=== PATIENT | female | born 1950 | race Caucasian/White ===

== ENCOUNTER 2025-02-04 11:10 | Outpatient (CLI) | payer MEDICARE, SELFPAY ==
[2025-02-04 11:37] LABS: Basophils Percent Auto 0.6 % (0.2-1.2); Eosinophils Absolute Auto 0.2 K/mm3 (0-0.3); Hematocrit 40.6 % (37.0-47.0); Hemoglobin 12.3 g/dL (12.0-15.0); Immature Granulocyte Absolute 0.03 K/mm3 (0.00-0.031); Immature Granulocyte Percent A 0.6 % (0-0.5); Lymphocytes Absolute Auto 1.82 K/mm3 (0.9-3.2); Lymphocytes Percent Auto 38.6 % (18.3-44.2); Mean Corpuscular HGB Conc 30.3 g/dl (32-36); Mean Corpuscular Hemoglobin 29.4 pg (26-34); Mean Corpuscular Volume 97.1 fl (80-100); Mean Platelet Volume 9.5 fl (7.4-10.4); Monocytes Absolute Auto 0.5 K/mm3 (0.1-0.6); Neutrophils Absolute Auto 2.2 K/mm3 (1.3-6.7); Neutrophils Percent Auto 46.2 % (45.5-73.1); Platelet Count Result 231 k/mm3 (150-375); Red Blood Count 4.18 M/mm3 (4.2-5.4); Red Cell Distribution Width 13.3 % (11.5-14.5); White Blood Count 4.7 K/mm3 (4.5-10.0)
--- OUTSIDE RECORDS SUMMARY | 2025-02-04 11:42 | XMS_ITS | Clinical Summary ---
Author Organization [facility] Address [address] [place] [phone] Phone Care Team Providers Care Sweeper Operator Highways Name Role Phone Unavailable Primary Care Provider [...] Additional history exists INFLUENZA VACCINE (#1) 2024 2, 08/05/2021, 06/29/2020, Additional history exists RSV VACCINE (60+ or ) (1 - 1-dose 75+ series) 2026 OSTEOPOROSIS SCREENING 05/08/2027 05/08/2022, 2017 PNEUMOCOCCAL VACCINE 50+ YEARS Completed 0 02/11/2019, 06/15/2017, 10/25/2016, Additional history exists Insurance [address] [place] [id number] [facility] Myze [facility]
--- OUTSIDE RECORDS SUMMARY | 2025-02-04 11:42 | XMS_ITS | Clinical Summary ---
Author Organization [facility] at the [facility] Office Center Address [address] [place] [address] Care Team Providers Care Power Saw Operator Name Role Phone Ava Galvan MD Unavailable [phone] Nuha Marquez MD Unavailable [phone] Renu Mosqueda MD Unavailable [phone] Ava Galvan MD Primary Care Provider [phone] Dimitri Messer MD Unavailable [phone] Toney Vergara MD Unavailable [phone] Allergies No known active allergies Medications [...] 1 TABLET EVERY NIGHT 90 tablet 3 09/24/2 024 Active carvediloL (COREG) 12.5 mg tablet TAKE 1 TABLET TWICE DAILY WITH MEALS 180 tablet 3 024 Active fenofibrate nanocrystallized (TRICOR) 145 mg [...] EVERY DAY 90 tablet 1 025 Active lisinopriL (PRINIVIL,ZESTRIL) 5 mg tabletIndications:Prima ry hypertension TAKE 1 TABLET EVERY DAY 90 tablet 3 025 Active amLODIPine (NORVASC) 10 mg tablet TAKE 1 TABLET EVERY DAY 90 tablet 1 024 2024 Discontinued lisinopriL (PRINIVIL,ZESTRIL) 5 mg tabletIndications:Prima ry hypertension TAKE 1 TABLET EVERY DAY 90 tablet 1 024 2024 Discontinued Active Problems Problem Noted Date Diagnosed Date Invasive lobular carcinoma of breast in female 0 01/30/2025 History of breast cancer 01/30/2025 Nephrolithiasis 10/22/2024 Calculus of gallbladder with acute cholecystitis without obstruction 10/22/2024 Assessment & Plan (11/02/2024 6:48 PM CHILLER TECHNICIAN): New Refer to general surgery Abdominal pain 10/10/2024 Acute cholecystitis 10/10/2024 Obstruction of right uretero pelvic junction (UPJ) due to stone 10/10/2024 Hydronephrosis of right kidney 10/10/2024 Post-menopausal 07/30/2024 Mixed hyperlipidemia 07/30/2024 Assessment & Plan (11/02/2024 6:49 PM CHILLER TECHNICIAN): Chronic Stable Cont lipitor, zetia, tricor Goal: TC<200, LDL<100, TG<150 Assessment & Plan (08/10/2024 9:18 PM CHILLER TECHNICIAN): Chronic Stable Cont lipitor, zetia, tricor Goal: TC<200, LDL<100, TG<150 Non-seasonal allergic rhinitis 11/05/2023 Assessment & Plan (11/05/2023 3:29 PM CHILLER TECHNICIAN): I am recommending allergy testing because of [...] Plan (12/29/2022 11:36 AM CDT): New Order zpack, medrol Order CT sinuses Refer to ENT Uncontrolled hypertension 10/19/2022 Assessment & Plan (10/27/2022 3:04 AM CHILLER TECHNICIAN): Uncontrolled Add toprol Cont amlodipine Goal: SBP<140, DBP<90 Hypercalcemia 10/19/2022 Assessment & Plan (10/27/2022 2:59 AM CHILLER TECHNICIAN): recheck Epigastric abdominal pain 10/19/2022 Assessment & Plan (10/27/2022 2:56 AM CHILLER TECHNICIAN): New Order prilosec Order gallbladder ultrasound and HIDA scan Refer to GI LUQ abdominal pain 10/19/2022 Assessment & Plan (10/27/2022 2:56 AM CHILLER TECHNICIAN): New Order prilosec Order gallbladder ultrasound and HIDA scan Refer to GI Primary insomnia 10/19/2022 Assessment & Plan (10/27/2022 3:00 AM CHILLER TECHNICIAN): New Start ambien Pure hypercholesterolemia 10/17/2021 Assessment & Plan (08/05/2023 9:33 AM CHILLER TECHNICIAN): Chronic Stable Cont lipitor, zetia, tricor, vascepa Goal: TC<200, LDL<100, TG<150 Assessment & Plan (04/27/2023 3:31 AM CDT): Chronic Stable Cont lipitor, tricor, zetia Goal: TC<200, LDL<100, TG<150 Assessment & Plan (12/29/2022 11:35 AM CDT): Chronic stable Cont lipitor, fenofibrate, vascepa Order zetia Goal: TC<200, LDL<100, TG<150 Assessment & Plan (10/27/2022 2:54 AM CHILLER TECHNICIAN): improved Cont lipitor, fenofibrate, vascepa Order zetia Goal: TC<200, LDL<100, TG<150 Assessment & Plan (10/17/2021 5:14 PM CHILLER TECHNICIAN): Uncontrolled Cont lipitor, fenofibrate, vascepa Order zetia Goal: TC<200, LDL<100, TG<150 Encounter for Medicare annual wellness exam 02/15 Assessment & Plan (08/10/2024 9:17 PM CHILLER TECHNICIAN): Patient here for annual Medicare wellness visit [...] visit. Assessment & Plan (08/05/2023 9:30 AM CHILLER TECHNICIAN): Patient here for annual Medicare wellness visit [...] 08/25/2020 Assessment & Plan (09/16/2020 5:20 PM CHILLER TECHNICIAN): New Refer to GI Breast pain, right 07/31/2020 Assessment & Plan (08/01/2020 5:04 AM CHILLER TECHNICIAN): Likely infection Order cefdinir SOB (shortness of breath) 08/19/2019 Assessment & Plan (03/07/2021 7:08 PM CDT): Negative cardiac workup. Assessment & Plan (09/06/2020 5:59 PM CHILLER TECHNICIAN): Unremarkable cardiac workup. Assessment & Plan (03/09/2020 10:22 AM CDT): The CBC, T4 TSH electrolytes were okay. The CT angio of the lungs was negative for pulmonary embolism. Echo showed small pericardial effusion unchanged since 2017. BNP level was ordered but not drawn. Assessment & Plan (09/30/2019 9:30 AM CHILLER TECHNICIAN): Dyspnea for 2 months which has already improved. The recent CBC, T4 TSH, electrolytes, chemistries are okay. CT angio of the lungs is negative for pulmonary embolism. Small pericardial effusion which is unchanged since 2017. EKG today shows normal sinus rhythm, normal QRS morphology. Will get a BNP level today. Consider echo Doppler if necessary. Assessment & Plan (08/27/2019 4:27 PM CHILLER TECHNICIAN): Order CTA chest r/o PE vs infectious or inflammatory process Changes in skin texture 08/19/2019 Assessment & Plan (05/25/2023 5:49 AM CDT): New Refer to derm Assessment & Plan (08/27/2019 4:27 PM CHILLER TECHNICIAN): Refer to derm Acute non-recurrent maxillary sinusitis 08/19/20 19 Assessment & Plan (08/27/2019 4:27 PM CHILLER TECHNICIAN): Order esther zhang Precordial chest pain 03/03/2019 Assessment & Plan (03/07/2021 7:08 PM CDT): Negative stress echo 03/13/2017. Assessment & Plan (09/06/2020 5:59 PM CHILLER TECHNICIAN): Negative stress echo 03/13/2017. Assessment & Plan (03/05/2020 5:04 PM CDT): Negative stress echo 03/13/2017. Functional class 1. Assessment & Plan (09/29/2019 7:38 PM CHILLER TECHNICIAN): Negative stress echo 03/13/2017. Functional class 1. [...] pericarditis. A chronic finding without any significant oil changer the years. The PPD skin test done by the primary care physician was negative. There is history of BCG vaccination in the remote past. CTA of the chest 09/01/2019 showed no pulmonary embolism. A small pericardial effusion was unchanged from before. 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 This is a chronic finding without any significant oil changer the years. The PPD skin test done [...] is a chronic finding without any significant oil changer the years. The PPD skin test done at primary care physician was negative. There is history of receiving BCG vaccination in the remote past. CTA of the chest 09/01/2019 showed no pulmonary embolism. A small pericardial effusion is unchanged from before. Assessment & Plan (09/30/2019 9:29 AM CHILLER TECHNICIAN): Chronic loculated pericardial effusion with localized area of pericardial thickening. The picture is not consistent with constrictive pericarditis. This is a chronic finding without any significant oil changer the years. The PPD skin test done [...] is a chronic finding without any significant oil changer the years. The PPD skin test suggested [...] control. Assessment & Plan (09/06/2020 5:55 PM CHILLER TECHNICIAN): Related to hypertensive heart disease. Aggressive blood pressure control. Assessment & Plan (03/05/2020 5:01 PM CDT): Related to the hypertensive heart disease. Aggressive blood pressure control. Assessment & Plan (09/29/2019 7:39 PM CHILLER TECHNICIAN): Related to the hypertensive heart disease. Aggressive blood pressure control. Assessment & Plan (03/04/2019 9:24 AM CDT): Related to the hypertensive heart disease. EKG today shows a normal sinus rhythm, normal QRS morphology. No left ventricular hypertrophy appreciated on this EKG. Non-rheumatic tricuspid valve insufficiency 04/2017 Hypertension 01/30/2017 Assessment & Plan (11/02/2024 6:49 PM CHILLER TECHNICIAN): Chronic Stable Cont norvasc, coreg, lisinopril Goal: SBP<140, DBP<90 Assessment & Plan (08/10/2024 9:18 PM CHILLER TECHNICIAN): Chronic Stable Cont norvasc, coreg, lisinopril Goal: SBP<140, DBP<90 Assessment & Plan (08/05/2023 9:32 AM CHILLER TECHNICIAN): Chronic Stable Cont coreg, lisinopril Goal: SBP<140, DBP<90 Assessment & Plan (05/25/2023 5:49 AM CDT): Chronic Uncontrolled Add lisinopril Cont norvasc Goal: SBP<140, DBP<90 Assessment & Plan (04/27/2023 3:31 AM CDT): Chronic Stable Cont norvasc Goal: SBP<140, DBP<90 Assessment & Plan (12/29/2022 11:35 AM CDT): Chronic Stable Cont coreg Cont amlodipine Goal: SBP<140, DBP<90 Assessment & Plan (11/24/2022 5:17 AM CHILLER TECHNICIAN): Uncontrolled Change toprol to coreg Cont amlodipine Goal: SBP<140, DBP<90 Assessment & Plan (10/17/2021 5:13 PM CHILLER TECHNICIAN): Stable Cont amlodipine, atenolol, hctz, Goal: SBP<140, DBP<90 Assessment & Plan (03/08/2021 10:19 AM CDT): Salt restriction. Amlodipine. Atenolol. Hydrochlorothiazide. Potassium chloride. Blood pressure 138/78. Assessment & Plan (03/02/2021 4:56 AM CDT): Stable Cont atenolol, norvasc, hctz Assessment & Plan (09/16/2020 5:20 PM CHILLER TECHNICIAN): Stable Cont atenolol, norvasc, hctz Assessment & Plan (09/07/2020 10:31 AM CHILLER TECHNICIAN): Blood pressure 132/84. Salt restriction. Continue the current regimen. Assessment & Plan (08/01/2020 5:04 AM CHILLER TECHNICIAN): Stable Cont atenolol, norvasc Assessment & Plan (03/29/2020 11:04 AM CDT): Stable Cont atenolol, norvasc Assessment & Plan (03/09/2020 10:21 AM CDT): Blood pressure 110/70. Salt restriction. Continue the current regimen. Assessment & Plan (09/30/2019 9:28 AM CHILLER TECHNICIAN): Blood pressure 120/78. Salt restriction. Continue the current regimen. Assessment & Plan (08/27/2019 4:26 PM CHILLER TECHNICIAN): Stable Cont atenolol, norvasc Assessment & Plan [...] 01/28/2024 Assessment & Plan (11/05/2023 3:33 PM CHILLER TECHNICIAN): She has a good nasal airway. She [...] 01/28/2024 Assessment & Plan (10/17/2021 5:15 PM CHILLER TECHNICIAN): Stable Cont KCL Assessment & Plan (03/08/2021 10:20 AM CDT): Supplemental potassium. Potassium was 3.9 in January 2021. Assessment & Plan (03/02/2021 4:57 AM CDT): Stable Cont klorcon Assessment & Plan (08/01/2020 5:05 AM CHILLER TECHNICIAN): Stable Cont klorcon Encounter for screening mamm [...] <150 Assessment & Plan (09/16/2020 5:19 PM CHILLER TECHNICIAN): TG still elevated Increase vascepa to 2 caps BID Cont lipitor, tricor Assessment & Plan (09/07/2020 10:31 AM CHILLER TECHNICIAN): Low-fat low-cholesterol diet. Atorvastatin. Fenofibrate. Vascepa. On 08/04/2020 triglycerides 196, LDL 49, total cholesterol 121, HDL 45. Assessment & Plan (08/01/2020 5:05 AM CHILLER TECHNICIAN): Uncontrolled Cont lipitor, tricor Assessment & Plan (03/29/2020 11:04 AM CDT): Uncontrolled Add vascepa Cont lipitor, tricor Assessment & Plan (03/09/2020 10:20 AM CDT): Low-fat low-cholesterol diet. Atorvastatin 20 mg bedtime daily. On 01/09/2020 cholesterol 147, triglyceride 270, HDL 53, LDL 62. Vascepa. Assessment & Plan (09/29/2019 7:38 PM CHILLER TECHNICIAN): Low-fat low-cholesterol diet. Atorvastatin 20 mg bedtime daily. On 12/29/2018 the LDL was 46. Assessment & Plan (08/27/2019 4:26 PM CHILLER TECHNICIAN): Stable Cont lipitor, tricor Assessment & Plan [...] Encounters Date Type Department Care Team Description 01/30/2025 9:30 AM CDT Office Visit [facility] Surgery [facility] [place] [address] [place] [address] Jaz Ramos NP Invasive lobular carcinoma of breast in female (HCC) (Primary Dx); History of breast cancer; History of mastectomy, bilateral 01/30/2025 [facility] ED Outreach [facility] Care Organization [address] [place] [id number] Janel Luna MA 01/29/2025 12:35 AM CDT - 01/29/2025 2:48 AM CDT Emergency [address] [address] Brad Morgan, Abdominal pain (Primary Dx); Biliary colic Discharge Disposition: Discharge to home or self care 01/12/2025 Results Follow-Up [facility] Medicine [address] [place] [address] [address] [place] [address] Anastasia Silva Thyroid Function [place], Comprehensive metabolic panel, Lipid panel, CBC with auto differential 12/02/2024 Telephone [facility] Cardiology [address] [place] [address] [phone] Sultan Alysia Hanson MD 11/26/2024 Telephone [facility] Medicine [address] [place] [address] [place] [phone] Ava Galvan MD Medical Question/Miscellaneou s 11/12/[address] [place] [phone] Ava Galvan MD Medical Question/Miscellaneou s 11/11/2024 Telephone [facility] Medicine [address] [place] [address] [place] [phone] Ava Galvan MD Medical Question/Miscellaneou s from Last 3 Months Immunizations Immunization Administration [...] = 0.6 oz pur e alcohol) occas [facility] Utilities Answer Date Recorded In the past 12 months has th e electric, gas, oil, or water company [...] often do you attend chur ch or adventist services? More than 4 times per year 10/10/2024 Do you belong to any clubs o r organizations such as sabianist groups, unions, fraternal or athletic groups, or [...] medical appointments or from getting medications? No 01/2 12/2024 In the past 12 months, has l [...] any time in the past 12 m [facility], were you homeless or living in a halfway (including now)? No 10/10/2024 Personal Safety Answer Date Recorded Have you ever been in or are you currently in a harmful physical or emotional relationship or is someone making you feel afraid or unsafe? Denies 01/28/2025 Comments No Sex and Gender Information Value [...] Sign Reading Time Taken Comments Blood Pressure 135/63 01/29/2025 2:30 AM CDT Pulse 54 01/29/2025 2:45 AM CDT Temperature 36.8 C (98.3 F) 01/28/2025 2:39 PM CDT Respiratory Rate 16 01/29/2025 1:00 AM CDT Oxygen Saturation 96% 01/29/2025 2:45 AM CDT Inhaled Oxygen Concentration - - Weight 78.9 kg (174 lb) 01/30/2025 8:57 AM CDT Height 162 cm (5' 3.78 ) 01/30/2025 8:57 AM CDT Body Mass Index 30.07 01/30/2025 8:57 AM CDT Plan of Treatment Health Maintenance Due Date [...] Procedure Name Priority Date/Time Associated Diagnosis Comments US GALLBLADDER ED 01/28/2025 10:45 PM CDT TROPONIN T HIGH-SENSITIVITY 6-HOUR Timed 01/28/2025 9:[address] ABDOMEN PELVIS W CONTRAST ED 01/28/2025 8:47 PM CDT URINALYSIS, MICROSCOPIC ONLY STAT 01/28/2025 8:33 PM CDT URINALYSIS AND REFLEX TO MICROSCOPIC AND CULTURE STAT 01/28/2025 8:33 PM CDT TROPONIN T HIGH-SENSITIVITY 4-HR Timed 01/28/2025 7:21 PM CDT TROPONIN T HIGH-SENSITIVITY 2-HOUR Timed 01/28/2025 7:21 PM CDT EGFR STAT 01/28/2025 3:31 PM CDT DIFFERENTIAL AUTO STAT 01/28/2025 3:3 1 PM CDT TROPONIN T HIGH-SENSITIVITY SERIES (BASELINE, 2HR, 4HR, 6HR) STAT 01/28/2025 3:31 PM CDT LIPASE STAT 01/28/2025 3:31 PM CDT COMPREHENSIVE METABOLIC PANEL STAT 01/28/2025 3:31 PM CDT CBC WITH AUTO DIFFERENTIAL STAT 01/28/2025 3:31 PM CDT ECG 12-LEAD STAT 01/28/2025 3:21 PM CDT CBC WITH AUTO DIFFERENTIAL Routine 01/05/2025 6:10 [...] Read Routine (OP Routine) 08/21/2024 9:23 AM CHILLER TECHNICIAN Post-menopausal SCREENING MAMMOGRAM BILATERAL W TIM Schedule Routine, Read Routine (OP Routine) 12/30/2021 11:44 AM CDT Encounter for screening mammogram for malignant neoplasm of breast STOOL DNA COLOGUARD Routine 10/26/2021 10:20 AM CHILLER TECHNICIAN Screening for colon cancer COLONOSCOPY Routine 08/09/2016 from Last 3 Months or Most Recently Relevant to Health Maintenance Results * US Gallbladder (01/28/2025 10:45 PM CDT) Anatomical Region Laterality Modality Abdomen N/A Ultrasound 01/28/2025 11:3 3 PM CDT Narrative 01/28/2025 11:36 PM CDT EXAM DESCRIPTION: US GALLBLADDER REASON FOR STUDY: Abdomen pain and nausea for 8 hours today. Cholelithiasis. Diffuse thickening of the gallbladder wall on preceding CT scan 01/28/2025. Gallbladder ultrasound was recommended. TECHNIQUE: Ultrasound of the gallbladder was performed with grayscale imaging. COMPARISON: 01/28/2025 and 10/09/2024 FINDINGS: GALLBLADDER: The gallbladder contains multiple large shadowing gallstones. The gallbladder wall is top-normal in thickness measuring 3 mm. No evidence of pericholecystic fluid. BILIARY SYSTEM: There is no evidence of intrahepatic or extrahepatic biliary ductal dilatation. The common bile duct measures 6 mm in diameter. LIVER: The liver demonstrates an increase in echotexture with attenuation of the ultrasound beam characteristic of fatty infiltration. No cystic or solid mass lesions identified within the liver. OTHER: No other significant findings. IMPRESSION: Cholelithiasis. The gallbladder wall is top-normal in thickness measuring 3 mm. No evidence of pericholecystic fluid. Fatty infiltration of the liver. THIS IS AN ELECTRONICALLY VERIFIED FINAL REPORT 01/28/2025 11:36 PM - Electronically signed by Gallo Ziegler M.D. KT T: Report ID: [id number] Reading Location: [id number] Procedure Note Gallo Ziegler MD - 01/28/2025 EXAM DESCRIPTION: US GALLBLADDER REASON FOR STUDY: Abdomen pain and nausea for 8 hours today. Cholelithiasis. Diffuse thickening of the gallbladder wall on precedingCT scan 01/28/2025. Gallbladder ultrasound was recommended. TECHNIQUE: Ultrasound of the gallbladder was performed with grayscaleimaging. COMPARISON: 01/28/2025 and 10/09/2024 FINDINGS: GALLBLADDER: The gallbladder contains multiple large shadowing gallstones. The gallbladder wall is top-normal in thickness measuring 3mm. No evidence of pericholecystic fluid. BILIARY SYSTEM: There is no evidence of intrahepatic or extrahepaticbiliary ductal dilatation. The common bile duct measures 6 mm in diameter. LIVER: The liver demonstrates an increase in echotexture with attenuationof the ultrasound beam characteristic of fatty infiltration. No cystic orsolid mass lesions identified within the liver. OTHER: No other significant findings. IMPRESSION: Cholelithiasis. The gallbladder wall is top-normal in thickness measuring3 mm. No evidence of pericholecystic fluid. Fatty infiltration of the liver. THIS IS AN ELECTRONICALLY VERIFIED FINAL REPORT 01/28/2025 11:36 PM - Electronically signed by Gallo Ziegler M.D. KT T: Report ID: [id number] Reading Location: [place] [address] us Philippe QUACH IMG US PROCEDURES Final Resu lt * Troponin T high-sensitivity 6-hour (01/28/2025 9:25 PM CDT) Trop T hs 7 <=14 ng/L Comment: Interpretive Data For further hscTnT resources including the diagnostic algorithm and an aid in interpretation, copy and paste this link: https://nrl.testcatalog.org/show/hsTrop Current Interpretive Data last revised 2020. Trop T hs delta 0 ng/L [facility] Trop T hs interp Insignificant [facility] Blood 01/28/2025 9:25 PM CDT 01/28/2025 9:33 PM CDT us Domenic Gray MD LAB BLOOD ORDERABLES Final Result [facility] [address] [facility] Department [place] [address] * CT Abdomen Pelvis W Contrast (01/28/2025 8:47 PM CDT) Anatomical Region Laterality Modality Body N/A Computed Tomogra phy 01/28/2025 9:24 PM CDT Narrative 01/28/2025 9:35 PM CDT EXAM DESCRIPTION: CT ABDOMEN PELVIS W CONTRAST REASON FOR STUDY: RUQ pain, nausea Pt with hx cholecystitis had flareup of RUQ pain, nausea @ 1430 today,. Nausea. Denies vomiting. Scheduled for surgery 02/11. Had lithotripsy yesterday for R kidney stone. TECHNIQUE: CT scan of the abdomen and pelvis performed with intravenous and without oral contrast using helical scanning technique with dynamic intravenous contrast injection. Reconstructed coronal and sagittal MPR images reviewed. All images stored on PACS. Automated exposure control was used as a dose optimization technique for this examination. CONTRAST TYPE/DOSE: 100mL of IOVERSOL 350 MG IODINE/ML INTRAVENOUS SYRINGE injected via intravenous COMPARISON: 10/09/2024 FINDINGS: LOWER CHEST: Cardiomegaly with small pericardial effusion, unchanged. Coronary artery calcification. Small hiatal hernia. LIVER: Decreased attenuation as seen with fibrofatty changes. Stable 1 cm low-density lesion within the right hepatic lobe, likely representing a cyst or hemangioma. GALLBLADDER: The gallbladder contains multiple large partially calcified gallstones and there is diffuse thickening of the gallbladder wall which is unchanged compared with 10/09/2024. If there is clinical concern for cholecystitis, consider correlation with gallbladder ultrasound. BILE DUCTS: No intrahepatic or extrahepatic ductal dilatation. SPLEEN: Normal size. No focal lesions. PANCREAS: No identified cystic or solid masses. No significant calcifications. No adjacent inflammation or peripancreatic fluid collections. Pancreatic duct not dilated. ADRENALS: Normal. KIDNEYS/URINARY TRACT: Bilateral renal cysts. There is a 6 mm nonobstructing stone in the proximal right ureter. This is located just distal to the right ureteropelvic junction. There are nonobstructing stones in the lower pole of the right kidney. No hydronephrosis or hydroureter. Symmetric enhancement. Urinary bladder is unremarkable. GI: No dilated bowel loops. No obvious wall thickening. Normal appendix. Scattered diverticular disease without diverticulitis. PERITONEUM: No ascites or free air. RETROPERITONEUM: No mass or adenopathy. REPRODUCTIVE: No significant abnormality. VASCULATURE: Atherosclerotic disease in the aorta and iliacs MUSCULOSKELETAL: No significant abnormality. OTHER: No other abnormality. IMPRESSION: 6 mm nonobstructing stone in the proximal right ureter. This is located just distal to the right ureteropelvic junction. Nonobstructing stones lower pole right kidney. Bilateral renal cysts. Cholelithiasis with diffuse thickening of the gallbladder wall which is unchanged compared with 10/09/2024. If there is clinical concern for cholecystitis, consider correlation with gallbladder ultrasound. Fatty infiltration of the liver. Stable 1 cm low-density lesion right hepatic lobe, likely representing a cyst or hemangioma. Diverticulosis. No evidence of diverticulitis. Cardiomegaly with small pericardial effusion, unchanged. Coronary artery calcification. Small hiatal hernia. THIS IS AN ELECTRONICALLY VERIFIED FINAL REPORT 01/28/2025 9:35 PM - Electronically signed by Gallo Ziegler M.D. KT T: Report ID: [id number] Reading Location: [id number] Procedure Note Gallo Ziegler MD - 01/28/2025 EXAM DESCRIPTION: CT ABDOMEN PELVIS W CONTRAST REASON FOR STUDY: RUQ pain, nausea Pt with hx cholecystitis had flareup of RUQ pain, nausea @ 1430 today,. Nausea. Denies vomiting. Scheduled for surgery 02/11. Had lithotripsyyesterday for R kidney stone. TECHNIQUE: CT scan of the abdomen and pelvis performed with intravenousand without oral contrast using helical scanning technique with dynamic intravenous contrast injection. Reconstructed coronal and sagittal MPRimages reviewed. All images stored on PACS. Automated exposure control was usedas a dose optimization technique for this examination. CONTRAST TYPE/DOSE: 100mL of IOVERSOL 350 MG IODINE/ML INTRAVENOUSSYRINGE injected via intravenous COMPARISON: 10/09/2024 FINDINGS: LOWER CHEST: Cardiomegaly with small pericardial effusion, unchanged. Coronary artery calcification. Small hiatal hernia. LIVER: Decreased attenuation as seen with fibrofatty changes. Stable 1cm low-density lesion within the right hepatic lobe, likely representing acyst or hemangioma. GALLBLADDER: The gallbladder contains multiple large partially calcified gallstones and there is diffuse thickening of the gallbladder wall whichis unchanged compared with 10/09/2024. If there is clinical concern for cholecystitis, consider correlation with gallbladder ultrasound. BILE DUCTS: No intrahepatic or extrahepatic ductal dilatation. SPLEEN: Normal size. No focal lesions. PANCREAS: No identified cystic or solid masses. No significant calcifications. No adjacent inflammation or peripancreatic fluidcollections. Pancreatic duct not dilated. ADRENALS: Normal. KIDNEYS/URINARY TRACT: Bilateral renal cysts. There is a 6 mm nonobstructing stone in the proximal right ureter. This is located just distal to the right ureteropelvic junction. There are nonobstructingstones in the lower pole of the right kidney. No hydronephrosis or hydroureter. Symmetric enhancement. Urinary bladder is unremarkable. GI: No dilated bowel loops. No obvious wall thickening. Normal appendix. Scattered diverticular disease without diverticulitis. PERITONEUM: No ascites or free air. RETROPERITONEUM: No mass or adenopathy. REPRODUCTIVE: No significant abnormality. VASCULATURE: Atherosclerotic disease in the aorta and iliacs MUSCULOSKELETAL: No significant abnormality. OTHER: No other abnormality. IMPRESSION: 6 mm nonobstructing stone in the proximal right ureter. This is locatedjust distal to the right ureteropelvic junction. Nonobstructing stones lowerpole right kidney. Bilateral renal cysts. Cholelithiasis with diffuse thickening of the gallbladder wall which is unchanged compared with 10/09/2024. If there is clinical concern for cholecystitis, consider correlation with gallbladder ultrasound. Fatty infiltration of the liver. Stable 1 cm low-density lesion righthepatic lobe, likely representing a cyst or hemangioma. Diverticulosis. No evidence of diverticulitis. Cardiomegaly with small pericardial effusion, unchanged. Coronary artery calcification. Small hiatal hernia. THIS IS AN ELECTRONICALLY VERIFIED FINAL REPORT 01/28/2025 9:35 PM - Electronically signed by Gallo Ziegler M.D. KT T: Report ID: [id number] Reading Location: [place] [address] PROCEDURES Final Resu lt * (ABNORMAL) Urinalysis reflex to microscopic and culture Urine (01/28/2025 8:33 PM CDT) Color, ur Yellow Yellow Clarity, ur Clear Clear GUILLERMINA Specific gravity, ur 1.012 1.003 - 1.030 GUILLERMINA pH, urine 6.5 GUILLERMINA Comment: Interpretive Data U rine pH is affected by diet, medications, systemic acid-base disturbances, and renal tubular function. pH may affect urinary stone formation. For example, urine pH below 6.0 may help reduce the tendency for calcium phosphate stones and pH greater than 6.0 may reduce the tendency for uric acid stone formation. Source: [facility] Current Interpretive Data was last revised on 2017 Protein, ur ql Negative Negative [facility] Glucose, ur ql Negative Negative [facility] Ketones, ur Negative Negative [facility] Bilirubin, ur Negative Negative [facility] Blood, ur 2+(A) Negative [facility] Urobilinogen, ur <2.0 <2.0 mg/dL [facility] Nitrite, ur Negative Negative [facility] Leukocyte esterase, ur Negative Negative [facility] UA reflex comment Reflex to microscopic UA will be performed. [facility] Urine 01/28/2025 8:33 PM CDT 01/28/2025 8:36 PM CDT [facility] MICROBIOLOGY - GEN ERAL ORDERABLES Final Result Performing Organization Address [facility] Co de Phone Number [address] [place] [address] * (ABNORMAL) Urinalysis, microscopic only (01/28/2025 8:33 PM CDT) WBC, ur 0-5 0 - 5 /HPF RBC, ur >50(A) 0 - 2 /HPF [facility] Mucous, ur Present(A) [facility] Culture Reflex Comment Reflex conditions for urine culture (WBC >10) not met. [facility] Urine 01/28/2025 8:33 PM CDT 01/28/2025 8:36 PM CDT [employer] [facility] URINE ORDERABLES F inal Result Performing Organization Address City/[facility] Co de Phone Number [address] [place] [address] * Troponin T high-sensitivity 4-hour (01/28/2025 7:21 PM CDT) Trop T hs 8 <=14 ng/L Comment: Interpretive Data For further hscTnT resources including the diagnostic algorithm and an aid in interpretation, copy and paste this link: https://nrl.testcatalog.org/show/hsTrop Current Interpretive Data last revised 2020. Trop T hs delta 1 ng/L GUILLERMINA SIN Trop T hs interp Insignificant GUILLERMINA SIN Blood 01/28/2025 7:21 PM CDT 01/28/2025 7:42 PM CDT Domenic Gray MD LAB BLOOD ORDERABLES Final Result Performing Organization Address [facility] Co de Phone Number GUILLERMINA [address] [place] [address] * Troponin T high-sensitivity 2-hour (01/28/2025 7:21 PM CDT) Trop T hs See Comment <=14 Comment: Specimen canceled due to missed collection as per [id number] on 01/28/2025 19:38:45 CDT. Interpretive Data For further hscTnT resources including the diagnostic algorithm and an aid in interpretation, copy and paste this link: https://nrl.testcatalog.org/show/hsTrop Current Interpretive Data last revised 2020. Trop T hs delta See Comment ng/L GUILLERMINA SIN Comment:Inappropriate collec tion time to report a delta. Trop T hs pct delta See Comment % GUILLERMINA Comment:Inappropriate collec tion time to report a delta. Trop T hs interp See Comment GUILLERMINA Comment:Inappropriate collec tion time to report a delta. Blood 01/28/2025 7:21 PM CDT 01/28/2025 7:23 PM CDT Domenic Gray MD LAB BLOOD ORDERABLES Final Result Performing Organization Address City/[facility] Co de Phone Number GUILLERMINA [address] [place] [address] * Troponin T high-sensitivity series (baseline, 2hr, 4hr, 6hr) (01/28/2025 3:31 PM CDT) Trop T hs 7 <=14 ng/L Comment: Interpretive Data For further hscTnT resources including the diagnostic algorithm and an aid in interpretation, copy and paste this link: https://nrl.testcatalog.org/show/hsTrop Current Interpretive Data last revised 2020. Blood 01/28/2025 3:31 PM CDT 01/28/2025 3:31 PM CDT Brad Ernst Morgan LAB BLOOD ORDERABLES F inal Result Performing Organization Address [facility] Co de Phone Number GUILLERMINA [address] [place] [address] * eGFR (01/28/2025 3:31 PM CDT) eGFR 79 >=60 mL/min/1. 73 m2 Comment: Interpretive Data Reference Interval Normal >/= 90 mL/min/1.73m2 Mildly decreased* 60 - 89 mL/min/1.73m2 Mildly to moderately decreased 45 - 59 mL/min/1.73m2 Moderately to severely decreased 30 - 44 mL/min/1.73m2 Severely decreased 15 - 29 mL/min/1.73m2 Kidney Failure < 15 mL/min/1.73m2 *Relative to young adult level Estimated glomerular filtration rate is determined by the 2020 CKD-EPI equation recommended by the National Kidney Foundation (A Unifying Approach to GFR Estimation: Recommendations of the NKF-ASK Task Force on Reassessing the Inclusion of Race in Diagnosing Kidney Disease, JASN 2020). The CKD-EPI equation should not be used for patients with unstable renal function and has not been validated in children and those over 70. Current interpretive data was last reviewed 2021. Blood 01/28/2025 3:31 PM CDT 01/28/2025 3:31 PM CDT Brad Hinese LAB BLOOD ORDERABLES F inal Result Performing Organization Address City/[facility]/ZIP Co de Phone Number GUILLERMINA [facility] Department [place] [address] * (ABNORMAL) Differential, auto (01/28/2025 3:31 PM CDT) Neutrophil abs 7.00(H) 1.50 - 6.50 K/cumm Imm gran abs 0.05 0.00 - 0.10 K/cumm [facility] Lymphocyte abs 2.04 0.80 - 3.30 K/cumm [facility] Monocyte abs 0.36 0.20 - 0.80 K/cumm [facility] Eosinophil abs 0.02 0.00 - 0.50 K/cumm [facility] Basophil abs 0.03 0.00 - 0.10 K/cumm [facility] Neutrophil pct 73.7 % [facility] Comment: Interpretive Data Percent cell count reference ranges are not reported, since discordance with absolute values may lead to misinterpretation of CBC data. Current Interpretive Data was last revised on 2017. Imm gran pct 0.5 % [facility] Comment: Interpretive Data Percent cell count reference ranges are not reported, since discordance with absolute values may lead to misinterpretation of CBC data. Current Interpretive Data was last revised on 2017. Lymphocyte pct 21.5 % [facility] Comment: Interpretive Data Percent cell count reference ranges are not reported, since discordance with absolute values may lead to misinterpretation of CBC data. Current Interpretive Data was last revised on 2017. Monocyte pct 3.8 % [facility] Comment: Interpretive Data Percent cell count reference ranges are not reported, since discordance with absolute values may lead to misinterpretation of CBC data. Current Interpretive Data was last revised on 2017. Eosinophil pct 0.2 % [facility] Comment: Interpretive Data Percent cell count reference ranges are not reported, since discordance with absolute values may lead to misinterpretation of CBC data. Current Interpretive Data was last revised on 2017. Basophil pct 0.3 % [facility] Comment: Interpretive Data Percent cell count reference ranges are not reported, since discordance with absolute values may lead to misinterpretation of CBC data. Current Interpretive Data was last revised on 2017. Blood 01/28/2025 3:31 PM CDT 01/28/2025 3:31 PM CDT Brad Ernst [facility] BLOOD ORDERABLES F inal Result Performing Organization Address [facility] Co de Phone Number GUILLERMINA [address] [place] [address] * (ABNORMAL) CBC with auto differential (01/28/2025 3:31 PM CDT) [facility] WBC 9.50 3.80 - 9.90 K/cumm Hgb 11.9 11.9 - 15.5 g/dL [facility] Hct 37.9 35.6 - 45.5 % [facility] Plt 252 150 - 400 K/cumm [facility] MPV 9.4 9.1 - 12.3 fL [facility] RBC 4.03 3.90 - 5.20 M/cumm [facility] MCV 94.0 81.3 - 96.4 fL [facility] MCH 29.5 27.1 - 33.3 pg [facility] MCHC 31.4(L) 32.3 - 35.7 g/dL [facility] RDW CV 13.2 11.1 - 14.9 % [facility] RDW SD 45.1 35.7 - 48.1 fL [facility] NRBC abs 0.00 0.00 - 0.01 K/cumm [facility] Blood Venous blood specimen / Unknown 01/28/2025 3:31 PM CDT 01/28/2025 3:31 PM CDT Brad Ernst [facility] BLOOD ORDERABLES F inal Result Performing Organization Address City/[facility]/ZIP Co de Phone Number GUILLERMINA [address] [place] [address] * Lipase (01/28/2025 3:31 PM CDT) [facility] Lipase 41 10 - 99 Units/L Blood Venous blood specimen / Unknown 01/28/2025 3:31 PM CDT 01/28/2025 3:31 PM CDT Brad Wilcoxiel Morgan LAB BLOOD ORDERABLES F inal Result GUILLERMINA [address] [facility] Department [place] [address] * (ABNORMAL) Comprehensive metabolic panel (01/28/2025 3:31 PM CDT) Sodium 140 135 - 145 mmol/L Potassium, pl 4.5 3.3 - 4.9 mmol/L [facility] Chloride 104 97 - 110 mmol/L [facility] CO2 25 22 - 32 mmol/L [facility] Anion gap 11 2 - 15 mmol/L [facility] BUN 19 6 - 25 mg/dL [facility] Creatinine 0.79 0.60 - 1.10 mg/dL [facility] Glucose 209(H) 70 - 199 mg/dL [facility] Comment: Interpretive Data Fasting glucose >/= 126 mg/dl is diagnostic for diabetes. Fasting is defined as no caloric intake for at least 8 hours. Fasting glucose between 100 mg/dl to 125 mg/dl is diagnostic of prediabetes. In a patient with classic symptoms of hyperglycemia or hyperglycemic crisis, a random glucose >/= 200 mg/dl is diagnostic for diabetes. In the absence of unequivocal hyperglycemia, results should be confirmed by repeat testing. The classification and Diagnosis of Diabetes Diabetes Care 2021; 46: S19-S40. Current interpretive data was last revised 2022. Calcium 10.3 8.5 - 10.3 mg/dL [facility] Bilirubin, total 0.3 0.1 - 1.2 mg/dL [facility] Protein, pl 7.4 6.5 - 8.5 g/dL [facility] Albumin 4.4 3.5 - 5.0 g/dL [facility] Alk phos 59 40 - 130 Units/L [facility] ALT 24 7 - 45 Units/L [facility] AST 26 10 - 45 Units/L [facility] Blood 01/28/2025 3:31 PM CDT 01/28/2025 3:31 PM CDT Brad Ernst Morgan DO LAB BLOOD ORDERABLES F inal Result Performing Organization Address [facility]/ZIP Co de Phone Number GUILLERMINA [address] [facility] Department [place] [address] * ECG 12 lead (01/28/2025 3:21 PM CDT) Ventricular Rate EKG/Min 55 BPM [facility] Atrial Rate 55 BPM [facility] NV-Interval (MSEC) 144 ms [facility] QRS-Interval (MSEC) 90 ms [facility] QT-Interval (MSEC) 486 ms [facility] QTc 464 ms [facility] P [place] 62 degrees [facility] R [place] 12 degrees [facility] T [place] 28 degrees [facility] Diagnosis Sinus bradycardia Minimal voltage criteria for LVH, may be normal variant When compared with ECG of 09-OCT-2024 20:30, The rate is slower. Confirmed by SULTAN HANSON M.D. ([id number]) on 01/28/2025 10:30:25 PM [facility] 01/28/2025 3:21 PM CDT 01/28/2025 10:30 PM CDT us Brad Morgan DO ECG ORDERABLES Final Result Performing Organization Address [facility] de Phone Number [facility] * Thyroid Function Cutler (01/05/2025 6:10 AM CDT) Pathologist [facility] TSH 4.20 0.40 - 4.50 mIU/L [facility] Blood 01/05/2025 6:10 AM CDT 01/05/2025 6:11 AM CDT Narrative [facility] - 01/06/2025 2:22 AM CDT FASTING:YES FASTING: YES us Ava Galvan MD LAB BLOOD ORDERABLES Natasah l Result Performing Organization Address [facility] Co de Phone Number [facility] [address] [place] [address] * (ABNORMAL) CBC with auto differential (01/05/2025 6:10 AM CDT) [facility] WBC 5.4 3.8 - 10.8 Thousand/u L [...] ORDERABLES Natasha l Result Performing Organization Address [facility]/ZIP Co de Phone Number MIKE [facility] [address] [place] [address] * Lipid panel (01/05/2025 6:10 AM CDT) Cholesterol 117 <200 mg/dL [facility] [...] factors. LDL-C is now calculated using the Vick calculation, which is a validated novel method providing better accuracy than the Friedewald equation in the estimation of LDL-C. Jesse SS et al. HIEU. 2013;310(19): 6645-0831 (http://education.Meilimei/faq/TBG044) Chol/HDL ratio 2.2 <5.0 (calc) [facility] [...] Ava Galvan MD LAB BLOOD ORDERABLES Natasha crowley Result Performing Organization Address [facility] Co de Phone Number MIKE [employer] [address] [place] [address] * (ABNORMAL) Comprehensive metabolic panel (01/05/2025 6:10 [...] BLOOD ORDERABLES Natasha l Result [facility] [address] [place] [address] * Dexa Axial Skeleton Bone Density 1 or 2 Site (08/21/2024 9:23 AM CHILLER TECHNICIAN) Anatomical Region Laterality Modality Body N/A Mammography 08/21/2024 9:28 AM CHILLER TECHNICIAN Narrative 08/21/2024 9:30 AM CHILLER TECHNICIAN EXAM DESCRIPTION: DEXA AXIAL SKELETON BONE DENSITY 1 OR MORE SITES REASON FOR STUDY: 74 year old postmenopausal white female with given history of: osteoporosis screen Data Systems Analyst/Model: Degreed A (S/N [id number]) CLINICAL INFORMATION: Current height: 63.5 inches Maximum [...] Drew Jenkins M.D. RB: KRISSY Report ID: [id number] Reading Location: [place] [address] Procedure Note Drew Jenkins MD - 08/21/2024 EXAM DESCRIPTION: DEXA AXIAL SKELETON BONE DENSITY 1 OR MORE SITES REASON FOR STUDY: 74 year old postmenopausal white female with given history of: osteoporosis screen Data Systems Analyst/Model: Degreed A (S/N [id number]) CLINICAL INFORMATION: Current height: 63.5 inches Maximum [...] Drew Jenkins M.D. RB: KRISSY Report ID: [id number] Reading Location: [place] [address] Ava Galvan MD IM DXA PROCEDURES Final [...] W Tim 08/09/2016 Screening Mammogram Bilateral W Itm BREAST TISSUE: The breasts have scattered areas of fibroglandular density. FINDINGS: There is a focal asymmetry with possible architectural distortion in the lateral left breast, middle depth. No other suspicious findings/changes are seen within either breast. Ava Galvan MD IM MAMMO PROCEDURES Natasha l Result * Stool DNA - Cologuard (10/26/2021 10:20 AM CHILLER TECHNICIAN) Stool DNA - Cologuard Negative Negative [employer] (CLIA #:[id number]) Comment: NEGATIVE TEST RESULT. A negative Cologuard [...] (Thania Huitron al, N Engl J Med 2014;370(14):2781-0980) The normal value (reference range) for this assay is negative. COLOGUARD RE-SCREENING RECOMMENDATION: Periodic colorectal cancer screening is an important part of preventive healthcare for asymptomatic individuals at average risk for colorectal cancer. Following a negative Cologuard result, the [place] Cancer Society and U.S. Multi-Society Task Force screening guidelines recommend a Cologuard re-screening interval of 3 years. References: [place] [employer] Guideline for Colorectal Cancer Screening: https://www.cancer.org/cancer/ilnyi-wpxvot-wfvgsg/bwuqpxqdg-ybrpxvghk-wdqsued/ac s-rec ommendations.html.; Rashaad DK, Juanjo GARCIA, Shaye SantiagoK, Colorectal Cancer Screening: Recommendations for Physicians and Patients from the U.S. Multi-Society Task Force on Colorectal Cancer Screening , Am J Gastroenterology 2017; 112:8035-9160. TEST DESCRIPTION: Composite algorithmic analysis of stool [...] (Thania Huitron al, N Engl J Med 2014;370(14):3945-6183.) Cologuard may produce a false negative or false positive result (no colorectal cancer or precancerous polyp present at colonoscopy follow up). A negative Cologuard test result does not guarantee the absence of CRC or advanced adenoma (pre-cancer). The current Cologuard screening interval is every 3 years. ([place] Cancer Society and U.S. Multi-Society Task Force). Cologuard performance data in a 10,000 patient pivotal study using colonoscopy as the reference method can be accessed at the following location: www.[employer]/results. Additional description of the Cologuard test process, warnings and precautions can be found at www.[employer]. Stool 10/26/2021 10:2 0 AM CHILLER TECHNICIAN 10/27/2021 12:49 PM CHILLER TECHNICIAN Ava Galvan MD LAB BODY FLUIDS AND STOOL S ORDERABLES Final Result INDOM (CLIA #:[id number]) [place] [address] * COLONOSCOPY (08/09/2016) Colonoscopy Normal us Historical Provider HEALTH MAINTENANCE Final Result from Last 3 Months or Most Recently Relevant to Health Maintenance Insurance HU[employer]NA MEDICARE HMO HU[employer]NA MEDICARE HMO HU[employer]NA MEDICARE HMO Advance Directives For more information, please contact: [phone] Documents on File Type Date Recorded Patient Pharmaceutical Worker Expl anation Power of Painter Set 04/23/2023 8:42 AM ADVANCE DIRECTIVE 08/18/2019 * Full Code (Latest Code Status on File) Date Activated Date Inactivated Comments 10/10/2024 3:19 AM 10/10/2024 6:25 PM * Full Code Date Activated Date Inactivated Comments 04/23/2023 12:29 PM 04/23/2023 5:53 PM Care Teams Power Saw Operator Relationship Specialty Start Date End Date Ava Galvan MD PCP - Humana Attributed PCP 11/15/17 Ava Galvan MD PCP - General Family Medicine 10/03/21 Nuha Marquez MD Referring Physician Gastroenterology 02/11/19 Renu Mosqueda MD Referring Physician Endocrinology 02/11/19 Dimitri [place] [address] Consulting Physician Otolaryngology 04/23/23 Toney Vergara MD [address] [place] [address] Consulting Physician Surgery 10/10/24
--- OUTSIDE RECORDS SUMMARY | 2025-02-04 11:42 | XMS_ITS | Encounter Summary ---
Author Organization [facility] Care Team Providers Care Director Child Development Center Name Role Phone Ava Galvan MD Unavailable [phone] Ava Galvan MD Primary Care Provider [phone] Nuha Marquez MD Unavailable [phone] Renu Mosqueda MD Unavailable [phone] Ava Galvan MD Primary Care Provider [phone] Dimitri Messer MD Unavailable [phone] Toney Vergara MD Unavailable [phone] Vaishnavi Menon LPN Unavailable [phone] Janel Luna MA Unavailable [phone] Encounter Details Date Type Department Care Team (Latest Contact Info) Description 05/16/2017 Orders Only [facility] CLINCONV ProviderTaylor MD [address] [place] [place] [id number] Social History Tobacco Use Types Packs/Day [...] PROCEDURE - RESULT 10/09/2017 12 :00 AM SENIOR PRODUCT INTEGRITY ENGINEER documented in this encounter Results * PROCEDURE - RESULT (10/09/2017 12:00 AM SENIOR PRODUCT INTEGRITY ENGINEER) Narrative 10/09/2017 12:00 AM SENIOR PRODUCT INTEGRITY ENGINEER Ordered by an unspecified provider. us Historical Provider Final Res ult documented in this encounter Visit Diagnoses Not on filedocumented in this encounter Additional Health Concerns Infection Onset Date Last Indicated Resolved Time COVID: Suspected 10/10/2023 10/10/2023 10/10/2023 3:55 PM SENIOR PRODUCT INTEGRITY ENGINEER documented as of this encounter Care Teams Director Child Development Center Relationship Specialty Start Date End Date Ava Galvan MD PCP - Humana Attributed PCP 11/15/17 Ava Galvan MD PCP - General 12/17/18 10/02/21 Ava Galvan MD PCP - General Family Medicine 10/03/21 Nuha Marquez MD Referring Physician Gastroenterology 02/11/19 Renu Mosqueda MD Referring Physician Endocrinology 02/11/19 [address] [address] Consulting Physician Otolaryngology 04/23/23 Toney Vergara MD [address] [place] [address] Consulting Physician Surgery 10/10/24 Vaishnavi Menon LPN [address] [place] [address] Vegetable Handler 10/13/24 10/13/24 Janel Luna MA [address] [place] [address] ACO Care Non Profit Job Titles 01/30/25 01/30/25 documented as of this encounter
--- OUTSIDE RECORDS SUMMARY | 2025-02-04 11:42 | XMS_ITS | Encounter Summary ---
Author Organization [facility] Facility Care Team Providers Care Cabinet Finisher Name Role Phone Ava Galvan MD Unavailable [phone] Ava Galvan MD Primary Care Provider [phone] Nuha Marquez MD Unavailable [phone] Renu Mosqueda MD Unavailable [phone] Ava Galvan MD Primary Care Provider [phone] Dimitri Messer MD Unavailable [phone] Toney Vergara MD Unavailable [phone] Vaishnavi Menon LPN Unavailable [phone] Janel Luna MA Unavailable [phone] Encounter Details Date Type Department Care Team (Latest Contact Info) Description 03/13/2017 Orders Only [facility] CLINCONV ProviderTaylor MD [address] [place] [address] Social History Tobacco Use Types Packs/Day [...] COVID: Suspected 10/10/2023 10/10/2023 10/10/2023 3:55 PM STRINGS TEACHER documented as of this encounter Care Teams Cabinet Finisher Relationship Specialty Start Date End Date Ava Galvan MD PCP - [employer] Attributed PCP 11/15/17 Ava Galvan MD PCP - General 12/17/18 10/02/21 Ava Galvan MD PCP - General Family Medicine 10/03/21 Nuha Marquez MD Referring Physician Gastroenterology 02/11/19 Renu Mosqueda MD Referring Physician Endocrinology 02/11/19 Dimitri Messer [place] [place] [address] Consulting Physician Otolaryngology 04/23/23 Toney Vergara MD [address] [place] [address] Consulting Physician Surgery 10/10/24 Vaishnavi Menon LPN [address] [facility] [address] [place] [address] Sludge Mill Operator 10/13/24 10/13/24 Janel Luna MA [address] [facility] [address] [place] [address] ACO Care Meat Curer 01/30/25 01/30/25 documented as of this encounter
--- OUTSIDE RECORDS SUMMARY | 2025-02-04 11:42 | XMS_ITS | Encounter Summary ---
Author Organization [facility] Facility Care Team Providers Care Emissions Testing Technician Name Role Phone Ava Galvan MD Unavailable [phone] Ava Galvan MD Primary Care Provider [phone] Nuha Marquez MD Unavailable [phone] Renu Mosqueda MD Unavailable [phone] Ava Galvan MD Primary Care Provider [phone] Dimitri Messer MD Unavailable [phone] Toney Vergara MD Unavailable [phone] Vaishnavi Menon LPN Unavailable [phone] Janel Luna MA Unavailable [phone] Encounter Details Date Type Department Care Team (Latest Contact Info) Description 02/08/2017 Orders Only [facility] CLINCONV ProviderTaylor MD [address] [place] [address] Social History Tobacco Use Types Packs/Day [...] COVID: Suspected 10/10/2023 10/10/2023 10/10/2023 3:55 PM COMPLIANCE MGR documented as of this encounter Care Teams Emissions Testing Technician Relationship Specialty Start Date End Date Ava Galvan MD PCP - [employer] Attributed PCP 11/15/17 Ava Galvan MD PCP - General 12/17/18 10/02/21 Ava Galvan MD PCP - General Family Medicine 10/03/21 Nuha Marquez MD Referring Physician Gastroenterology 02/11/19 Renu Mosqueda MD Referring Physician Endocrinology 02/11/19 Dimitri Messer [place] [address] Consulting Physician Otolaryngology 04/23/23 Toney Vergara MD [address] [place] [address] Consulting Physician Surgery 10/10/24 Vaishnavi Menon LPN [address] [facility] [address] [place] [address] Farmworker 10/13/24 10/13/24 Janel Luna MA [address] [address] [place] [address] ACO Care Lumber Material Handler 01/30/25 01/30/25 documented as of this encounter
--- OUTSIDE RECORDS SUMMARY | 2025-02-04 11:42 | XMS_ITS ---
Author Organization [facility] Address [facility] [place] [place] [address] Care Team Providers Care Tack Coverer Name Role Phone Ava Galvan MD Primary Care Provider [phone] Active Problems Problem Noted Date Diagnosed Date Malignant neoplasm of overla pping sites of left breast in female, estrogen receptor positive 02/23/2022 Cancer Staging:Clinical stage from 02/16/2022:Stage IA(cT1c, cN0, cM0, G2, ER+, PA+, HER2-) - Signed by Karissa Rodriguez MD on 02/23/2022 Pathologic stage from 03/24/2022:Stage IA(pT1c(m), pN0(sn), cM0, G2, ER+, PA+, HER2-) - Signed by Karissa Rodriguez MD on 04/03/2022 Post-operative pain Current Treatment and Therapy Plans No current plan information found. Past Treatment and Therapy Plans No past plan information found. 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, estrogen receptor positive (HCC)* [address] [address] Oncology Treatment Summary Breast Treatment Summary for Mima Carr 1950 provided on date 09/25/22 Prepared by: Digna Benedict RN on date: 09/22/22 Primary Care Provider: Ava Galvan MD Diagnosis: Malignant neoplasm of overlapping sites of left breast in female, estrogen receptor positive ([facility]/HCC) Date of diagnosis: 02/16/22 Age of diagnosis: 71 Tumor Information Cancer Staging Malignant neoplasm of overlapping sites of left breast in female, estrogen receptor positive (CMS/HCC) Staging form: Breast, AJCC 8th Edition - Clinical stage from 02/16/2022: Stage IA (cT1c, cN0, cM0, G2, ER+, PA+, HER2-) - Signed by Karissa Rodriguez MD on 02/23/2022 - Pathologic stage from 03/24/2022: Stage IA (pT1c(m), pN0(sn), cM0, G2, ER+, PA+, HER2-) - Signed byKarissa Rodriguez MD on 04/03/2022 Surgery Information Description: Bilateral mastectomies, no reconstruction Date: 03/24/22 Surgeon/Facility Name: Dr. Karissa Rodriguez, [facility] Adjuvant Treatment Recommendations: medical oncology Initial Imaging Mammogram: Bilateral screening mammogram ([facility]) 12/30/2021 -- indeterminate left breast focal asymmetry with possible architectural distortion (BIRADS-0) Left diagnostic mammogram 01/27/2022 ([facility]) -- irregular mass with spiculated margins in the left breast with architectural distortion (BIRADS-5) Left breast ultrasound 01/27/2022 ([facility]) -- 2.2cm hypoechoic mass at the 2:30 position with two othersmaller masses in close proximity (BIRADS-5) Left breast ultrasound 02/16/2022 ([facility]) -- 1.5cm hypoechoic mass at the 2:30 [...] up with Location How often Radiation Oncology [facility] Clinical visit every 4-6 months for 5 yrs, then every 12 months Medical Oncology [facility] Surgery [facility] Mammography [facility] Bilateral Diagnostic Mammogram every 12 months Reasons to call: New lesions or mass Chest pain New feelings of sadness or being overwhelmed Unintended weight loss Cough that does not go away Any side effects or questions of care Your follow up schedule is listed below Future Appointments Date Time Provider Department Center 09/25/2022 11:30 AM [facility]issa Rodriguez [facility] 01/25/2023 12:40 PM Latoya eMdina MD [address] Contact Information Radiation Oncologist Dr. Osmar Santillan Medical Oncologist Dr. Medina [phone] Karissa Rodriguez Social Work Treasury Management Sales Consultant Dr. Parisa Moser [phone] Breast Nurse Navigator Digna Benedict RN [phone] [facility] Care [facility] Hospital Scheduling Primary Care Provider Ava Galvan MD [phone] Recommended cancer screenings Colonoscopy: every 10 years [...] walk a few extra steps. Important Resources [facility] [employer] cancer.org Association of Cancer Online Resources acor.org Caring Bridge caringbridge.org CancerCare cancercare.org LiveStrong Foundation livestrong.org National Cancer Berkey cancer.gov Cancer Survivors Network csn.cancer.org National Coalition for Cancer Survivorship canceradvocacy.org [place] Society of Clinical Oncologists cancer.net Cancer Support Community of [facility] www.[email or web address] Radiation Therapy Questions/Answers www.rtanswers.org
--- OUTSIDE RECORDS SUMMARY | 2025-02-04 11:42 | XMS_ITS | Encounter Summary ---
Author Organization [facility] Address [address] [place] [address] Phone Care Team Providers Care Health Inspector Name Role Phone Provider, Unknown Primary Care Provider Unavaila ble Lul Haddad MD Unavailable [phone] Encounter Details Date Type Department Care Team (Late st Contact Info) Description 04/07/2022 Telephone [facility] [address] [place] [address] Lul Haddad MD [address] [place] [address] [place] [address] Social History Tobacco Use Types [...] Priti Dean - 04/07/2022 9:10 AM CDT OPERATIONAL ASSISTANT CANCEL APPT HAS DECIDED TO GO [facility]. documented in this encounter Plan of Treatment Not on file documented as of this encounter Visit Diagnoses Not on filedocumented in this encounter Care Teams Health Inspector Relationship Specialty Start Date End Date Provider, Unknown UNKNOWN PCP - General 04/04/22 Lul Haddad MD [address] [place] [address] Consulting Physician Oncology 04/04/22 documented as of this encounter
--- OUTSIDE RECORDS SUMMARY | 2025-02-04 11:42 | XMS_ITS | Referral Summary ---
Author Organization [facility] Address [address] [place] [address] Care Team Providers Care Die Maker Apprentice Name Role Phone Ava Galvan MD Unavailable [phone] Nuha Marquez MD Unavailable [phone] Renu Mosqueda MD Unavailable [phone] Ava Galvan MD Primary Care Provider [phone] Dimitri Messer MD Unavailable [phone] Toney Vergara MD Unavailable [phone] Encounters Date Type Department Care Team Description 01/30/2025 RASHID ED Outreach [facility] Accountable Care Organization [address] [place] [id number] Janel Luna MA 01/30/2025 9:30 AM CDT Office Visit [facility] [place] [address] [place] [address] Jaz Ramos NP Invasive lobular carcinoma of breast in female (HCC) (Primary Dx); History of breast cancer; History of mastectomy, bilateral 01/29/2025 12:35 AM CDT - 01/29/2025 2:48 AM CDT Emergency [facility] [address] [place] [id number] Brad Morgan DO Abdominal pain (Primary Dx); Biliary colic Discharge Disposition: Discharge to home or self care 01/12/2025 Results Follow-Up [facility] Medicine [address] [place] [address] [address] [place] [address] Anastasia Silva Thyroid Function [place], Comprehensive metabolic panel, Lipid panel, CBC with auto differential 12/02/2024 Telephone [facility] Cardiology [address] [place] [address] [address] [place] [address] Sultan Alysia Hanson MD 11/26/2024 Telephone [facility] Medicine [address] [place] [address] [place] [phone] Ava Galvan MD Medical Question/Miscellaneou s 11/12/[address] [place] [address] Ava Galvan MD Medical Question/Miscellaneou s 11/11/[address] [place] [address] Ava Galvan MD Medical Question/Miscellaneou s from Last 3 Months Allergies No known [...] 10/22/2024 Assessment & Plan (11/02/2024 6:48 PM PLATE SENSITIZER): New Refer to general surgery Abdominal pain 10/10/2024 Acute cholecystitis 10/10/2024 Obstruction of right uretero pelvic junction (UPJ) due to stone 10/10/2024 Hydronephrosis of right kidney 10/10/2024 Post-menopausal 07/30/2024 Mixed hyperlipidemia 07/30/2024 Assessment & Plan (11/02/2024 6:49 PM PLATE SENSITIZER): Chronic Stable Cont lipitor, zetia, tricor Goal: TC<200, LDL<100, TG<150 Assessment & Plan (08/10/2024 9:18 PM PLATE SENSITIZER): Chronic Stable Cont lipitor, zetia, tricor Goal: TC<200, LDL<100, TG<150 Non-seasonal allergic rhinitis 11/05/2023 Assessment & Plan (11/05/2023 3:29 PM PLATE SENSITIZER): I am recommending allergy testing because of [...] 10/19/2022 Assessment & Plan (10/27/2022 3:04 AM PLATE SENSITIZER): Uncontrolled Add toprol Cont amlodipine Goal: SBP<140, DBP<90 Hypercalcemia 10/19/2022 Assessment & Plan (10/27/2022 2:59 AM PLATE SENSITIZER): recheck Epigastric abdominal pain 10/19/2022 Assessment & Plan (10/27/2022 2:56 AM PLATE SENSITIZER): New Order prilosec Order gallbladder ultrasound and HIDA scan Refer to GI LUQ abdominal pain 10/19/2022 Assessment & Plan (10/27/2022 2:56 AM PLATE SENSITIZER): New Order prilosec Order gallbladder ultrasound and HIDA scan Refer to GI Primary insomnia 10/19/2022 Assessment & Plan (10/27/2022 3:00 AM PLATE SENSITIZER): New Start ambien Pure hypercholesterolemia 10/17/2021 Assessment & Plan (08/05/2023 9:33 AM PLATE SENSITIZER): Chronic Stable Cont lipitor, zetia, tricor, vascepa Goal: TC<200, LDL<100, TG<150 Assessment & Plan (04/27/2023 3:31 AM CDT): Chronic Stable Cont lipitor, tricor, zetia Goal: TC<200, LDL<100, TG<150 Assessment & Plan (12/29/2022 11:35 AM CDT): Chronic stable Cont lipitor, fenofibrate, vascepa Order zetia Goal: TC<200, LDL<100, TG<150 Assessment & Plan (10/27/2022 2:54 AM PLATE SENSITIZER): improved Cont lipitor, fenofibrate, vascepa Order zetia Goal: TC<200, LDL<100, TG<150 Assessment & Plan (10/17/2021 5:14 PM PLATE SENSITIZER): Uncontrolled Cont lipitor, fenofibrate, vascepa Order zetia Goal: TC<200, LDL<100, TG<150 Encounter for Medicare annual wellness exam 02/15 Assessment & Plan (08/10/2024 9:17 PM PLATE SENSITIZER): Patient here for annual Medicare wellness visit [...] visit. Assessment & Plan (08/05/2023 9:30 AM PLATE SENSITIZER): Patient here for annual Medicare wellness visit [...] 08/25/2020 Assessment & Plan (09/16/2020 5:20 PM PLATE SENSITIZER): New Refer to GI Breast pain, right 07/31/2020 Assessment & Plan (08/01/2020 5:04 AM PLATE SENSITIZER): Likely infection Order cefdinir SOB (shortness of breath) 08/19/2019 Assessment & Plan (03/07/2021 7:08 PM CDT): Negative cardiac workup. Assessment & Plan (09/06/2020 5:59 PM PLATE SENSITIZER): Unremarkable cardiac workup. Assessment & Plan (03/09/2020 10:22 AM CDT): The CBC, T4 TSH electrolytes were okay. The CT angio of the lungs was negative for pulmonary embolism. Echo showed small pericardial effusion unchanged since 2017. BNP level was ordered but not drawn. Assessment & Plan (09/30/2019 9:30 AM PLATE SENSITIZER): Dyspnea for 2 months which has already improved. The recent CBC, T4 TSH, electrolytes, chemistries are okay. CT angio of the lungs is negative for pulmonary embolism. Small pericardial effusion which is unchanged since 2017. EKG today shows normal sinus rhythm, normal QRS morphology. Will get a BNP level today. Consider echo Doppler if necessary. Assessment & Plan (08/27/2019 4:27 PM PLATE SENSITIZER): Order CTA chest r/o PE vs infectious or inflammatory process Changes in skin texture 08/19/2019 Assessment & Plan (05/25/2023 5:49 AM CDT): New Refer to derm Assessment & Plan (08/27/2019 4:27 PM PLATE SENSITIZER): Refer to derm Acute non-recurrent maxillary sinusitis 08/19/20 19 Assessment & Plan (08/27/2019 4:27 PM PLATE SENSITIZER): Order esther zhang Precordial chest pain 03/03/2019 Assessment & Plan (03/07/2021 7:08 PM CDT): Negative stress echo 03/13/2017. Assessment & Plan (09/06/2020 5:59 PM PLATE SENSITIZER): Negative stress echo 03/13/2017. Assessment & Plan (03/05/2020 5:04 PM CDT): Negative stress echo 03/13/2017. Functional class 1. Assessment & Plan (09/29/2019 7:38 PM PLATE SENSITIZER): Negative stress echo 03/13/2017. Functional class 1. [...] pericarditis. A chronic finding without any significant plant changer the years. The PPD skin test done by the primary care physician was negative. There is history of BCG vaccination in the remote past. CTA of the chest 09/01/2019 showed no pulmonary embolism. A small pericardial effusion was unchanged from before. 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 This is a chronic finding without any significant plant changer the years. The PPD skin test [...] is a chronic finding without any significant plant changer the years. The PPD skin test done at primary care physician was negative. There is history of receiving BCG vaccination in the remote past. CTA of the chest 09/01/2019 showed no pulmonary embolism. A small pericardial effusion is unchanged from before. Assessment & Plan (09/30/2019 9:29 AM PLATE SENSITIZER): Chronic loculated pericardial effusion with localized area of pericardial thickening. The picture is not consistent with constrictive pericarditis. This is a chronic finding without any significant plant changer the years. The PPD skin test [...] is a chronic finding without any significant plant changer the years. The PPD skin test [...] control. Assessment & Plan (09/06/2020 5:55 PM PLATE SENSITIZER): Related to hypertensive heart disease. Aggressive blood pressure control. Assessment & Plan (03/05/2020 5:01 PM CDT): Related to the hypertensive heart disease. Aggressive blood pressure control. Assessment & Plan (09/29/2019 7:39 PM PLATE SENSITIZER): Related to the hypertensive heart disease. Aggressive blood pressure control. Assessment & Plan (03/04/2019 9:24 AM CDT): Related to the hypertensive heart disease. EKG today shows a normal sinus rhythm, normal QRS morphology. No left ventricular hypertrophy appreciated on this EKG. Non-rheumatic tricuspid valve insufficiency 04/2017 Hypertension 01/30/2017 Assessment & Plan (11/02/2024 6:49 PM PLATE SENSITIZER): Chronic Stable Cont norvasc, coreg, lisinopril Goal: SBP<140, DBP<90 Assessment & Plan (08/10/2024 9:18 PM PLATE SENSITIZER): Chronic Stable Cont norvasc, coreg, lisinopril Goal: SBP<140, DBP<90 Assessment & Plan (08/05/2023 9:32 AM PLATE SENSITIZER): Chronic Stable Cont coreg, lisinopril Goal: SBP<140, DBP<90 Assessment & Plan (05/25/2023 5:49 AM CDT): Chronic Uncontrolled Add lisinopril Cont norvasc Goal: SBP<140, DBP<90 Assessment & Plan (04/27/2023 3:31 AM CDT): Chronic Stable Cont norvasc Goal: SBP<140, DBP<90 Assessment & Plan (12/29/2022 11:35 AM CDT): Chronic Stable Cont coreg Cont amlodipine Goal: SBP<140, DBP<90 Assessment & Plan (11/24/2022 5:17 AM PLATE SENSITIZER): Uncontrolled Change toprol to coreg Cont amlodipine Goal: SBP<140, DBP<90 Assessment & Plan (10/17/2021 5:13 PM PLATE SENSITIZER): Stable Cont amlodipine, atenolol, hctz, Goal: SBP<140, DBP<90 Assessment & Plan (03/08/2021 10:19 AM CDT): Salt restriction. Amlodipine. Atenolol. Hydrochlorothiazide. Potassium chloride. Blood pressure 138/78. Assessment & Plan (03/02/2021 4:56 AM CDT): Stable Cont atenolol, norvasc, hctz Assessment & Plan (09/16/2020 5:20 PM PLATE SENSITIZER): Stable Cont atenolol, norvasc, hctz Assessment & Plan (09/07/2020 10:31 AM PLATE SENSITIZER): Blood pressure 132/84. Salt restriction. Continue the current regimen. Assessment & Plan (08/01/2020 5:04 AM PLATE SENSITIZER): Stable Cont atenolol, norvasc Assessment & Plan (03/29/2020 11:04 AM CDT): Stable Cont atenolol, norvasc Assessment & Plan (03/09/2020 10:21 AM CDT): Blood pressure 110/70. Salt restriction. Continue the current regimen. Assessment & Plan (09/30/2019 9:28 AM PLATE SENSITIZER): Blood pressure 120/78. Salt restriction. Continue the current regimen. Assessment & Plan (08/27/2019 4:26 PM PLATE SENSITIZER): Stable Cont atenolol, norvasc Assessment & Plan [...] 01/28/2024 Assessment & Plan (11/05/2023 3:33 PM PLATE SENSITIZER): She has a good nasal airway. She [...] 01/28/2024 Assessment & Plan (10/17/2021 5:15 PM PLATE SENSITIZER): Stable Cont KCL Assessment & Plan (03/08/2021 10:20 AM CDT): Supplemental potassium. Potassium was 3.9 in January 2021. Assessment & Plan (03/02/2021 4:57 AM CDT): Stable Cont klorcon Assessment & Plan (08/01/2020 5:05 AM PLATE SENSITIZER): Stable Cont klorcon Encounter for screening mamm [...] <150 Assessment & Plan (09/16/2020 5:19 PM PLATE SENSITIZER): TG still elevated Increase vascepa to 2 caps BID Cont lipitor, tricor Assessment & Plan (09/07/2020 10:31 AM PLATE SENSITIZER): Low-fat low-cholesterol diet. Atorvastatin. Fenofibrate. Vascepa. On 08/04/2020 triglycerides 196, LDL 49, total cholesterol 121, HDL 45. Assessment & Plan (08/01/2020 5:05 AM PLATE SENSITIZER): Uncontrolled Cont lipitor, tricor Assessment & Plan (03/29/2020 11:04 AM CDT): Uncontrolled Add vascepa Cont lipitor, tricor Assessment & Plan (03/09/2020 10:20 AM CDT): Low-fat low-cholesterol diet. Atorvastatin 20 mg bedtime daily. On 01/09/2020 cholesterol 147, triglyceride 270, HDL 53, LDL 62. Vascepa. Assessment & Plan (09/29/2019 7:38 PM PLATE SENSITIZER): Low-fat low-cholesterol diet. Atorvastatin 20 mg bedtime daily. On 12/29/2018 the LDL was 46. Assessment & Plan (08/27/2019 4:26 PM PLATE SENSITIZER): Stable Cont lipitor, tricor Assessment & Plan [...] = 0.6 oz pur e alcohol) occas [facility] Utilities Answer Date Recorded In the past 12 months has [employer], gas, oil, or water [employer] threatened to shut off services in your [...] 10/10/2024 How often do you attend chur or amish services? More than 4 times per year 10/10/2024 Do you belong to any clubs o r organizations such as cheondoism groups, unions, fraternal or athletic groups, or [...] any time in the past 12 [facility], were you homeless or living in a fdc (including now)? No 10/10/2024 Personal Safety Answer [...] 01/30/2025 8:57 AM CDT Plan of Treatment Not on file Procedures [...] Read Routine (OP Routine) 08/21/2024 9:23 AM PLATE SENSITIZER Post-menopausal SCREENING MAMMOGRAM BILATERAL W TIM Schedule Routine, Read Routine (OP Routine) 12/30/2021 11:44 AM CDT Encounter for screening mammogram for malignant neoplasm of breast STOOL DNA COLOGUARD Routine 10/26/2021 10:20 AM PLATE SENSITIZER Screening for colon cancer COLONOSCOPY Routine 08/09/2016 [...] Gallo Ziegler M.D. KT T: Report ID: [id number] Reading Location: [id number] Procedure Note Gallo Ziegler MD - 01/28/2025 [...] Gallo Ziegler M.D. KT T: Report ID: [id number] Reading Location: [id number] us Philippe QUACH IMG US PROCEDURES Final Resu lt * Troponin T high-sensitivity 6-hour (01/28/2025 9:25 PM CDT) Trop T hs 7 <=14 ng/L Comment: Interpretive Data For further hscTnT resources including the diagnostic algorithm and an aid in interpretation, copy and paste this link: https://nrl.testcatalog.org/show/hsTrop Current Interpretive Data last revised 2020. Trop T hs delta 0 ng/L GUILLERMINA Trop T hs interp Insignificant GUILLERMINA Blood 01/28/2025 9:25 PM CDT 01/28/2025 9:33 PM CDT Domenic Gray MD LAB BLOOD ORDERABLES Final Result [facility]ERMINA [address] [facility] Department [place] [address] * CT Abdomen Pelvis W Contrast (01/28/2025 [...] Gallo Ziegler M.D. KT T: Report ID: [id number] Reading Location: [id number] Procedure Note Gallo Ziegler MD - 01/28/2025 [...] Gallo Ziegler M.D. KT T: Report ID: [id number] Reading Location: [place] [address] PROCEDURES Final Resu lt * (ABNORMAL) Urinalysis reflex to microscopic and culture Urine (01/28/2025 8:33 PM CDT) Color, ur Yellow Yellow Clarity, ur Clear Clear [facility] Specific gravity, ur 1.012 1.003 - 1.030 GUILLERMINA pH, urine 6.5 [facility] Comment: Interpretive Data U rine pH is affected by diet, medications, systemic acid-base disturbances, and renal tubular function. pH may affect urinary stone formation. For example, urine pH below 6.0 may help reduce the tendency for calcium phosphate stones and pH greater than 6.0 may reduce the tendency for uric acid stone formation. Source: [place] QoL Meds Current Interpretive Data was last revised on 2017 Protein, ur ql Negative Negative [facility] Glucose, ur ql Negative Negative [facility] Ketones, ur Negative Negative [facility] Bilirubin, ur Negative Negative [facility] Blood, ur 2+(A) Negative [facility] Urobilinogen, ur <2.0 <2.0 mg/dL [facility] Nitrite, ur Negative Negative [facility] Leukocyte esterase, ur Negative Negative [facility] UA reflex comment Reflex to microscopic UA will be performed. [facility] Urine 01/28/2025 8:33 PM CDT 01/28/2025 8:36 PM CDT [facility] MICROBIOLOGY - GEN ERAL ORDERABLES Final Result Performing Organization Address [facility] de Phone Number [address] [address] * (ABNORMAL) Urinalysis, microscopic only (01/28/2025 8:33 PM CDT) WBC, ur 0-5 0 - 5 /HPF RBC, ur >50(A) 0 - 2 /HPF [facility] Mucous, ur Present(A) [facility] Culture Reflex Comment Reflex conditions for urine culture (WBC >10) not met. [facility] Urine 01/28/2025 8:33 PM CDT 01/28/2025 8:36 PM CDT [facility] URINE ORDERABLES F inal Result Performing Organization Address [facility] de Phone Number [address] [address] * Troponin T high-sensitivity 4-hour (01/28/2025 7:21 PM CDT) Trop T hs 8 <=14 ng/L Comment: Interpretive Data For further hscTnT resources including the diagnostic algorithm and an aid in interpretation, copy and paste this link: https://nrl.testcatalog.org/show/hsTrop Current Interpretive Data last revised 2020. Trop T hs delta 1 ng/L [facility] Trop T hs interp Insignificant [facility] Blood 01/28/2025 7:21 PM CDT 01/28/2025 7:42 PM CDT Domneic Gray MD LAB BLOOD ORDERABLES Final Result Performing Organization Address [facility] Co de Phone Number GUILLERMINA [address] [address] * Troponin T high-sensitivity 2-hour (01/28/2025 7:21 PM CDT) Trop T hs See Comment <=14 Comment: Specimen canceled due to missed collection as per [id number] on 01/28/2025 19:38:45 CDT. Interpretive Data For further hscTnT resources including the diagnostic algorithm and an aid in interpretation, copy and paste this link: https://nrl.Myandb.org/show/hsTrop Current Interpretive Data last revised 2020. Trop T hs delta See Comment ng/L GUILLERMINA Comment:Inappropriate collec tion time to report a delta. Trop T hs pct delta See Comment % GUILLERMINA Comment:Inappropriate collec tion time to report a delta. Trop T hs interp See Comment GUILLERMIAN Comment:Inappropriate collec tion time to report a delta. Blood 01/28/2025 7:21 PM CDT 01/28/2025 7:23 PM CDT Domenic Gray MD LAB BLOOD ORDERABLES Final Result Performing Organization Address [facility] de Phone Number GUILLERMINA [address] [address] * Troponin T high-sensitivity series (baseline, 2hr, 4hr, 6hr) (01/28/2025 3:31 PM CDT) Trop T hs 7 <=14 ng/L Comment: Interpretive Data For further hscTnT resources including the diagnostic algorithm and an aid in interpretation, copy and paste this link: https://nrl.Myandb.org/show/hsTrop Current Interpretive Data last revised 2020. Blood 01/28/2025 3:31 PM CDT 01/28/2025 3:31 PM CDT Brad Morgan LAB BLOOD ORDERABLES F inal Result Performing Organization Address [facility] de Phone Number GUILLERMINA [address] [place] [address] * eGFR (01/28/2025 3:31 PM CDT) Pathologist [facility] eGFR 79 >=60 mL/min/1. 73 m2 Comment: [...] PM CDT 01/28/2025 3:31 PM CDT Brad Morgan LAB BLOOD ORDERABLES F inal Result Performing Organization Address [facility] Co de Phone Number GUILLERMINA [address] [place] [address] * (ABNORMAL) Differential, auto (01/28/2025 3:31 PM CDT) Pathologist [facility] Neutrophil abs 7.00(H) 1.50 - 6.50 K/cumm Imm gran abs 0.05 0.00 - 0.10 K/cumm [facility] Lymphocyte abs 2.04 0.80 - 3.30 K/cumm [facility] Monocyte abs 0.36 0.20 - 0.80 K/cumm [facility] Eosinophil abs 0.02 0.00 - 0.50 K/cumm [facility] Basophil abs 0.03 0.00 - 0.10 K/cumm [facility] Neutrophil pct 73.7 % [facility] Comment: Interpretive Data Percent cell count reference ranges are not reported, since discordance with absolute values may lead to misinterpretation of CBC data. Current Interpretive Data was last revised on 2017. Imm gran pct 0.5 % [facility] Comment: Interpretive Data Percent cell count reference ranges are not reported, since discordance with absolute values may lead to misinterpretation of CBC data. Current Interpretive Data was last revised on 2017. Lymphocyte pct 21.5 % [facility] Comment: Interpretive Data Percent cell count reference ranges are not reported, since discordance with absolute values may lead to misinterpretation of CBC data. Current Interpretive Data was last revised on 2017. Monocyte pct 3.8 % [facility] Comment: Interpretive Data Percent cell count reference ranges are not reported, since discordance with absolute values may lead to misinterpretation of CBC data. Current Interpretive Data was last revised on 2017. Eosinophil pct 0.2 % [facility] Comment: Interpretive Data Percent cell count reference ranges are not reported, since discordance with absolute values may lead to misinterpretation of CBC data. Current Interpretive Data was last revised on 2017. Basophil pct 0.3 % [facility] Comment: Interpretive Data Percent cell count reference ranges are not reported, since discordance with absolute values may lead to misinterpretation of CBC data. Current Interpretive Data was last revised on 2017. Blood 01/28/2025 3:31 PM CDT 01/28/2025 3:31 PM CDT us Brad Morgan DO LAB BLOOD ORDERABLES F inal Result [facility]A [facility] [address] [facility] Department [place] [address] * (ABNORMAL) CBC with auto differential (01/28/2025 3:31 PM CDT) WBC 9.50 3.80 - 9.90 K/cumm Hgb 11.9 11.9 - 15.5 g/dL [facility] Hct 37.9 35.6 - 45.5 % [facility] Plt 252 150 - 400 K/cumm [facility] MPV 9.4 9.1 - 12.3 fL [facility] RBC 4.03 3.90 - 5.20 M/cumm [facility] MCV 94.0 81.3 - 96.4 fL [facility] MCH 29.5 27.1 - 33.3 pg [facility] MCHC 31.4(L) 32.3 - 35.7 g/dL [facility] RDW CV 13.2 11.1 - 14.9 % [facility] RDW SD 45.1 35.7 - 48.1 fL [facility] NRBC abs 0.00 0.00 - 0.01 K/cumm [facility] Blood Venous blood specimen / Unknown 01/28/2025 3:31 PM CDT 01/28/2025 3:31 PM CDT [employer] LAB BLOOD ORDERABLES F inal Result Performing Organization Address [facility] Co de Phone Number [address] [place] [address] * Lipase (01/28/2025 3:31 PM CDT) [facility] Lipase 41 10 - 99 Units/L Blood Venous blood specimen / Unknown 01/28/2025 3:31 PM CDT 01/28/2025 3:31 PM CDT [employer] [facility] BLOOD ORDERABLES F inal Result Performing Organization Address [facility] Co de Phone Number [address] [address] * (ABNORMAL) Comprehensive metabolic panel (01/28/2025 3:31 PM CDT) [facility] Sodium 140 135 - 145 mmol/L Potassium, pl 4.5 3.3 - 4.9 mmol/L [facility] Chloride 104 97 - 110 mmol/L [facility] CO2 25 22 - 32 mmol/L [facility] Anion gap 11 2 - 15 mmol/L [facility] BUN 19 6 - 25 mg/dL [facility] Creatinine 0.79 0.60 - 1.10 mg/dL [facility] Glucose 209(H) 70 - 199 mg/dL [facility] Comment: Interpretive Data Fasting glucose >/= 126 [...] 2022. Calcium 10.3 8.5 - 10.3 mg/dL [facility] Bilirubin, total 0.3 0.1 - 1.2 mg/dL [facility] Protein, pl 7.4 6.5 - 8.5 g/dL [facility] Albumin 4.4 3.5 - 5.0 g/dL [facility] Alk phos 59 40 - 130 Units/L [facility] ALT 24 7 - 45 Units/L [facility] AST 26 10 - 45 Units/L [facility] Blood 01/28/2025 3:31 PM CDT 01/28/2025 3:31 PM CDT us Brad Morgan DO LAB BLOOD ORDERABLES F inal Result [facility]ERMINA [address] [facility] Department of Laboratories [place] [place] [address] * ECG 12 lead (01/28/2025 3:21 PM CDT) Pathologist [facility] Ventricular Rate EKG/Min 55 BPM [facility] Atrial Rate 55 BPM [facility] MO-Interval (MSEC) 144 ms [facility] QRS-Interval (MSEC) 90 ms [facility] QT-Interval (MSEC) 486 ms [facility] QTc 464 ms [facility] P [place] 62 degrees [facility] R [place] 12 degrees [facility] T [place] 28 degrees [facility] Diagnosis Sinus bradycardia Minimal voltage criteria for LVH, may be normal variant When compared with ECG of 09-OCT-2024 20:30, The rate is slower. Confirmed by SULTAN HANSON M.D. ([id number]) on 01/28/2025 10:30:25 PM [facility] 01/28/2025 3:21 PM CDT 01/28/2025 10:30 PM CDT us Brad Morgan DO ECG ORDERABLES Final Result [facility] * Thyroid Function [place] (01/05/2025 6:10 AM CDT) TSH 4.20 0.40 - 4.50 mIU/L [facility] Blood 01/05/2025 6:10 AM CDT 01/05/2025 6:11 AM CDT Narrative [facility] - 01/06/2025 2:22 AM CDT FASTING:YES FASTING: YES us Ava Galvan MD LAB BLOOD ORDERABLES Natasha l Result [facility] [address] [place] [address] * (ABNORMAL) CBC with auto differential (01/05/2025 [...] BLOOD ORDERABLES Natasha l Result [facility] [address] [place] [address] * Lipid panel (01/05/2025 6:10 AM CDT) Pathologist [facility] Cholesterol 117 <200 mg/dL [facility] [...] of LDL-C. Jesse SS et al. HIEU. 2013;310(55): 9726-3226 (http://education.SouthWing/faq/FMQ969) Chol/HDL ratio 2.2 <5.0 (calc) [facility] [...] LAB BLOOD ORDERABLES Natasha l Result [facility] [address] [place] [address] * (ABNORMAL) Comprehensive metabolic panel (01/05/2025 6:10 AM CDT) [facility] Glucose 113(H) 65 - 99 mg/dL [facility] [...] [facility] BUN/creat ratio SEE NOTE: 6 - 22 (calc) [facility] Comment: Not Reported: [...] BLOOD ORDERABLES Natasha l Result [facility] [address] [facility] [place] [address] * Dexa Axial Skeleton Bone Density 1 or 2 Site (08/21/2024 9:23 AM PLATE SENSITIZER) Anatomical Region Laterality Modality Body N/A Mammography 08/21/2024 9:28 AM PLATE SENSITIZER Narrative 08/21/2024 9:30 AM PLATE SENSITIZER EXAM DESCRIPTION: DEXA AXIAL SKELETON BONE DENSITY 1 OR MORE SITES REASON FOR STUDY: 74 year old postmenopausal white female with given history of: osteoporosis screen Health Care Legal Assistant/Model: [employer] A (S/N [id number]) CLINICAL INFORMATION: Current height: 63.5 inches Maximum [...] Drew Jenkins M.D. RB: KRISSY Report ID: [id number] Reading Location: [place] [address] Procedure Note Drew Jenkins MD - 08/21/2024 EXAM DESCRIPTION: DEXA AXIAL SKELETON BONE DENSITY 1 OR MORE SITES REASON FOR STUDY: 74 year old postmenopausal white female with given history of: osteoporosis screen Health Care Legal Assistant/Model: [employer] A (S/N [id number]) CLINICAL INFORMATION: Current height: 63.5 inches Maximum [...] see below follow up recommendations. [facility] of low bone mineral density may [...] Drew Jenkins M.D. RB: KRISSY Report ID: [id number] Reading Location: [place] [address] Ava Galvan MD IMG DXA PROCEDURES Final Result * (ABNORMAL) SCREENING [...] Stool DNA - Cologuard (10/26/2021 10:20 AM PLATE SENSITIZER) Stool DNA - Cologuard Negative Negative [employer] (CLIA #:[id number]) Comment: NEGATIVE TEST RESULT. A negative Cologuard [...] (Thania Huitron al, N Engl J Med 2014;370(14):6710-6902) The normal value (reference range) for this assay is negative. COLOGUARD RE-SCREENING RECOMMENDATION: Periodic colorectal cancer screening is an important part of preventive healthcare for asymptomatic individuals at average risk for colorectal cancer. Following a negative Cologuard result, the Chinese Cancer Society and U.S. Multi-Society Task Force screening guidelines recommend a Cologuard re-screening interval of 3 years. References: Chinese Cancer Society Guideline for Colorectal Cancer Screening: https://www.cancer.org/cancer/hezkp-aquxli-hqrjqe/kpuocaggn-euuauqfrr-ijxeuwj/ac s-rec ommendations.html.; Rashaad YOO, Juanjo CR, Shaye LOREDO, Colorectal Cancer Screening: Recommendations for Physicians and Patients from the U.S. Multi-Society Task Force on Colorectal Cancer Screening , Am J Gastroenterology 2017; 112:5745-7460. TEST DESCRIPTION: Composite algorithmic analysis of stool [...] screened with both Cologuard and colonoscopy. (Thania Lew. et al, N Engl J Med 2014;370(14):8542-4573.) Cologuard may produce a false negative or false positive result (no colorectal cancer or precancerous polyp present at colonoscopy follow up). A negative Cologuard test result does not guarantee the absence of CRC or advanced adenoma (pre-cancer). The current Cologuard screening interval is every 3 years. (Chinese Cancer Society and U.S. Multi-Society Task Force). Cologuard performance data in a 10,000 patient pivotal study using colonoscopy as the reference method can be accessed at the following location: www.[employer].com/results. Additional description of the Cologuard test process, warnings and precautions can be found at www.[employer].com. Stool 10/26/2021 10:2 0 AM PLATE SENSITIZER 10/27/2021 12:49 PM PLATE SENSITIZER Ava Galvan MD LAB BODY FLUIDS AND STOOL S ORDERABLES Final Result [facility] (CLIA #:[id number]) [place] [address] * COLONOSCOPY (08/09/2016) Colonoscopy Normal us Historical Provider MD HEALTH MAINTENANCE Final Result from Last 3 Months or Most Recently Relevant to Health Maintenance Insurance HU[employer]NA MEDICARE HMO HUMANA MEDICARE HMO HUMANA MEDICARE HMO Advance Directives For more information, please contact: [phone] Documents on File Type Date Recorded Patient Plater Helper Expl anation Power of Junior Network Administrator 04/23/2023 8:42 AM ADVANCE DIRECTIVE 08/18/2019 * Full Code (Latest Code Status on File) Date Activated Date Inactivated Comments 10/10/2024 3:19 AM 10/10/2024 6:25 PM * Full Code Date Activated Date Inactivated Comments 04/23/2023 12:29 PM 04/23/2023 5:53 PM Care Teams Die Maker Apprentice Relationship Specialty Start Date End Date Ava Galvan MD PCP - Humana Attributed PCP 11/15/17 Ava Galvan MD PCP - General Family Medicine 10/03/21 Nuha Marquez MD Referring Physician Gastroenterology 02/11/19 Renu Mosqueda MD Referring Physician Endocrinology 02/11/19 Dimitri Messer MD [address] [address] Consulting Physician Otolaryngology 04/23/23 Toney Vergara MD [address] [place] [address] Consulting Physician Surgery 10/10/24
--- OUTSIDE RECORDS SUMMARY | 2025-02-04 11:42 | XMS_ITS | Encounter Summary ---
Author Organization [facility] Facility Care Team Providers Care Marketing Traffic Manager Name Role Phone Ava Galvan MD Unavailable [phone] Ava Galvan MD Primary Care Provider [phone] Nuha Marquez MD Unavailable [phone] Renu Mosqueda MD Unavailable [phone] Ava Galvan MD Primary Care Provider [phone] Dimitri Messer MD Unavailable [phone] Toney Vergara MD Unavailable [phone] Vaishnavi Menon LPN Unavailable [phone] Janel Luna MA Unavailable [phone] Encounter Details Date Type Department Care Team (Latest Contact Info) Description 03/22/2017 Orders Only [facility] CLINCONV ProviderTaylor MD [address] [place] [address] Social History Tobacco Use Types Packs/Day [...] COVID: Suspected 10/10/2023 10/10/2023 10/10/2023 3:55 PM RN NAVIGATOR documented as of this encounter Care Teams Marketing Traffic Manager Relationship Specialty Start Date End Date Ava Galvan MD PCP - Humana Attributed PCP 11/15/17 Ava Galvan MD PCP - General 12/17/18 10/02/21 Ava Galvan MD PCP - General Family Medicine 10/03/21 Nuha Marquez MD Referring Physician Gastroenterology 02/11/19 Renu Mosqueda MD Referring Physician Endocrinology 02/11/19 [address]imitri Messer [place] [address] Consulting Physician Otolaryngology 04/23/23 Toney Vergara MD [address] [place] [address] Consulting Physician Surgery 10/10/24 Vaishnavi Menon LPN [address] [place] [address] Distribution Systems Superintendent 10/13/24 10/13/24 Janel Luna MA [address] [place] [address] ACO Care Numerical Control Programmer 01/30/25 01/30/25 documented as of this encounter
--- OUTSIDE RECORDS SUMMARY | 2025-02-04 11:42 | XMS_ITS | Clinical Summary ---
Author Organization [facility] Address [address] [place] [address] Care Team Providers Care Sap Basis Name Role Phone Ava Galvan MD Primary Care Provider [phone] Source Comments [facility],non-owned Affiliates and Associated Physician Practices is amultiple site organization consisting of ambulatory clinics and hospital sitesin [place], [place], [place] and [place]. This disclosure is being madepursuant to the Care Everywhere program and may not contain all information available regarding this patient. Last updated 18.[facility] Allergies No known active allergies Medications * [...] on file Legal Sex Female 6:00 PM AUTOMOBILE TECHNICIAN Gender Identity Not on file Sexual Orientation [...] A M CDT Height 160 cm (5' 3 ) 06/16/2024 9:57 AM CDT Body Mass Index 32.66 06/16/2024 9:57 AM CDT Plan of Treatment Upcoming Encounters Date Type Department Care Team (Late st Contact Info) Description 05/14/2025 10:30 AM CDT Office Visit [facility] - General Surgery [address] [place] [phone] Karissa Rodriguez MD [address] [facility] [place] [phone] Health Maintenance Due Date Last Done Comments [...] COMPREHENSIVE METABOLIC PANEL STAT 07/25/2023 10:37 AM AUTOMOBILE TECHNICIAN Aromatase inhibitor use Malignant neoplasm of overlapping sites of left breast in female, estrogen receptor positive DEXA BONE DENSITY AXIAL SKELETON Routine 05/08/2022 1:13 PM CDT Malignant neoplasm of overlapping sites of left breast in female, estrogen receptor positive from Last 3 Months or Most Recently Relevant to Health Maintenance Results * (ABNORMAL) COMPREHENSIVE METABOLIC PANEL (07/25/2023 10:37 AM [facility]) BUN 16 7 - 26 mg/dL 07/25/2023 11:24 AM [facility] Creatinine 0.80 0.56 - 0.96 mg/dL 07/25/2023 11:24 AM [facility] Sodium 143 136 - 145 mmol/L 07/25/2023 11:24 AM [facility] Potassium 4.1 3.5 - 4.5 mmol/L 07/25/2023 11:24 AM [facility] Chloride 106 98 - 107 mmol/L 07/25/2023 11:24 AM [facility] CO2 26 22 - 29 mmol/L 07/25/2023 11:24 AM [facility] Glucose 112 70 - 115 mg/dL 07/25/2023 11:24 AM [facility] Calcium 10.4(H) 8.4 - 10.2 mg/dL 07/25/2023 11:24 AM [facility] Protein Total 7.8 6.0 - 8.3 g/dL 07/25/2023 11:24 AM [facility] Albumin 4.2 3.4 - 5.0 g/dL 07/25/2023 11:24 AM [facility] Bilirubin Total 0.6 0.2 - 1.2 mg/dL 07/25/2023 11:24 AM [facility] Alkaline Phosphatase 81 40 - 150 U/L 07/25/2023 11:24 AM [facility] ALT 24 5 - 55 U/L 07/25/2023 11:24 AM [facility] AST 23 5 - 34 U/L 07/25/2023 11:24 AM [facility] Anion Gap 11 6 - 16 07/25/2023 11:24 AM [facility] BUN/Creatinine Ratio 20 7 - 23 07/25/2023 11:24 AM [facility] Osmolality Calculated 298(H) 275 - 295 mOsm/kg 07/25/2023 11:24 AM [facility] Albumin/Globulin Ratio 1.2 1.1 - 2.3 07/25/2023 11:24 AM [facility] eGFR by CKD-EPI 78(L) >=90 mL/min/1.7 3 m2 07/25/2023 11:24 AM [facility] Blood BLOOD SPECIMEN / Unknown Lab Venipuncture / Unknown 07/25/2023 10:37 AM AUTOMOBILE TECHNICIAN 07/25/2023 10:45 AM [facility] us Latoya Medina MD LAB - CHEMISTRY ORDERABLES Final Result [facility] [address] [place] [address], [facility] [phone] * DEXA BONE DENSITY AXIAL SKELETON (05/08/2022 1:13 PM CDT) Anatomical Region Laterality Modality Other 05/08/2022 2:44 PM CDT Narrative 05/08/2022 6:16 PM CDT PROCEDURE: DEXA BONE DENSITY AXIAL SKELETON, DATE/TIME OF EXAM: 05/08/2022 1:13 PM, LOCATION [facility] INDICATION: C50.812: Malignant neoplasm of overlapping sites [...] below > Dictated by Charanjit Hi MD (Occupational Therapy Co Director) 05/08/2022 2:45 PM Joel Albert DO have personally reviewed and interpreted this examination/study. > Interpreting Provider: Joel Sweeney DO on 05/08/2022 6:16 PM Procedure Note Joel Sweeney DO - 05/08/2022 PROCEDURE: DEXA BONE DENSITY AXIAL SKELETON, DATE/TIME OF EXAM:05/08/2022 1:13 PM, LOCATION [facility] INDICATION: C50.812: Malignant neoplasm of overlapping sites [...] below > Dictated by Charanjit Hi MD (Occupational Therapy Co Director) 05/08/2022 2:45PM Joel Albert DO have personally [...] 4:48 PM 03/25/2022 12:07 PM Care Teams Sap Basis Relationship Specialty Start Date End Date Ava Galvan MD [address] [place] [address] PCP - General 10/03/17
--- OUTSIDE RECORDS SUMMARY | 2025-02-04 11:42 | XMS_ITS | Encounter Summary ---
Author Organization [facility] Facility Care Team Providers Care Ostomy Rn Name Role Phone Ava Galvan MD Unavailable [phone] Ava Galvan MD Primary Care Provider [phone] Nuha Marquez MD Unavailable [phone] Renu Mosqueda MD Unavailable [phone] Ava Galvan MD Primary Care Provider [phone] Dimitri Messer MD Unavailable [phone] Toney Vergara MD Unavailable [phone] Vaishnavi Menon LPN Unavailable [phone] Janel Luna MA Unavailable [phone] Encounter Details Date Type Department Care Team (Latest Contact Info) Description 02/22/2017 Orders Only [facility] CLINCONV ProviderTaylor MD [address] [place] [address] Social History Tobacco Use Types Packs/Day [...] AM CDT Ordered by an unspecified provider. Historical Provider [facility] CARDI[facility] SERVICES PROCE DURES Final Result documented in this encounter Visit Diagnoses Not on filedocumented in this encounter Additional Health Concerns Infection Onset Date Last Indicated Resolved Time COVID: Suspected 10/10/2023 10/10/2023 10/10/2023 3:55 PM METAL CNC OPERATOR documented as of this encounter Care Teams Ostomy Rn Relationship Specialty Start Date End Date Ava Galvan MD PCP - Humana Attributed PCP 11/15/17 Ava Galvan MD PCP - General 12/17/18 10/02/21 Ava Galvan MD PCP - General Family Medicine 10/03/21 Nuha Marquez MD Referring Physician Gastroenterology 02/11/19 Renu Mosqueda MD Referring Physician Endocrinology 02/11/19 Dimit[place] [address] Consulting Physician Otolaryngology 04/23/23 Toney Vergara MD [address] [address] Consulting Physician Surgery 10/10/24 Vaishnavi Menon LPN [address] [place] [address] [address] Student Dean 10/13/24 10/13/24 Janel Luna MA [address] [place] [address] [address] ACO Care Barrel Bridge Assembler 01/30/25 01/30/25 documented as of this encounter
--- OUTSIDE RECORDS SUMMARY | 2025-02-04 11:42 | XMS_ITS | Clinical Summary ---
Author Organization [facility] Address [address], [facility] [address] [place] [address] Phone Care Team Providers Care Visual Journalist Name Role Phone Provider, Unknown Primary Care [...] file Insurance MEDICARE C HUMANA Care Teams Visual Journalist Relationship Specialty Start Date End Date Provider, Unknown UNKNOWN PCP - General 04/04/22 Lul Haddad MD [address] [place] [phone] Consulting Physician Oncology 04/04/22
--- OUTSIDE RECORDS SUMMARY | 2025-02-04 11:43 | XMS_ITS | Encounter Summary ---
Author Organization [facility] Address [address] [place] [address] Care Team Providers Care Cut In Station Operator Name Role Phone Ava Galvan MD Unavailable [phone] Nuha Marquez MD Unavailable [phone] Renu Mosqueda MD Unavailable [phone] Ava Galvan MD Primary Care Provider [phone] Dimitri Messer MD Unavailable [phone] Toney Vergara MD Unavailable [phone] Janel Luna MA Unavailable [phone] Encounter Details Date Type Department Care Team (Late st Contact Info) Description 01/12/2025 Results Follow-Up [facility] Family Medicine [address] [place] [address] Anastasia Silva Thyroid Function [place], Comprehensive metabolic panel, Lipid panel, CBC with auto differential Social History Tobacco Use Types Packs/Day Years Used Date Smoking Tobacco: Never Smokeless Tobacco: Never Alcohol Use Standard Drinks/Week Comments Yes 0 (1 standard drink = 0.6 oz pur e alcohol) occas [facility] Utilities Answer Date Recorded In the past 12 months has [email or web address] electric, gas, oil, or water company threatened [...] often do you attend chur ch or latter day services? More than 4 times per year 10/10/2024 Do you belong to any clubs o r organizations such as zoroastrianism groups, unions, fraternal or athletic groups, or [...] any time in the past 12 m onths, were you homeless or living in a [...] encounter Miscellaneous Notes * Telephone Encounter - Cynthia Noble - 02/03/2025 10:18 AM CDT Appt scheduled documented in this encounter Plan of Treatment Not on file documented as of this encounter Visit Diagnoses Not on filedocumented in this encounter Care Teams Cut In Station Operator Relationship Specialty Start Date End Date Ava Galvan MD PCP - Humana Attributed PCP 11/15/17 Ava Galvan MD PCP - General Family Medicine 10/03/21 Nuha Marquez MD Referring Physician Gastroenterology 02/11/19 Renu Mosqueda MD Referring Physician Endocrinology 02/11/19 Dimitri [place] [address] Consulting Physician Otolaryngology 04/23/23 Toney Vergara MD [address] [address] Consulting Physician Surgery 10/10/24 Janel Luna MA [address] [place] [address] [address] [place] [address] ACO Care Continuous Miner Operator 01/30/25 01/30/25 documented as of this encounter
--- OUTSIDE RECORDS SUMMARY | 2025-02-04 11:43 | XMS_ITS | Encounter Summary ---
Author Organization [facility] Address [address] [place] [address] Phone Care Team Providers Care Orthopedic Shoe Maker Name Role Phone Ava Galvan MD Unavailable [phone] Nuha Marquez MD Unavailable [phone] Renu Mosqueda MD Unavailable [phone] Ava Galvan MD Primary Care Provider [phone] Dimitri Messer MD Unavailable [phone] Toney Vergara MD Unavailable [phone] Vaishnavi Menon LPN Unavailable [phone] Janel Luna MA Unavailable [phone] Encounter Details Date Type Department Care Team (Late st Contact Info) Description 03/06/2023 Imaging Exam [facility] Otolaryngology [address] [place] [address] [address]imit[address]er [place] [address] [address] Nasal congestion (Primary Dx) Social History [...] COVID: Suspected 10/10/2023 10/10/2023 10/10/2023 3:55 PM FIELD CROP I FARMWORKER documented as of this encounter Care Teams Orthopedic Shoe Maker Relationship Specialty Start Date End Date Ava Galvan MD PCP - Humana Attributed PCP 11/15/17 Ava Galvan MD PCP - General Family Medicine 10/03/21 Nuha Marquez MD Referring Physician Gastroenterology 02/11/19 Renu Mosqueda MD Referring Physician Endocrinology 02/11/19 Dimit[place] [address] Consulting Physician Otolaryngology 04/23/23 Toney Vergara MD [address] [address] Consulting Physician Surgery 10/10/24 Vaishnavi Menon LPN [address] [place] [address] Patternator 10/13/24 10/13/24 Janel Luna, [place] [address] [place] [address] ACO Care Journeyman Mechanic 01/30/25 01/30/25 documented as of this encounter
[2025-02-04 11:52] LABS: Alanine Aminotransferase 29 U/L (6-35); Albumin Level 4.4 g/dL (3.5-5.1); Alkaline Phosphatase 70 U/L (38-126); Amylase 102 U/L (30-110); Anion Gap 7 mmol/L (4-12); Aspartate Amino Transferase 33 U/L (14-36); Bilirubin,Total 0.4 mg/dL (0.2-1.3); Blood Urea Nitrogen 15 mg/dL (7-17); Calcium 10.2 mg/dL (8.4-10.2); Carbon Dioxide 28 mmol/L (22-30); Chloride 107 mmol/L (98-107); Estimated Glomerular Filt Rate 59; Glucose 104 mg/dL (65-110); Lipase 218 U/L (23-300); Potassium 4.5 mmol/L (3.4-5.0); Sodium 142 mmol/L (137-145)
== END 2025-02-04 11:11 | disposition home or self-care (01) ==
LOC: ANHSURGERY 11:14
PROVIDERS: PCP Family Medicine; Visit Provider Surgery
DX: K80.10 Calculus of gallbladder with chronic cholecystitis without obstruction (principal)
CPT/HCPCS: 36415; 80053; 82150; 82248; 83690; 85025

== ENCOUNTER 2025-02-12 15:26 | Observation (INO) | payer MEDICARE, SELFPAY ==
[2025-01-01 14:00] VITALS: BMI 30.5
--- NOTE | 2025-01-01 14:16 | PC.NURSE ---
Addendum entered by Silvana Barrow RN 01/29/25 11:04: Called pt, she was rescheduled due to abcessed tooth that was since extracted and pt had ESWL done on 01/27/25 without complications. She was at [facility] yesterday again with Gall bladder attack and EKG was done so we will retrieve that. All new date and time of New Resched Surgery explained to pt as below, voiced understanding, Testing to be done here next week. Report to the Outpatient Waiting Room, entrance under the green pavilion located off [address], at time ____0630am___ on date ___02/11/25____. Planned Procedure Time: 0830am Take only the following medications with a SIP of water on the morning of surgery: __Coreg, Amlodipine and Montelukast DO NOT STOP ANY OF YOUR OTHER PRESCRIPTION MEDICATIONS PRIOR TO SURGERY EXCEPT THE FOLLOWING Hold all vitamins and supplements for 3 days per anesthesiologist. Date to take last dose 01/27/25 Medications to discontinue per physician None Date to take last dose None Addendum entered by Silvana Barrow RN 01/01/25 14:26: Pt is working with dentist on a abcessed tooth that they are wanting to extract and pt is awaiting to hear from their office and is to call Dr Higgins office so they are aware of this too as it might delay this surgery if indicated. Original Note: Report to the Outpatient Waiting Room, entrance under the green pavilion located off [address], at time ____1000am___ on date ___01/14/25____. Planned Procedure Time: 1200pm .? Time changes happen often and if your time is changed the preop area will call you the afternoon before. - You and your visitor will be asked to self-screen and do not enter if you have any COVID symptoms. Please call surgeon if you need to reschedule. - A mask is optional within the hospital at this time. Patients may have clear liquids (water, carbonated beverages, clear teas, apple juice) until 3 hours prior to surgery with a maximum of 20 ounces. - No food from midnight until time of surgery and no smoking, or chewing tobacco (or any form of nicotine). No chewing gum, candy or mints. (0900am) Take only the following medications with a SIP of water on the morning of surgery: __Coreg, Amlodipine and Montelukast DO NOT STOP ANY OF YOUR OTHER PRESCRIPTION MEDICATIONS PRIOR TO SURGERY EXCEPT THE FOLLOWING Hold all vitamins and supplements for 3 days per anesthesiologist. Date to take last dose 01/10/25 Medications to discontinue per physician None Date to take last dose None Please no make-up, nail setswana, hairspray, perfume, deodorant, or body powder the day of surgery.? No jewelry (including any body piercings) or valuables the day of surgery, leave them at home.? Please take a shower or bath the night before, or the morning of, surgery with an antibacterial soap.? Wear comfortable, loose fitting clothing. - Jewelry must be removed prior to entering the operating room.? Rings and piercings that are not removed may be cut off. - The hospital will not accept responsibility for valuables.? - Please leave all valuables, including medications, at home the day of surgery. If you are going home after surgery, a licensed refrigerated national truck driver must drive you home.? - NO public transportation without another adult if you receive anesthesia. - We recommend that an adult stay with you for 24 hours following discharge. - We also recommend that you do not drive, make important decision, drink alcoholic beverages, or take any drugs that were not prescribed by your health care provider for at least 24 hours after your discharge time. Follow any additional instructions given to you from your surgeon. Telephone instructions given to ___Patient and asked if any additional questions and then verbalized understanding. Patient advised to call surgeon office or pre surgery nurse liaison [phone] if any additional questions.
--- NOTE | 2025-01-12 15:02 | PM.SD2 ---
Same Day Admit/Disch: HPI History of Present Illness Chief complaint: Chr Cholecystitis with Stones Narrative: Mima Carr is a 74 year old female who experienced severe right upper quadrant abdominal pain in September. She went to the emergency room at [facility]. Imaging there are included both a CT scanned and an ultrasound of the right upper quadrant. Both studies showed gallstones and evidence of gallbladder wall thickening and chronic cholecystitis. She also had evidence of ureteral stones. She has since undergone lithotripsy. She was seen in the office and is taken to surgery now for laparoscopic cholecystectomy. She has a medical history of essential hypertension and breast cancer status post bilateral mastectomy. She takes anastrozole 1 mg daily. Patient was to have surgery 01/14/25. She has developed a tooth abscess and the surgery has had to be postponed for now. REPLACED BY [facility] Past Medical History Medical History Hypertension Cancer Surgical History Surgical History H/O nasal septoplasty 2021 H/O bilateral mastectomy 1998 History of endometrial ablation Family History Family History Father Malignant neoplasm of prostate Sibling Malignant neoplasm of prostate Social History Social History Smoking status: Never smoker Alcohol intake: never Substance use: never Current Housing: Decline to Answer Concerned About Future Housing: Decline to Answer Difficulty Paying Gas/Electric Bills: Decline to Answer Difficulty Paying for Meds: Decline to Answer Currently Unemployed: Decline to Answer Education: Decline to Answer Difficulty w/ Childcare or Family Care: Decline to Answer Living arrangements: alone Spiritual care concerns: No Same Day Admit/Disch: Med Pre-admit Medications Home Medications ?Medication ?Instructions ?Recorded ?Confirmed ?Type amlodipine 10 mg tablet 10 mg PO DAILY 11/27/24 01/01/25 History anastrozole 1 mg tablet 1 mg PO DAILY 11/27/24 01/01/25 History ascorbic acid (vitamin C) 1,000 mg 1 g PO DAILY 11/27/24 01/01/25 History capsule ascorbic acid 100 mg-elderberry 100 tablet PO DAILY 11/27/24 01/01/25 History fruit 50 mg chewable tablet atorvastatin 20 mg tablet (Lipitor) 20 mg PO DAILY 11/27/24 01/01/25 History carvedilol 12.5 mg tablet 12.5 mg PO Q12H 11/27/24 01/01/25 History coenzyme Q10 200 mg capsule 200 mg PO DAILY 11/27/24 01/01/25 History ezetimibe 10 mg tablet 10 mg PO DAILY 11/27/24 01/01/25 History fenofibrate nanocrystallized 145 145 mg PO DAILY 11/27/24 01/01/25 History mg tablet garlic 1,000 mg capsule 1,000 mg PO DAILY 11/27/24 01/01/25 History glucosamine 750 rc-jxyrysknwp-fqr 1 tablet PO BID 11/27/24 01/01/25 History no.1 625 mg-C 30 qi-oqje-pejw tablet lisinopril 5 mg tablet 5 mg PO DAILY 11/27/24 01/01/25 History montelukast 10 mg tablet 10 mg PO DAILY 11/27/24 01/01/25 History tamsulosin 0.4 mg capsule 0.4 mg PO DAILY 11/27/24 01/01/25 History turmeric root extract 500 mg 500 mg PO DAILY 11/27/24 01/01/25 History capsule vitamin E 400 unit/15 mL oral 400 unit PO DAILY 11/27/24 01/01/25 History liquid Review of Systems Review of Systems All systems reviewed & are unremarkable except as noted in HPI and below (HPI) Exam Const: General: comfortable, no acute distress, alert and awake HENMT: Head: normocephalic and atraumatic Mouth: Yes Normal oral and palatal mucosa present Eyes: Conjunctivae: conjunctivae normal Pupils: Equal, round and reactive pupils present EOM: EOMs intact bilaterally Neck: Neck: normal visual inspection, no lymphadenopathy and nontender Resp: Effort & Inspection: normal respiratory effort Auscultation: clear to auscultation bilaterally Cardio: Rate: regular rate Rhythm: regular rhythm Heart sounds: no gallops, no murmurs and no rubs GI: Inspection: non-distended GI Palp: Yes Soft to palpation, No Tenderness to palpation present (GI), No Hepatomegaly present and No Splenomegaly present Skin: Lesions: no lesions Rashes: no rashes Neuro: General: no focal motor deficits and CN's II-XI intact bilaterally Cranial nerves: Yes Equal, round and reactive pupils present, Yes Bilaterally intact EOM present, Yes facial symmetry and Yes Midline tongue present Speech: normal speech Motor exam (neuro): 5/5 motor strength present throughout and Motor abnormalities not present Extrem: General: no clubbing, cyanosis or edema and edema Psych: Affect: normal affect Thought process: Normal thought process present Insight: Good insight present (Psych) DS: Summary Time Spent with Patient Time attestation: Total time spent providing and/or coordinating discharge services: DS: Admitting Diagnosis Discharge Date 01/14/2025 Admitting Diagnosis Chronic cholecystitis, cholelithiasis History ureteral lithiasis status post lithotripsy Essential hypertension History breast cancer DS: Discharge Diagnosis Discharge Diagnosis (1) Tooth abscess: Code(s): K04.7 - Periapical abscess without sinus Status: Acute Assessment and Plan: Patient requires treatment for tooth abscess she has recently developed. Gallbladder surgery has been postponed. (2) Chronic cholecystitis with calculus: Code(s): K80.10 - Calculus of gallbladder with chronic cholecystitis without obstruction Status: Chronic Assessment and Plan: Postponed. Discharge Plan Discharge Patient Disposition: Home Patient Language: Hong Konger Stand Alone Forms: General Discharge Instructions Discharge Medications: No Action amlodipine 10 mg tablet 10 mg PO DAILY anastrozole 1 mg tablet 1 mg PO DAILY ascorbic acid (vitamin C) 1,000 mg capsule 1 g PO DAILY ascorbic acid-elderberry fruit 100-50 mg tablet,chewable 100 tablet PO DAILY atorvastatin [Lipitor] 20 mg tablet 20 mg PO DAILY Patient Comments: HS carvedilol 12.5 mg tablet 12.5 mg PO Q12H Rx Instructions: must administer with a meal/food coenzyme Q10 200 mg capsule 200 mg PO DAILY ezetimibe 10 mg tablet 10 mg PO DAILY Patient Comments: HS fenofibrate nanocrystallized 145 mg tablet 145 mg PO DAILY Patient Comments: HS garlic 1,000 mg capsule 1,000 mg PO DAILY totiotbi-qwri-oih3-C-leobardo-bosw 750-625-30 mg tablet 1 tablet PO BID Rx Instructions: give after food/meal lisinopril 5 mg tablet 5 mg PO DAILY montelukast 10 mg tablet 10 mg PO DAILY tamsulosin 0.4 mg capsule 0.4 mg PO DAILY Patient Comments: HS turmeric root extract 500 mg capsule 500 mg PO DAILY vitamin E 400 unit/15 mL liquid 400 unit PO DAILY Other Ambulatory Orders: Amylase (Routine) Timeframe: 20250101 Location: Determined by Patient Ordered By: Renan Higgins Comprehensive Metabolic Panel (Routine) Timeframe: 20250101 Location: Determined by Patient Ordered By: Renan Higgins CA 12 lead EKG (Routine) Timeframe: 20250101 Location: Determined by Patient Ordered By: Juan Monae Hepatic Panel (Routine) Timeframe: 20250101 Location: Determined by Patient Ordered By: Renan Higgins Lipase (Routine) Timeframe: 20250101 Location: Determined by Patient Ordered By: Renan Higgins
--- OUTSIDE RECORDS SUMMARY | 2025-01-14 00:03 | XMS_ITS | Encounter Summary ---
Author Organization [facility] Facility Care Team Providers Care Clinical Trial Associate Name Role Phone Ava Galvan MD Unavailable [phone] Ava Galvan MD Primary Care Provider [phone] Nuha Marquez MD Unavailable [phone] Renu Mosqueda MD Unavailable [phone] Ava Galvan MD Primary Care Provider [phone] Dimitri Messer MD Unavailable [phone] Toney Vergara MD Unavailable [phone] Vaishnavi Menon LPN Unavailable [phone] Encounter Details Date Type Department Care Team (Latest Contact Info) Description 02/22/2017 Orders Only [facility] CLINCON[facility] ProviderTaylor MD [address] [place] [id number] Social History Tobacco Use Types Packs/Day Years Used Date Smoking Tobacco: Never Assessed Comments Unknown Sex and Gender Information Value Date Recorded Sex Assigned at Not on file Legal Sex Female 2:58 PM CDT Gender Identity Not on file Sexual Orientation Not on file documented as of this encounter Plan of Treatment Not on file documented as of this encounter Procedures Procedure Name Priority Date/Time Associated Diagnosis Comments CARDIOLOGY REPORT 02/22/2017 12: 00 AM CDT CARDIOLOGY REPORT 02/22/2017 12: 00 AM CDT documented in this encounter Results * CARDIOLOGY REPORT (02/22/2017 12:00 AM CDT) Anatomical Region Laterality Modality Other Narrative 02/22/2017 12:00 AM CDT Ordered by an unspecified provider. us Historical Provider [facility] CARDIAC SERVICES PROCE DURES Final Result * CARDIOLOGY REPORT (02/22/2017 12:00 AM CDT) Anatomical Region Laterality Modality Other Narrative 02/22/2017 12:00 AM CDT Ordered by an unspecified provider. us Historical Provider [facility] CARDIAC SERVICES PROCE DURES Final Result documented in this encounter Visit Diagnoses Not on filedocumented in this encounter Additional Health Concerns Infection Onset Date Last Indicated Resolved Time COVID: Suspected 10/10/2023 10/10/2023 10/10/2023 3:55 PM [employer] documented as of this encounter Care Teams Clinical Trial Associate Relationship Specialty Start Date End Date Ava Galvan MD PCP - [employer] Attributed PCP 11/15/17 Ava Galvan MD PCP - General 12/17/18 10/02/21 Ava Galvan MD PCP - General Family Medicine 10/03/21 Nuha Marquez MD Referring Physician Gastroenterology 02/11/19 Renu Mosqueda MD Referring Physician Endocrinology 02/11/19 Dimit[place] [address] Consulting Physician Otolaryngology 04/23/23 Toney Vergara MD [address] [place] [id number] Consulting Physician Surgery 10/10/24 Vaishnavi Menon, MICKEY [address] [place] [address] [address] [place] [address] Senior Process Analyst 10/13/24 10/13/24 documented as of this encounter
--- OUTSIDE RECORDS SUMMARY | 2025-01-14 00:03 | XMS_ITS | Referral Summary ---
Author Organization [facility] Address [address] [place] [address] Care Team Providers Care Meat Trimmer Name Role Phone Ava Galvan MD Unavailable [phone] Nuha Marquez MD Unavailable [phone] Renu Mosqueda MD Unavailable [phone] Ava Galvan MD Primary Care Provider [phone] Dimitri Messer MD Unavailable [phone] Toney Vergara MD Unavailable [phone] Encounters Date Type Department Care Team Description 01/12/2025 Results Follow-Up [facility] Family Medicine [address] [place] [address] Anastasia Silva 12/02/2024 Telephone [facility] Cardiology [address] [place] [address] Sultan Alysia Doss MD 11/26/2024 Telephone [facility] Family Medicine [address] [place] [address] Ava Galvan MD Medical Question/Miscellaneous 11/12/2024 Telephone [facility] Family Medicine [address] [place] [address] Ava Galvan MD Medical Question/Miscellaneous 11/11/[address] [place] [address] Ava Galvan MD Medical Question/Miscellaneous 10/22/2024 1:00 PM PARKING [employer]ATION ENFORCEMENT OFFICER Office Visit [address] [place] [address] Ava Galvan MD Calculus of gallbladder with acute cholecystitis without obstruction (Primary Dx); Nephrolithiasis; Primary hypertension; Mixed hyperlipidemia from Last 3 Months Allergies No known active allergies Medications garlic 1,000 mg capsule Take 1,000 mg by mouth daily Active ascorbic acid (VITAMIN C) 1,000 mg tablet Take 1 tablet (1,000 mg total) by mouth daily Active vitamin E acetate (VITAMIN E ORAL) Take 450 Units by mouth daily Active coenzyme Q10 200 mg capsule Take 1 capsule (200 mg total) by mouth daily Active ASCORBIC ACID-ELDERBERRY FRUIT ORAL Take 1 capsule by mouth daily Active turmeric root extract 500 mg capsule Take 500 mg by mouth daily Active glucosamine HCl/chondroitin franklin (GLUCOSAMINE-CHONDROITI N ORAL) Take 1 tablet by mouth 2 (two) times a day Active anastrozole (ARIMIDEX) 1 mg tablet Take 1 tablet (1 mg total) by mouth daily 022 Active atorvastatin (LIPITOR) 20 mg tabletIndications:Famil ial hypercholesterolemia TAKE 1 TABLET EVERY NIGHT 90 tablet 3 024 Active carvediloL (COREG) 12.5 mg tablet TAKE 1 TABLET TWICE DAILY WITH MEALS 180 tablet 3 024 Active lisinopriL (PRINIVIL,ZESTRIL) 5 mg tabletIndications:Prima ry hypertension TAKE 1 TABLET EVERY DAY 90 tablet 1 024 Active fenofibrate nanocrystallized (TRICOR) 145 mg tabletIndications:Famil ial hypercholesterolemia TAKE 1 TABLET EVERY DAY 90 tablet 1 025 Active tamsulosin (FLOMAX) 0.4 mg extended release capsule Take 1 capsule (0.4 mg total) by mouth daily with dinner 30 capsule 1 025 Active montelukast (SINGULAIR) 10 mg tabletIndications:Chron ic rhinitis,Vertigo TAKE 1 TABLET EVERY NIGHT 90 tablet 3 025 Active ezetimibe (ZETIA) 10 mg tabletIndications:Pure hypercholesterolemia TAKE 1 TABLET EVERY DAY 90 tablet 1 025 Active amLODIPine (NORVASC) 10 mg tablet TAKE 1 TABLET EVERY DAY 90 tablet 1 025 Active montelukast (SINGULAIR) 10 mg tabletIndications:Chron ic rhinitis,Vertigo TAKE 1 TABLET EVERY NIGHT 90 tablet 1 024 2024 Discontinued ezetimibe (ZETIA) 10 mg tabletIndications:Pure hypercholesterolemia TAKE 1 TABLET EVERY DAY 90 tablet 1 024 2024 Discontinued amLODIPine (NORVASC) 10 mg tablet TAKE 1 TABLET EVERY DAY 90 tablet 1 024 2024 Discontinued Active Problems Problem Noted Date Diagnosed Date Nephrolithiasis 10/22/2024 Calculus of gallbladder with acute cholecystitis without obstruction 10/22/2024 Assessment & Plan (11/02/2024 6:48 PM PARKING REGULATION ENFORCEMENT OFFICER): New Refer to general surgery Abdominal pain 10/10/2024 Acute cholecystitis 10/10/2024 Obstruction of right uretero pelvic junction (UPJ) due to stone 10/10/2024 Hydronephrosis of right kidney 10/10/2024 Post-menopausal 07/30/2024 Mixed hyperlipidemia 07/30/2024 Assessment & Plan (11/02/2024 6:49 PM PARKING REGULATION ENFORCEMENT OFFICER): Chronic Stable Cont lipitor, zetia, tricor Goal: TC<200, LDL<100, TG<150 Assessment & Plan (08/10/2024 9:18 PM PARKING REGULATION ENFORCEMENT OFFICER): Chronic Stable Cont lipitor, zetia, tricor Goal: TC<200, LDL<100, TG<150 Non-seasonal allergic rhinitis 11/05/2023 Assessment & Plan (11/05/2023 3:29 PM PARKING REGULATION ENFORCEMENT OFFICER): I am recommending allergy testing because of the prolonged congestion. I also am going to change her allergy medication. I recommended Codie and we are going to switch her to Nasacort. We will discuss the allergy testing after it is completed. Sensation of fullness in left ear 05/08/2023 Assessment & Plan (05/12/2023 11:57 AM CDT): I recommended getting a hearing test and she would like to do that also. We will schedule her for that and I will call her with results. Her ears look normal otherwise. TMJ (temporomandibular joint syndrome) Assessment & Plan (05/12/2023 11:58 AM CDT): I think her sensation of fullness is probably due to TMJ disorder. She does have significant crepitus on the left side. I did talk with her about this. We will check a hearing test and see what that shows. Nasal obstruction 05/08/2023 Assessment & Plan (05/12/2023 11:57 AM CDT): Her nasal airway looks great. She is very happy with how things are going. She can get back to normal activity and in fact already is. There is no need for further intervention with this. She will follow up with me as needed. Deviated nasal septum 03/13/2023 Assessment & Plan (04/24/2023 6:52 PM CDT): Her nasal septum looks good. Her nasal airway looks good. I told her that she should gradually increase her activities. Wait a couple of days more before she blows her nose. I do not really want her doing anything strenuous for about 10 days. She understands. She can use saline to help clear secretions if needed. I would like to see her again in about 2 weeks. She has no questions. Hypertrophy of nasal turbinates 03/13/2023 Chronic pansinusitis 02/28/2023 Assessment & Plan (02/28/2023 5:37 PM CDT): I am recommending a CT scan for further evaluation. She wants to go ahead and pursue that also. Recurrent sinusitis 12/18/2022 Assessment & Plan (01/31/2023 8:36 PM CDT): This has been a problem for many years. I talked with her about further investigation. Will see how she is doing when I see her next time. She does have a deviated septum which is probably contributing to a lot of her symptoms. She may have some underlying sinusitis also. Consider imaging. Assessment & Plan (12/29/2022 11:36 AM CDT): New Order carin zhang Order CT sinuses Refer to ENT Uncontrolled hypertension 10/19/2022 Assessment & Plan (10/27/2022 3:04 AM PARKING REGULATION ENFORCEMENT OFFICER): Uncontrolled Add toprol Cont amlodipine Goal: SBP<140, DBP<90 Hypercalcemia 10/19/2022 Assessment & Plan (10/27/2022 2:59 AM PARKING REGULATION ENFORCEMENT OFFICER): recheck Epigastric abdominal pain 10/19/2022 Assessment & Plan (10/27/2022 2:56 AM PARKING REGULATION ENFORCEMENT OFFICER): New Order prilosec Order gallbladder ultrasound and HIDA scan Refer to GI LUQ abdominal pain 10/19/2022 Assessment & Plan (10/27/2022 2:56 AM PARKING REGULATION ENFORCEMENT OFFICER): New Order prilosec Order gallbladder ultrasound and HIDA scan Refer to GI Primary insomnia 10/19/2022 Assessment & Plan (10/27/2022 3:00 AM PARKING REGULATION ENFORCEMENT OFFICER): New Start ambien Pure hypercholesterolemia 10/17/2021 Assessment & Plan (08/05/2023 9:33 AM PARKING REGULATION ENFORCEMENT OFFICER): Chronic Stable Cont lipitor, zetia, tricor, vascepa Goal: TC<200, LDL<100, TG<150 Assessment & Plan (04/27/2023 3:31 AM CDT): Chronic Stable Cont lipitor, tricor, zetia Goal: TC<200, LDL<100, TG<150 Assessment & Plan (12/29/2022 11:35 AM CDT): Chronic stable Cont lipitor, fenofibrate, vascepa Order zetia Goal: TC<200, LDL<100, TG<150 Assessment & Plan (10/27/2022 2:54 AM PARKING REGULATION ENFORCEMENT OFFICER): improved Cont lipitor, fenofibrate, vascepa Order zetia Goal: TC<200, LDL<100, TG<150 Assessment & Plan (10/17/2021 5:14 PM PARKING REGULATION ENFORCEMENT OFFICER): Uncontrolled Cont lipitor, fenofibrate, vascepa Order zetia Goal: TC<200, LDL<100, TG<150 Encounter for Medicare annual wellness exam 02/15 Assessment & Plan (08/10/2024 9:17 PM PARKING REGULATION ENFORCEMENT OFFICER): Patient here for annual Medicare wellness visit and for review of complete medical problem list. All the elements of the plan were completed as outlined by CMS. A copy of the prevention plan was given to the patient. I reviewed Medicare Wellness Questionnaire (other physicians involved in care, depression screen, advanced directives), cognitive/memory, and functional assessment. I reviewed and updated the complete problem list, medication list, family history, and immunization records with the patient. I provided preventive counseling and early detection interventions to the patient through health maintenance update and summary of today's office visit. Assessment & Plan (08/05/2023 9:30 AM PARKING REGULATION ENFORCEMENT OFFICER): Patient here for annual Medicare wellness visit and for review of complete medical problem list. All the elements of the plan were completed as outlined by CMS. A copy of the prevention plan was given to the patient. I reviewed Medicare Wellness Questionnaire (other physicians involved in care, depression screen, advanced directives), cognitive/memory, and functional assessment. I reviewed and updated the complete problem list, medication list, family history, and immunization records with the patient. I provided preventive counseling and early detection interventions to the patient through health maintenance update and summary of today's office visit. Assessment & Plan (04/20/2022 6:17 AM CDT): Patient here for annual Medicare wellness visit and for review of complete medical problem list. All the elements of the plan were completed as outlined by CMS. A copy of the prevention plan was given to the patient. I reviewed Medicare Wellness Questionnaire (other physicians involved in care, depression screen, advanced directives), cognitive/memory, and functional assessment. I reviewed and updated the complete problem list, medication list, family history, and immunization records with the patient. I provided preventive counseling and early detection interventions to the patient through health maintenance update and summary of today's office visit. Assessment & Plan (03/02/2021 4:57 AM CDT): Patient here for annual Medicare wellness visit and for review of complete medical problem list. All the elements of the plan were completed as outlined by CMS. A copy of the prevention plan was given to the patient. I reviewed Medicare Wellness Questionnaire (other physicians involved in care, depression screen, advanced directives), cognitive/memory, and functional assessment. I reviewed and updated the complete problem list, medication list, family history, and immunization records with the patient. I provided preventive counseling and early detection interventions to the patient through health maintenance update and summary of today's office visit. Incontinence of feces 08/25/2020 Assessment & Plan (09/16/2020 5:20 PM PARKING REGULATION ENFORCEMENT OFFICER): New Refer to GI Breast pain, right 07/31/2020 Assessment & Plan (08/01/2020 5:04 AM PARKING REGULATION ENFORCEMENT OFFICER): Likely infection Order cefdinir SOB (shortness of breath) 08/19/2019 Assessment & Plan (03/07/2021 7:08 PM CDT): Negative cardiac workup. Assessment & Plan (09/06/2020 5:59 PM PARKING REGULATION ENFORCEMENT OFFICER): Unremarkable cardiac workup. Assessment & Plan (03/09/2020 10:22 AM CDT): The CBC, T4 TSH electrolytes were okay. The CT angio of the lungs was negative for pulmonary embolism. Echo showed small pericardial effusion unchanged since 2017. BNP level was ordered but not drawn. Assessment & Plan (09/30/2019 9:30 AM PARKING REGULATION ENFORCEMENT OFFICER): Dyspnea for 2 months which has already improved. The recent CBC, T4 TSH, electrolytes, chemistries are okay. CT angio of the lungs is negative for pulmonary embolism. Small pericardial effusion which is unchanged since 2017. EKG today shows normal sinus rhythm, normal QRS morphology. Will get a BNP level today. Consider echo Doppler if necessary. Assessment & Plan (08/27/2019 4:27 PM PARKING REGULATION ENFORCEMENT OFFICER): Order CTA chest r/o PE vs infectious or inflammatory process Changes in skin texture 08/19/2019 Assessment & Plan (05/25/2023 5:49 AM CDT): New Refer to derm Assessment & Plan (08/27/2019 4:27 PM PARKING REGULATION ENFORCEMENT OFFICER): Refer to derm Acute non-recurrent maxillary sinusitis 08/19/20 Assessment & Plan (08/27/2019 4:27 PM PARKING REGULATION ENFORCEMENT OFFICER): Order esther zhang Precordial chest pain 03/03/2019 Assessment & Plan (03/07/2021 7:08 PM CDT): Negative stress echo 03/13/2017. Assessment & Plan (09/06/2020 5:59 PM PARKING REGULATION ENFORCEMENT OFFICER): Negative stress echo 03/13/2017. Assessment & Plan (03/05/2020 5:04 PM CDT): Negative stress echo 03/13/2017. Functional class 1. Assessment & Plan (09/29/2019 7:38 PM PARKING REGULATION ENFORCEMENT OFFICER): Negative stress echo 03/13/2017. Functional class 1. Highest heart rate 136. Assessment & Plan (03/04/2019 9:22 AM CDT): Negative stress echo 03/13/2017. The peak heart rate was 136. Average exercise capacity functional class 1, met level 9. No chest pain reported on this visit. 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 A chronic finding without any significant currency exchange specialist the years. The PPD skin test done by the primary care physician was negative. There is history of BCG vaccination in the remote past. CTA of the chest 09/01/2019 showed no pulmonary embolism. A small pericardial effusion was unchanged from before. 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 This is a chronic finding without any significant currency exchange specialist the years. The PPD skin test done at primary care physician was negative. There is history of receiving BCG vaccination in the remote past. CTA of the chest, 09/01/2019 showed no pulmonary embolism. A small pericardial effusion was unchanged from before. Assessment & Plan (03/05/2020 5:08 PM CDT): Chronic loculated pericardial effusion with localized area pericardial thickening, suggesting constrictive pericarditis. This is a chronic finding without any significant currency exchange specialist the years. The PPD skin test done at primary care physician was negative. There is history of receiving BCG vaccination in the remote past. CTA of the chest 09/01/2019 showed no pulmonary embolism. A small pericardial effusion is unchanged from before. Assessment & Plan (09/30/2019 9:29 AM PARKING REGULATION ENFORCEMENT OFFICER): Chronic loculated pericardial effusion with localized area of pericardial thickening. The picture is not consistent with constrictive pericarditis. This is a chronic finding without any significant currency exchange specialist the years. The PPD skin test done at a primary physician's office was negative. History of receiving BCG vaccination in the remote past. CTA of the chest 09/01/2019 showed no pulmonary embolism. There is a small pericardial effusion which is unchanged since 2017. Assessment & Plan (03/03/2019 5:27 PM CDT): She has a chronic loculated pericardial effusion with localized area of pericardial thickening. The picture is not consistent with constrictive pericarditis. This is a chronic finding without any significant currency exchange specialist the years. The PPD skin test suggested by me was done at her primary MD office and was negative. History of receiving BCG vaccination in the remote past. Osteopenia of necks of both femurs 02/11/2019 Assessment & Plan (02/17/2019 8:53 AM CDT): Cont calcium Oral thrush 02/11/2019 Assessment & Plan (02/17/2019 8:54 AM CDT): Start nystatin Chronic rhinitis 05/01/2017 Assessment & Plan (03/29/2020 11:04 AM CDT): Stable Cont zyrtec Thyroid nodule 03/27/2017 Acquired left ventricular hypertrophy 02/22/2017 Assessment & Plan (03/07/2021 7:06 PM CDT): Related to hypertensive heart disease. Aggressive blood pressure control. Assessment & Plan (09/06/2020 5:55 PM PARKING REGULATION ENFORCEMENT OFFICER): Related to hypertensive heart disease. Aggressive blood pressure control. Assessment & Plan (03/05/2020 5:01 PM CDT): Related to the hypertensive heart disease. Aggressive blood pressure control. Assessment & Plan (09/29/2019 7:39 PM PARKING REGULATION ENFORCEMENT OFFICER): Related to the hypertensive heart disease. Aggressive blood pressure control. Assessment & Plan (03/04/2019 9:24 AM CDT): Related to the hypertensive heart disease. EKG today shows a normal sinus rhythm, normal QRS morphology. No left ventricular hypertrophy appreciated on this EKG. Non-rheumatic tricuspid valve insufficiency 04/2017 Hypertension 01/30/2017 Assessment & Plan (11/02/2024 6:49 PM PARKING REGULATION ENFORCEMENT OFFICER): Chronic Stable Cont norvasc, coreg, lisinopril Goal: SBP<140, DBP<90 Assessment & Plan (08/10/2024 9:18 PM PARKING REGULATION ENFORCEMENT OFFICER): Chronic Stable Cont norvasc, coreg, lisinopril Goal: SBP<140, DBP<90 Assessment & Plan (08/05/2023 9:32 AM PARKING REGULATION ENFORCEMENT OFFICER): Chronic Stable Cont coreg, lisinopril Goal: SBP<140, DBP<90 Assessment & Plan (05/25/2023 5:49 AM CDT): Chronic Uncontrolled Add lisinopril Cont norvasc Goal: SBP<140, DBP<90 Assessment & Plan (04/27/2023 3:31 AM CDT): Chronic Stable Cont norvasc Goal: SBP<140, DBP<90 Assessment & Plan (12/29/2022 11:35 AM CDT): Chronic Stable Cont coreg Cont amlodipine Goal: SBP<140, DBP<90 Assessment & Plan (11/24/2022 5:17 AM PARKING REGULATION ENFORCEMENT OFFICER): Uncontrolled Change toprol to coreg Cont amlodipine Goal: SBP<140, DBP<90 Assessment & Plan (10/17/2021 5:13 PM PARKING REGULATION ENFORCEMENT OFFICER): Stable Cont amlodipine, atenolol, hctz, Goal: SBP<140, DBP<90 Assessment & Plan (03/08/2021 10:19 AM CDT): Salt restriction. Amlodipine. Atenolol. Hydrochlorothiazide. Potassium chloride. Blood pressure 138/78. Assessment & Plan (03/02/2021 4:56 AM CDT): Stable Cont atenolol, norvasc, hctz Assessment & Plan (09/16/2020 5:20 PM PARKING REGULATION ENFORCEMENT OFFICER): Stable Cont atenolol, norvasc, hctz Assessment & Plan (09/07/2020 10:31 AM PARKING REGULATION ENFORCEMENT OFFICER): Blood pressure 132/84. Salt restriction. Continue the current regimen. Assessment & Plan (08/01/2020 5:04 AM PARKING REGULATION ENFORCEMENT OFFICER): Stable Cont atenolol, norvasc Assessment & Plan (03/29/2020 11:04 AM CDT): Stable Cont atenolol, norvasc Assessment & Plan (03/09/2020 10:21 AM CDT): Blood pressure 110/70. Salt restriction. Continue the current regimen. Assessment & Plan (09/30/2019 9:28 AM PARKING REGULATION ENFORCEMENT OFFICER): Blood pressure 120/78. Salt restriction. Continue the current regimen. Assessment & Plan (08/27/2019 4:26 PM PARKING REGULATION ENFORCEMENT OFFICER): Stable Cont atenolol, norvasc Assessment & Plan (03/04/2019 9:23 AM CDT): Blood pressure 120/70. Continue the current regimen. Continue the salt restriction. Assessment & Plan (02/17/2019 8:53 AM CDT): Hypertension is stable. Continue current medications. Blood pressure will be reassessed at the next regular appointment Cont amlodipine, atenolol, hctz. Resolved Problems Problem Noted Date Diagnosed Date Resolved Date Nasal congestion 01/31/2023 01/28/2024 Assessment & Plan (11/05/2023 3:33 PM PARKING REGULATION ENFORCEMENT OFFICER): She has a good nasal airway. She still is congested despite this. Surgery did not really seem to help a whole lot. We talked about allergies. She takes cetirizine and Flonase. She does not really use the Flonase because it flores and she does not tolerated well. I am recommending allergy testing. She states that in the past she did test positive for dust mites and possibly some other things. I may have further recommendations after this. Assessment & Plan (02/28/2023 5:38 PM CDT): She no longer using nasal decongestant sprays which is good. She has improved but still has some congestion. I am recommending that she try using Flonase and we will give her a prescription for that. I am also going to schedule her for a sinus CT scan for further evaluation. She would like to pursue that also. Further recommendations afterwards. Need to consider the deviation of her nasal septum and enlarged inferior turbinates also. Assessment & Plan (01/31/2023 8:37 PM CDT): She has chronic nasal congestion due to her deviated nasal septum and enlarged inferior turbinates. She also has become addicted to decongestant nasal sprays. I recommended that she stop her Vicks inhaler. I recommended a steroid shot as well as a steroid pack which will help facilitate this. I discussed the risks of steroids including the risk of immune suppression, exacerbation of cataracts, potential blood clots and DVTs, hip necrosis and osteoporosis. She receive a Kenalog shot and a steroid pack today. The plan is for a follow-up in about 4 weeks for re-evaluation. She understands that she needs to stop the Vicks inhaler right away. Screening for colon cancer 10/17/2021 0 01/28/2024 Hypokalemia 07/31/2020 01/28/2024 Assessment & Plan (10/17/2021 5:15 PM PARKING REGULATION ENFORCEMENT OFFICER): Stable Cont KCL Assessment & Plan (03/08/2021 10:20 AM CDT): Supplemental potassium. Potassium was 3.9 in January 2021. Assessment & Plan (03/02/2021 4:57 AM CDT): Stable Cont klorcon Assessment & Plan (08/01/2020 5:05 AM PARKING REGULATION ENFORCEMENT OFFICER): Stable Cont klorcon Encounter for screening mamm ogram for malignant neoplasm of breast 02/17/2019 01/28/2024 Assessment & Plan (03/29/2020 11:05 AM CDT): Patient here for annual Medicare wellness visit and for review of complete medical problem list. All the elements of the plan were completed as outlined by CMS. A copy of the prevention plan was given to the patient. I reviewed Medicare Wellness Questionnaire (other physicians involved in care, depression screen, advanced directives), cognitive/memory, and functional assessment. I reviewed and updated the complete problem list, medication list, family history, and immunization records with the patient. I provided preventive counseling and early detection interventions to the patient through health maintenance update and summary of today's office visit. Assessment & Plan (02/17/2019 8:55 AM CDT): Patient here for annual Medicare wellness visit and for review of complete medical problem list. All the elements of the plan were completed as outlined by CMS. A copy of the prevention plan was given to the patient. I reviewed Medicare Wellness Questionnaire (other physicians involved in care, depression screen, advanced directives), cognitive/memory, and functional assessment. I reviewed and updated the complete problem list, medication list, family history, and immunization records with the patient. I provided preventive counseling and early detection interventions to the patient through health maintenance update and summary of today's office visit. Screening for breast cancer 02/11/2019 01/28/2024 Hyperlipidemia 08/07/2017 10/17/2021 Assessment & Plan (03/07/2021 7:07 PM CDT): Low-fat low-cholesterol diet. Atorvastatin. Fenofibrate. Vascepa. 08/04/2020 triglycerides 196, LDL 49. Assessment & Plan (03/02/2021 4:56 AM CDT): TG still elevated Cont lipitor, vascepa Goal TG <150 Assessment & Plan (09/16/2020 5:19 PM PARKING REGULATION ENFORCEMENT OFFICER): TG still elevated Increase vascepa to 2 caps BID Cont lipitor, tricor Assessment & Plan (09/07/2020 10:31 AM PARKING REGULATION ENFORCEMENT OFFICER): Low-fat low-cholesterol diet. Atorvastatin. Fenofibrate. Vascepa. On 08/04/2020 triglycerides 196, LDL 49, total cholesterol 121, HDL 45. Assessment & Plan (08/01/2020 5:05 AM PARKING REGULATION ENFORCEMENT OFFICER): Uncontrolled Cont lipitor, tricor Assessment & Plan (03/29/2020 11:04 AM CDT): Uncontrolled Add vascepa Cont lipitor, tricor Assessment & Plan (03/09/2020 10:20 AM CDT): Low-fat low-cholesterol diet. Atorvastatin 20 mg bedtime daily. On 01/09/2020 cholesterol 147, triglyceride 270, HDL 53, LDL 62. Vascepa. Assessment & Plan (09/29/2019 7:38 PM PARKING REGULATION ENFORCEMENT OFFICER): Low-fat low-cholesterol diet. Atorvastatin 20 mg bedtime daily. On 12/29/2018 the LDL was 46. Assessment & Plan (08/27/2019 4:26 PM PARKING REGULATION ENFORCEMENT OFFICER): Stable Cont lipitor, tricor Assessment & Plan (03/04/2019 9:24 AM CDT): Atorvastatin 40 mg bedtime daily. Low-fat low-cholesterol diet. On 07/24/2018 the triglycerides were 229, total cholesterol 122, HDL 47, LDL 46. On 12/29/2018 the total cholesterol was 122, HDL 47, LDL 46, triglyceride 229. Watch the sugar intake. Exercise regularly. Lose weight. Continue the fish oil 1000 mg p.o. B.i.d.. Assessment & Plan (02/17/2019 8:50 AM CDT): Lipid abnormalities are stable. cont atorvastatin Lipids will be reassessed in 6 months. Immunizations Immunization Administration Dates Next Due Flucelvax Influenza Quad 06/24/2019 Influenza, Quad, Adjuvantate d, Intramuscular 08/05/2021,06/29/2020 Influenza, Quadrivalent, Hig h Dose, Preservative Free, Intrr 06/29/2022 Influenza, Quadrivalent, Spl it, Intramuscular 07/04/2016,06/14/2015 Influenza, Trivalent, Cell Culture-based MDCK, Preservative Free, Antibiotic Free, Intramuscular 06/24/2019 Influenza, Trivalent, High D ose, Split, Preservative Free, Intramuscular 06/17/2018,06/17/2018,06/15/2017 Influenza, Trivalent, IM (MDV) 08/28/2016,2014 Influenza, Unspecified 07/04/2024,2022,06/29/2022,06/29,06/17/2018,06/15/2017,08/28/2016 ,07/04/2016,08/04/2015,06/14/2015 PPD TEST 05/22/2017 Pneumococcal Conjugate PCV 13 06/15/2017, 017 Pneumococcal Polysaccharide PPV23 02/11/2019,10/2016 Sars-CoV-2, Unspecified 02/23/2021 [facility] 09/17/2014 Social History Tobacco Use Types Packs/Day Years Used Date Smoking Tobacco: Never Smokeless Tobacco: Never Alcohol Use Standard Drinks/Week Comments Yes 0 (1 standard drink = 0.6 oz pur e alcohol) occas [facility] Utilities Answer Date Recorded In the past 12 months has e electric, gas, oil, or water company threatened to shut off services in your home? No 10/10/2024 Social Connection and Isolat ion Panel [NHANES] Answer Date Recorded In a typical week, how many times do you talk on the phone with family, friends, or neighbors? More than three times a week 10/10/2024 How often do you get togethe r with friends or relatives? More than three times a week 10/10/2024 How often do you attend chur ch or anabaptist services? More than 4 times per year 10/10/2024 Do you belong to any clubs o r organizations such as buddhist groups, unions, fraternal or athletic groups, or school groups? No 10/10/2024 How often do you attend meet ings of the clubs or organizations you belong to? 1 to 4 times per year 10/10/2024 Are you , , di vorced, , never , or living with a partner? 10/10/2024 AUDIT-C Answer Date Recorded Q1: How often do you have a drink containing alcohol? Never 01/30/2024 Q2: How many drinks containi ng alcohol do you have on a typical day when you are drinking? Patient does not drink Q3: How often do you have si x or more drinks on one occasion? Never 01/30/2024 Overall Financial Resource Strain (CARDIA) Answe r Date Recorded How hard is it for you to pa y for the very basics like food, housing, medical care, and heating? Not hard at all 10/10/2024 PHQ-2 Answer Date Recorded PHQ-2 Total Score (If total score is 3 or more points, staff should administer the PHQ-9) 0 07/30/2024 Hunger Vital Sign Answer Date Recorded Within the past 12 months, y ou worried that your food would run out before you got the money to buy more. Never true 10/10/19 25 Within the past 12 months, t he food you bought just didn't last and you didn't have money to get more. Never true 10/10/2024 PRAPARE - Transportation Answer Date Re corded In the past 12 months, has l ack of transportation kept you from medical appointments or from getting medications? No 09/18 In the past 12 months, has l ack of transportation kept you from meetings, work, or from getting things needed for daily living? No 10/10/2024 Housing Stability Vital Sign Answer Naga e Recorded In the last 12 months, was t here a time when you were not able to pay the mortgage or rent on time? No 10/10/2024 In the past 12 months, how m any times have you moved where you were living? 0 10/10/2024 At any time in the past 12 m [facility], were you homeless or living in a snf (including now)? No 10/10/2024 Personal Safety Answer Date Recorded Have you ever been in or are you currently in a harmful physical or emotional relationship or is someone making you feel afraid or unsafe? Denies 10/09/2024 Comments No Sex and Gender Information Value Date Recorded Sex Assigned at Not on file Legal Sex Female 2:58 PM CDT Gender Identity Not on file Sexual Orientation Not on file Last Filed Vital Signs Vital Sign Reading Time Taken Comments Blood Pressure 130/62 10/22/2024 1:24 PM PARKING REGULATION ENFORCEMENT OFFICER Pulse 70 10/22/2024 1:24 PM PARKING REGULATION ENFORCEMENT OFFICER Temperature 36.2 C (97.1 F) 10/22/2024 1:24 PM PARKING REGULATION ENFORCEMENT OFFICER Respiratory Rate 18 10/10/2024 7:28 AM PARKING REGULATION ENFORCEMENT OFFICER Oxygen Saturation 98% 10/22/2024 1:24 PM PARKING REGULATION ENFORCEMENT OFFICER Inhaled Oxygen Concentration - - Weight 81.3 kg (179 lb 3.2 oz) 10/22/2024 1:24 P M PARKING REGULATION ENFORCEMENT OFFICER Height 160 cm (5' 3) 10/22/2024 1:24 PM PARKING REGULATION ENFORCEMENT OFFICER Body Mass Index 31.74 10/22/2024 1:24 PM PARKING REGULATION ENFORCEMENT OFFICER Plan of Treatment Not on file Procedures Procedure Name Priority Date/Time Associated Diagnosis Comments CBC WITH AUTO DIFFERENTIAL Routine 01/05/2025 6:10 AM CDT Encounter for Medicare annual wellness exam Post-menopausal Primary hypertension Mixed hyperlipidemia LIPID PANEL Routine 01/05/2025 6:10 AM CDT Encounter for Medicare annual wellness exam Post-menopausal Primary hypertension Mixed hyperlipidemia COMPREHENSIVE METABOLIC PANEL Routine 01/05/2025 6:10 AM CDT Encounter for Medicare annual wellness exam Post-menopausal Primary hypertension Mixed hyperlipidemia THYROID FUNCTION CASCADE Routine 01/05/2025 6:10 AM CDT Encounter for Medicare annual wellness exam Post-menopausal Primary hypertension Mixed hyperlipidemia DEXA AXIAL SKELETON BONE DENSITY 1 OR MORE SITES Schedule Routine, Read Routine (OP Routine) 08/21/2024 9:23 AM PARKING REGULATION ENFORCEMENT OFFICER Post-menopausal SCREENING MAMMOGRAM BILATERAL W TIM Schedule Routine, Read Routine (OP Routine) 12/30/2021 11:44 AM CDT Encounter for screening mammogram for malignant neoplasm of breast STOOL DNA COLOGUARD Routine 10/26/2021 10:20 AM PARKING REGULATION ENFORCEMENT OFFICER Screening for colon cancer COLONOSCOPY Routine 08/09/2016 from Last 3 Months or Most Recently Relevant to Health Maintenance Results * Thyroid Function [place] (01/05/2025 6:10 AM CDT) TSH 4.20 0.40 - 4.50 mIU/L [facility] Blood 01/05/2025 6:10 AM CDT 01/05/2025 6:11 AM CDT Narrative [facility] - 01/06/2025 2:22 AM CDT FASTING:YES FASTING: YES Ava Galvan MD LAB BLOOD ORDERABLES Natasha l Result [facility] [id number] [phone] * (ABNORMAL) CBC with auto differential (01/05/2025 6:10 AM CDT) WBC 5.4 3.8 - 10.8 Thousand/u L [facility] RBC, POC 4.14 3.80 - 5.10 Million/uL [facility] Hgb 12.6 11.7 - 15.5 g/dL [facility] Hct 39.6 35.0 - 45.0 % [facility] MCV 95.7 80.0 - 100.0 fL [facility] MCH 30.4 27.0 - 33.0 pg [facility] MCHC 31.8(L) 32.0 - 36.0 g/dL [facility] Comment: For adults, a slight decrease in the calculated MCHC value (in the range of 30 to 32 g/dL) is most likely not clinically significant; however, it should be interpreted with caution in correlation with other red cell parameters and the patient's clinical condition. Rdw 12.9 11.0 - 15.0 % [facility] Platelets 279 140 - 400 Thousand/u L [facility] MPV 10.1 7.5 - 12.5 fL [facility] Neutrophils, abs 2,543 1,500 - 7,800 cells/uL [facility] Lymphocytes, abs 2,111 850 - 3,900 cells/uL [facility] Monocyte abs 486 200 - 950 cells/uL [facility] Eosinophils, abs 211 15 - 500 cells/uL [facility] Basophils, abs 49 0 - 200 cells/uL [facility] Neutrophils 47.1 % [facility] Lymphocyte pct 39.1 % [facility] Monocytes 9.0 % [facility] Eosinophils 3.9 % [facility] Basophils 0.9 % [facility] Blood 01/05/2025 6:10 AM CDT 01/05/2025 6:11 AM CDT Narrative [facility] - 01/06/2025 2:22 AM CDT FASTING:YES FASTING: YES Ava Galvan MD LAB BLOOD ORDERABLES Natasha l Result Performing Organization Address City/[facility]/ZIP Co de Phone Number [email or web address] [address] [phone] * Lipid panel (01/05/2025 6:10 AM CDT) [facility] Cholesterol 117 <200 mg/dL [facility] HDL 54 > OR = 50 mg/dL [facility] Triglycerides 148 <150 mg/dL [facility] LDL 40 mg/dL (calc) [facility] Comment: Reference range: <100 Desirable range <100 mg/dL for primary prevention; <70 mg/dL for patients with CHD or diabetic patients with > or = 2 CHD risk factors. LDL-C is now calculated using the Jesse-Ritchie calculation, which is a validated novel method providing better accuracy than the Friedewald equation in the estimation of LDL-C. Jesse SS et al. HIEU. 2013;310(19): 8528-8763 (http://education.[employer].ProFounder/faq/FMM630) Chol/HDL ratio 2.2 <5.0 (calc) [facility] Non-HDL, (LDL+VLDL) 63 <130 mg/dL (calc) [facility] Comment: For patients with diabetes plus 1 major ASCVD risk factor, treating to a non-HDL-C goal of <100 mg/dL (LDL-C of <70 mg/dL) is considered a therapeutic option. Blood 01/05/2025 6:10 AM CDT 01/05/2025 6:11 AM CDT Narrative [facility] - 01/06/2025 2:22 AM CDT FASTING:YES FASTING: YES Ava Galvan MD LAB BLOOD ORDERABLES Natasha l Result Performing Organization Address City/[facility]/ZIP Co de Phone Number [facility] [address] [phone] * (ABNORMAL) Comprehensive metabolic panel (01/05/2025 6:10 AM CDT) Glucose 113(H) 65 - 99 mg/dL [facility] Comment: Fasting reference interval For someone without known diabetes, a glucose value between 100 and 125 mg/dL is consistent with prediabetes and should be confirmed with a follow-up test. BUN 16 7 - 25 mg/dL [facility] Creatinine 0.83 0.60 - 1.00 mg/dL [facility] eGFR 74 > OR = 60 mL/min/1.7 3m2 [facility] BUN/creat ratio SEE NOTE: (calc) [facility] Comment: Not Reported: BUN and Creatinine are within reference range. Sodium 143 135 - 146 mmol/L [facility] Potassium, pl 4.4 3.5 - 5.3 mmol/L [facility] Chloride 107 98 - 110 mmol/L [facility] CO2 28 20 - 32 mmol/L [facility] Calcium 9.9 8.6 - 10.4 mg/dL [facility] Protein, sr 6.9 6.1 - 8.1 g/dL [facility] Albumin 4.5 3.6 - 5.1 g/dL [facility] GLOBULIN 2.4 1.9 - 3.7 g/dL (calc) [facility] Alb/glob ratio 1.9 1.0 - 2.5 (calc) [facility] Bilirubin, total 0.4 0.2 - 1.2 mg/dL [facility] Alk phos 61 37 - 153 U/L [facility] AST 20 10 - 35 U/L [facility] ALT (SGPT) 19 6 - 29 U/L [facility] Blood 01/05/2025 6:10 AM CDT 01/05/2025 6:11 AM CDT Narrative [facility] - 01/06/2025 2:22 AM CDT FASTING:YES FASTING: YES us Ava Galvan MD LAB BLOOD ORDERABLES Natasha carline Result [facility] [address] [phone] * Dexa Axial Skeleton Bone Density 1 or 2 Site (08/21/2024 9:23 AM PARKING REGULATION ENFORCEMENT OFFICER) Anatomical Region Laterality Modality Body N/A Mammography 08/21/2024 9:28 AM PARKING REGULATION ENFORCEMENT OFFICER Narrative 08/21/2024 9:30 AM PARKING REGULATION ENFORCEMENT OFFICER EXAM DESCRIPTION: DEXA AXIAL SKELETON BONE DENSITY 1 OR MORE SITES REASON FOR STUDY: 74 year old postmenopausal white female with given history of: osteoporosis screen Doping Supervisor/Model: [employer] A (S/N [id number]) CLINICAL INFORMATION: Current height: 63.5 inches Maximum height: 63.5 inches Weight: 182.6 pounds Risk factors: None. Has taken vitamin-D and calcium. Does not perform regular weight-bearing exercise. Regularly consumes dairy products. Drinks caffeinated beverages. COMPARISON: February 19, 2018 FINDINGS: AP LUMBAR SPINE L1-L4: Total BMD is 0.844 g/cm2 T-score is -1.8 This is 11.9% decrease in comparison to prior exam which is statistically significant. LEFT HIP: Total BMD is 0.769 g/cm2 T-score is -1.4 This is 12.4% decrease in comparison to prior exam which is statistically significant. Femoral neck BMD is 0.650 g/cm2 T-score is -1.8 FRAX: 10 year risk for a major osteoporotic fracture is 11 %, 10 year risk for a hip fracture is 2.1 % IMPRESSION: Low bone mass. REFERENCE: Bone mineral density: T-Score: Normal (T-score above or = -1.0) Low bone mass (T-score between -1.0 and -2.5) replaces the previously used term osteopenia Osteoporosis (T-score = or below -2.5) Z-Score: Within the expected range for age (Z-score above -2.0) Below the expected range for age (Z-score is -2.0 or below) Please see below follow up recommendations. Medical evaluation for secondary causes of low bone mineral density may be appropriate. FRAX is a World Health Organization validated fracture risk assessment tool that calculates a person's 10 year probability of a major osteoporosis related fracture and hip fracture. According to the National Osteoporosis Foundation guidelines, postmenopausal women and men age 50 or older with low bone mass and a 10 year probability of a major osteoporosis related fracture = or greater than 20% or a 10 year probability of a hip fracture = or greater than 3% should be considered for pharmacological treatment for the prevention of osteoporosis. For further information, including treatment recommendations, please refer to the 2019 ISCD Official Positions (http://www.iscd.org) and the NOF's Clinician's Guide to Prevention and Treatment of Osteoporosis (http://www.nof.org/professionals/clinical-guidelines) THIS IS AN ELECTRONICALLY VERIFIED FINAL REPORT 08/21/2024 9:30 AM - Electronically signed by Drew Jenkins M.D. RB: KRISSY Report ID: [id number] Reading Location: [place] [address] Procedure Note Drew Jenkins MD - 08/21/2024 EXAM DESCRIPTION: DEXA AXIAL SKELETON BONE DENSITY 1 OR MORE SITES REASON FOR STUDY: 74 year old postmenopausal white female with given history of: osteoporosis screen Doping Supervisor/Model: [employer] A (S/N [id number]) CLINICAL INFORMATION: Current height: 63.5 inches Maximum height: 63.5 inches Weight: 182.6 pounds Risk factors: None. Has taken vitamin-D and calcium. Does not perform regular weight-bearing exercise. Regularly consumes dairy products.Drinks caffeinated beverages. COMPARISON: February 19, 2018 FINDINGS: AP LUMBAR SPINE L1-L4: Total BMD is 0.844 g/cm2 T-score is -1.8 This is 11.9% decrease in comparison to prior exam which is statistically significant. LEFT HIP: Total BMD is 0.769 g/cm2 T-score is -1.4 This is 12.4% decrease in comparison to prior exam which is statistically significant. Femoral neck BMD is 0.650 g/cm2 T-score is -1.8 FRAX: 10 year risk for a major osteoporotic fracture is 11 %, 10 year risk for ahip fracture is 2.1 % IMPRESSION: Low bone mass. REFERENCE: Bone mineral density: T-Score: Normal (T-score above or = -1.0) Low bone mass (T-score between -1.0 and -2.5) replaces thepreviously used term osteopenia Osteoporosis (T-score = or below -2.5) Z-Score: Within the expected range for age (Z-score above -2.0) Below the expected range for age (Z-score is -2.0 or below) Please see below follow up recommendations. Medical evaluation forsecondary causes of low bone mineral density may be appropriate. FRAX is a World Health Organization validated fracture risk assessmenttool that calculates a person's 10 year probability of a major osteoporosisrelated fracture and hip fracture. According to the National OsteoporosisFoundation guidelines, postmenopausal women and men age 50 or older with low bonemass and a 10 year probability of a major osteoporosis related fracture = or greater than 20% or a 10 year probability of a hip fracture = or greaterthan 3% should be considered for pharmacological treatment for the preventionof osteoporosis. For further information, including treatment recommendations, please referto the 2019 ISCD Official Positions (http://www.iscd.org) and the NOF's Clinician's Guide to Prevention and Treatment of Osteoporosis (http://www.nof.org/professionals/clinical-guidelines) THIS IS AN ELECTRONICALLY VERIFIED FINAL REPORT 08/21/2024 9:30 AM - Electronically signed by Drew Jenkins M.D. RB: KRISSY Report ID: [id number] Reading Location: [id number] Ava Galvan MD IM DXA PROCEDURES Final Result * (ABNORMAL) SCREENING MAMMOGRAM BILATERAL W TIM (12/30/2021 11:44 AM CDT) Anatomical Region Laterality Modality Breast Bilateral Mammography Impressions 12/30/2021 11:56 AM CDT BI-RADS ATLAS category (overall): 0 - Incomplete: Needs Additional Imaging Evaluation 1. Indeterminate left breast focal asymmetry with possible architectural distortion. Further evaluation with diagnostic left mammography and possible diagnostic left breast ultrasound is recommended. 2. No mammographic evidence of malignancy in the right breast. Routine screening mammography of the right breast is recommended in 1 year. The patient has been or will be contacted. Narrative 12/30/2021 11:56 AM CDT SCREENING MAMMOGRAM BILATERAL W TIM: 12/30/21 The study was acquired using full field digital technology and interpreted from soft copy. 2D digital mammographic views, as well as 3D digital tomosynthesis were performed in the CC and MLO projections. CLINICAL: Encounter for screening mammogram for malignant neoplasm of breast. Medical history includes hypertension. No known family history of breast cancer. COMPARISONS: 08/31/2020 Screening Mammogram Bilateral W Tim 02/25/2019 Screening Mammogram Bilateral W Tim 08/23/2017 Screening Mammogram Bilateral W Tim 08/09/2016 Screening Mammogram Bilateral W Tim BREAST TISSUE: The breasts have scattered areas of fibroglandular density. FINDINGS: There is a focal asymmetry with possible architectural distortion in the lateral left breast, middle depth. No other suspicious findings/changes are seen within either breast. Ava Galvan MD IMG MAMMO PROCEDURES Natasha l Result * Stool DNA - Cologuard (10/26/2021 10:20 AM PARKING REGULATION ENFORCEMENT OFFICER) Stool DNA - Cologuard Negative Negative [employer] (CLIA #:[id number]) Comment: NEGATIVE TEST RESULT. A negative Cologuard result indicates a low likelihood that a colorectal cancer (CRC) or advanced adenoma (adenomatous polyps with more advanced pre-malignant features) is present. The chance that a person with a negative Cologuard test has a colorectal cancer is less than 1 in 1500 (negative predictive value >99.9%) or has an advanced adenoma is less than 5.3% (negative predictive value 94.7%). These data are based on a prospective cross-sectional study of 10,000 individuals at average risk for colorectal cancer who were screened with both Cologuard and colonoscopy. (Thania Huitron al, N Engl J Med 2014;370(14):2811-7346) The normal value (reference range) for this assay is negative. COLOGUARD RE-SCREENING RECOMMENDATION: Periodic colorectal cancer screening is an important part of preventive healthcare for asymptomatic individuals at average risk for colorectal cancer. Following a negative Cologuard result, the [place] [employer] and U.S. Multi-Society Task Force screening guidelines recommend a Cologuard re-screening interval of 3 years. References: [place] [employer] Guideline for Colorectal Cancer Screening: https://www.cancer.org/cancer/awutl-dpgsma-pelsnx/kbaitvvlp-fbwyjchij-frflxvq/ac s-rec ommendations.html.; Rashaad DK, Jaunjo GARCIA, Shaye SantiagoK, Colorectal Cancer Screening: Recommendations for Physicians and Patients from the U.S. Multi-Society Task Force on Colorectal Cancer Screening , Am J Gastroenterology 2017; 112:4296-4537. TEST DESCRIPTION: Composite algorithmic analysis of stool DNA-biomarkers with hemoglobin immunoassay. Quantitative values of individual biomarkers are not reportable and are not associated with individual biomarker result reference ranges. Cologuard is intended for colorectal cancer screening of adults of either sex, 45 years or older, who are at average-risk for colorectal cancer (CRC). Cologuard has been approved for use by the U.S. FDA. The performance of Cologuard was established in a cross sectional study of average-risk adults aged 50-84. Cologuard performance in patients ages 45 to 49 years was estimated by sub-group analysis of near-age groups. Colonoscopies performed for a positive result may find as the most clinically significant lesion: colorectal cancer [4.0%], advanced adenoma (including sessile serrated polyps greater than or equal to 1cm diameter) [20%] or non- advanced adenoma [31%]; or no colorectal neoplasia [45%]. These estimates are derived from a prospective cross-sectional screening study of 10,000 individuals at average risk for colorectal cancer who were screened with both Cologuard and colonoscopy. (Thania Hopper, N Engl J Med 2014;370(14):0927-5466.) Cologuard may produce a false negative or false positive result (no colorectal cancer or precancerous polyp present at colonoscopy follow up). A negative Cologuard test result does not guarantee the absence of CRC or advanced adenoma (pre-cancer). The current Cologuard screening interval is every 3 years. ([place] [employer] and U.S. Multi-Society Task Force). Cologuard performance data in a 10,000 patient pivotal study using colonoscopy as the reference method can be accessed at the following location: [email or web address]/results. Additional description of the Cologuard test process, warnings and precautions can be found at www.[email or web address].com. Stool 10/26/2021 10:2 0 AM PARKING REGULATION ENFORCEMENT OFFICER 10/27/2021 12:49 PM PARKING REGULATION ENFORCEMENT OFFICER Ava Galvan MD LAB BODY FLUIDS AND STOOL S ORDERABLES Final Result [employer] (CLIA #:[id number]) [place] [address] * COLONOSCOPY (08/09/2016) Colonoscopy Normal Historical Provider HEALTH MAINTENANCE Final Result from Last 3 Months or Most Recently Relevant to Health Maintenance Insurance [employer] MEDICARE HMO HU[employer]NA MEDICARE HMO HU[employer] MEDICARE HMO Advance Directives For more information, please contact: [phone] Documents on File Type Date Recorded Patient Senior Technical Business Analyst Expl anation Power of [employer] 04/23/2023 8:42 AM ADVANCE DIRECTIVE 08/18/2019 * Full Code (Latest Code Status on File) Date Activated Date Inactivated Comments 10/10/2024 3:19 AM 10/10/2024 6:25 PM * Full Code Date Activated Date Inactivated Comments 04/23/2023 12:29 PM 04/23/2023 5:53 PM Care Teams Meat Trimmer Relationship Specialty Start Date End Date Ava Galvan MD PCP - [employer] Attributed PCP 11/15/17 Ava Galvan MD PCP - General Family Medicine 10/03/21 Nuha Marquez MD Referring Physician Gastroenterology 02/11/19 Renu Mosqueda MD Referring Physician Endocrinology 02/11/19 [place] [address] Consulting Physician Otolaryngology 04/23/23 Toney Vergara MD [address] [place] [address] Consulting Physician Surgery 10/10/24
--- OUTSIDE RECORDS SUMMARY | 2025-01-14 00:03 | XMS_ITS | Encounter Summary ---
Author Organization [facility] Facility Care Team Providers Care Homemaker Companion Name Role Phone Ava Galvan MD Unavailable [phone] Ava Galvan MD Primary Care Provider [phone] Nuha Marquez MD Unavailable [phone] Renu Mosqueda MD Unavailable [phone] Ava Galvan MD Primary Care Provider [phone] Dimitri Messer MD Unavailable [phone] Toney Vergara MD Unavailable [phone] Vaishnavi Menon LPN Unavailable [phone] Encounter Details Date Type Department Care Team (Latest Contact Info) Description 05/16/2017 Orders Only [facility] CLINCON[facility] ProviderTaylor MD [address] [place] [id number] Social History Tobacco Use Types Packs/Day [...] Procedure Name Priority Date/Time Associated Diagnosis Comments PROCEDURE - RESULT 10/09/2017 12 :00 AM GROUTER HELPER documented in this encounter Results * PROCEDURE - RESULT (10/09/2017 12:00 AM GROUTER HELPER) Narrative 10/09/2017 12:00 AM GROUTER HELPER Ordered by an unspecified provider. us Historical Provider Final Res ult documented in this encounter Visit Diagnoses Not on filedocumented in this encounter Additional Health Concerns Infection Onset Date Last Indicated Resolved Time COVID: Suspected 10/10/2023 10/10/2023 10/10/2023 3:55 PM GROUTER HELPER documented as of this encounter Care Teams Homemaker Companion Relationship Specialty Start Date End Date Ava Galvan MD PCP - Humana Attributed PCP 11/15/17 Ava Galvan MD PCP - General 12/17/18 10/02/21 Ava Galvan MD PCP - General Family Medicine 10/03/21 Nuha Marquez MD Referring Physician Gastroenterology 02/11/19 Renu Mosqueda MD Referring Physician Endocrinology 02/11/[address] [place] [address] Consulting Physician Otolaryngology 04/23/23 Toney Vergara MD [address] [place] [address] Consulting Physician Surgery 10/10/24 Vaishnavi Menon, ZIPPER SLIDE ATTACHER [address] [place] [address] [address] [place] [address] Chain Tender 10/13/24 10/13/24 documented as of this encounter
--- OUTSIDE RECORDS SUMMARY | 2025-01-14 00:03 | XMS_ITS | Encounter Summary ---
Author Organization [facility] Facility Care Team Providers Care R&D Lab Technician Name Role Phone Ava Galvan MD Unavailable [phone] Ava Galvan MD Primary Care Provider [phone] Nuha Marquez MD Unavailable [phone] Renu Mosqueda MD Unavailable [phone] Ava Galvan MD Primary Care Provider [phone] Dimitri Messer MD Unavailable [phone] Toney Vergara MD Unavailable [phone] Vaishnavi Menon LPN Unavailable [phone] Encounter Details Date Type Department Care Team (Latest Contact Info) Description 03/22/2017 Orders Only [facility] CLINCON[facility] ProviderTaylor MD [address] [place] [address] Social History Tobacco Use Types Packs/Day [...] Priority Date/Time Associated Diagnosis Comments CARDIOLOGY REPORT 03/22/2017 12: 00 AM CDT documented in this encounter Results * CARDIOLOGY REPORT (03/22/2017 12:00 AM CDT) Anatomical Region Laterality Modality Other Narrative 03/22/2017 12:00 AM CDT Ordered by an unspecified provider. 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 documented as of this encounter Care Teams R&D Lab Technician Relationship Specialty Start Date End Date Ava Galvan MD PCP - Humana Attributed PCP 11/15/17 Ava Galvan MD PCP - General 12/17/18 10/02/21 Ava Galvan MD PCP - General Family Medicine 10/03/21 Nuha Marquez MD Referring Physician Gastroenterology 02/11/19 Renu Mosqueda MD Referring Physician Endocrinology 02/11/19 Dimitri Messer MD [address] [address] Consulting Physician Otolaryngology 04/23/23 Toney Vergara MD [address] [place] [address] Consulting Physician Surgery 10/10/24 Vaishnavi Menon LPN [address] [facility] [address] [place] [address] Comber Fixer 10/13/24 10/13/24 documented as of this encounter
--- OUTSIDE RECORDS SUMMARY | 2025-01-14 00:03 | XMS_ITS | Encounter Summary ---
Author Organization [facility] Facility Care Team Providers Care Contract Design Agent Name Role Phone Ava Galvan MD Unavailable [phone] Ava Galvan MD Primary Care Provider [phone] Nuha Marquez MD Unavailable [phone] Renu Mosqueda MD Unavailable [phone] Ava Galvan MD Primary Care Provider [phone] Dimitri Messer MD Unavailable [phone] Toney Vergara MD Unavailable [phone] Vaishnavi Menon LPN Unavailable [phone] Encounter Details Date Type Department Care Team (Latest Contact Info) Description 03/13/2017 Orders Only [facility] CLINCON[facility] ProviderTaylor MD [address] [place] [address] Social History Tobacco Use Types Packs/Day [...] Priority Date/Time Associated Diagnosis Comments CARDIOLOGY REPORT 03/13/2017 12: 00 AM CDT documented in this encounter Results * CARDIOLOGY REPORT (03/13/2017 12:00 AM CDT) Anatomical Region Laterality Modality Other Narrative 03/13/2017 12:00 AM CDT Ordered by an unspecified provider. us Historical Provider [facility] NILESH WATERMAN Final Result documented in this encounter Visit Diagnoses Not on filedocumented in this encounter Additional Health Concerns Infection Onset Date Last Indicated Resolved Time COVID: Suspected 10/10/2023 10/10/2023 10/10/2023 3:55 PM PIPE SUPERVISOR documented as of this encounter Care Teams Contract Design Agent Relationship Specialty Start Date End Date Ava Galvan MD PCP - Humana Attributed PCP 11/15/17 Ava Galvan MD PCP - General 12/17/18 10/02/21 Ava Galvan MD PCP - General Family Medicine 10/03/21 Nuha Marquez MD Referring Physician Gastroenterology 02/11/19 Renu Mosqueda MD Referring Physician Endocrinology 02/11/19 Dimitri Messer [place] [address] Consulting Physician Otolaryngology 04/23/23 Toney Vergara MD [address] [place] [address] Consulting Physician Surgery 10/10/24 Vaishnavi Menon LPN [address] [facility] [address] [place] [address] Spent Grain Dryer 10/13/24 10/13/24 documented as of this encounter
--- OUTSIDE RECORDS SUMMARY | 2025-01-14 00:03 | XMS_ITS | Encounter Summary ---
Author Organization [facility] Facility Care Team Providers Care Salvage Repairer Name Role Phone Ava Galvan MD Unavailable [phone] Ava Galvan MD Primary Care Provider [phone] Nuha Marquez MD Unavailable [phone] Renu Mosqueda MD Unavailable [phone] Ava Galvan MD Primary Care Provider [phone] Dimitri Messer MD Unavailable [phone] Toney Vergara MD Unavailable [phone] Vaishnavi Menon LPN Unavailable [phone] Encounter Details Date Type Department Care Team (Latest Contact Info) Description 02/08/2017 Orders Only [facility] CLINCONV ProviderTaylor MD [address] [place] [address] Social History Tobacco Use Types Packs/Day [...] COVID: Suspected 10/10/2023 10/10/2023 10/10/2023 3:55 PM PRODUCTION UTILITY WORKER documented as of this encounter Care Teams Salvage Repairer Relationship Specialty Start Date End Date Ava Galvan MD PCP - Humana Attributed PCP 11/15/17 Ava Galvan MD PCP - General 12/17/18 10/02/21 Ava Galvan MD PCP - General Family Medicine 10/03/21 Nuha Marquez MD Referring Physician Gastroenterology 02/11/19 Renu Mosqueda MD Referring Physician Endocrinology 02/11/19 Dimitri Mess[place] [address] Consulting Physician Otolaryngology 04/23/23 Toney Vergara MD [address] [place] [address] Consulting Physician Surgery 10/10/24 Vaishnavi Menon LPN [address] [facility] [address] [place] [address] Warehouse Helper 10/13/24 10/13/24 documented as of this encounter
--- OUTSIDE RECORDS SUMMARY | 2025-01-14 00:03 | XMS_ITS | Clinical Summary ---
Author Organization [facility] at [facility] Address [address] [place] [address] Care Team Providers Care Grounds Maintenance Manager Name Role Phone Ava Galvan MD Unavailable [phone] Nuha Marquez MD Unavailable [phone] Renu Mosqueda MD Unavailable [phone] Ava Galvan MD Primary Care Provider [phone] Dimitri Messer MD Unavailable [phone] Toney Vergara MD Unavailable [phone] Allergies No known active allergies Medications garlic [...] 10/22/2024 Assessment & Plan (11/02/2024 6:48 PM DIE DRAWING CHECKER): New Refer to general surgery Abdominal pain 10/10/2024 Acute cholecystitis 10/10/2024 Obstruction of right uretero pelvic junction (UPJ) due to stone 10/10/2024 Hydronephrosis of right kidney 10/10/2024 Post-menopausal 07/30/2024 Mixed hyperlipidemia 07/30/2024 Assessment & Plan (11/02/2024 6:49 PM DIE DRAWING CHECKER): Chronic Stable Cont lipitor, zetia, tricor Goal: TC<200, LDL<100, TG<150 Assessment & Plan (08/10/2024 9:18 PM DIE DRAWING CHECKER): Chronic Stable Cont lipitor, zetia, tricor Goal: TC<200, LDL<100, TG<150 Non-seasonal allergic rhinitis 11/05/2023 Assessment & Plan (11/05/2023 3:29 PM DIE DRAWING CHECKER): I am recommending allergy testing because of [...] 10/19/2022 Assessment & Plan (10/27/2022 3:04 AM DIE DRAWING CHECKER): Uncontrolled Add toprol Cont amlodipine Goal: SBP<140, DBP<90 Hypercalcemia 10/19/2022 Assessment & Plan (10/27/2022 2:59 AM DIE DRAWING CHECKER): recheck Epigastric abdominal pain 10/19/2022 Assessment & Plan (10/27/2022 2:56 AM DIE DRAWING CHECKER): New Order prilosec Order gallbladder ultrasound and HIDA scan Refer to GI LUQ abdominal pain 10/19/2022 Assessment & Plan (10/27/2022 2:56 AM DIE DRAWING CHECKER): New Order prilosec Order gallbladder ultrasound and HIDA scan Refer to GI Primary insomnia 10/19/2022 Assessment & Plan (10/27/2022 3:00 AM DIE DRAWING CHECKER): New Start ambien Pure hypercholesterolemia 10/17/2021 Assessment & Plan (08/05/2023 9:33 AM DIE DRAWING CHECKER): Chronic Stable Cont lipitor, zetia, tricor, vascepa Goal: TC<200, LDL<100, TG<150 Assessment & Plan (04/27/2023 3:31 AM CDT): Chronic Stable Cont lipitor, tricor, zetia Goal: TC<200, LDL<100, TG<150 Assessment & Plan (12/29/2022 11:35 AM CDT): Chronic stable Cont lipitor, fenofibrate, vascepa Order zetia Goal: TC<200, LDL<100, TG<150 Assessment & Plan (10/27/2022 2:54 AM DIE DRAWING CHECKER): improved Cont lipitor, fenofibrate, vascepa Order zetia Goal: TC<200, LDL<100, TG<150 Assessment & Plan (10/17/2021 5:14 PM DIE DRAWING CHECKER): Uncontrolled Cont lipitor, fenofibrate, vascepa Order zetia Goal: TC<200, LDL<100, TG<150 Encounter for Medicare annual wellness exam 02/15 Assessment & Plan (08/10/2024 9:17 PM DIE DRAWING CHECKER): Patient here for annual Medicare wellness visit [...] visit. Assessment & Plan (08/05/2023 9:30 AM DIE DRAWING CHECKER): Patient here for annual Medicare wellness visit [...] 08/25/2020 Assessment & Plan (09/16/2020 5:20 PM DIE DRAWING CHECKER): New Refer to GI Breast pain, right 07/31/2020 Assessment & Plan (08/01/2020 5:04 AM DIE DRAWING CHECKER): Likely infection Order cefdinir SOB (shortness of breath) 08/19/2019 Assessment & Plan (03/07/2021 7:08 PM CDT): Negative cardiac workup. Assessment & Plan (09/06/2020 5:59 PM DIE DRAWING CHECKER): Unremarkable cardiac workup. Assessment & Plan (03/09/2020 10:22 AM CDT): The CBC, T4 TSH electrolytes were okay. The CT angio of the lungs was negative for pulmonary embolism. Echo showed small pericardial effusion unchanged since 2017. BNP level was ordered but not drawn. Assessment & Plan (09/30/2019 9:30 AM DIE DRAWING CHECKER): Dyspnea for 2 months which has already improved. The recent CBC, T4 TSH, electrolytes, chemistries are okay. CT angio of the lungs is negative for pulmonary embolism. Small pericardial effusion which is unchanged since 2017. EKG today shows normal sinus rhythm, normal QRS morphology. Will get a BNP level today. Consider echo Doppler if necessary. Assessment & Plan (08/27/2019 4:27 PM DIE DRAWING CHECKER): Order CTA chest r/o PE vs infectious or inflammatory process Changes in skin texture 08/19/2019 Assessment & Plan (05/25/2023 5:49 AM CDT): New Refer to derm Assessment & Plan (08/27/2019 4:27 PM DIE DRAWING CHECKER): Refer to derm Acute non-recurrent maxillary sinusitis 08/19/20 19 Assessment & Plan (08/27/2019 4:27 PM DIE DRAWING CHECKER): Order esther zhang Precordial chest pain 03/03/2019 Assessment & Plan (03/07/2021 7:08 PM CDT): Negative stress echo 03/13/2017. Assessment & Plan (09/06/2020 5:59 PM DIE DRAWING CHECKER): Negative stress echo 03/13/2017. Assessment & Plan (03/05/2020 5:04 PM CDT): Negative stress echo 03/13/2017. Functional class 1. Assessment & Plan (09/29/2019 7:38 PM DIE DRAWING CHECKER): Negative stress echo 03/13/2017. Functional class 1. [...] pericarditis. A chronic finding without any significant place change roof bolter the years. The PPD skin test done by the primary care physician was negative. There is history of BCG vaccination in the remote past. CTA of the chest 09/01/2019 showed no pulmonary embolism. A small pericardial effusion was unchanged from before. 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 This is a chronic finding without any significant place change roof bolter the years. The PPD skin test done [...] is a chronic finding without any significant place change roof bolter the years. The PPD skin test done at primary care physician was negative. There is history of receiving BCG vaccination in the remote past. CTA of the chest 09/01/2019 showed no pulmonary embolism. A small pericardial effusion is unchanged from before. Assessment & Plan (09/30/2019 9:29 AM DIE DRAWING CHECKER): Chronic loculated pericardial effusion with localized area of pericardial thickening. The picture is not consistent with constrictive pericarditis. This is a chronic finding without any significant place change roof bolter the years. The PPD skin test done [...] is a chronic finding without any significant place change roof bolter the years. The PPD skin test suggested [...] control. Assessment & Plan (09/06/2020 5:55 PM DIE DRAWING CHECKER): Related to hypertensive heart disease. Aggressive blood pressure control. Assessment & Plan (03/05/2020 5:01 PM CDT): Related to the hypertensive heart disease. Aggressive blood pressure control. Assessment & Plan (09/29/2019 7:39 PM DIE DRAWING CHECKER): Related to the hypertensive heart disease. Aggressive blood pressure control. Assessment & Plan (03/04/2019 9:24 AM CDT): Related to the hypertensive heart disease. EKG today shows a normal sinus rhythm, normal QRS morphology. No left ventricular hypertrophy appreciated on this EKG. Non-rheumatic tricuspid valve insufficiency 04/2017 Hypertension 01/30/2017 Assessment & Plan (11/02/2024 6:49 PM DIE DRAWING CHECKER): Chronic Stable Cont norvasc, coreg, lisinopril Goal: SBP<140, DBP<90 Assessment & Plan (08/10/2024 9:18 PM DIE DRAWING CHECKER): Chronic Stable Cont norvasc, coreg, lisinopril Goal: SBP<140, DBP<90 Assessment & Plan (08/05/2023 9:32 AM DIE DRAWING CHECKER): Chronic Stable Cont coreg, lisinopril Goal: SBP<140, DBP<90 Assessment & Plan (05/25/2023 5:49 AM CDT): Chronic Uncontrolled Add lisinopril Cont norvasc Goal: SBP<140, DBP<90 Assessment & Plan (04/27/2023 3:31 AM CDT): Chronic Stable Cont norvasc Goal: SBP<140, DBP<90 Assessment & Plan (12/29/2022 11:35 AM CDT): Chronic Stable Cont coreg Cont amlodipine Goal: SBP<140, DBP<90 Assessment & Plan (11/24/2022 5:17 AM DIE DRAWING CHECKER): Uncontrolled Change toprol to coreg Cont amlodipine Goal: SBP<140, DBP<90 Assessment & Plan (10/17/2021 5:13 PM DIE DRAWING CHECKER): Stable Cont amlodipine, atenolol, hctz, Goal: SBP<140, DBP<90 Assessment & Plan (03/08/2021 10:19 AM CDT): Salt restriction. Amlodipine. Atenolol. Hydrochlorothiazide. Potassium chloride. Blood pressure 138/78. Assessment & Plan (03/02/2021 4:56 AM CDT): Stable Cont atenolol, norvasc, hctz Assessment & Plan (09/16/2020 5:20 PM DIE DRAWING CHECKER): Stable Cont atenolol, norvasc, hctz Assessment & Plan (09/07/2020 10:31 AM DIE DRAWING CHECKER): Blood pressure 132/84. Salt restriction. Continue the current regimen. Assessment & Plan (08/01/2020 5:04 AM DIE DRAWING CHECKER): Stable Cont atenolol, norvasc Assessment & Plan (03/29/2020 11:04 AM CDT): Stable Cont atenolol, norvasc Assessment & Plan (03/09/2020 10:21 AM CDT): Blood pressure 110/70. Salt restriction. Continue the current regimen. Assessment & Plan (09/30/2019 9:28 AM DIE DRAWING CHECKER): Blood pressure 120/78. Salt restriction. Continue the current regimen. Assessment & Plan (08/27/2019 4:26 PM DIE DRAWING CHECKER): Stable Cont atenolol, norvasc Assessment & Plan [...] 01/28/2024 Assessment & Plan (11/05/2023 3:33 PM DIE DRAWING CHECKER): She has a good nasal airway. She [...] 01/28/2024 Assessment & Plan (10/17/2021 5:15 PM DIE DRAWING CHECKER): Stable Cont KCL Assessment & Plan (03/08/2021 10:20 AM CDT): Supplemental potassium. Potassium was 3.9 in January 2021. Assessment & Plan (03/02/2021 4:57 AM CDT): Stable Cont klorcon Assessment & Plan (08/01/2020 5:05 AM DIE DRAWING CHECKER): Stable Cont opalorcon Encounter for screening mamm ogram for malignant [...] <150 Assessment & Plan (09/16/2020 5:19 PM DIE DRAWING CHECKER): TG still elevated Increase vascepa to 2 caps BID Cont lipitor, tricor Assessment & Plan (09/07/2020 10:31 AM DIE DRAWING CHECKER): Low-fat low-cholesterol diet. Atorvastatin. Fenofibrate. Vascepa. On 08/04/2020 triglycerides 196, LDL 49, total cholesterol 121, HDL 45. Assessment & Plan (08/01/2020 5:05 AM DIE DRAWING CHECKER): Uncontrolled Cont lipitor, tricor Assessment & Plan (03/29/2020 11:04 AM CDT): Uncontrolled Add vascepa Cont lipitor, tricor Assessment & Plan (03/09/2020 10:20 AM CDT): Low-fat low-cholesterol diet. Atorvastatin 20 mg bedtime daily. On 01/09/2020 cholesterol 147, triglyceride 270, HDL 53, LDL 62. Vascepa. Assessment & Plan (09/29/2019 7:38 PM DIE DRAWING CHECKER): Low-fat low-cholesterol diet. Atorvastatin 20 mg bedtime daily. On 12/29/2018 the LDL was 46. Assessment & Plan (08/27/2019 4:26 PM DIE DRAWING CHECKER): Stable Cont lipitor, tricor Assessment & Plan [...] Lipids will be reassessed in 6 months. Encounters Date Type Department Care Team Description 01/12/2025 Results Follow-Up [facility] Family Medicine [address] [place] [address] [address] [place] [phone] Ricardo, Anastasia 12/02/2024 Telephone [facility] Cardiology [address] [place] [address] [phone] Sultan Alysia Doss MD 11/26/[address] [place] [phone] Ava Galvan MD Medical Question/Miscellaneous 11/12/[address] [place] [phone] Ava Galvan MD Medical Question/Miscellaneous 11/11/[address] [place] [phone] Ava Galvan MD Medical Question/Miscellaneous 10/22/2024 1:00 PM DIE DRAWING CHECKER Office Visit [address] [place] [phone] Ava Galvan MD Calculus of gallbladder with acute cholecystitis without obstruction (Primary Dx); Nephrolithiasis; Primary hypertension; Mixed hyperlipidemia from Last 3 Months Immunizations Immunization Administration Dates Next Due Flucelvax [...] 02/11/2019,10/2016 Sars-CoV-2, Unspecified 02/23/2021 ZOSTER LIVE 09/17/2014 Surgical History Surgery Date Site/Laterality Comments TONSILLECTOMY 09/17/1953 - 09/16/1954 ENDOMETRIAL ABLATION 09/17/1998 - 09/16/1999 BIOPSY 05/16/2017 thyroid x2 MASTECTOMY 03/17/2022 - 04/16/2022 Bilateral NASAL SEPTOPLASTY W/ TURBINOPLASTY 04/23/2023 NASAL SEPTUM SURGERY 09/17/2022 - 09/16/2023 Medical History Medical History Date Comments Hypertension Allergic rhinitis Cancer (HCC) GERD (gastroesophageal reflux disease) Sleep difficulties Sinusitis PONV (postoperative nausea and vomiting) after ablation but not after masectomy Motion sickness Obesity Thyroid nodule no longer lookin g at has not changed Family History * Patient is adopted Medical History Relation Name Comments No Known Problems Brother 1 No Known Problems Brother 2 Endometriosis Daughter 1 No Known Problems Daughter 2 No Known Problems Daughter 3 Prostate cancer Father Polio Mother Relation Name Status Comments Brother 1 Alive Brother 2 Alive Daughter 1 Alive Daughter 2 Alive Daughter 3 Alive Father Mother Social History Tobacco Use Types Packs/Day Years Used Date Smoking Tobacco: Never Smokeless Tobacco: Never Alcohol Use Standard Drinks/Week Comments Yes 0 (1 standard drink = 0.6 oz pur e alcohol) [facility] Utilities Answer Date Recorded In the past 12 months has [employer], gas, oil, or water [employer] threatened to shut off services in your [...] week 10/10/2024 How often do you attend [facility] or protestant services? More than 4 times per year 10/10/2024 Do you belong to any clubs o r organizations such as mormon groups, unions, fraternal or athletic groups, or [...] any time in the past 12 m [facility], were you homeless or living in a usp (including now)? No 10/10/2024 Personal Safety Answer [...] on file Sexual Orientation Not on file Obstetrics History Para Term AB IAB SAB Ectopic Multiple Livin g Live Births 3 3 3 Date Outcome GA Total Labor Labor/2nd/3rd Weight Sex Type Anes PTL Sharon A1 A5 Name Clin Term Term Term Last Filed Vital Signs Vital Sign Reading Time Taken Comments Blood Pressure 130/62 10/22/2024 1:24 PM DIE DRAWING CHECKER Pulse 70 10/22/2024 1:24 PM DIE DRAWING CHECKER Temperature 36.2 C (97.1 F) 10/22/2024 1:24 PM DIE DRAWING CHECKER Respiratory Rate 18 10/10/2024 7:28 AM DIE DRAWING CHECKER Oxygen Saturation 98% 10/22/2024 1:24 PM DIE DRAWING CHECKER Inhaled Oxygen Concentration - - Weight 81.3 kg (179 lb 3.2 oz) 10/22/2024 1:24 P M DIE DRAWING CHECKER Height 160 cm (5' 3) 10/22/2024 1:24 PM DIE DRAWING CHECKER Body Mass Index 31.74 10/22/2024 1:24 PM DIE DRAWING CHECKER Plan of Treatment Health Maintenance Due Date Last Done Comments Hepatitis C Screening 1950 DTaP/Tdap/Td Vaccine (1 - Tdap) 1962 Hepatitis B Screening 1969 Zoster Vaccine (1 of 2) 11/12/2014 09/17/2014 Depression Screening 07/30/2025 07/30/2024, 07/16/2023, 07/16/2023, Additional history exists Well Visit 65+ 07/30/2025 07/30/2024, 06/19, 04/17/2022, Additional history exists Fall Risk Assessment 10/10/2025 10/10/2024, 07/30/2024, 07/16/2023, Additional history exists Colon Cancer Screening-Colonoscopy 08/09/2026 08/09/2016 Osteoporosis Screening-Bone Density Scan 08/21/2026 08/21/2024, 05/08/2022, 05/08/2022, Additional history exists Colon Cancer Screening-CT Colonography Discontinued 08/09/2016 Colon Cancer Screening-Sigmoidoscopy Discontinued 08/09/2016 Pneumococcal vaccine 65+ Completed 019, 06/15/2017, 10/25/2016, Additional history exists Colon Cancer Screening-DNA Stool Discontinued 10/26/19 22, 08/09/2016 Colon Cancer Screening-FIT Discontinued 10/26/2021, Breast Cancer Screening-Mammogram Discontinued 12/30/2021, 08/31/2020, 02/25/2019, Additional history exists Influenza Vaccine Completed 07/04/2024, , 06/29/2022, Additional history exists Procedures Procedure Name Priority Date/Time Associated Diagnosis [...] Read Routine (OP Routine) 08/21/2024 9:23 AM DIE DRAWING CHECKER Post-menopausal SCREENING MAMMOGRAM BILATERAL W TIM Schedule Routine, Read Routine (OP Routine) 12/30/2021 11:44 AM CDT Encounter for screening mammogram for malignant neoplasm of breast STOOL DNA COLOGUARD Routine 10/26/2021 10:20 AM DIE DRAWING CHECKER Screening for colon cancer HM COLONOSCOPY Routine 08/09/2016 from Last 3 Months or Most Recently Relevant to Health Maintenance Results * Thyroid Function [place] (01/05/2025 6:10 AM CDT) Pathologist [facility] TSH 4.20 0.40 - 4.50 mIU/L [facility] Blood 01/05/2025 6:10 AM CDT 01/05/2025 6:11 AM CDT Narrative [facility] - 01/06/2025 2:22 AM CDT FASTING:YES FASTING: YES Ava Galvan MD LAB BLOOD ORDERABLES Natasha l Result [facility] [address], [place] [address] * (ABNORMAL) CBC with auto differential (01/05/2025 6:10 AM CDT) Pathologist [facility] WBC 5.4 3.8 - 10.8 Thousand/u L [...] BLOOD ORDERABLES Natasha l Result [facility] [address] [place] [address] * Lipid panel (01/05/2025 6:10 AM CDT) Pathologist [facility] Cholesterol 117 <200 mg/dL [facility] [...] factors. LDL-C is now calculated using the Jesse-Erma calculation, which is a validated novel method providing better accuracy than the Friedewald equation in the estimation of LDL-C. Jesse JOYCE et al. HIEU. 2013;310(19): 8223-6471 (http://education.real trends.Adeze/faq/TTV025) Chol/HDL ratio 2.2 <5.0 (calc) [facility] [...] BLOOD ORDERABLES Natasha l Result [facility] [address] [place] [address] * (ABNORMAL) Comprehensive metabolic panel (01/05/2025 6:10 [...] BLOOD ORDERABLES Natasha l Result [facility] [address] [facility] [place] [address] * Dexa Axial Skeleton Bone Density 1 or 2 Site (08/21/2024 9:23 AM DIE DRAWING CHECKER) Anatomical Region Laterality Modality Body N/A Mammography 08/21/2024 9:28 AM DIE DRAWING CHECKER Narrative 08/21/2024 9:30 AM DIE DRAWING CHECKER EXAM DESCRIPTION: DEXA AXIAL SKELETON BONE DENSITY 1 OR MORE SITES REASON FOR STUDY: 74 year old postmenopausal white female with given history of: osteoporosis screen Clinical Assessment Manager/Model: Meraki A (S/N [id number]) CLINICAL INFORMATION: Current height: 63.5 inches Maximum [...] Drew Jenkins M.D. RB: KRISSY Report ID: [id number] Reading Location: [id number] Procedure Note Drew Jenkins MD - 08/21/2024 EXAM DESCRIPTION: DEXA AXIAL SKELETON BONE DENSITY 1 OR MORE SITES REASON FOR STUDY: 74 year old postmenopausal white female with given history of: osteoporosis screen Clinical Assessment Manager/Model: HoloQ Chip Horizon A (S/N [id number]) CLINICAL INFORMATION: Current height: 63.5 inches Maximum [...] Drew Jenkins M.D. RB: KRISSY Report ID: [id number] Reading Location: [id number] Ava Galvan MD IM DXA PROCEDURES Final [...] seen within either breast. Ava Galvan MD IM MAMMO PROCEDURES Natasha l Result * Stool DNA - Cologuard (10/26/2021 10:20 AM DIE DRAWING CHECKER) Stool DNA - Cologuard Negative Negative [facility] (CLIA #:[id number]) Comment: NEGATIVE TEST RESULT. A negative Cologuard [...] (Thania Huitron al, N Engl J Med 2014;370(14):9128-4504) The normal value (reference range) for this assay is negative. COLOGUARD RE-SCREENING RECOMMENDATION: Periodic colorectal cancer screening is an important part of preventive healthcare for asymptomatic individuals at average risk for colorectal cancer. Following a negative Cologuard result, the [place] Cancer Society and U.S. Multi-Society Task Force screening guidelines recommend a Cologuard re-screening interval of 3 years. References: [place] Cancer Society Guideline for Colorectal Cancer Screening: https://www.cancer.org/cancer/pdaax-tnwbil-ulnuba/znxpdmner-nyokkyjbf-mkaybbq/ac s-rec ommendations.html.; Rashaad DK, Juanjo CR, Shaye SantiagoK, Colorectal Cancer Screening: Recommendations for Physicians and Patients from the U.S. Multi-Society Task Force on Colorectal Cancer Screening , Am J Gastroenterology 2017; 112:5575-9764. TEST DESCRIPTION: Composite algorithmic analysis of stool [...] (Thania Huitron al, N Engl J Med 2014;370(14):7290-5177.) Cologuard may produce a false negative or false positive result (no colorectal cancer or precancerous polyp present at colonoscopy follow up). A negative Cologuard test result does not guarantee the absence of CRC or advanced adenoma (pre-cancer). The current Cologuard screening interval is every 3 years. ([place] Cancer Society and U.S. Multi-Society Task Force). Cologuard performance data in a 10,000 patient pivotal study using colonoscopy as the reference method can be accessed at the following location: www.[employer]results. Additional description of the Cologuard test process, warnings and precautions can be found at www.cologuard.com. Stool 10/26/2021 10:2 0 AM DIE DRAWING CHECKER 10/27/2021 12:49 PM DIE DRAWING CHECKER Ava Galvan MD LAB BODY FLUIDS AND STOOL S ORDERABLES Final Result [employer] (CLIA #:[id number]) [address] [place] [address] * COLONOSCOPY (08/09/2016) Colonoscopy Normal Historical Provider HEALTH MAINTENANCE Final Result from Last 3 Months or Most Recently Relevant to Health Maintenance Insurance [employer] MEDICARE HMO [employer] MED[employer]ARE HMO Advance Directives For more information, please contact: [phone] Documents on File Type Date Recorded Patient Dredge Pumper Expl anation Power of Skin Carver 04/23/2023 8:42 AM ADVANCE DIRECTIVE 08/18/2019 * Full Code (Latest Code Status on File) Date Activated Date Inactivated Comments 10/10/2024 3:19 AM 10/10/2024 6:25 PM * Full Code Date Activated Date Inactivated Comments 04/23/2023 12:29 PM 04/23/2023 5:53 PM Care Teams Grounds Maintenance Manager Relationship Specialty Start Date End Date Ava Galvan MD PCP - [employer] Attributed PCP 11/15/17 Ava Galvan MD PCP - General Family Medicine 10/03/21 Nuha Marquez MD Referring Physician Gastroenterology 02/11/19 Renu Mosqueda MD Referring Physician Endocrinology 02/11/19 Dimitri Messer [place] [address] [address] Consulting Physician Otolaryngology 04/23/23 Toney Vergara MD [address] [place] [id number] Consulting Physician Surgery 10/10/24
--- OUTSIDE RECORDS SUMMARY | 2025-01-14 00:04 | XMS_ITS | Encounter Summary ---
Author Organization [facility] Address [address] [place] [address] Care Team Providers Care Cop Examiner Name Role Phone Ava Ball MD Primary Care Provider [phone] Sultan Berto Doss MD Unavailable [phone] Encounter Details Date Type Department Care Team (Late st Contact Info) Description 12/09/2024 Prep for Procedure [facility] [place], [place] [id number] Davian Perez MD [address] [facility] [address] [place], [place] [id number] Social History Tobacco Use Types Packs/Day Years Used Date Smoking Tobacco: Never Smokeless Tobacco: Never Alcohol Use Standard Drinks/Week Comments Yes 0 (1 standard drink = 0.6 oz pur e alcohol) occasionally PHQ-2 Answer Date Recorded PHQ-2 Score - If the patient scores above 3, please move on to questions 3-9 0 04/26/2021 Comments No Sex and Gender Information Value Date Recorded Sex Assigned at Female 12/03/2024 8:32 AM CDT Legal Sex Female 4:05 PM CDT Gender Identity Not on file Sexual Orientation Not on file documented as of this encounter Functional Status * Calculated C-SSRS Risk Score (Lifetime/Recent) Answer Date of Assessment Author Status No Risk Indicated 12/09/2024 9:58 AM CDT Conner Tyson RN Active * [place] Suicide Severity Rating Scale (Screener/Recent Self-Report) Question Answer Date of Assessment Author Status 1. Wish to be (Past 1 Month) No 12/09/2024 9:58 AM CDT Ros Tyson RN Active 2. Non-Specific Active Suicidal Thoughts (Past 1 Month) No 12/09/2024 9:58 AM CDT Ros Tyson RN Active 6. Suicidal Behavior (Lifetime) No 12/09/2024 9:58 AM CDT Ros Tyson RN Active documented as of this encounter Plan of Treatment Upcoming Encounters Date Type Department Care Team (Latest Contact Info) Description 01/27/2025 9:50 AM CDT Hospital Encounter [facility] [place] [address] Davian Perez MD [address] [facility] [address] [place] [address] 01/27/2025 9:50 AM CDT - 01/27/2025 11:27 AM CDT Surgery [facility] [place] [address] Davian Perez MD [address] [facility] [address] [place] [address] RIGHT EXTRACOROPOREAL SHOCK WAVE LITHOTRIPSY Scheduled Procedures Name Priority Associated Diagnoses Date/Ti de EXTRACOROPOREAL SHOCK WAVE LITHOTRIPSY UNILATERAL N20.1, N20.0- RIGHT URETERAL STONE, CALCIUM KIDNEY STONE 01/27/2025 9:50 AM CDT CYSTOSCOPY WITH RETROGRADES N20.1, N20.0- RIGHT URETERAL STONE, CALCIUM KIDNEY STONE 01/27/2025 9:50 AM CDT documented as of this encounter Results * PTT, PARTIAL THROMBOPLASTIN TIME (12/09/2024 9:13 AM CDT) PTT 34.0 25.1 - 36.5 SEC 12/09/2024 9:54 AM CDT [facility] 12/09/2024 9:13 AM CDT Davian Perez MD LABORATORY Final Res ult Performing Organization Address [facility] Co de Phone Number [facility] [address] [place] [address], * PROTIME/INR, VENOUS (12/03/2024 8:59 AM CDT) PROTIME 11.5 10.2 - 12.9 SEC 12/03/2024 9:[address] [facility] INR 1.0 12/03/2024 9:[address] [facility] Comment: Recommended INR Therapeutic Goals: 2.0-3.0 Routine Therapy 2.5-3.5 Mechanical Prosthetic Valves (High Risk) 12/03/2024 8:59 AM CDT Davian Perez MD LABORATORY Final Res ult Performing Organization Address [facility] Co de Phone Number [facility] [address] [place] [address], * (ABNORMAL) BASIC METABOLIC PANEL (12/03/2024 8:59 AM CDT) GLUCOSE 118(H) 70 - 99 MG/DL 12/03/2024 9:[address] [facility] BUN 18 7 - 18 MG/DL 12/03/2024 9:[address] [facility] CREATININE S/P/B 0.83 0.55 - 1.02 MG/DL 12/03/2024 9:[address] [facility] SODIUM S/P/B 142 136 - 145 MMOL/L 12/03/2024 9:[address] [facility] POTASSIUM S/P/B 4.3 3.5 - 5.1 MMOL/L 12/03/2024 9:[address] [facility] CHLORIDE S/P/B 110 97 - 115 MMOL/L 12/03/2024 9:[address] [facility] CO2 26.7 21 - 32 MMOL/L 12/03/2024 9:[address] [facility] CALCIUM S/P/B 9.9 8.5 - 10.1 MG/DL 12/03/2024 9:[address] [facility] ANION GAP 5.3 2 - 10 MMOL/L 12/03/2024 9:[address] [facility] BUN CREATININE RATIO 21.8 6 - 26 12/03/2024 9:[address] [facility] GFR ESTIMATE 74(L) >90 ML/MIN/1.7 3 M2 12/03/2024 9:[address] [facility] Comment: NOTE: eGFR is not calculated for patients <18 years of age or gender unknown. This is an estimated GFR calculation using the new CKD EPI creatinine equation without race and so does not require a correction factor for race. This estimated GFR should not be used for calculating drug doses. 12/03/2024 8:59 AM CDT us Davian Perez MD LABORATORY Final Res ult [facility] [address] [place] [address], [place] [phone] * (ABNORMAL) CBC W/DIFF AUTOMATED (12/03/2024 8:59 AM CDT) WBC 4.95 4.5 - 11.0 x10'3/uL 12/03/2024 9:[address] [facility] RBC 4.34 4.20 - 5.40 x10'6/uL 12/03/2024 9:[address] [facility] HGB 12.8 12.0 - 16.0 G/DL 12/03/2024 9:[address] [facility] HCT 40.6 38.0 - 48.0 % 12/03/2024 9:[address] [facility] MCV 93.5 81.0 - 99.0 FL 12/03/2024 9:[address] [facility] MCH 29.5 27.0 - 31.0 PG 12/03/2024 9:[address] [facility] MCHC 31.5(L) 32.0 - 36.0 G/DL 12/03/2024 9:[address] [facility] RDW 13.4 11.5 - 14.5 % 12/03/2024 9:[address] [facility] PLT 254 130 - 400 x10'3/uL 12/03/2024 9:[address] [facility] MPV 9.2(L) 9.3 - 12.2 FL 12/03/2024 9:[address] [facility] DIFFERENTIAL TYPE AUTOMATED DIFFERENTIAL 12/03/2024 9:[address] [facility] NEUTROPHILS % 49.9 % 12/03/2024 9:[address] [facility] LYMPHOCYTES % 37.4 % 12/03/2024 9:[address] [facility] MONOCYTES % 7.9 % 12/03/2024 9:[address] [facility] EOSINOPHILS 3.8 % 12/03/2024 9:[address] [facility] BASOPHILS 0.6 % 12/03/2024 9:[address] [facility] IMMATURE GRANS % 0.4 % 12/04/19 9:[address] [facility] ABS. NEUTROPHILS 2.47 1.80 - 7.70 x10'3/uL 12/03/2024 9:[address] [facility] ABS. LYMPHOCYTES 1.85 1.00 - 4.80 x10'3/uL 12/03/2024 9:[address] [facility] ABS. MONOCYTES 0.39 0.24 - 0.86 x10'3/uL 12/03/2024 9:[address] [facility] ABS. EOSINOPHILS 0.19 0.04 - 0.36 x10'3/uL 12/03/2024 9:[address] [facility] ABS. BASOPHILS 0.03 0.01 - 0.08 x10'3/uL 12/03/2024 9:[address] [facility] ABS. IMMATURE GRANULOCYTES 0.02 0.00 - 0.49 x10'3/uL 12/03/2024 9:[address] [facility] 12/03/2024 8:59 AM CDT us Davian Perez MD LABORATORY Final Res ult [facility] [address] [place] [address], * URINE BACTERIA CULTURE (12/03/2024 8:52 AM CDT) SPEC DESCRIPTION URINE CLEAN CATCH 12/03/2024 8:[address] [facility] SPECIAL REQUESTS NO SPECIAL REQUEST 12/03/2024 8:[address] [facility] CULTURE RESULT NO GROWTH 2 DAYS 12/05/2024 8:[address] [facility] URINE SPECIMEN OBTAINED BY CLEAN CATCH PROCEDURE / Unknown 12/03/2024 8:52 AM CDT 12/03/2024 9:04 AM CDT us Davian Perez MD MICROBIOLOGY - GENERAL OR DERABLES Final Result [facility] [address] [place] [address], * URINALYSIS (12/03/2024 8:52 AM CDT) SPECIMEN TYPE URINE CLEAN CATCH 12/03/2024 8:[address] [facility] COLOR (U) LIGHT YELLOW 12/03/2024 9:[address] [facility] TRANSPARENCY CLEAR 12/03/2024 9:[address] [facility] SPECIFIC GRAVITY (U) 1.015 1.001 - 1.030 12/03/2024 9:[address] [facility] U PH 6.0 5.0 - 9.0 12/03/2024 9:[address] [facility] LEUKOCYTES (U) NEGATIVE NEGATIVE 12/03/2024 9:[address] [facility] NITRITES NEGATIVE NEGATIVE 12/03/2024 9:[address] [facility] PROTEIN RANDOM (U) NEGATIVE <30 MG/DL 12/03/2024 9:[address] [facility] GLUCOSE (U) NORMAL NORMAL MG/DL 12/03/2024 9:[address] [facility] KETONES MG/DL (U) NEGATIVE NEGATIVE MG/DL 12/03/2024 9:[address] [facility] UROBILINOGEN NORMAL NORMAL MG/DL 12/03/2024 9:[address] [facility] BILIRUBIN (U) NEGATIVE NEGATIVE MG/DL 12/03/2024 9:[address] [facility] BLOOD (U) NEGATIVE NEGATIVE 12/03/2024 9:[address] [facility] URINE SPECIMEN OBTAINED BY CLEAN CATCH PROCEDURE / Unknown 12/03/2024 8:52 AM CDT us Davian Perez MD URINE ORDERABLES Final Re sult [facility] [address] [place] [address], documented in this encounter Visit Diagnoses Diagnosis Right ureteral stone- Primary Calculus of ureter Calcium kidney stone Calculus of kidney Microscopic hematuria documented in this encounter Additional Health Concerns Assessment Noted Time PHQ-9 Depression Total Score: 0 04/26/20 21 1:11 PM CDT documented as of this encounter Care Teams Cop Examiner Relationship Specialty Start Date End Date Ava Ball MD PCP - General FAMILY PRACTICE 02/18/20 Sultan Berto Doss MD [address] [facility] [place] [address] CARDIOVASCULAR DISEASE 12/02/24 documented as of this encounter
--- OUTSIDE RECORDS SUMMARY | 2025-01-14 00:04 | XMS_ITS ---
Author Organization [facility] Address [facility] [place] [address] Care Team Providers Care Digital Account Coordinator Name Role Phone Ava Galvan MD Primary Care Provider [phone] Active Problems Problem Noted Date Diagnosed Date Malignant neoplasm of overla pping sites of left breast in female, estrogen receptor positive 02/23/2022 Cancer Staging:Clinical stage from 02/16/2022:Stage IA(cT1c, cN0, cM0, G2, ER+, NH+, HER2-) - Signed by Karissa Rodriguez MD on 02/23/2022 Pathologic stage from 03/24/2022:Stage IA(pT1c(m), pN0(sn), cM0, G2, ER+, NH+, HER2-) - Signed by Karissa Rodriguez MD on 04/03/2022 Post-operative pain Current Treatment and Therapy Plans No current plan information found. Past Treatment and Therapy Plans No past plan information found. 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, estrogen receptor positive ([facility]/HCC) Date of diagnosis: 02/16/22 Age of diagnosis: 71 Tumor Information Cancer Staging Malignant neoplasm of overlapping sites of left breast in female, estrogen receptor positive (CMS/HCC) Staging form: Breast, AJCC 8th Edition - Clinical stage from 02/16/2022: Stage IA (cT1c, cN0, cM0, G2, ER+, NH+, HER2-) - Signed by Karissa Rodriguez MD on 02/23/2022 - Pathologic stage from 03/24/2022: Stage IA (pT1c(m), pN0(sn), cM0, G2, ER+, NH+, HER2-) - Signed byKarissa Rodriguez MD on 04/03/2022 Surgery Information Description: Bilateral mastectomies, no reconstruction Date: 03/24/22 Surgeon/Facility Name: Dr. Karissa Rodriguez, [facility] Adjuvant Treatment Recommendations: medical oncology Initial Imaging Mammogram: Bilateral screening mammogram ([facility]) 12/30/2021 -- indeterminate left breast focal asymmetry with possible architectural distortion (BIRADS-0) Left diagnostic mammogram 01/27/2022 ([facility]) -- irregular mass with spiculated margins in the left breast with architectural distortion (BIRADS-5) Left breast ultrasound 01/27/2022 ([facility]) -- 2.2cm hypoechoic mass at the 2:30 position with two othersmaller masses in close proximity (BIRADS-5) Left breast ultrasound 02/16/2022 ([facility]) -- 1.5cm hypoechoic mass at the 2:30 position (corresponds with mammographic mass); 0.5cm hypoechoic mass at 2:00; 0.5cm hypoechoic mass at the 3:00 position; and 0.4cm at the 2:00 position; no enlarged left axillary lymph nodes BIRADS-4c Radiation Information Radiation Oncologist: Not recommended. Chemotherapy Information Medical Oncologist: Dr. Medina Oncotype 19--no chemotherapy recommended. Started on Anastrozole in April 2022. Genetic Testing Genetic Testing: No. Pt stated she will consider it. Other Information Clinical Trials: None Pre-treatment Weight: 175 lbs. Post-Treatment Weight: 173 lbs. Psychosocial needs: None Fertility: Menarche at age 13 years Menopause at age 49 years with first delivery at age 22 years History of ? -- yes, all 3 History of OCP use? -- yes, 3 years History of HRT use? -- no Possible Late Effects of Your Cancer Treatment Swelling arm Alopecia/Hairloss Nail discoloration Peripheral neuropathy Secondary leukemia or malignancy is possible Depression or anxiety Abnormal vaginal bleeding Bony or joint pains Possible cognitive changes Sexual/hormonal changes Alteration in blood counts Changes to kidney function Fibrosis and scarring of breast at treatment site Darkening and drying of skin Cancer Surveillance Schedule You will be seen more frequently the earlier you are in your surveillance plan. Every patient will have an individualized follow up schedule based on recommendations from national cancer organizations and your specific post- treatment course. Follow up with Location How often Radiation Oncology [facility] Clinical visit every 4-6 months for 5 yrs, then every 12 months Medical Oncology [facility] Surgery [facility] Mammography [facility] Bilateral Diagnostic Mammogram every 12 months Reasons to call: New lesions or mass Chest pain New feelings of sadness or being overwhelmed Unintended weight loss Cough that does not go away Any side effects or questions of care Your follow up schedule is listed below Future Appointments Date Time Provider Department Center 09/25/2022 11:30 AM [facility] 01/25/2023 12:40 PM Latoya Medina MD [address] Contact Information Radiation Oncologist Dr. Osmar Santillan Medical Oncologist Dr. Medina [phone] Karissa Rodriguez Social Work Wet Primer Powder Blender Dr. Parisa Moser [phone] Breast Nurse Navigator Digna Benedict RN [phone] [facility] Care [facility] Hospital Scheduling Primary Care Provider Ava Galvan MD [phone] Recommended cancer screenings Colonoscopy: every 10 years beginning at age 50 unless directed otherwise. Last colonoscopy: Unknown Mammogram: Annually beginning at age 40 unless directed otherwise. Last mammogram: 12/30/21. No further mammograms indicated due to bilateral mastectomies. Cervical Cancer Screening: Ages 21-24 No Screening Indicated Ages 25-29 HPV test every 5 yrs (Preferred) HPV/Pap co test every 5 yrs (Acceptable) Pap test every 3 yrs (Acceptable) Ages 30-65 HPV test every 5 yrs (Preferred) HPV/Pap co test every 5 yrs (Acceptable) Pap test every 3 yrs (Acceptable) Age 65 and older No screening if a series of prior tests were normal General Wellness Screening Blood Pressure: annually Weight: annually Lipids: Women age >= 45 should be screened for lipid(cholesterol) disorder Diabetes: Discuss with your primary care provider especially if you are overweight or have high blood pressure Bone Density: Women age >= 65 should be screened for osteoporosis Vision: No routine screening recommended. If you think your vision has changed, get a vision examination. Hearing: No routine screening recommended. If you think your hearing has changed, get a hearing examination. Dental: Dental examinations every 6 months are recommended. If you have had radiation, you should discuss fluoride treatments with your dentist. Staying Healthy Immunizations: Annual flu shot Tetanus booster every 10 years Diptheria booster if you haven???t had one Shingles vaccine at age 60 if you have had chicken pox Pneumonia vaccine at ages between 19-64 if chronically ill; at age 65 for all people Sun Exposure: Wear sunscreen daily. Apply liberally when outside and wear protective clothing. Nutrition: A healthy weight and a balanced diet will Tobacco: Avoid all tobacco and vapor products. If you have not been able to quit, ask for help. Alcohol: Moderate alcohol intake is acceptable. If you think you drink too much, we can help you find resources to help you quit. Drugs: Illegal drugs should be avoided. If you use any of these substances, ask for help with stopping. Activity: Staying active helps your heart, your lungs, and your immune system. Take every opportunity to walk a few extra steps. Important Resources [facility] [place] Cancer Society cancer.org Association of Cancer Online Resources acor.org Caring Bridge caringbridge.org CancerCare cancercare.org LiveStrong Foundation livestrong.org National Cancer [place] cancer.gov Cancer Survivors Network csn.cancer.org National Coalition for Cancer Survivorship canceradvocacy.org [place] Society of Clinical Oncologists cancer.net Cancer Support Community of [facility] www.cancersupportstl.org Radiation Therapy Questions/Answers www.rtanswers.org
--- OUTSIDE RECORDS SUMMARY | 2025-01-14 00:04 | XMS_ITS | Encounter Summary ---
Author Organization [facility] Address [address] [place] [address] Phone Care Team Providers Care Head Start Coordinator Name Role Phone Ava Galvan MD Unavailable [phone] Nuha Marquez MD Unavailable [phone] Renu Mosqueda MD Unavailable [phone] Ava Galvan MD Primary Care Provider [phone] Dimitri Messer MD Unavailable [phone] Toney Vergara MD Unavailable [phone] Vaishnavi Menon LPN Unavailable [phone] Encounter Details Date Type Department Care Team (Late st Contact Info) Description 03/06/2023 Imaging Exam [facility] Otolaryngology [address] [place] [address] Dimitri Messer MD [address] [place] [address] Nasal congestion (Primary Dx) Social History Tobacco Use Types Packs/Day Years Used Date Smoking Tobacco: Never Smokeless Tobacco: Never Alcohol Use Standard Drinks/Week Comments Yes 0 (1 standard drink = 0.6 oz pur e alcohol) occas AUDIT-C Answer Date Recorded Q1: How often do you have a drink containing alcohol? Never 10/19/2022 Q2: How many drinks containi ng alcohol do you have on a typical day when you are drinking? Patient does not drink Q3: How often do you have si x or more drinks on one occasion? Never 10/19/2022 PHQ-2 Answer Date Recorded PHQ-2 Total Score (If total score is 3 or more points, staff should administer the PHQ-9) 0 04/17/2022 Comments No Sex and Gender Information Value Date Recorded Sex Assigned at Not on file Legal Sex Female 2:58 PM CDT Gender Identity Not on file Sexual Orientation Not on file documented as of this encounter Plan of Treatment Not on file documented as of this encounter Visit Diagnoses Diagnosis Nasal congestion- Primary Other diseases of nasal cavity and sinuses documented in this encounter Additional Health Concerns Infection Onset Date Last Indicated Resolved Time COVID: Suspected 10/10/2023 10/10/2023 10/10/2023 3:55 PM MENTAL HEALTH COUNSELOR documented as of this encounter Care Teams Head Start Coordinator Relationship Specialty Start Date End Date Ava Galvan MD PCP - [employer] Attributed PCP 11/15/17 Ava Galvan MD PCP - General Family Medicine 10/03/21 Nuha Marquez MD Referring Physician Gastroenterology 02/11/19 Renu Mosqueda MD Referring Physician Endocrinology 02/11/19 [address] [place] [address] [place] [address] Consulting Physician Otolaryngology 04/23/23 Toney Vergara MD [address] [address] Consulting Physician Surgery 10/10/24 Vaishnavi Menon LPN [address] [place] [address] [address] [place] [address] Vehicle Modification Technician 10/13/24 10/13/24 documented as of this encounter
--- OUTSIDE RECORDS SUMMARY | 2025-01-14 00:04 | XMS_ITS | Encounter Summary ---
Author Organization [facility] Address [address] [place] [address] Care Team Providers Care Manager Internship Name Role Phone Ava Ball MD Primary Care Provider [phone] Sultan Berto Doss MD Unavailable [phone] Encounter Details Date Type Department Care Team (Late st Contact Info) Description 12/09/2024 Prep for Procedure [facility] [address] [place], [place] [id number] Davian Perez MD [address] [facility] [address] [place], [place] [id number] Social History Tobacco Use Types Packs/Day Years [...] AM CDT Conner Tyson RN Active * [place] Suicide Severity Rating Scale (Screener/Recent Self-Report) Question [...] Description 01/27/2025 9:50 AM CDT Hospital Encounter [facility] [place] [address] Davian Perez MD [address] [facility] [address] [place] [address] 01/27/2025 9:50 AM CDT - 01/27/2025 11:27 AM CDT Surgery [facility] [place] [address] Davian Perez MD [address] [facility] [address] [place] [address] RIGHT EXTRACOROPOREAL SHOCK WAVE LITHOTRIPSY Scheduled Procedures Name Priority Associated Diagnoses Date/Ti mn EXTRACOROPOREAL SHOCK WAVE LITHOTRIPSY UNILATERAL N20.1, N20.0- RIGHT URETERAL STONE, CALCIUM KIDNEY STONE 01/27/2025 9:50 AM CDT CYSTOSCOPY WITH RETROGRADES N20.1, N20.0- RIGHT URETERAL STONE, CALCIUM KIDNEY STONE 01/27/2025 9:50 AM CDT documented as of this encounter Visit Diagnoses Diagnosis Right ureteral stone- Primary Calculus of ureter Calcium kidney stone Calculus of kidney documented in this encounter Additional Health Concerns Assessment Noted Time PHQ-9 Depression Total Score: 0 04/26/20 21 1:11 PM CDT documented as of this encounter Care Teams Manager Internship Relationship Specialty Start Date End Date Ava Ball MD PCP - General FAMILY PRACTICE 02/18/20 Sultan Berto Doss MD [address] [facility] [place] [address] CARDIOVASCULAR DISEASE 12/02/24 documented as of this encounter
--- OUTSIDE RECORDS SUMMARY | 2025-01-14 00:04 | XMS_ITS | Encounter Summary ---
Author Organization [facility] Address [address] [place] [address] Phone Care Team Providers Care Mail Distribution Clerk Name Role Phone Provider, Unknown Primary Care Provider Unavaila ble Lul Haddad MD Unavailable Encounter Details Date Type Department Care Team (Late st Contact Info) Description 04/07/2022 Telephone [facility] [address] [place] [address] Lul Haddad MD [address] [place] [address] [place] [address] Social History Tobacco Use Types Packs/Day Years Used Date Smoking Tobacco: Never Assessed Comments Unknown Sex and Gender Information Value Date Recorded Sex Assigned at Not on file Legal Sex Female 1:44 PM CDT Gender Identity Not on file Sexual Orientation Not on file documented as of this encounter Miscellaneous Notes * Telephone Encounter - Priti Dean - 04/07/2022 9:10 AM CDT [facility] HAS DECIDED TO GO [facility] FOR TREATMENT. documented in this encounter Plan of Treatment Not on file documented as of this encounter Visit Diagnoses Not on filedocumented in this encounter Care Teams Mail Distribution Clerk Relationship Specialty Start Date End Date Provider, Unknown UNKNOWN PCP - General 04/04/22 Lul Haddad MD [address] [place] [address] Consulting Physician Oncology 04/04/22 documented as of this encounter
--- OUTSIDE RECORDS SUMMARY | 2025-01-14 00:04 | XMS_ITS | Clinical Summary ---
Author Organization [facility] Address [address] [place] [phone] Phone Care Team Providers Care Bow Stapler Name Role Phone Unavailable Primary Care Provider Unavailabl e Encounters Date Type Department Care Team Description 12/03/2024 External Device Data ST[facility] ABSTRACTION Provider, Abstract 11/22/2024 External Device Data [facility] ABSTRACTION Provider, Abstract 11/21/2024 External Device Data [facility] ABSTRACTION Provider, Abstract 11/19/2024 External Device Data [facility] ABSTRACTION Provider, Abstract 11/05/2024 External Device Data ST[facility] ABSTRACTION Provider, Abstract from Last 3 Months Social History Tobacco Use Types Packs/Day Years Used Date Smoking Tobacco: Never Assessed Comments Unknown Sex and Gender Information Value Date Recorded Sex Assigned at Not on file Legal Sex Female 5:07 PM CDT Gender Identity Not on file Sexual Orientation Not on file Plan of Treatment Health Maintenance Due Date Last Done Comments DTAP/TDAP/TD VACCINES (1 - Tdap) 1970 COLORECTAL SCREENING 1996 Colorectal Cancer Screening 1996 FIT-DNA Q 3 years 1996 FIT/FOBT Q 1 year 1996 Flex Sig/CT Colonography Q 5 years 1996 ZOSTER VACCINE (2 of 3) 11/12/2014 09/17/2014 BREAST CANCER SCREENING 01/27/2023 01/28/20 22, 12/30/2021, 12/30/2021, Additional history exists INFLUENZA VACCINE (#1) 2024 , 08/05/2021, 06/29/2020, Additional history exists RSV VACCINE (60+ or ) (1 - 1-dose 75+ series) 2026 OSTEOPOROSIS SCREENING 05/08/2027 05/08/2022, 2017 PNEUMOCOCCAL VACCINE 50+ YEARS Completed 0 02/11/2019, 06/15/2017, 10/25/2016, Additional history exists Insurance [address] [place] [id number] [facility]
--- OUTSIDE RECORDS SUMMARY | 2025-01-14 00:04 | XMS_ITS | Clinical Summary ---
Author Organization [facility] Address [address] [place] [address] Care Team Providers Care Field Services Analyst Name Role Phone Ava Ball MD Primary Care Provider [phone] Sultan Berto Doss MD Unavailable [phone] Allergies No known active allergies Medications amlodipine 10 MG tablet Take 1 tablet (10 mg total) by mouth daily. Active Coenzyme Q10 (COQ10) 100 MG Cap Take 2 capsules by mouth daily. Active Garlic 1000 MG capsule Take 2 capsules by mouth daily. Active Melatonin 5 MG Cap Take 2 capsules by mouth. Active Misc Natural Products (TURMERIC CURCUMIN) capsule Take 1 capsule by mouth daily. Active vitamin C 1000 MG tablet Take 1 tablet (1,000 mg total) by mouth daily. Active Multiple Vitamin (MULTI VITAMIN DAILY) Tab Take 1 tablet by mouth daily. Active Vitamin E 200 units Tab Take 2 tablets by mouth daily. Active cetirizine 10 MG tablet Take 1 tablet (10 mg total) by mouth. Active diphenhydrAMINE 50 MG Cap capsule Take 1 capsule (50 mg total) by mouth. Active fenofibrate 145 MG tablet Take 1 tablet (145 mg total) by mouth daily. 11/07/2019 Active atorvastatin 20 MG tablet Take 1 tablet (20 mg total) by mouth daily. 11/07/2019 Active VASCEPA 1 g capsule Take 2 capsules (2 g total) by mouth 2 (two) times daily with meals. 11/30/2020 Active anastrozole (ARIMIDEX) 1 MG tablet Take 1 tablet by mouth daily. Active carvedilol (COREG) 12.5 MG tablet Take 1 tablet (12.5 mg total) by mouth 2 (two) times daily. Active ezetimibe (ZETIA) 10 MG tablet Take 1 tablet (10 mg total) by mouth daily. Active lisinopril (PRINIVIL) 5 MG tablet Take 1 tablet (5 mg total) by mouth daily. Active Misc Natural Products (GLUCOSAMINE CHOND CMP ADVANCED OR) Take 1 tablet by mouth 2 (two) times daily. Active Vitamin E 13 MG (19 UNIT) Cap Take 450 Units by mouth daily. Active Active Problems Problem Noted Date Diagnosed Date Abnormal thyroid function test 02/12/2018 Multiple thyroid nodules 01/22/2018 Thyroid nodule 01/22/2018 Vitamin D deficiency 01/22/2018 Encounters Date Type Department Care Team Description 12/09/2024 2:08 [place] [address] Yoan Trinidad MD Jackson, Samantha Rae, FNP 12/09/2024 9:10 AM CDT - 12/09/2024 10:19 AM CDT Hospital Encounter [facility] [place] [address] Davian Perez MD Discharge Disposition: Home or Self Care (Routine Discharge) 12/09/2024 Travel 12/09/2024 [place] [address] Davian Perez MD 12/09/2024 [place] [address] Davian Perez MD 12/03/2024 8:35 AM CDT - 12/03/2024 11:59 PM [place] [address] Davian Perez MD Discharge Disposition: Home or Self Care (Routine Discharge) 12/03/2024 Travel from Last 3 Months Immunizations Immunization Administration Dates Next Due COVID-19 Vaccine (Generic) 02/23/2021 Flucelvax 6 Months+ (Prefill ed Syringe) 06/24/2019 Fluzone High Dose - >Age 65 (Prefilled Syringe) 06/17/2018,06/15/2017 Influenza (Generic) 08/28/2016, 6,08/04/2015,2014 Influenza Adult (Generic) 06/29/2020,04/2019,06/17/2018,2016,07/04/2016,07/04/2016,06/14/2015,0 06/14/2015 Pneumococcal (Pneumovax 23) 02/11/2019, 7 Pneumococcal (Prevnar 13) 06/15/2017,10/25/2016 Zoster (Zostavax) 13730 Unt/0.65Ml 09/17/2014 Social History Tobacco Use Types Packs/Day [...] Sign Reading Time Taken Comments Blood Pressure 142/66 12/09/2024 9:56 AM CDT Pulse 56 12/09/2024 9:56 AM CDT Temperature 36.6 C (97.9 F) 12/09/2024 9:56 AM CDT Respiratory Rate 16 12/09/2024 9:56 AM CDT Oxygen Saturation 96% 12/09/2024 9:56 AM CDT Inhaled Oxygen Concentration - - Weight 77.7 kg (171 lb 4.8 oz) 12/09/2024 9:56 A M CDT Height 160 cm (5' 3) 12/02/2024 2:07 PM CDT Body Mass Index 30.34 12/02/2024 2:07 PM CDT Plan of Treatment Upcoming Encounters Date Type Department Care Team (Latest Contact Info) Description 01/27/2025 9:50 AM CDT Hospital Encounter [facility] [place] [address] Davian Perez MD [address] [facility] [address] [place] [phone] 01/27/2025 9:50 AM CDT - 01/27/2025 11:27 AM CDT Surgery [facility] [place] [address] Davian Perez MD 3 [facility] [address] [place] [id number] RIGHT EXTRACOROPOREAL SHOCK WAVE LITHOTRIPSY Scheduled Procedures Name Priority Associated Diagnoses Date/Ti mi EXTRACOROPOREAL SHOCK WAVE LITHOTRIPSY UNILATERAL N20.1, N20.0- RIGHT URETERAL STONE, CALCIUM KIDNEY STONE 01/27/2025 9:50 AM CDT CYSTOSCOPY WITH RETROGRADES N20.1, N20.0- RIGHT URETERAL STONE, CALCIUM KIDNEY STONE 01/27/2025 9:50 AM CDT Health Maintenance Due Date Last Done Comments Hepatitis C 1969 DTaP, Tdap and Td Vaccines (1 - Tdap) 1970 Zoster Vaccines (2 of 3) 11/12/2014 09/17/2014 Annual Medicare Wellness Visit 2016 Mammogram Screening 01/28/2024 01/27/2022, 12/30/2021, 08/31/2020, Additional history exists COVID-19 Vaccine (2 - season) 2024 02/23/2021 Colorectal Cancer Screening Colonoscopy (10 Years) 09/17/2025 09/17/2015 RSV Immunization or 60+ Years (1 - 1-dose 75+ series) 2026 Pneumococcal Vaccine: 50+ Years Completed 02/11/2019, 06/15/2017, 10/25/2016, Additional history exists Dexa Scan (General) Completed 08/21/2024, 08/21/2024, 05/08/2022, Additional history exists Meningococcal B Vaccine Aged Out No l onger eligible based on patient's age to complete this topic Meningococcal Vaccine Aged Out No mary jane sharon eligible based on patient's age to complete this topic RSV Immunizations Under 20 Months Aged Out No longer eligible based on patient's age to complete this topic Goals Goal Patient Goal Type Associated Problems Recent Progress Patient-Stated? Author Autogenerat ed Goal Care Plan Autogenerated Problem No Nathaly Henry department head Procedure Name Priority Date/Time Associated Diagnosis Comments PARTIAL THROMBOPLASTIN TIME,PTT Routine 12/09/2024 9:13 AM CDT Right ureteral stone Calcium kidney stone Microscopic hematuria PROTHROMBIN TIME, VENOUS Routine 12/03/2024 8:59 AM CDT Right ureteral stone Calcium kidney stone Microscopic hematuria BASIC METABOLIC PANEL Routine 12/03/2024 8:59 AM CDT Right ureteral stone Calcium kidney stone Microscopic hematuria CBC W/DIFF AUTOMATED Routine 12/03/2024 8:59 AM CDT Right ureteral stone Calcium kidney stone Microscopic hematuria URINE BACTERIA CULTURE Routine 8:52 AM CDT Right ureteral stone Calcium kidney stone Microscopic hematuria HC URINALYSIS AUTO W/O MICRO Routine 12/03/2024 8:52 AM CDT Right ureteral stone Calcium kidney stone Microscopic hematuria COLONOSCOPY Routine 09/17/2015 12:00 AM MANAGER TRAFFIC from Last 3 Months or Most Recently Relevant to Health Maintenance Results * PTT, PARTIAL THROMBOPLASTIN TIME (12/09/2024 9:13 AM CDT) PTT 34.0 25.1 - 36.5 SEC 12/09/2024 9:54 AM CDT [facility] 12/09/2024 9:13 AM CDT us Davian Perez MD LABORATORY Final Res ult Performing Organization Address [facility] Co de Phone Number [facility] [address] [place] [address], * PROTIME/INR, VENOUS (12/03/2024 8:59 AM CDT) PROTIME 11.5 10.2 - 12.9 SEC 12/03/2024 9:23 AM CDT [facility] INR 1.0 12/03/2024 9:23 AM CDT [facility] Comment: Recommended INR Therapeutic Goals: 2.0-3.0 Routine Therapy 2.5-3.5 Mechanical Prosthetic Valves (High Risk) 12/03/2024 8:59 AM CDT Davian Perez MD LABORATORY Final Res ult Performing Organization Address [facility] Co de Phone Number [facility] [address] [place] [address], * (ABNORMAL) BASIC METABOLIC PANEL (12/03/2024 8:59 AM CDT) GLUCOSE 118(H) 70 - 99 MG/DL 12/03/2024 9:30 AM CDT [facility] BUN 18 7 - 18 MG/DL 12/03/2024 9:30 AM CDT [facility] CREATININE S/P/B 0.83 0.55 - 1.02 MG/DL 12/03/2024 9:30 AM CDT [facility] SODIUM S/P/B 142 136 - 145 MMOL/L 12/03/2024 9:30 AM CDT [facility] POTASSIUM S/P/B 4.3 3.5 - 5.1 MMOL/L 12/03/2024 9:30 AM CDT [facility] CHLORIDE S/P/B 110 97 - 115 MMOL/L 12/03/2024 9:30 AM CDT [facility] CO2 26.7 21 - 32 MMOL/L 12/03/2024 9:30 AM CDT [facility] CALCIUM S/P/B 9.9 8.5 - 10.1 MG/DL 12/03/2024 9:30 AM CDT [facility] ANION GAP 5.3 2 - 10 MMOL/L 12/03/2024 9:30 AM CDT [facility] BUN CREATININE RATIO 21.8 6 - 26 12/03/2024 9:30 AM CDT [facility] GFR ESTIMATE 74(L) >90 ML/MIN/1.7 3 M2 12/03/2024 9:30 AM CDT [facility] Comment: NOTE: eGFR is not calculated for patients <18 years of age or gender unknown. This is an estimated GFR calculation using the new CKD EPI creatinine equation without race and so does not require a correction factor for race. This estimated GFR should not be used for calculating drug doses. 12/03/2024 8:59 AM CDT Davian Perez MD LABORATORY Final Res ult [facility] [address] [place] [address], [place] [phone] * (ABNORMAL) CBC W/DIFF AUTOMATED (12/03/2024 8:59 AM CDT) WBC 4.95 4.5 - 11.0 x10'3/uL 12/03/2024 9:08 AM CDT [facility] RBC 4.34 4.20 - 5.40 x10'6/uL 12/03/2024 9:08 AM CDT [facility] HGB 12.8 12.0 - 16.0 G/DL 12/03/2024 9:08 AM CDT [facility] HCT 40.6 38.0 - 48.0 % 12/03/2024 9:08 AM CDT [facility] MCV 93.5 81.0 - 99.0 FL 12/03/2024 9:08 AM CDT [facility] MCH 29.5 27.0 - 31.0 PG 12/03/2024 9:08 AM CDT [facility] MCHC 31.5(L) 32.0 - 36.0 G/DL 12/03/2024 9:08 AM CDT [facility] RDW 13.4 11.5 - 14.5 % 12/03/2024 9:08 AM CDT [facility] PLT 254 130 - 400 x10'3/uL 12/03/2024 9:08 AM CDT [facility] MPV 9.2(L) 9.3 - 12.2 FL 12/03/2024 9:08 AM CDT [facility] DIFFERENTIAL TYPE AUTOMATED DIFFERENTIAL 12/03/2024 9:08 AM CDT [facility] NEUTROPHILS % 49.9 % 12/03/2024 9:08 AM CDT [facility] LYMPHOCYTES % 37.4 % 12/03/2024 9:08 AM CDT [facility] MONOCYTES % 7.9 % 12/03/2024 9:08 AM CDT [facility] EOSINOPHILS 3.8 % 12/03/2024 9:08 AM CDT [facility] BASOPHILS 0.6 % 12/03/2024 9:08 AM CDT [facility] IMMATURE GRANS % 0.4 % 12/04/19 9:08 AM CDT [facility] ABS. NEUTROPHILS 2.47 1.80 - 7.70 x10'3/uL 12/03/2024 9:08 AM CDT [facility] ABS. LYMPHOCYTES 1.85 1.00 - 4.80 x10'3/uL 12/03/2024 9:08 AM CDT [facility] ABS. MONOCYTES 0.39 0.24 - 0.86 x10'3/uL 12/03/2024 9:08 AM CDT [facility] ABS. EOSINOPHILS 0.19 0.04 - 0.36 x10'3/uL 12/03/2024 9:08 AM CDT [facility] ABS. BASOPHILS 0.03 0.01 - 0.08 x10'3/uL 12/03/2024 9:08 AM CDT [facility] ABS. IMMATURE GRANULOCYTES 0.02 0.00 - 0.49 x10'3/uL 12/03/2024 9:08 AM CDT [facility] 12/03/2024 8:59 AM CDT us Davian Perez MD LABORATORY Final Res ult [facility] [address] [place] [address], * URINALYSIS (12/03/2024 8:52 AM CDT) SPECIMEN TYPE URINE CLEAN CATCH 12/03/2024 8:52 AM CDT [facility] COLOR (U) LIGHT YELLOW 12/03/2024 9:59 AM CDT [facility] TRANSPARENCY CLEAR 12/03/2024 9:59 AM CDT [facility] SPECIFIC GRAVITY (U) 1.015 1.001 - 1.030 12/03/2024 9:59 AM CDT [facility] U PH 6.0 5.0 - 9.0 12/03/2024 9:59 AM CDT [facility] LEUKOCYTES (U) NEGATIVE NEGATIVE 12/03/2024 9:59 AM CDT [facility] NITRITES NEGATIVE NEGATIVE 12/03/2024 9:59 AM CDT [facility] PROTEIN RANDOM (U) NEGATIVE <30 MG/DL 12/03/2024 9:59 AM CDT [facility] GLUCOSE (U) NORMAL NORMAL MG/DL 12/03/2024 9:59 AM CDT [facility] KETONES MG/DL (U) NEGATIVE NEGATIVE MG/DL 12/03/2024 9:59 AM CDT [facility] UROBILINOGEN NORMAL NORMAL MG/DL 12/03/2024 9:59 AM CDT [facility] BILIRUBIN (U) NEGATIVE NEGATIVE MG/DL 12/03/2024 9:59 AM CDT [facility] BLOOD (U) NEGATIVE NEGATIVE 12/03/2024 9:59 AM CDT [facility] URINE SPECIMEN OBTAINED BY CLEAN CATCH PROCEDURE / Unknown 12/03/2024 8:52 AM CDT us Davian Perez MD URINE ORDERABLES Final Re sult [facility] [address] [place] [address], * URINE BACTERIA CULTURE (12/03/2024 8:52 AM CDT) SPEC DESCRIPTION URINE CLEAN CATCH 12/03/2024 8:52 AM CDT [facility] SPECIAL REQUESTS NO SPECIAL REQUEST 12/03/2024 8:52 AM CDT [facility] CULTURE RESULT NO GROWTH 2 DAYS 12/05/2024 8:02 AM CDT [facility] URINE SPECIMEN OBTAINED BY CLEAN CATCH PROCEDURE / Unknown 12/03/2024 8:52 AM CDT 12/03/2024 9:04 AM CDT Davian Perez MD MICROBIOLOGY - GENERAL OR DERABLES Final Result [facility] [address] [place] [address], * Colonoscopy (09/17/2015 12:00 AM MANAGER TRAFFIC) 09/17/2015 09/17/2015 Narrative [facility] TO EPIC CONVERSION - 09/17/2015 12:00 AM MANAGER TRAFFIC Documented hx of procedure Procedure Note Varinder Crain MD - 07/21/2018 Documented hx of procedure Generic Conversion Md CRAIN GI PROCEDURE ORDERABLES Final Result [facility] TO [facility] CONVERSION from Last 3 Months or Most Recently Relevant to Health Maintenance Additional Health Concerns Active Problems Noted Date Diagnosed Date Autogenerated Problem 12/31/2024 Insurance [facility] Advance Directives Documents on File Type Date Recorded Patient Chief Of Staff Expl eduard Advance Directives and Ezio ortiz Will 12/10/2024 1:46 PM Care Teams Field Services Analyst Relationship Specialty Start Date End Date Ava Ball MD PCP - General FAMILY PRACTICE 02/18/20 Sultan Berto Doss MD [address] [place] [address] CARDIOVASCULAR DISEASE 12/02/24
--- OUTSIDE RECORDS SUMMARY | 2025-01-14 00:04 | XMS_ITS | Clinical Summary ---
Author Organization [facility] Address [address] [place] [address] Care Team Providers Care Blue Line Operator Name Role Phone Ava Galvan MD Primary Care Provider [phone] [facility],non-owned Affiliates and Associated Physician Practices is amultiple site organization consisting of ambulatory clinics and hospital sitesin [place], [place], [place] and [place]. This disclosure is being madepursuant to the Care Everywhere program and may not contain all information available regarding this patient. Last updated 18.[facility] Allergies No known active allergies Medications * Be aware that medications may not be up to date on this document. Alwaysverify current medications with the patient. amLODIPine (NORVASC) 10 MG tablet Take 1 (one) tablet by mouth once daily 12/26/19 22 Active Ascorbic Acid 1000 MG Take 1 (one) tablet by mouth once daily Active atorvastatin (LIPITOR) 20 MG tablet Take 1 (one) tablet by mouth at bedtime 12/26/19 22 Active cetirizine (ZYRTEC) 10 MG tablet Take 1 (one) tablet by mouth at bedtime 09/28/19 22 Active fenofibrate (TRICOR) 145 MG tablet Take 1 (one) tablet by mouth at bedtime 12/26/19 22 Active Garlic 1000 MG Take 2 capsules by mouth once daily Active VASCEPA 1 g capsule Take 1 (one) capsule by mouth 2 times daily 11/23/19 22 Active melatonin 5 MG capsule Take 2 (two) capsules by mouth as needed Active Turmeric Curcumin 500 MG Take by mouth once daily Active Vitamin E 200 units TABS Take 2 tablets by mouth once daily Active ezetimibe (ZETIA) 10 MG tablet Take 1 (one) tablet by mouth once daily Active carvedilol (Coreg) 12.5 MG tablet Take 1 (one) tablet by mouth 2 times daily with morning and evening meal 12/08/19 23 Active omeprazole (PriLOSEC) 20 MG capsule Take 1 (one) capsule by mouth daily before breakfast Active lisinopril (Prinivil; Zestril) 5 MG tablet Take 1 (one) tablet by mouth once daily 07/24/20 23 Active fexofenadine (Codie) 180 MG tablet Take 1 (one) tablet by mouth once daily 30 tablet 11 10/30/19 24 Active ubiquinine/vitami n-e (Coenzyme Q10) 200 MG capsule Take 200 mg by mouth once daily Active montelukast (Singulair) 10 MG tablet Take 1 (one) tablet by mouth at bedtime 01/28/20 24 Active acetaminophen (Tylenol) 500 MG tablet Take 1 (one) tablet by mouth every 4 hours as needed for Fever or Pain Maximum allowable Acetaminophen amount = 4 Grams (4000 mg) / 24 hours. 30 tablet 06/03/20 24 Active Additional Information Patient not taking.Reported on 06/16/2024 oxyCODONE, immediate release, (Roxicodone) 5 MG tabletIndications :Encounter for other preprocedural examination TAKE 1 TABLET BY MOUTH EVERY 6 HOURS NEEDED FOR PAIN 16 tablet 06/03/20 24 Active anastrozole (Arimidex) 1 MG tabletIndications :Aromatase inhibitor use,Malignant neoplasm of overlapping sites of left breast in female, estrogen receptor positive (HCC) TAKE 1 TABLET EVERY DAY 30 tablet 11 09/08/20 24 Active Active Problems Problem Noted Date Diagnosed Date Malignant neoplasm of overla pping sites of left breast in female, estrogen receptor positive 02/23/2022 Cancer Staging:Clinical stage from 02/16/2022:Stage IA(cT1c, cN0, cM0, G2, ER+, CA+, HER2-) - Signed by Karissa Rodriguez MD on 02/23/2022 Pathologic stage from 03/24/2022:Stage IA(pT1c(m), pN0(sn), cM0, G2, ER+, CA+, HER2-) - Signed by Karissa Rodriguez MD on 04/03/2022 Post-operative pain Immunizations Immunization Administration Dates Next Due INFLUENZA VACCINE 06/29/2022 Family History Medical History Relation Name Comments Cancer - Prostate Brother Cancer - Prostate Father Macular Degeneration Mother Relation Name Status Comments Brother Father Mother Social History Tobacco Use Types Packs/Day Years Used Date Smoking Tobacco: Never Smokeless Tobacco: Never Tobacco Cessation:Counseling Given: No Alcohol Use Standard Drinks/Week Comments Yes 0 (1 standard drink = 0.6 oz pur e alcohol) yearly AUDIT-C Answer Date Recorded Q1: How often do you have a drink containing alcohol? Never 03/24/2022 Q2: How many drinks containi ng alcohol do you have on a typical day when you are drinking? Patient does not drink Q3: How often do you have si x or more drinks on one occasion? Never 03/24/2022 Comments Unknown Sex and Gender Information Value Date Recorded Sex Assigned at Not on file Legal Sex Female 6:00 PM PULMONARY PHYSICIAN Gender Identity Not on file Sexual Orientation Not on file Last Filed Vital Signs Vital Sign Reading Time Taken Comments Blood Pressure 148/80 06/16/2024 9:57 AM CDT Pulse 67 06/16/2024 9:57 AM CDT Temperature 36.9 C (98.4 F) 06/16/2024 9:57 AM CDT Respiratory Rate 18 06/16/2024 9:57 AM CDT Oxygen Saturation 94% 06/16/2024 9:57 AM CDT Inhaled Oxygen Concentration - - Weight 83.6 kg (184 lb 6.4 oz) 06/16/2024 9:57 A M CDT Height 160 cm (5' 3) 06/16/2024 9:57 AM CDT Body Mass Index 32.66 06/16/2024 9:57 AM CDT Plan of Treatment Upcoming Encounters Date Type Department Care Team (Late st Contact Info) Description 05/14/2025 10:30 AM CDT Office Visit [facility] - General Surgery [address] [place] [phone] Karissa Rodriguez MD [address] [place] [phone] Health Maintenance Due Date Last Done Comments COLON MONITORING 1950 COLONOSCOPY - COLON CA SCREENING 1950 CT COLONOGRAPHY - COLON CA SCREENING 1950 FIT - COLON CA SCREENING 1950 FLEX SIG - COLON CA SCREENING 1950 HEPATITIS C SCREENING 06/04/1969 DTAP/TDAP/TD VACCINES (1 - Tdap) 1970 PNEUMOCOCCAL VACCINE 50+ (1 of 1 - PCV) 2001 ZOSTER VACCINE (1 of 2) 2001 MAMMOGRAM 12/31/2023 12/30/2021, 12/16, 08/31/2020, Additional history exists COVID-19 VACCINE ( - season) 2024 DEPRESSION SCREENING 09/17/2024 MEDICARE AWV CALENDAR YEAR 2024 COLOGUARD (AGES 45-75) - COLON CA SCREENING 10/26/2024 10/26/2021 Colorectal Cancer Screening 10/26/2024 INFLUENZA VACCINE (Season Ended) 2025 07/13/2023, 06/29/2022, 08/05/2021, Additional history exists Respiratory Syncytial Virus (RSV) Vaccine Pt: or over 60 yrs (1 - 1-dose 75+ series) 2026 SCREENING FOR DIABETES 07/25/2026 , 01/25/2023, 07/27/2022, Additional history exists BONE DENSITY TESTING Completed 05/08/2022, 02/20/20 18 HEPATITIS B VACCINE Aged Out No longe r eligible based on patient's age to complete this topic HIB VACCINE Aged Out No longer eligi ble based on patient's age to complete this topic HPV VACCINE Aged Out No longer eligi ble based on patient's age to complete this topic MENINGOCOCCAL (Group B) VACCINE SHARED DECISION-MAKING Aged Out No longer eligible based on patient's age to complete this topic MENINGOCOCCAL GROUPS A/C/Y/W VACCINE Aged Out No longer eligible based on patient's age to complete this topic Procedures Procedure Name Priority Date/Time Associated Diagnosis Comments COMPREHENSIVE METABOLIC PANEL STAT 07/25/2023 10:37 AM PULMONARY PHYSICIAN Aromatase inhibitor use Malignant neoplasm of overlapping sites of left breast in female, estrogen receptor positive DEXA BONE DENSITY AXIAL SKELETON Routine 05/08/2022 1:13 PM CDT Malignant neoplasm of overlapping sites of left breast in female, estrogen receptor positive from Last 3 Months or Most Recently Relevant to Health Maintenance Results * (ABNORMAL) COMPREHENSIVE METABOLIC PANEL (07/25/2023 10:37 AM [facility]) BUN 16 7 - 26 mg/dL 07/25/2023 11:24 AM [facility] Creatinine 0.80 0.56 - 0.96 mg/dL 07/25/2023 11:24 AM [facility] Sodium 143 136 - 145 mmol/L 07/25/2023 11:24 AM [facility] Potassium 4.1 3.5 - 4.5 mmol/L 07/25/2023 11:24 AM [facility] Chloride 106 98 - 107 mmol/L 07/25/2023 11:24 AM [facility] CO2 26 22 - 29 mmol/L 07/25/2023 11:24 AM [facility] Glucose 112 70 - 115 mg/dL 07/25/2023 11:24 AM [facility] Calcium 10.4(H) 8.4 - 10.2 mg/dL 07/25/2023 11:24 AM [facility] Protein Total 7.8 6.0 - 8.3 g/dL 07/25/2023 11:24 AM [facility] Albumin 4.2 3.4 - 5.0 g/dL 07/25/2023 11:24 AM [facility] Bilirubin Total 0.6 0.2 - 1.2 mg/dL 07/25/2023 11:24 AM [facility] Alkaline Phosphatase 81 40 - 150 U/L 07/25/2023 11:24 AM [facility] ALT 24 5 - 55 U/L 07/25/2023 11:24 AM [facility] AST 23 5 - 34 U/L 07/25/2023 11:24 AM [facility] Anion Gap 11 6 - 16 07/25/2023 11:24 AM [facility] BUN/Creatinine Ratio 20 7 - 23 07/25/2023 11:24 AM [facility] Osmolality Calculated 298(H) 275 - 295 mOsm/kg 07/25/2023 11:24 AM [facility] Albumin/Globulin Ratio 1.2 1.1 - 2.3 07/25/2023 11:24 AM [facility] eGFR by CKD-EPI 78(L) >=90 mL/min/1.7 3 m2 07/25/2023 11:24 AM [facility] Blood BLOOD SPECIMEN / Unknown Lab Venipuncture / Unknown 07/25/2023 10:37 AM PULMONARY PHYSICIAN 07/25/2023 10:45 AM [facility] us Latoya Medina MD LAB - CHEMISTRY ORDERABLES Final Result [facility] [address] [place] [address], [facility] [phone] * DEXA BONE DENSITY AXIAL SKELETON (05/08/2022 1:13 PM CDT) Anatomical Region Laterality Modality Other 05/08/2022 2:44 PM CDT Narrative 05/08/2022 6:16 PM CDT PROCEDURE: DEXA BONE DENSITY AXIAL SKELETON, DATE/TIME OF EXAM: 05/08/2022 1:13 PM, LOCATION [facility] INDICATION: C50.812: Malignant neoplasm of overlapping sites of left breast in female, estrogen receptor positive Z17.0: Malignant neoplasm of overlapping sites of left breast in female, estrogen receptor positive COMPARISON: None. LUMBAR SPINE (L1-L4): Bone mineral density (g/cm2): 1.031 Current T-score: -0.1 LEFT FEMORAL NECK: Bone mineral density (g/cm2): 0.974 Current T-score: 1.1 BONE DENSITY ASSESSMENT: WHO Category: Normal. FRAX not reported because all T-scores for spine total, hip total, femoral neck at or above -1.0. Please see the PACS images for additional details. World Health Organization definitions of standard deviations relative to the mean T-score: Normal bone density = -1.0 and above Osteopenia = between -1.0 and -2.5 Osteoporosis = -2.5 and below > Dictated by Charanjit Hi MD (Lactation Consultant) 05/08/2022 2:45 PM Joel Albert DO have personally reviewed and interpreted this examination/study. > Interpreting Provider: Joel Sweeney DO on 05/08/2022 6:16 PM Procedure Note Joel Sweeney DO - 05/08/2022 PROCEDURE: DEXA BONE DENSITY AXIAL SKELETON, DATE/TIME OF EXAM:05/08/2022 1:13 PM, LOCATION [facility] INDICATION: C50.812: Malignant neoplasm of overlapping sites of left breast infemale, estrogen receptor positive Z17.0: Malignant neoplasm of overlapping sites of left breast in female, estrogen receptor positive COMPARISON: None. LUMBAR SPINE (L1-L4): Bone mineral density (g/cm2): 1.031 Current T-score: -0.1 LEFT FEMORAL NECK: Bone mineral density (g/cm2): 0.974 Current T-score: 1.1 BONE DENSITY ASSESSMENT: WHO Category: Normal. FRAX not reported because all T-scores for spine total, hip total,femoral neck at or above -1.0. Please see the PACS images for additional details. World Health Organization definitions of standard deviations relative to the mean T-score: Normal bone density = -1.0 and above Osteopenia = between -1.0 and -2.5 Osteoporosis = -2.5 and below > Dictated by Charanjit Hi MD (Lactation Consultant) 05/08/2022 2:45PM Joel Albert DO have personally reviewed and interpreted this examination/study. > Interpreting Provider: Joel Sweeney DO on 05/08/2022 6:16 PM us Latoya Medina MD DEXA ORDERABLES Final Result from Last 3 Months or Most Recently Relevant to Health Maintenance Insurance [employer] MEDICARE ADV HMO & PPO Advance Directives * Full Code (Latest Code Status on File) Date Activated Date Inactivated Comments 03/24/2022 4:48 PM 03/25/2022 12:07 PM Care Teams Blue Line Operator Relationship Specialty Start Date End Date Ava Galvan MD [address] [place] [id number] PCP - General 10/03/17
--- OUTSIDE RECORDS SUMMARY | 2025-01-14 00:04 | XMS_ITS | Encounter Summary ---
Author Organization [facility] Address [address] [place] [address] Care Team Providers Care Senior Clinical Study Manager Name Role Phone Ava Galvan MD Unavailable [phone] Nuha Marquez MD Unavailable [phone] Renu Mosqueda MD Unavailable [phone] Ava Galvan MD Primary Care Provider [phone] Dimitri Messer MD Unavailable [phone] Toney Vergara MD Unavailable [phone] Encounter Details Date Type Department Care Team (Late st Contact Info) Description 01/12/2025 Results Follow-Up [facility] Family Medicine [address] [place] [address] [address] [place] [address] Anastasia Silva Social History Tobacco Use Types Packs/Day Years Used Date Smoking Tobacco: Never Smokeless Tobacco: Never Alcohol Use Standard Drinks/Week Comments Yes 0 (1 standard drink = 0.6 oz pur e alcohol) occas [facility] Utilities Answer Date Recorded In the past 12 months has [employer], gas, oil, or water company threatened to [...] often do you attend chur ch or faith services? More than 4 times per year 10/10/2024 Do you belong to any clubs o r organizations such as samaritan groups, unions, fraternal or athletic groups, or [...] any time in the past 12 m [facility], were you homeless or living in a senior living (including now)? No 10/10/2024 Personal Safety Answer [...] on filedocumented in this encounter Care Teams Senior Clinical Study Manager Relationship Specialty Start Date End Date Ava Galvan MD PCP - [employer] Attributed PCP 11/15/17 Ava Galvan MD PCP - General Family Medicine 10/03/21 Nuha Marquez MD Referring Physician Gastroenterology 02/11/19 Renu Mosqueda MD Referring Physician Endocrinology 02/11/19 Dimitri [place] [address] [place] [address] Consulting Physician Otolaryngology 04/23/23 Toney Vergara MD [address] [place] [id number] Consulting Physician Surgery 10/10/24 documented as of this encounter
--- OUTSIDE RECORDS SUMMARY | 2025-01-14 00:04 | XMS_ITS | Clinical Summary ---
Author Organization [facility] Address [address], [facility] [address] [place] [address] Phone Care Team Providers Care Suction Drum Drier Operator Name Role Phone Provider, Unknown Primary Care Provider Unavaila ble Lul Haddad MD Unavailable Social History Tobacco Use Types Packs/Day Years Used Date Smoking Tobacco: Never Assessed Comments Unknown Sex and Gender Information Value Date Recorded Sex Assigned at Not on file Legal Sex Female 1:44 PM CDT Gender Identity Not on file Sexual Orientation Not on file Plan of Treatment Not on file Insurance MEDICARE C [employer] Care Teams Suction Drum Drier Operator Relationship Specialty Start Date End Date Provider, Unknown UNKNOWN PCP - General 04/04/22 Lul Haddad MD [address] [place] [phone] Consulting Physician Oncology 04/04/22
--- NOTE | 2025-02-10 12:01 | PM.SD2 ---
Same Day Admit/Disch: HPI History of Present Illness Chief complaint: Chr Cholecystitis with Stones Narrative: Mima Carr is a 74 year old female experienced severe right upper quadrant abdominal pain in September. She went to the emergency room at [facility]. Imaging there are included both a CT scanned and an ultrasound of the right upper quadrant. Both studies showed gallstones and evidence of gallbladder wall thickening and chronic cholecystitis. She also had evidence of ureteral stones. She has since undergone lithotripsy. She was seen in the office and is taken to surgery now for laparoscopic cholecystectomy. She has a medical history of essential hypertension and breast cancer status post bilateral mastectomy. She takes anastrozole 1 mg daily. Patient was scheduled for surgery in late December initially but developed a tooth abscess and then subsequently had to have lithotripsy for ureteral stones. She has healed from these other ailments and is now taken to surgery for laparoscopic cholecystectomy. [facility] Past Medical History Medical History Hypertension Cancer Surgical History Surgical History H/O nasal septoplasty 2021 H/O bilateral mastectomy 1998 History of endometrial ablation Family History Family History Father Malignant neoplasm of prostate Sibling Malignant neoplasm of prostate Social History Social History Smoking status: Never smoker Alcohol intake: never Substance use: never Do You Feel Safe in your Home?: No Lack of Transportation: No Lack of Food: Never True Current Housing: Decline to Answer Concerned About Future Housing: Decline to Answer Difficulty Paying Gas/Electric Bills: Decline to Answer Difficulty Paying for Meds: Decline to Answer Currently Unemployed: Decline to Answer Education: Decline to Answer Difficulty w/ Childcare or Family Care: Decline to Answer Living arrangements: alone Spiritual care concerns: No Same Day Admit/Disch: Med Pre-admit Medications Home Medications ?Medication ?Instructions ?Recorded ?Confirmed ?Type amlodipine 10 mg tablet 10 mg PO DAILY 11/27/24 02/11/25 History anastrozole 1 mg tablet 1 mg PO DAILY 11/27/24 01/01/25 History ascorbic acid (vitamin C) 1,000 mg 1 g PO DAILY 11/27/24 01/01/25 History capsule ascorbic acid 100 mg-elderberry 100 tablet PO DAILY 11/27/24 01/01/25 History fruit 50 mg chewable tablet atorvastatin 20 mg tablet (Lipitor) 20 mg PO DAILY 11/27/24 01/01/25 History carvedilol 12.5 mg tablet 12.5 mg PO Q12H 11/27/24 02/11/25 History coenzyme Q10 200 mg capsule 200 mg PO DAILY 11/27/24 01/01/25 History ezetimibe 10 mg tablet 10 mg PO DAILY 11/27/24 01/01/25 History fenofibrate nanocrystallized 145 145 mg PO DAILY 11/27/24 01/01/25 History mg tablet garlic 1,000 mg capsule 1,000 mg PO DAILY 11/27/24 01/01/25 History glucosamine 750 sg-[id number] 1 tablet PO BID 11/27/24 01/01/25 History no.1 625 mg-C 30 mm-bgva-[id number] tablet lisinopril 5 mg tablet 5 mg PO DAILY 11/27/24 01/01/25 History montelukast 10 mg tablet 10 mg PO DAILY 11/27/24 02/11/25 History tamsulosin 0.4 mg capsule 0.4 mg PO DAILY 11/27/24 01/01/25 History turmeric root extract 500 mg 500 mg PO DAILY 11/27/24 01/01/25 History capsule vitamin E 400 unit/15 mL oral 400 unit PO DAILY 11/27/24 01/01/25 History liquid amoxicillin 875 mg-potassium 1 tablet PO Q12H #8 tabs 02/13/25 Rx clavulanate 125 mg tablet ibuprofen 600 mg tablet 600 mg PO Q6H PRN pain #14 tabs 02/13/25 Rx oxycodone-acetaminophen 5 mg-325 0.5 - 1 tablet PO Q4H PRN pain #10 02/13/25 Rx mg tablet (Percocet) tabs Review of Systems Review of Systems All systems reviewed & are unremarkable except as noted in HPI and below (HPI) Exam Const: General: comfortable, no acute distress, alert and awake HENMT: Head: normocephalic and atraumatic Mouth: Yes Normal oral and palatal mucosa present Eyes: Conjunctivae: conjunctivae normal Pupils: Equal, round and reactive pupils present EOM: EOMs intact bilaterally Neck: Neck: normal visual inspection, no lymphadenopathy and nontender Resp: Effort & Inspection: normal respiratory effort Auscultation: clear to auscultation bilaterally Cardio: Rate: regular rate Rhythm: regular rhythm Heart sounds: no gallops, no murmurs and no rubs GI: Inspection: non-distended GI Palp: Yes Soft to palpation, No Tenderness to palpation present (GI), No Hepatomegaly present and No Splenomegaly present Skin: Lesions: no lesions Rashes: no rashes Neuro: General: no focal motor deficits and CN's II-XI intact bilaterally Cranial nerves: Yes Equal, round and reactive pupils present, Yes Bilaterally intact EOM present, Yes facial symmetry and Yes Midline tongue present Speech: normal speech Motor exam (neuro): 5/5 motor strength present throughout and Motor abnormalities not present Extrem: General: no clubbing, cyanosis or edema and edema Psych: Affect: normal affect Thought process: Normal thought process present Insight: Good insight present (Psych) DS: Summary Time Spent with Patient Time attestation: Total time spent providing and/or coordinating discharge services: DS: Admitting Diagnosis Discharge Date 02/14/2025 Admitting Diagnosis Chronic cholecystitis, cholelithiasis-plan to proceed with laparoscopic cholecystectomy. The procedure, risks, benefits have been discussed. All questions were answered. The usual length of the surgery and the length of recovery were discussed. Patient understands and agrees to go ahead. Essential hypertension Breast cancer History bilateral mastectomy DS: Discharge Diagnosis Discharge Diagnosis (1) Calculus of gallbladder with acute and chronic cholecystitis with obstruction: Code(s): K80.13 - Calculus of gallbladder with acute and chronic cholecystitis with obstruction Status: Acute Discharge Plan Discharge Attending physician on discharge: Renan Higgins Consulting providers: Juan Monae; Jenifer Abreu Paul Discharging Clinician: Srinath Beatty Patient Disposition: Home Activity: may shower, no straining and as tolerated Diet: low fat Wound Care Instructions: keep dressing dry, remove dressing to shower and other - see discharge instructions Discharge Instructions: 1. May shower and wash over all incisions including drain site. Remove dressing to drain site before showering and replaced dressing afterward. Can discontinue dressings to drain site on February 17. 2. Call office for: -Wound increasingly painful or bleeding -Vomiting -Fever of greater than 101 degrees 3. Expect some blood on dressing and old blood on skin. 4. If no bowel movement for three days, take 1 oz. (30 ml) Milk of Magnesia, if no results, take Fleets enema. 5. No heavy lifting > 15-20 pounds for 2 weeks. 6. No driving for 3 days or while taking narcotic pain medications. 7. Up walking 10-30 minutes three times per day. 8. Resume previous home medications. 9. Follow-up 10-14 days in office for wound check or as previously scheduled. 10. Oral pain medications prescription to be sent home with patient. Patient Language: Salvadorean Stand Alone Forms: General Discharge Instructions Follow-up/Referrals: Renan Higgins MD [Physician] - 2 Weeks (Call Dr. Rice office to make appointment if you do not already have a postoperative appointment.) Discharge Medications: New oxycodone-acetaminophen [Percocet] 5-325 mg tablet 0.5 - 1 tablet PO Q4H PRN (Reason: pain) Qty: 10 0RF ibuprofen 600 mg tablet 600 mg PO Q6H PRN (Reason: pain) Qty: 14 0RF amoxicillin-pot clavulanate 875-125 mg tablet 1 tablet PO Q12H Qty: 8 0RF Continued amlodipine 10 mg tablet 10 mg PO DAILY anastrozole 1 mg tablet 1 mg PO DAILY ascorbic acid (vitamin C) 1,000 mg capsule 1 g PO DAILY ascorbic acid-elderberry fruit 100-50 mg tablet,chewable 100 tablet PO DAILY atorvastatin [Lipitor] 20 mg tablet 20 mg PO DAILY Patient Comments: HS carvedilol 12.5 mg tablet 12.5 mg PO Q12H Rx Instructions: must administer with a meal/food coenzyme Q10 200 mg capsule 200 mg PO DAILY ezetimibe 10 mg tablet 10 mg PO DAILY Patient Comments: HS fenofibrate nanocrystallized 145 mg tablet 145 mg PO DAILY Patient Comments: HS garlic 1,000 mg capsule 1,000 mg PO DAILY [id number]-leobardo-bosw 750-625-30 mg tablet 1 tablet PO BID Rx Instructions: give after food/meal lisinopril 5 mg tablet 5 mg PO DAILY montelukast 10 mg tablet 10 mg PO DAILY tamsulosin 0.4 mg capsule 0.4 mg PO DAILY Patient Comments: HS turmeric root extract 500 mg capsule 500 mg PO DAILY vitamin E 400 unit/15 mL liquid 400 unit PO DAILY Date of admission: 02/12/25 15:26 Primary Care Provider: Mandy,Ava Admitting Provider: Renan Higgins Attending physician on admission: Srinath Beatty Condition: Improved
[2025-02-11] VITALS (16 sets, daily range): BP systolic 106–147; BP diastolic 50–95; PULSE 52–86; RESP 10–18; TEMP 36.3–37.2; O2SAT 92–99
--- OUTSIDE RECORDS SUMMARY | 2025-02-11 00:02 | XMS_ITS | Clinical Summary ---
Author Organization [facility] Jojo at the [facility] Office Center Address [address] [place] [address] Care Team Providers Care Lumber Loader Name Role Phone Ava Galvan MD Unavailable [phone] Nuha Marquez MD Unavailable [phone] Renu Mosqueda MD Unavailable [phone] Ava Galvan MD Primary Care Provider [phone] Dimitri Messer MD Unavailable [phone] Toney Vergara MD Unavailable [phone] Allergies No known active allergies Medications [...] EVERY DAY 90 tablet 3 025 Active lisinopriL (PRINIVIL,ZESTRIL) 5 mg tabletIndications:Prima ry hypertension TAKE 1 TABLET EVERY DAY 90 tablet 1 024 2024 Discontinued Active Problems Problem Noted Date Diagnosed Date Invasive lobular carcinoma of breast in female 0 01/30/2025 History of breast cancer 01/30/2025 Nephrolithiasis 10/22/2024 Calculus of gallbladder with acute cholecystitis without obstruction 10/22/2024 Assessment & Plan (11/02/2024 6:48 PM PRIMARY COUNSELOR): New Refer to general surgery Abdominal pain 10/10/2024 Acute cholecystitis 10/10/2024 Obstruction of right uretero pelvic junction (UPJ) due to stone 10/10/2024 Hydronephrosis of right kidney 10/10/2024 Post-menopausal 07/30/2024 Mixed hyperlipidemia 07/30/2024 Assessment & Plan (11/02/2024 6:49 PM PRIMARY COUNSELOR): Chronic Stable Cont lipitor, zetia, tricor Goal: TC<200, LDL<100, TG<150 Assessment & Plan (08/10/2024 9:18 PM PRIMARY COUNSELOR): Chronic Stable Cont lipitor, zetia, tricor Goal: TC<200, LDL<100, TG<150 Non-seasonal allergic rhinitis 11/05/2023 Assessment & Plan (11/05/2023 3:29 PM PRIMARY COUNSELOR): I am recommending allergy testing because of [...] 10/19/2022 Assessment & Plan (10/27/2022 3:04 AM PRIMARY COUNSELOR): Uncontrolled Add toprol Cont amlodipine Goal: SBP<140, DBP<90 Hypercalcemia 10/19/2022 Assessment & Plan (10/27/2022 2:59 AM PRIMARY COUNSELOR): recheck Epigastric abdominal pain 10/19/2022 Assessment & Plan (10/27/2022 2:56 AM PRIMARY COUNSELOR): New Order prilosec Order gallbladder ultrasound and HIDA scan Refer to GI LUQ abdominal pain 10/19/2022 Assessment & Plan (10/27/2022 2:56 AM PRIMARY COUNSELOR): New Order prilosec Order gallbladder ultrasound and HIDA scan Refer to GI Primary insomnia 10/19/2022 Assessment & Plan (10/27/2022 3:00 AM PRIMARY COUNSELOR): New Start ambien Pure hypercholesterolemia 10/17/2021 Assessment & Plan (08/05/2023 9:33 AM PRIMARY COUNSELOR): Chronic Stable Cont lipitor, zetia, tricor, vascepa Goal: TC<200, LDL<100, TG<150 Assessment & Plan (04/27/2023 3:31 AM CDT): Chronic Stable Cont lipitor, tricor, zetia Goal: TC<200, LDL<100, TG<150 Assessment & Plan (12/29/2022 11:35 AM CDT): Chronic stable Cont lipitor, fenofibrate, vascepa Order zetia Goal: TC<200, LDL<100, TG<150 Assessment & Plan (10/27/2022 2:54 AM PRIMARY COUNSELOR): improved Cont lipitor, fenofibrate, vascepa Order zetia Goal: TC<200, LDL<100, TG<150 Assessment & Plan (10/17/2021 5:14 PM PRIMARY COUNSELOR): Uncontrolled Cont lipitor, fenofibrate, vascepa Order zetia Goal: TC<200, LDL<100, TG<150 Encounter for Medicare annual wellness exam 02/15 Assessment & Plan (08/10/2024 9:17 PM PRIMARY COUNSELOR): Patient here for annual Medicare wellness visit [...] visit. Assessment & Plan (08/05/2023 9:30 AM PRIMARY COUNSELOR): Patient here for annual Medicare wellness visit [...] 08/25/2020 Assessment & Plan (09/16/2020 5:20 PM PRIMARY COUNSELOR): New Refer to GI Breast pain, right 07/31/2020 Assessment & Plan (08/01/2020 5:04 AM PRIMARY COUNSELOR): Likely infection Order cefdinir SOB (shortness of breath) 08/19/2019 Assessment & Plan (03/07/2021 7:08 PM CDT): Negative cardiac workup. Assessment & Plan (09/06/2020 5:59 PM PRIMARY COUNSELOR): Unremarkable cardiac workup. Assessment & Plan (03/09/2020 10:22 AM CDT): The CBC, T4 TSH electrolytes were okay. The CT angio of the lungs was negative for pulmonary embolism. Echo showed small pericardial effusion unchanged since 2017. BNP level was ordered but not drawn. Assessment & Plan (09/30/2019 9:30 AM PRIMARY COUNSELOR): Dyspnea for 2 months which has already improved. The recent CBC, T4 TSH, electrolytes, chemistries are okay. CT angio of the lungs is negative for pulmonary embolism. Small pericardial effusion which is unchanged since 2017. EKG today shows normal sinus rhythm, normal QRS morphology. Will get a BNP level today. Consider echo Doppler if necessary. Assessment & Plan (08/27/2019 4:27 PM PRIMARY COUNSELOR): Order CTA chest r/o PE vs infectious or inflammatory process Changes in skin texture 08/19/2019 Assessment & Plan (05/25/2023 5:49 AM CDT): New Refer to derm Assessment & Plan (08/27/2019 4:27 PM PRIMARY COUNSELOR): Refer to derm Acute non-recurrent maxillary sinusitis 08/19/20 19 Assessment & Plan (08/27/2019 4:27 PM PRIMARY COUNSELOR): Order esther zhang Precordial chest pain 03/03/2019 Assessment & Plan (03/07/2021 7:08 PM CDT): Negative stress echo 03/13/2017. Assessment & Plan (09/06/2020 5:59 PM PRIMARY COUNSELOR): Negative stress echo 03/13/2017. Assessment & Plan (03/05/2020 5:04 PM CDT): Negative stress echo 03/13/2017. Functional class 1. Assessment & Plan (09/29/2019 7:38 PM PRIMARY COUNSELOR): Negative stress echo 03/13/2017. Functional class 1. [...] pericarditis. A chronic finding without any significant change room attendant the years. The PPD skin test done by the primary care physician was negative. There is history of BCG vaccination in the remote past. CTA of the chest 09/01/2019 showed no pulmonary embolism. A small pericardial effusion was unchanged from before. 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 This is a chronic finding without any significant change room attendant the years. The PPD skin test done [...] is a chronic finding without any significant change room attendant the years. The PPD skin test done at primary care physician was negative. There is history of receiving BCG vaccination in the remote past. CTA of the chest 09/01/2019 showed no pulmonary embolism. A small pericardial effusion is unchanged from before. Assessment & Plan (09/30/2019 9:29 AM PRIMARY COUNSELOR): Chronic loculated pericardial effusion with localized area of pericardial thickening. The picture is not consistent with constrictive pericarditis. This is a chronic finding without any significant change room attendant the years. The PPD skin test done [...] is a chronic finding without any significant change room attendant the years. The PPD skin test suggested [...] control. Assessment & Plan (09/06/2020 5:55 PM PRIMARY COUNSELOR): Related to hypertensive heart disease. Aggressive blood pressure control. Assessment & Plan (03/05/2020 5:01 PM CDT): Related to the hypertensive heart disease. Aggressive blood pressure control. Assessment & Plan (09/29/2019 7:39 PM PRIMARY COUNSELOR): Related to the hypertensive heart disease. Aggressive blood pressure control. Assessment & Plan (03/04/2019 9:24 AM CDT): Related to the hypertensive heart disease. EKG today shows a normal sinus rhythm, normal QRS morphology. No left ventricular hypertrophy appreciated on this EKG. Non-rheumatic tricuspid valve insufficiency 04/2017 Hypertension 01/30/2017 Assessment & Plan (11/02/2024 6:49 PM PRIMARY COUNSELOR): Chronic Stable Cont norvasc, coreg, lisinopril Goal: SBP<140, DBP<90 Assessment & Plan (08/10/2024 9:18 PM PRIMARY COUNSELOR): Chronic Stable Cont norvasc, coreg, lisinopril Goal: SBP<140, DBP<90 Assessment & Plan (08/05/2023 9:32 AM PRIMARY COUNSELOR): Chronic Stable Cont coreg, lisinopril Goal: SBP<140, DBP<90 Assessment & Plan (05/25/2023 5:49 AM CDT): Chronic Uncontrolled Add lisinopril Cont norvasc Goal: SBP<140, DBP<90 Assessment & Plan (04/27/2023 3:31 AM CDT): Chronic Stable Cont norvasc Goal: SBP<140, DBP<90 Assessment & Plan (12/29/2022 11:35 AM CDT): Chronic Stable Cont coreg Cont amlodipine Goal: SBP<140, DBP<90 Assessment & Plan (11/24/2022 5:17 AM PRIMARY COUNSELOR): Uncontrolled Change toprol to coreg Cont amlodipine Goal: SBP<140, DBP<90 Assessment & Plan (10/17/2021 5:13 PM PRIMARY COUNSELOR): Stable Cont amlodipine, atenolol, hctz, Goal: SBP<140, DBP<90 Assessment & Plan (03/08/2021 10:19 AM CDT): Salt restriction. Amlodipine. Atenolol. Hydrochlorothiazide. Potassium chloride. Blood pressure 138/78. Assessment & Plan (03/02/2021 4:56 AM CDT): Stable Cont atenolol, norvasc, hctz Assessment & Plan (09/16/2020 5:20 PM PRIMARY COUNSELOR): Stable Cont atenolol, norvasc, hctz Assessment & Plan (09/07/2020 10:31 AM PRIMARY COUNSELOR): Blood pressure 132/84. Salt restriction. Continue the current regimen. Assessment & Plan (08/01/2020 5:04 AM PRIMARY COUNSELOR): Stable Cont atenolol, norvasc Assessment & Plan (03/29/2020 11:04 AM CDT): Stable Cont atenolol, norvasc Assessment & Plan (03/09/2020 10:21 AM CDT): Blood pressure 110/70. Salt restriction. Continue the current regimen. Assessment & Plan (09/30/2019 9:28 AM PRIMARY COUNSELOR): Blood pressure 120/78. Salt restriction. Continue the current regimen. Assessment & Plan (08/27/2019 4:26 PM PRIMARY COUNSELOR): Stable Cont atenolol, norvasc Assessment & Plan [...] 01/28/2024 Assessment & Plan (11/05/2023 3:33 PM PRIMARY COUNSELOR): She has a good nasal airway. She [...] 01/28/2024 Assessment & Plan (10/17/2021 5:15 PM PRIMARY COUNSELOR): Stable Cont KCL Assessment & Plan (03/08/2021 10:20 AM CDT): Supplemental potassium. Potassium was 3.9 in January 2021. Assessment & Plan (03/02/2021 4:57 AM CDT): Stable Cont klorcon Assessment & Plan (08/01/2020 5:05 AM PRIMARY COUNSELOR): Stable Cont klorcon Encounter for screening mamm [...] <150 Assessment & Plan (09/16/2020 5:19 PM PRIMARY COUNSELOR): TG still elevated Increase vascepa to 2 caps BID Cont lipitor, tricor Assessment & Plan (09/07/2020 10:31 AM PRIMARY COUNSELOR): Low-fat low-cholesterol diet. Atorvastatin. Fenofibrate. Vascepa. On 08/04/2020 triglycerides 196, LDL 49, total cholesterol 121, HDL 45. Assessment & Plan (08/01/2020 5:05 AM PRIMARY COUNSELOR): Uncontrolled Cont lipitor, tricor Assessment & Plan (03/29/2020 11:04 AM CDT): Uncontrolled Add vascepa Cont lipitor, tricor Assessment & Plan (03/09/2020 10:20 AM CDT): Low-fat low-cholesterol diet. Atorvastatin 20 mg bedtime daily. On 01/09/2020 cholesterol 147, triglyceride 270, HDL 53, LDL 62. Vascepa. Assessment & Plan (09/29/2019 7:38 PM PRIMARY COUNSELOR): Low-fat low-cholesterol diet. Atorvastatin 20 mg bedtime daily. On 12/29/2018 the LDL was 46. Assessment & Plan (08/27/2019 4:26 PM PRIMARY COUNSELOR): Stable Cont lipitor, tricor Assessment & Plan [...] Description 01/30/2025 9:30 AM CDT Office Visit [facility] Surgery [address] [place] [id number] Jaz Ramos NP Invasive lobular carcinoma of breast in female (HCC) (Primary Dx); History of breast cancer; History of mastectomy, bilateral 01/30/2025 [facility] ED Outreach [facility] Care Organization [address] [place] [address] Janel Luna MA 01/29/2025 12:35 AM CDT - 01/29/2025 2:48 AM CDT Emergency [address] [id number] [place] [address] Brad Morgan DO Abdominal pain (Primary Dx); Biliary colic Discharge Disposition: Discharge to home or self care 01/12/2025 Results Follow-Up [facility] [address] [place] [address] [address] [place] [address] Anastasia Silva Thyroid Function Lipscomb, Comprehensive metabolic panel, Lipid panel, CBC with auto differential 12/02/2024 Telephone [facility] [address] [place] [address] [address] [place] [address] Sultan Alysia Hanson MD 11/26/2024 Telephone [facility] [address] [place] [address] [address] [place] [address] Ava Galvan MD Medical Question/Miscellaneou [...] pur e alcohol) [facility] [address] Utilities Answer Date Recorded In the past 12 months has [employer], gas, oil, or water [employer] threatened to shut off services in your [...] week 10/10/2024 How often do you attend up health system or rastafarian services? More than 4 times per year 10/10/2024 Do you belong to any clubs o r organizations such as christian groups, unions, fraternal or athletic groups, or [...] any time in the past 12 m [facility], were you homeless or living [...] 8:57 AM CDT Height 162 cm (5' 3.78) 01/30/2025 8:57 AM CDT Body Mass Index [...] Read Routine (OP Routine) 08/21/2024 9:23 AM PRIMARY COUNSELOR Post-menopausal SCREENING MAMMOGRAM BILATERAL W TIM Schedule Routine, Read Routine (OP Routine) 12/30/2021 11:44 AM CDT Encounter for screening mammogram for malignant neoplasm of breast STOOL DNA COLOGUARD Routine 10/26/2021 10:20 AM PRIMARY COUNSELOR Screening for colon cancer COLONOSCOPY Routine 08/09/2016 [...] Gallo Ziegler M.D. KT T: Report ID: [id number] Reading Location: [id number] Procedure Note Gallo Ziegler MD - 01/28/2025 [...] Gallo Ziegler M.D. KT T: Report ID: [id number] Reading Location: [id number] us Philippe QUACH IMG US PROCEDURES Final [...] MD LAB BLOOD ORDERABLES Final Result GUILLERMINA [address] [facility] Department [place] [address] * CT Abdomen Pelvis W [...] Gallo Ziegler M.D. KT T: Report ID: [id number] Reading Location: [id number] Procedure Note Gallo Ziegler MD - 01/28/2025 [...] Gallo Ziegler M.D. KT T: Report ID: [id number] Reading Location: [place] [address] PROCEDURES Final Resu lt * (ABNORMAL) Urinalysis reflex to microscopic and culture Urine (01/28/2025 8:33 PM CDT) Color, ur Yellow Yellow Clarity, ur Clear Clear [facility] Specific gravity, ur 1.012 1.003 - 1.030 [facility] pH, urine 6.5 [facility] Comment: Interpretive Data U rine pH is affected by diet, medications, systemic acid-base disturbances, and renal tubular function. pH may affect urinary stone formation. For example, urine pH below 6.0 may help reduce the tendency for calcium phosphate stones and pH greater than 6.0 may reduce the tendency for uric acid stone formation. Source: [place] [employer] Current Interpretive Data was last revised on 2017 Protein, ur ql Negative Negative [facility] Glucose, ur ql Negative Negative [facility] Ketones, ur Negative Negative [facility] Bilirubin, ur Negative Negative [facility] Blood, ur 2+(A) Negative [facility] Urobilinogen, ur <2.0 <2.0 mg/dL [facility] Nitrite, ur Negative Negative [facility] Leukocyte esterase, ur Negative Negative [facility] UA reflex comment Reflex to microscopic UA will be performed. [facility] Urine 01/28/2025 8:33 PM CDT 01/28/2025 8:36 PM CDT [facility] MICROBIOLOGY - GEN ERAL ORDERABLES Final Result Performing Organization Address [facility] de Phone Number [address] [address] * (ABNORMAL) Urinalysis, microscopic only (01/28/2025 8:33 PM CDT) WBC, ur 0-5 0 - 5 /HPF RBC, ur >50(A) 0 - 2 /HPF [facility] Mucous, ur Present(A) [facility] Culture Reflex Comment Reflex conditions for urine culture (WBC >10) not met. [facility] Urine 01/28/2025 8:33 PM CDT 01/28/2025 8:36 PM CDT Result [facility] URINE ORDERABLES F inal Result Performing Organization Address [facility] de Phone Number [address] [address] * Troponin T high-sensitivity 4-hour (01/28/2025 7:21 PM CDT) Trop T hs 8 <=14 ng/L Comment: Interpretive Data For further hscTnT resources including the diagnostic algorithm and an aid in interpretation, copy and paste this link: https://nrl.testcatalog.org/show/hsTrop Current Interpretive Data last revised 2020. Trop T hs delta 1 ng/L [facility] Trop T hs interp Insignificant [facility] Blood 01/28/2025 7:21 PM CDT 01/28/2025 7:42 PM CDT Domenic Gray MD LAB BLOOD ORDERABLES Final Result Performing Organization Address [facility] Co de Phone Number GUILLERMINA [address] [address] * Troponin T high-sensitivity 2-hour (01/28/2025 7:21 PM CDT) Trop T hs See Comment <=14 Comment: Specimen canceled due to missed collection as per [id number] on 01/28/2025 19:38:45 CDT. Interpretive Data For further hscTnT resources including the diagnostic algorithm and an aid in interpretation, copy and paste this link: https://nrl.INVOLTA.org/show/hsTrop Current Interpretive Data last revised 2020. Trop T hs delta See Comment ng/L [facility] Comment:Inappropriate collec tion time to report a delta. Trop T hs pct delta See Comment % [facility] Comment:Inappropriate collec tion time to report a delta. Trop T hs interp See Comment [facility] Comment:Inappropriate collec tion time to report a delta. Blood 01/28/2025 7:21 PM CDT 01/28/2025 7:23 PM CDT us Domenic Gray MD LAB BLOOD ORDERABLES Final Result Performing Organization Address [facility] Co de Phone Number [facility]ARY[address] [address] * Troponin T high-sensitivity series (baseline, 2hr, 4hr, 6hr) (01/28/2025 3:31 PM CDT) Trop T hs 7 <=14 ng/L Comment: Interpretive Data For further hscTnT resources including the diagnostic algorithm and an aid in interpretation, copy and paste this link: https://nrl.testRepunch.org/show/hsTrop Current Interpretive Data last revised 2020. Blood 01/28/2025 3:31 PM CDT 01/28/2025 3:31 PM CDT us Brad Klever Morgan DO LAB BLOOD ORDERABLES F inal Result Performing Organization Address [facility] Co de Phone Number GUILLERMINA [address] [place] [address] * eGFR (01/28/2025 3:31 PM CDT) Pathologist [facility] eGFR 79 >=60 mL/min/1. 73 m2 Comment: [...] CDT 01/28/2025 3:31 PM CDT Brad Morgan DO LAB BLOOD ORDERABLES F inal Result Performing Organization Address [facility] Co de Phone Number GUILLERMINA [address] [place] [address] * (ABNORMAL) Differential, auto (01/28/2025 3:31 PM CDT) Pathologist [facility] Neutrophil abs 7.00(H) 1.50 - 6.50 K/cumm Imm gran abs 0.05 0.00 - 0.10 K/cumm [facility] Lymphocyte abs 2.04 0.80 - 3.30 K/cumm [facility] Monocyte abs 0.36 0.20 - 0.80 K/cumm [facility] Eosinophil abs 0.02 0.00 - 0.50 K/cumm [facility] Basophil abs 0.03 0.00 - 0.10 K/cumm [facility] Neutrophil pct 73.7 % [facility] Comment: Interpretive Data Percent cell count reference ranges are not reported, since discordance with absolute values may lead to misinterpretation of CBC data. Current Interpretive Data was last revised on 2017. Imm gran pct 0.5 % [facility] Comment: Interpretive Data Percent cell count reference ranges are not reported, since discordance with absolute values may lead to misinterpretation of CBC data. Current Interpretive Data was last revised on 2017. Lymphocyte pct 21.5 % [facility] Comment: Interpretive Data Percent cell count reference ranges are not reported, since discordance with absolute values may lead to misinterpretation of CBC data. Current Interpretive Data was last revised on 2017. Monocyte pct 3.8 % [facility] Comment: Interpretive Data Percent cell count reference ranges are not reported, since discordance with absolute values may lead to misinterpretation of CBC data. Current Interpretive Data was last revised on 2017. Eosinophil pct 0.2 % [facility] Comment: Interpretive Data Percent cell count reference ranges are not reported, since discordance with absolute values may lead to misinterpretation of CBC data. Current Interpretive Data was last revised on 2017. Basophil pct 0.3 % [facility] Comment: Interpretive Data Percent cell count reference ranges are not reported, since discordance with absolute values may lead to misinterpretation of CBC data. Current Interpretive Data was last revised on 2017. Blood 01/28/2025 3:31 PM CDT 01/28/2025 3:31 PM CDT us Brad Morgan DO LAB BLOOD ORDERABLES F inal Result [facility]A [address] [facility] Department [place] [address] * (ABNORMAL) CBC with auto differential (01/28/2025 3:31 PM CDT) WBC 9.50 3.80 - 9.90 K/cumm Hgb 11.9 11.9 - 15.5 g/dL [facility] Hct 37.9 35.6 - 45.5 % [facility] Plt 252 150 - 400 K/cumm [facility] MPV 9.4 9.1 - 12.3 fL [facility] RBC 4.03 3.90 - 5.20 M/cumm [facility] MCV 94.0 81.3 - 96.4 fL [facility] MCH 29.5 27.1 - 33.3 pg [facility] MCHC 31.4(L) 32.3 - 35.7 g/dL [facility] RDW CV 13.2 11.1 - 14.9 % [facility] RDW SD 45.1 35.7 - 48.1 fL [facility] NRBC abs 0.00 0.00 - 0.01 K/cumm [facility] Blood Venous blood specimen / Unknown 01/28/2025 3:31 PM CDT 01/28/2025 3:31 PM CDT [facility] BLOOD ORDERABLES F inal Result Performing Organization Address [facility]/ZIP Co de Phone Number [address] [place] [address] * Lipase (01/28/2025 3:31 PM CDT) [facility] Lipase 41 10 - 99 Units/L Blood Venous blood specimen / Unknown 01/28/2025 3:31 PM CDT 01/28/2025 3:31 PM CDT [facility] BLOOD ORDERABLES F inal Result Performing Organization Address City/[facility]/ZIP Co de Phone Number [address] [place] [address] * (ABNORMAL) Comprehensive metabolic panel (01/28/2025 3:31 PM CDT) [facility] Sodium 140 135 - 145 mmol/L Potassium, pl 4.5 3.3 - 4.9 mmol/L [facility] Chloride 104 97 - 110 mmol/L [facility] CO2 25 22 - 32 mmol/L [facility] Anion gap 11 2 - 15 mmol/L [facility] BUN 19 6 - 25 mg/dL [facility] Creatinine 0.79 0.60 - 1.10 mg/dL [facility] Glucose 209(H) 70 - 199 mg/dL [facility] Comment: Interpretive Data Fasting glucose >/= 126 [...] 2022. Calcium 10.3 8.5 - 10.3 mg/dL [facility] Bilirubin, total 0.3 0.1 - 1.2 mg/dL [facility] Protein, pl 7.4 6.5 - 8.5 g/dL [facility] Albumin 4.4 3.5 - 5.0 g/dL [facility] Alk phos 59 40 - 130 Units/L [facility] ALT 24 7 - 45 Units/L [facility] AST 26 10 - 45 Units/L [facility] Blood 01/28/2025 3:31 PM CDT 01/28/2025 3:31 PM CDT Brad Morgan LAB BLOOD ORDERABLES F inal Result [facility]A [address] [facility] Department [place] [address] * ECG 12 lead (01/28/2025 3:21 PM CDT) Ventricular Rate EKG/Min 55 BPM [facility] Atrial Rate 55 BPM [facility] OR-Interval (MSEC) 144 ms [facility] QRS-Interval (MSEC) 90 ms [facility] QT-Interval (MSEC) 486 ms [facility] QTc 464 ms [facility] P [place] 62 degrees [facility] R [place] 12 degrees [facility] T [place] 28 degrees [facility] Diagnosis Sinus bradycardia Minimal voltage criteria for LVH, may be normal variant When compared with ECG of 09-OCT-2024 20:30, The rate is slower. Confirmed by SULTAN HANSON M.D. ([id number]) on 01/28/2025 10:30:25 PM [facility] 01/28/2025 3:21 PM CDT 01/28/2025 10:30 PM CDT Brad Morgan DO ECG ORDERABLES Final Result [facility] * Thyroid Function [place] (01/05/2025 6:10 AM CDT) Pathologist [facility] TSH 4.20 0.40 - 4.50 mIU/L [facility] Blood 01/05/2025 6:10 AM CDT 01/05/2025 6:11 AM CDT Narrative [facility] - 01/06/2025 2:22 AM CDT FASTING:YES FASTING: YES Ava Galvan MD LAB BLOOD ORDERABLES Natasha l Result [facility] [address] [place] [address] * (ABNORMAL) CBC with auto differential (01/05/2025 [...] BLOOD ORDERABLES Natasha l Result [facility] [address] [place] [address] * Lipid panel (01/05/2025 6:10 AM CDT) [...] LDL-C. Jesse JOYCE et al. HIEU. 2013;310(19): 4281-5293 (http://education.Real Estate Direct/faq/GOB504) Chol/HDL ratio 2.2 <5.0 (calc) [facility] [...] BLOOD ORDERABLES Natasha l Result [facility] [address] [place] [address] * (ABNORMAL) Comprehensive metabolic panel (01/05/2025 6:10 AM CDT) [facility] Glucose 113(H) 65 - 99 [...] [facility] BUN/creat ratio SEE NOTE: - (calc) [facility] Comment: Not Reported: [...] BLOOD ORDERABLES Natasha l Result [facility] [address] [place] [address] * Dexa Axial Skeleton Bone Density 1 or 2 Site (08/21/2024 9:23 AM PRIMARY COUNSELOR) Anatomical Region Laterality Modality Body N/A Mammography 08/21/2024 9:28 AM PRIMARY COUNSELOR Narrative 08/21/2024 9:30 AM PRIMARY COUNSELOR EXAM DESCRIPTION: DEXA AXIAL SKELETON BONE DENSITY 1 OR MORE SITES REASON FOR STUDY: 74 year old postmenopausal white female with 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 RB: KRISSY Report ID: [id number] Reading Location: [place] [address] Ava Galvan MD IMG DXA PROCEDURES Final [...] Stool DNA - Cologuard (10/26/2021 10:20 AM PRIMARY COUNSELOR) Stool DNA - Cologuard Negative Negative [facility] Events (CLIA #:[id number]) Comment: NEGATIVE TEST RESULT. A negative Cologuard [...] (Thania Huitron al, N Engl J Med 2014;370(14):7870-0031) The normal value (reference range) for this assay is negative. COLOGUARD RE-SCREENING RECOMMENDATION: Periodic colorectal cancer screening is an important part of preventive healthcare for asymptomatic individuals at average risk for colorectal cancer. Following a negative Cologuard result, the [place] [employer] and U.S. Multi-Society Task Force screening guidelines recommend a Cologuard re-screening interval of 3 years. References: [place] [employer] Guideline for Colorectal Cancer Screening: https://www.cancer.org/cancer/qqyyk-oefdck-feqqcv/pvncyqexp-mbqecvhjk-ndfgrxv/ac s-rec ommendations.html.; Rashaad YOO, Juanjo GARCIA, Shaye LOREDO, Colorectal Cancer Screening: Recommendations for Physicians and Patients from the U.S. Multi-Society Task Force on Colorectal Cancer Screening , Am J Gastroenterology 2017; 112:3124-1685. TEST DESCRIPTION: Composite algorithmic analysis of stool [...] (Thania Huitron al, N Engl J Med 2014;370(14):2596-3790.) Cologuard may produce a false negative or false positive result (no colorectal cancer or precancerous polyp present at colonoscopy follow up). A negative Cologuard test result does not guarantee the absence of CRC or advanced adenoma (pre-cancer). The current Cologuard screening interval is every 3 years. ([place] [employer] and U.S. Multi-Society Task Force). Cologuard performance data in a 10,000 patient pivotal study using colonoscopy as the reference method can be accessed at the following location: www.Planana.Telerivet/results. Additional description of the Cologuard test process, warnings and precautions can be found at www.ParAccelrd.com. Stool 10/26/2021 10:2 0 AM PRIMARY COUNSELOR 10/27/2021 12:49 PM PRIMARY COUNSELOR us Ava Galvan MD LAB BODY FLUIDS AND STOOL S ORDERABLES Final Result P21 (CLIA #:[id number]) [place] [address] 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 of Product Safety Engineer 04/23/2023 8:42 AM ADVANCE DIRECTIVE 08/18/2019 * Full Code (Latest Code Status on File) Date Activated Date Inactivated Comments 10/10/2024 3:19 AM 10/10/2024 6:25 PM * Full Code Date Activated Date Inactivated Comments 04/23/2023 12:29 PM 04/23/2023 5:53 PM Care Teams Lumber Loader Relationship Specialty Start Date End Date Ava Galvan MD PCP - [employer] Attributed PCP 11/15/17 Ava Galvan MD PCP - General Family Medicine 10/03/21 Nuha Marquez MD Referring Physician Gastroenterology 02/11/19 Renu Mosqueda MD Referring Physician Endocrinology 02/11/19 Dimitri Messer [place] [address] Consulting Physician Otolaryngology 04/23/23 Toney Vergara MD [address] [place] [id number] Consulting Physician Surgery 10/10/24
--- OUTSIDE RECORDS SUMMARY | 2025-02-11 00:03 | XMS_ITS | Referral Summary ---
[facility] Address [address] [place] [address] Care Team Providers Care Mission Planner Name Role Phone Ava Galvan MD Unavailable [phone] Nuha Marquez MD Unavailable [phone] Renu Mosqueda MD Unavailable [phone] Ava Galvan MD Primary Care Provider [phone] Dimitri Messer MD Unavailable [phone] Tonye Vergara MD Unavailable [phone] Encounters Date Type Department Care Team Description 01/30/[address] [facility] Accountable Care Organization [address] [place] [id number] Janel Luna MA 01/30/2025 9:30 AM CDT Office Visit [facility] [address] [place] [address] Jaz Ramos NP Invasive lobular carcinoma of breast in female (HCC) (Primary Dx); History of breast cancer; History of mastectomy, bilateral 01/29/2025 12:35 AM CDT - 01/29/2025 2:48 AM CDT Emergency [facility] [address] [place] [id number] Brad Morgan DO Abdominal pain (Primary Dx); Biliary colic Discharge Disposition: Discharge to home or self care 01/12/2025 Results Follow-Up [facility] Medicine [address] [place] [address] [address] [place] [address] Anastasia Silva Thyroid Function [place], Comprehensive metabolic panel, Lipid panel, CBC with auto differential 12/02/2024 Telephone [facility] Cardiology [address] [place] [address] [address] [place] [address] Sultan Alysia Hanson MD 11/26/2024 Telephone [facility] Medicine [address] [place] [address] [address] [place] [address] Ava Galvan MD Medical Question/Miscellaneou [...] 10/22/2024 Assessment & Plan (11/02/2024 6:48 PM SURGICAL LEAD): New Refer to general surgery Abdominal pain 10/10/2024 Acute cholecystitis 10/10/2024 Obstruction of right uretero pelvic junction (UPJ) due to stone 10/10/2024 Hydronephrosis of right kidney 10/10/2024 Post-menopausal 07/30/2024 Mixed hyperlipidemia 07/30/2024 Assessment & Plan (11/02/2024 6:49 PM SURGICAL LEAD): Chronic Stable Cont lipitor, zetia, tricor Goal: TC<200, LDL<100, TG<150 Assessment & Plan (08/10/2024 9:18 PM SURGICAL LEAD): Chronic Stable Cont lipitor, zetia, tricor Goal: TC<200, LDL<100, TG<150 Non-seasonal allergic rhinitis 11/05/2023 Assessment & Plan (11/05/2023 3:29 PM SURGICAL LEAD): I am recommending allergy testing because of [...] 10/19/2022 Assessment & Plan (10/27/2022 3:04 AM SURGICAL LEAD): Uncontrolled Add toprol Cont amlodipine Goal: SBP<140, DBP<90 Hypercalcemia 10/19/2022 Assessment & Plan (10/27/2022 2:59 AM SURGICAL LEAD): recheck Epigastric abdominal pain 10/19/2022 Assessment & Plan (10/27/2022 2:56 AM SURGICAL LEAD): New Order prilosec Order gallbladder ultrasound and HIDA scan Refer to GI LUQ abdominal pain 10/19/2022 Assessment & Plan (10/27/2022 2:56 AM SURGICAL LEAD): New Order prilosec Order gallbladder ultrasound and HIDA scan Refer to GI Primary insomnia 10/19/2022 Assessment & Plan (10/27/2022 3:00 AM SURGICAL LEAD): New Start ambien Pure hypercholesterolemia 10/17/2021 Assessment & Plan (08/05/2023 9:33 AM SURGICAL LEAD): Chronic Stable Cont lipitor, zetia, tricor, vascepa Goal: TC<200, LDL<100, TG<150 Assessment & Plan (04/27/2023 3:31 AM CDT): Chronic Stable Cont lipitor, tricor, zetia Goal: TC<200, LDL<100, TG<150 Assessment & Plan (12/29/2022 11:35 AM CDT): Chronic stable Cont lipitor, fenofibrate, vascepa Order zetia Goal: TC<200, LDL<100, TG<150 Assessment & Plan (10/27/2022 2:54 AM SURGICAL LEAD): improved Cont lipitor, fenofibrate, vascepa Order zetia Goal: TC<200, LDL<100, TG<150 Assessment & Plan (10/17/2021 5:14 PM SURGICAL LEAD): Uncontrolled Cont lipitor, fenofibrate, vascepa Order zetia Goal: TC<200, LDL<100, TG<150 Encounter for Medicare annual wellness exam 02/15 Assessment & Plan (08/10/2024 9:17 PM SURGICAL LEAD): Patient here for annual Medicare wellness visit [...] visit. Assessment & Plan (08/05/2023 9:30 AM SURGICAL LEAD): Patient here for annual Medicare wellness visit [...] 08/25/2020 Assessment & Plan (09/16/2020 5:20 PM SURGICAL LEAD): New Refer to GI Breast pain, right 07/31/2020 Assessment & Plan (08/01/2020 5:04 AM SURGICAL LEAD): Likely infection Order cefdinir SOB (shortness of breath) 08/19/2019 Assessment & Plan (03/07/2021 7:08 PM CDT): Negative cardiac workup. Assessment & Plan (09/06/2020 5:59 PM SURGICAL LEAD): Unremarkable cardiac workup. Assessment & Plan (03/09/2020 10:22 AM CDT): The CBC, T4 TSH electrolytes were okay. The CT angio of the lungs was negative for pulmonary embolism. Echo showed small pericardial effusion unchanged since 2017. BNP level was ordered but not drawn. Assessment & Plan (09/30/2019 9:30 AM SURGICAL LEAD): Dyspnea for 2 months which has already improved. The recent CBC, T4 TSH, electrolytes, chemistries are okay. CT angio of the lungs is negative for pulmonary embolism. Small pericardial effusion which is unchanged since 2017. EKG today shows normal sinus rhythm, normal QRS morphology. Will get a BNP level today. Consider echo Doppler if necessary. Assessment & Plan (08/27/2019 4:27 PM SURGICAL LEAD): Order CTA chest r/o PE vs infectious or inflammatory process Changes in skin texture 08/19/2019 Assessment & Plan (05/25/2023 5:49 AM CDT): New Refer to derm Assessment & Plan (08/27/2019 4:27 PM SURGICAL LEAD): Refer to derm Acute non-recurrent maxillary sinusitis 08/19/20 Assessment & Plan (08/27/2019 4:27 PM SURGICAL LEAD): Order esther zhang Precordial chest pain 03/03/2019 Assessment & Plan (03/07/2021 7:08 PM CDT): Negative stress echo 03/13/2017. Assessment & Plan (09/06/2020 5:59 PM SURGICAL LEAD): Negative stress echo 03/13/2017. Assessment & Plan (03/05/2020 5:04 PM CDT): Negative stress echo 03/13/2017. Functional class 1. Assessment & Plan (09/29/2019 7:38 PM SURGICAL LEAD): Negative stress echo 03/13/2017. Functional class 1. [...] pericarditis. A chronic finding without any significant private branch exchange operator the years. The PPD skin test done by the primary care physician was negative. There is history of BCG vaccination in the remote past. CTA of the chest 09/01/2019 showed no pulmonary embolism. A small pericardial effusion was unchanged from before. 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 This is a chronic finding without any significant private branch exchange operator the years. The PPD skin test done [...] is a chronic finding without any significant private branch exchange operator the years. The PPD skin test done at primary care physician was negative. There is history of receiving BCG vaccination in the remote past. CTA of the chest 09/01/2019 showed no pulmonary embolism. A small pericardial effusion is unchanged from before. Assessment & Plan (09/30/2019 9:29 AM SURGICAL LEAD): Chronic loculated pericardial effusion with localized area of pericardial thickening. The picture is not consistent with constrictive pericarditis. This is a chronic finding without any significant private branch exchange operator the years. The PPD skin test done [...] is a chronic finding without any significant private branch exchange operator the years. The PPD skin test suggested [...] control. Assessment & Plan (09/06/2020 5:55 PM SURGICAL LEAD): Related to hypertensive heart disease. Aggressive blood pressure control. Assessment & Plan (03/05/2020 5:01 PM CDT): Related to the hypertensive heart disease. Aggressive blood pressure control. Assessment & Plan (09/29/2019 7:39 PM SURGICAL LEAD): Related to the hypertensive heart disease. Aggressive blood pressure control. Assessment & Plan (03/04/2019 9:24 AM CDT): Related to the hypertensive heart disease. EKG today shows a normal sinus rhythm, normal QRS morphology. No left ventricular hypertrophy appreciated on this EKG. Non-rheumatic tricuspid valve insufficiency 04/2017 Hypertension 01/30/2017 Assessment & Plan (11/02/2024 6:49 PM SURGICAL LEAD): Chronic Stable Cont norvasc, coreg, lisinopril Goal: SBP<140, DBP<90 Assessment & Plan (08/10/2024 9:18 PM SURGICAL LEAD): Chronic Stable Cont norvasc, coreg, lisinopril Goal: SBP<140, DBP<90 Assessment & Plan (08/05/2023 9:32 AM SURGICAL LEAD): Chronic Stable Cont coreg, lisinopril Goal: SBP<140, DBP<90 Assessment & Plan (05/25/2023 5:49 AM CDT): Chronic Uncontrolled Add lisinopril Cont norvasc Goal: SBP<140, DBP<90 Assessment & Plan (04/27/2023 3:31 AM CDT): Chronic Stable Cont norvasc Goal: SBP<140, DBP<90 Assessment & Plan (12/29/2022 11:35 AM CDT): Chronic Stable Cont coreg Cont amlodipine Goal: SBP<140, DBP<90 Assessment & Plan (11/24/2022 5:17 AM SURGICAL LEAD): Uncontrolled Change toprol to coreg Cont amlodipine Goal: SBP<140, DBP<90 Assessment & Plan (10/17/2021 5:13 PM SURGICAL LEAD): Stable Cont amlodipine, atenolol, hctz, Goal: SBP<140, DBP<90 Assessment & Plan (03/08/2021 10:19 AM CDT): Salt restriction. Amlodipine. Atenolol. Hydrochlorothiazide. Potassium chloride. Blood pressure 138/78. Assessment & Plan (03/02/2021 4:56 AM CDT): Stable Cont atenolol, norvasc, hctz Assessment & Plan (09/16/2020 5:20 PM SURGICAL LEAD): Stable Cont atenolol, norvasc, hctz Assessment & Plan (09/07/2020 10:31 AM SURGICAL LEAD): Blood pressure 132/84. Salt restriction. Continue the current regimen. Assessment & Plan (08/01/2020 5:04 AM SURGICAL LEAD): Stable Cont atenolol, norvasc Assessment & Plan (03/29/2020 11:04 AM CDT): Stable Cont atenolol, norvasc Assessment & Plan (03/09/2020 10:21 AM CDT): Blood pressure 110/70. Salt restriction. Continue the current regimen. Assessment & Plan (09/30/2019 9:28 AM SURGICAL LEAD): Blood pressure 120/78. Salt restriction. Continue the current regimen. Assessment & Plan (08/27/2019 4:26 PM SURGICAL LEAD): Stable Cont atenolol, norvasc Assessment & Plan [...] 01/28/2024 Assessment & Plan (11/05/2023 3:33 PM SURGICAL LEAD): She has a good nasal airway. She [...] 01/28/2024 Assessment & Plan (10/17/2021 5:15 PM SURGICAL LEAD): Stable Cont KCL Assessment & Plan (03/08/2021 10:20 AM CDT): Supplemental potassium. Potassium was 3.9 in January 2021. Assessment & Plan (03/02/2021 4:57 AM CDT): Stable Cont klorcon Assessment & Plan (08/01/2020 5:05 AM SURGICAL LEAD): Stable Cont klorcon Encounter for screening mamm [...] <150 Assessment & Plan (09/16/2020 5:19 PM SURGICAL LEAD): TG still elevated Increase vascepa to 2 caps BID Cont lipitor, tricor Assessment & Plan (09/07/2020 10:31 AM SURGICAL LEAD): Low-fat low-cholesterol diet. Atorvastatin. Fenofibrate. Vascepa. On 08/04/2020 triglycerides 196, LDL 49, total cholesterol 121, HDL 45. Assessment & Plan (08/01/2020 5:05 AM SURGICAL LEAD): Uncontrolled Cont lipitor, tricor Assessment & Plan (03/29/2020 11:04 AM CDT): Uncontrolled Add vascepa Cont lipitor, tricor Assessment & Plan (03/09/2020 10:20 AM CDT): Low-fat low-cholesterol diet. Atorvastatin 20 mg bedtime daily. On 01/09/2020 cholesterol 147, triglyceride 270, HDL 53, LDL 62. Vascepa. Assessment & Plan (09/29/2019 7:38 PM SURGICAL LEAD): Low-fat low-cholesterol diet. Atorvastatin 20 mg bedtime daily. On 12/29/2018 the LDL was 46. Assessment & Plan (08/27/2019 4:26 PM SURGICAL LEAD): Stable Cont lipitor, tricor Assessment & Plan [...] = 0.6 oz pur e alcohol) occas [facility] Utilities Answer Date Recorded In the [...] often do you attend chur ch or samaritan services? More than 4 times per year 10/10/2024 Do you belong to any clubs o r organizations such as taoist groups, unions, fraternal or athletic groups, or [...] any time in the past 12 m [facility], were you homeless or living in a correction (including now)? No 10/10/2024 Personal Safety Answer [...] Read Routine (OP Routine) 08/21/2024 9:23 AM SURGICAL LEAD Post-menopausal SCREENING MAMMOGRAM BILATERAL W TIM Schedule Routine, Read Routine (OP Routine) 12/30/2021 11:44 AM CDT Encounter for screening mammogram for malignant neoplasm of breast STOOL DNA COLOGUARD Routine 10/26/2021 10:20 AM SURGICAL LEAD Screening for colon cancer COLONOSCOPY Routine 08/09/2016 [...] Gallo Ziegler M.D. KT T: Report ID: [id number] Reading Location: [id number] Procedure Note Gallo Ziegler MD - 01/28/2025 [...] Gallo Ziegler M.D. KT T: Report ID: [id number] Reading Location: [id number] us Philippe QUACH IMG US PROCEDURES Final [...] SIN Trop T hs interp Insignificant GUILLERMINA Blood 01/28/2025 9:25 PM CDT 01/28/2025 9:33 PM CDT us Domenic Gray MD LAB BLOOD ORDERABLES Final Result [facility]A SIN [address] [facility] [place] [address] * CT Abdomen Pelvis W Contrast (01/28/2025 [...] Gallo Ziegler M.D. KT T: Report ID: [id number] Reading Location: [id number] Procedure Note Gallo Ziegler MD - 01/28/2025 EXAM DESCRIPTION: CT ABDOMEN PELVIS W CONTRAST REASON FOR STUDY: RUQ pain, nausea Pt with hx cholecystitis had flareup of RUQ pain, nausea @ 1430 today,. Nausea. Denies vomiting. Scheduled for surgery 5/28. Had lithotripsyyesterday for R kidney stone. TECHNIQUE: [...] Gallo Ziegler M.D. KT T: Report ID: [id number] Reading Location: [place] [address] PROCEDURES Final Resu lt * (ABNORMAL) Urinalysis reflex to microscopic and culture Urine (01/28/2025 8:33 PM CDT) Color, ur Yellow Yellow Clarity, ur Clear Clear [facility] Specific gravity, ur 1.012 1.003 - 1.030 [facility] pH, urine 6.5 [facility] Comment: Interpretive Data U rine pH is affected by diet, medications, systemic acid-base disturbances, and renal tubular function. pH may affect urinary stone formation. For example, urine pH below 6.0 may help reduce the tendency for calcium phosphate stones and pH greater than 6.0 may reduce the tendency for uric acid stone formation. Source: [facility] [place] Current Interpretive Data was last revised on 2017 Protein, ur ql Negative Negative [facility] Glucose, ur ql Negative Negative [facility] Ketones, ur Negative Negative [facility] Bilirubin, ur Negative Negative [facility] Blood, ur 2+(A) Negative [facility] Urobilinogen, ur <2.0 <2.0 mg/dL [facility] Nitrite, ur Negative Negative [facility] Leukocyte esterase, ur Negative Negative [facility] UA reflex comment Reflex to microscopic UA will be performed. [facility] Urine 01/28/2025 8:33 PM CDT 01/28/2025 8:36 PM CDT Brad Morgan DO LAB MICROBIOLOGY - GEN ERAL ORDERABLES Final Result [facility] [address] [facility] Department [place] [address] * (ABNORMAL) Urinalysis, microscopic only (01/28/2025 8:33 PM CDT) Pathologist [facility] WBC, ur 0-5 0 - 5 /HPF RBC, ur >50(A) 0 - 2 /HPF [facility] Mucous, ur Present(A) [facility] Culture Reflex Comment Reflex conditions for urine culture (WBC >10) not met. [facility] Urine 01/28/2025 8:33 PM CDT 01/28/2025 8:36 PM CDT Brad Morgan DO LAB URINE ORDERABLES F inal Result Performing Organization Address [facility] Co de Phone Number [address] [place] [address] * Troponin T high-sensitivity 4-hour (01/28/2025 7:21 PM CDT) Pathologist [facility] Trop T hs 8 <=14 ng/L Comment: Interpretive Data For further hscTnT resources including the diagnostic algorithm and an aid in interpretation, copy and paste this link: [email or web address]/[email or web address] Current Interpretive Data last revised 2020. Trop T hs delta 1 ng/L [facility] Trop T hs interp Insignificant [facility] Blood 01/28/2025 7:21 PM CDT 01/28/2025 7:42 PM CDT Domenic Gray MD LAB BLOOD ORDERABLES Final Result Performing Organization Address [facility] Co de Phone Number [address] [place] [address] * Troponin T high-sensitivity 2-hour (01/28/2025 7:21 PM CDT) [facility] Trop T hs See Comment <=14 Comment: Specimen canceled due to missed collection as per [id number] on 01/28/2025 19:38:45 CDT. Interpretive Data For further hscTnT resources including the diagnostic algorithm and an aid in interpretation, copy and paste this link: [email or web address]/[email or web address] Current Interpretive Data last revised 2020. Trop [...] BLOOD ORDERABLES Final Result Performing Organization Address [facility] Co de Phone Number GUILLERMINA [address] [place] [address] * Troponin T high-sensitivity series (baseline, 2hr, 4hr, 6hr) (01/28/2025 3:31 PM CDT) [facility] Trop T hs 7 <=14 ng/L Comment: Interpretive Data For further hscTnT resources including the diagnostic algorithm and an aid in interpretation, copy and paste this link: [email or web address] Current Interpretive Data last revised 2020. Blood 01/28/2025 3:31 PM CDT 01/28/2025 3:31 PM CDT Brad Morgan DO LAB BLOOD ORDERABLES F inal Result Performing Organization Address [facility]/ZIP Co de Phone Number [address] [place] [address] * eGFR (01/28/2025 3:31 PM CDT) [facility] eGFR 79 >=60 mL/min/1. 73 m2 Comment: [...] of Race in Diagnosing Kidney Disease, JASN 202). The CKD-EPI equation should not be used for patients with unstable renal function and has not been validated in children and those over 70. Current interpretive data was last reviewed 2021. Blood 01/28/2025 3:31 PM CDT 01/28/2025 3:31 PM CDT Brad Morgan DO LAB BLOOD ORDERABLES F inal Result [facility] [address] [facility] [place] [address] * (ABNORMAL) Differential, auto (01/28/2025 3:31 PM CDT) Neutrophil abs 7.00(H) 1.50 - 6.50 K/cumm Imm gran abs 0.05 0.00 - 0.10 K/cumm [facility] Lymphocyte abs 2.04 0.80 - 3.30 K/cumm [facility] Monocyte abs 0.36 0.20 - 0.80 K/cumm [facility] Eosinophil abs 0.02 0.00 - 0.50 K/cumm [facility] Basophil abs 0.03 0.00 - 0.10 K/cumm [facility] Neutrophil pct 73.7 % [facility] Comment: Interpretive Data Percent cell count reference ranges are not reported, since discordance with absolute values may lead to misinterpretation of CBC data. Current Interpretive Data was last revised on 2017. Imm gran pct 0.5 % [facility] Comment: Interpretive Data Percent cell count reference ranges are not reported, since discordance with absolute values may lead to misinterpretation of CBC data. Current Interpretive Data was last revised on 2017. Lymphocyte pct 21.5 % [facility] Comment: Interpretive Data Percent cell count reference ranges are not reported, since discordance with absolute values may lead to misinterpretation of CBC data. Current Interpretive Data was last revised on 2017. Monocyte pct 3.8 % [facility] Comment: Interpretive Data Percent cell count reference ranges are not reported, since discordance with absolute values may lead to misinterpretation of CBC data. Current Interpretive Data was last revised on 2017. Eosinophil pct 0.2 % [facility] Comment: Interpretive Data Percent cell count reference ranges are not reported, since discordance with absolute values may lead to misinterpretation of CBC data. Current Interpretive Data was last revised on 2017. Basophil pct 0.3 % [facility] Comment: Interpretive Data Percent cell count reference ranges are not reported, since discordance with absolute values may lead to misinterpretation of CBC data. Current Interpretive Data was last revised on 2017. Blood 01/28/2025 3:31 PM CDT 01/28/2025 3:31 PM CDT us Brad Morgan DO LAB BLOOD ORDERABLES F inal Result [facility] [address] [facility] Department [place] [address] * (ABNORMAL) CBC with auto differential (01/28/2025 3:31 PM CDT) WBC 9.50 3.80 - 9.90 K/cumm Hgb 11.9 11.9 - 15.5 g/dL [facility] Hct 37.9 35.6 - 45.5 % [facility] Plt 252 150 - 400 K/cumm [facility] MPV 9.4 9.1 - 12.3 fL [facility] RBC 4.03 3.90 - 5.20 M/cumm [facility] MCV 94.0 81.3 - 96.4 fL [facility] MCH 29.5 27.1 - 33.3 pg [facility] MCHC 31.4(L) 32.3 - 35.7 g/dL [facility] RDW CV 13.2 11.1 - 14.9 % [facility] RDW SD 45.1 35.7 - 48.1 fL [facility] NRBC abs 0.00 0.00 - 0.01 K/cumm [facility] Blood Venous blood specimen / Unknown 01/28/2025 3:31 PM CDT 01/28/2025 3:31 PM CDT [facility] BLOOD ORDERABLES F inal Result Performing Organization Address City/[facility]/ZIP Co de Phone Number [address] [place] [address] * Lipase (01/28/2025 3:31 PM CDT) [facility] Lipase 41 10 - 99 Units/L Blood Venous blood specimen / Unknown 01/28/2025 3:31 PM CDT 01/28/2025 3:31 PM CDT [facility] BLOOD ORDERABLES F inal Result Performing Organization Address [facility] Co de Phone Number [address] [place] [address] * (ABNORMAL) Comprehensive metabolic panel (01/28/2025 3:31 PM CDT) [facility] Sodium 140 135 - 145 mmol/L Potassium, pl 4.5 3.3 - 4.9 mmol/L [facility] Chloride 104 97 - 110 mmol/L [facility] CO2 25 22 - 32 mmol/L [facility] Anion gap 11 2 - 15 mmol/L [facility] BUN 19 6 - 25 mg/dL [facility] Creatinine 0.79 0.60 - 1.10 mg/dL [facility] Glucose 209(H) 70 - 199 mg/dL [facility] Comment: Interpretive Data Fasting [...] 2022. Calcium 10.3 8.5 - 10.3 mg/dL [facility] Bilirubin, total 0.3 0.1 - 1.2 mg/dL [facility] Protein, pl 7.4 6.5 - 8.5 g/dL [facility] Albumin 4.4 3.5 - 5.0 g/dL [facility] Alk phos 59 40 - 130 Units/L [facility] ALT 24 7 - 45 Units/L [facility] AST 26 10 - 45 Units/L [facility] Blood 01/28/2025 3:31 PM CDT 01/28/2025 3:31 PM CDT Brad Morgan DO LAB BLOOD ORDERABLES F inal Result [facility] [address] [facility] [place] [address] * ECG 12 lead (01/28/2025 3:21 PM CDT) Pathologist [facility] Ventricular Rate EKG/Min 55 BPM [facility] Atrial Rate 55 BPM [facility] MT-Interval (MSEC) 144 ms [facility] QRS-Interval (MSEC) 90 ms [facility] QT-Interval (MSEC) 486 ms [facility] QTc 464 ms [facility] P Macy [address] [facility] R Macy 12 degrees [facility] T Macy 28 degrees [facility] Diagnosis Sinus bradycardia Minimal voltage criteria for LVH, may be normal variant When compared with ECG of 09-OCT-2024 20:30, The rate is slower. Confirmed by SULTAN HANSON M.D. ([id number]) on 01/28/2025 10:30:25 PM [facility] 01/28/2025 3:21 PM CDT 01/28/2025 10:30 PM CDT us Brad Ernst Morgan DO ECG ORDERABLES Final Result [facility] * Thyroid Function [place] (01/05/2025 6:10 AM CDT) TSH 4.20 0.40 - 4.50 mIU/L [facility] Blood 01/05/2025 6:10 AM CDT 01/05/2025 6:11 AM CDT Narrative [facility] - 01/06/2025 2:22 AM CDT FASTING:YES FASTING: YES Ava Galvan MD LAB BLOOD ORDERABLES Natasha l Result Performing Organization Address City/[facility]/ZIP Co de Phone Number QUEST [facility] [address] [place] [address] * (ABNORMAL) CBC with auto differential (01/05/2025 [...] BLOOD ORDERABLES Natasha l Result [facility] [address] [place] [address] * Lipid panel (01/05/2025 6:10 AM CDT) [facility] Cholesterol 117 <200 mg/dL [facility] [...] LDL-C. Jesse JOYCE et al. HIEU. 2013;310(19): 9387-8724 (http://education.etrigg.50 Partners/faq/RDT728) Chol/HDL ratio 2.2 <5.0 (calc) [facility] [...] BLOOD ORDERABLES Natasha l Result QUE[facility] [address] [facility] [place] [address] * (ABNORMAL) Comprehensive metabolic panel (01/05/2025 6:10 AM CDT) Pathologist [facility] Glucose 113(H) 65 - 99 mg/dL [facility] [...] BLOOD ORDERABLES Natasha l Result [facility] [address] [facility] Abdi TIANNA [address] * Dexa Axial Skeleton Bone Density 1 or 2 Site (08/21/2024 9:23 AM SURGICAL LEAD) Anatomical Region Laterality Modality Body N/A Mammography 08/21/2024 9:28 AM SURGICAL LEAD Narrative 08/21/2024 9:30 AM SURGICAL LEAD EXAM DESCRIPTION: DEXA AXIAL SKELETON BONE DENSITY 1 OR MORE SITES REASON FOR STUDY: 74 year old postmenopausal white female with given history of: osteoporosis screen Forestry Technician/Model: Nuubo A (S/N [id number]) CLINICAL INFORMATION: Current height: 63.5 inches Maximum [...] Drew Jenkins M.D. RB: KRISSY Report ID: [id number] Reading Location: [place] [address] Procedure Note Drew Jenkins MD - 08/21/2024 EXAM DESCRIPTION: DEXA AXIAL SKELETON BONE DENSITY 1 OR MORE SITES REASON FOR STUDY: 74 year old postmenopausal white female with given history of: osteoporosis screen Forestry Technician/Model: Zemanta Horizon A (S/N [id number]) CLINICAL INFORMATION: Current height: 63.5 inches Maximum [...] Drew Jenkins M.D. RB: KRISSY Report ID: [id number] Reading Location: [place] [address] Ava Galvan MD IMG DXA PROCEDURES Final [...] suspicious findings/changes are seen within either breast. us Ava Galvan MD IMG MAMMO PROCEDURES Natasha l Result * Stool DNA - Cologuard (10/26/2021 10:20 AM SURGICAL LEAD) Stool DNA - Cologuard Negative Negative [facility] (CLIA #:[id number]) Comment: NEGATIVE TEST RESULT. A negative Cologuard [...] (Thania Huitron al, N Engl J Med 2014;370(14):9710-2109) The normal value (reference range) for this assay is negative. COLOGUARD RE-SCREENING RECOMMENDATION: Periodic colorectal cancer screening is an important part of preventive healthcare for asymptomatic individuals at average risk for colorectal cancer. Following a negative Cologuard result, the [place] Cancer Society and U.S. Multi-Society Task Force screening guidelines recommend a Cologuard re-screening interval of 3 years. References: [place] [employer] Society Guideline for Colorectal Cancer Screening: https://www.cancer.org/cancer/hhczf-dochpo-hracet/icyogtlad-pcjdycmyj-hubowkm/ac s-rec ommendations.html.; Rashaad DK, Juanjo CR, Shaye SantiagoK, Colorectal Cancer Screening: Recommendations for Physicians and Patients from the U.S. Multi-Society Task Force on Colorectal Cancer Screening , Am J Gastroenterology 2017; 112:4663-1545. TEST DESCRIPTION: Composite algorithmic analysis of stool [...] (Thania Huitron al, N Engl J Med 2014;370(14):2853-8015.) Cologuard may produce a false negative or false positive result (no colorectal cancer or precancerous polyp present at colonoscopy follow up). A negative Cologuard test result does not guarantee the absence of CRC or advanced adenoma (pre-cancer). The current Cologuard screening interval is every 3 years. ([place] Cancer Society and U.S. Multi-Society Task Force). Cologuard performance data in a 10,000 patient pivotal study using colonoscopy as the reference method can be accessed at the following location: www.Zemanta/results. Additional description of the Cologuard test process, warnings and precautions can be found at www.Jans Digital Plansoguard.com. Stool 10/26/2021 10:2 0 AM SURGICAL LEAD 10/27/2021 12:49 PM SURGICAL LEAD Ava Galvan MD LAB BODY FLUIDS AND STOOL S ORDERABLES Final Result [facility] (CLIA #:[id number]) [address] [place] [address] * COLONOSCOPY (08/09/2016) Colonoscopy Normal Historical Provider HEALTH MAINTENANCE Final Result from Last 3 Months or Most Recently Relevant to Health Maintenance Insurance HUMANA MEDICARE HMO HUMANA MEDICARE HMO HUMANA MEDICARE HMO Advance Directives For more information, please contact: [phone] Documents on File Type Date Recorded Patient Raw Material Planner Expl anation Power of Beading Machine Operator 04/23/2023 8:42 AM ADVANCE DIRECTIVE 08/18/2019 * Full Code (Latest Code Status on File) Date Activated Date Inactivated Comments 10/10/2024 3:19 AM 10/10/2024 6:25 PM * Full Code Date Activated Date Inactivated Comments 04/23/2023 12:29 PM 04/23/2023 5:53 PM Care Teams Mission Planner Relationship Specialty Start Date End Date Ava Galvan MD PCP - Humana Attributed PCP 11/15/17 Ava Galvan MD PCP - General Family Medicine 10/03/21 Nuha Marquez MD Referring Physician Gastroenterology 02/11/19 Renu Mosqueda MD Referring Physician Endocrinology 02/11/[address] [address] [place] [address] Consulting Physician Otolaryngology 04/23/23 Toney Vergara MD [facility] [address] Consulting Physician Surgery 10/10/24
--- OUTSIDE RECORDS SUMMARY | 2025-02-11 00:03 | XMS_ITS | Clinical Summary ---
Author Organization [facility] Address [address] [place] [address] Care Team Providers Care Service Coordinator Elderly Facility Name Role Phone Ava Galvan MD Primary Care Provider [phone] Source Comments [facility],non-owned Affiliates and Associated Physician Practices is amultiple site organization consisting of ambulatory clinics and hospital sitesin [place], [place], [place] and [place]. This disclosure is being madepursuant to the Care Everywhere program and may not contain all information available regarding this patient. Last updated 18.[facility] Allergies No known active allergies Medications * [...] from 02/16/2022:Stage IA(cT1c, cN0, cM0, G2, ER+, VA+, HER2-) - Signed by Karissa Rodriguez MD on 02/23/2022 Pathologic stage from 03/24/2022:Stage IA(pT1c(m), pN0(sn), cM0, G2, ER+, VA+, HER2-) - Signed by Karissa Rodriguez MD [...] on file Legal Sex Female 6:00 PM SCRATCH FINISHER Gender Identity Not on file Sexual Orientation [...] [facility] - General Surgery [address] [place] [phone] Karissa Rodriguez MD [address] [facility] [address] [place] [phone] Health Maintenance Due Date Last Done Comments [...] COMPREHENSIVE METABOLIC PANEL STAT 07/25/2023 10:37 AM SCRATCH FINISHER Aromatase inhibitor use Malignant neoplasm of overlapping sites of left breast in female, estrogen receptor positive DEXA BONE DENSITY AXIAL SKELETON Routine 05/08/2022 1:13 PM CDT Malignant neoplasm of overlapping sites of left breast in female, estrogen receptor positive from Last 3 Months or Most Recently Relevant to Health Maintenance Results * (ABNORMAL) COMPREHENSIVE METABOLIC PANEL (07/25/2023 10:37 AM [facility]) BUN 16 7 - 26 mg/dL 07/25/2023 11:24 AM [facility] Creatinine 0.80 0.56 - 0.96 mg/dL 07/25/2023 11:24 AM [facility] Sodium 143 136 - 145 mmol/L 07/25/2023 11:24 AM [facility] Potassium 4.1 3.5 - 4.5 mmol/L 07/25/2023 11:24 AM [facility] Chloride 106 98 - 107 mmol/L 07/25/2023 11:24 AM [facility] CO2 26 22 - 29 mmol/L 07/25/2023 11:24 AM [facility] Glucose 112 70 - 115 mg/dL 07/25/2023 11:24 AM [facility] Calcium 10.4(H) 8.4 - 10.2 mg/dL 07/25/2023 11:24 AM [facility] Protein Total 7.8 6.0 - 8.3 g/dL 07/25/2023 11:24 AM [facility] Albumin 4.2 3.4 - 5.0 g/dL 07/25/2023 11:24 AM [facility] Bilirubin Total 0.6 0.2 - 1.2 mg/dL 07/25/2023 11:24 AM [facility] Alkaline Phosphatase 81 40 - 150 U/L 07/25/2023 11:24 AM [facility] ALT 24 5 - 55 U/L 07/25/2023 11:24 AM [facility] AST 23 5 - 34 U/L 07/25/2023 11:24 AM [facility] Anion Gap 11 6 - 16 07/25/2023 11:24 AM [facility] BUN/Creatinine Ratio 20 7 - 23 07/25/2023 11:24 AM [facility] Osmolality Calculated 298(H) 275 - 295 mOsm/kg 07/25/2023 11:24 AM [facility] Albumin/Globulin Ratio 1.2 1.1 - 2.3 07/25/2023 11:24 AM [facility] eGFR by CKD-EPI 78(L) >=90 mL/min/1.7 3 m2 07/25/2023 11:24 AM [facility] Blood BLOOD SPECIMEN / Unknown Lab Venipuncture / Unknown 07/25/2023 10:37 AM SCRATCH FINISHER 07/25/2023 10:45 AM [facility] us Latoya Medina MD LAB - CHEMISTRY ORDERABLES Final Result [facility] [address] [place] [address], [facility] [phone] * DEXA BONE DENSITY AXIAL SKELETON (05/08/2022 1:13 PM CDT) Anatomical Region Laterality Modality Other 05/08/2022 2:44 PM CDT Narrative 05/08/2022 6:16 PM CDT PROCEDURE: DEXA BONE DENSITY AXIAL SKELETON, DATE/TIME OF EXAM: 05/08/2022 1:13 PM, LOCATION [facility] INDICATION: C50.812: Malignant neoplasm of overlapping sites [...] below > Dictated by Charanjit Hi MD (Hotel Director) 05/08/2022 2:45 PM Joel Albert DO have personally reviewed and interpreted this examination/study. > Interpreting Provider: Joel Sweeney DO on 05/08/2022 6:16 PM Procedure Note Joel Sweeney DO - 05/08/2022 PROCEDURE: DEXA BONE DENSITY AXIAL SKELETON, DATE/TIME OF EXAM:05/08/2022 1:13 PM, LOCATION [facility] INDICATION: C50.812: Malignant neoplasm of overlapping sites [...] below > Dictated by Charanjit Hi MD (Hotel Director) 05/08/2022 2:45PM Joel Albert DO have [...] 4:48 PM 03/25/2022 12:07 PM Care Teams Service Coordinator Elderly Facility Relationship Specialty Start Date End Date Ava Galvan MD [address] [place] [address] PCP - General 10/03/17
--- OUTSIDE RECORDS SUMMARY | 2025-02-11 00:03 | XMS_ITS | Clinical Summary ---
Author Organization [facility] Address [address] [place] [address] Phone Care Team Providers Care Agronomy Teacher Name Role Phone Unavailable Primary Care Provider [...] 02/11/2019, 06/15/2017, 10/25/2016, Additional history exists Insurance [address] [place] [id number] [facility] [employer] [facility]
--- OUTSIDE RECORDS SUMMARY | 2025-02-11 00:03 | XMS_ITS | Encounter Summary ---
Author Organization [facility] Address [address] [place] [address] Phone Care Team Providers Care Route Returner Name Role Phone Provider, Unknown Primary Care Provider Unavaila ble Lul Haddad MD Unavailable Encounter Details Date Type Department Care Team (Late st Contact Info) Description 04/07/2022 Telephone [facility] [address] [place] [address] Lul Haddad MD [address] [place] [address] [place] [address] Social History Tobacco Use Types [...] Priti Dean - 04/07/2022 9:10 AM CDT HOME HEALTH AIDE CANCEL APPT HAS DECIDED TO GO [facility] FOR TREATMENT. documented in this encounter Plan of Treatment Not on file documented as of this encounter Visit Diagnoses Not on filedocumented in this encounter Care Teams Route Returner Relationship Specialty Start Date End Date Provider, Unknown UNKNOWN PCP - General 04/04/22 Lul Haddad MD [address] [place] [address] Consulting Physician Oncology 04/04/22 documented as of this encounter
--- OUTSIDE RECORDS SUMMARY | 2025-02-11 00:03 | XMS_ITS | Encounter Summary ---
Author Organization [facility] Facility Care Team Providers Care Can Conveyor Feeder Name Role Phone Ava Galvan MD Unavailable [phone] Ava Galvan MD Primary Care Provider [phone] Nuha Marquez MD Unavailable [phone] Renu Mosqueda MD Unavailable [phone] Ava Galvan MD Primary Care Provider [phone] Dimitri Messer MD Unavailable [phone] Toney Vergara MD Unavailable [phone] Vaishnavi Menon LPN Unavailable [phone] Janel Luna MA Unavailable [phone] Encounter Details Date Type Department Care Team (Latest Contact Info) Description 02/22/2017 Orders Only [facility] ProviderTaylor MD [address] [place] [address] Social History Tobacco Use Types Packs/Day [...] COVID: Suspected 10/10/2023 10/10/2023 10/10/2023 3:55 PM AERIAL SURVEY TECHNICIAN documented as of this encounter Care Teams Can Conveyor Feeder Relationship Specialty Start Date End Date Ava Galvan MD PCP - Humana Attributed PCP 11/15/17 Ava Galvan MD PCP - General 12/17/18 10/02/21 Ava Galvan MD PCP - General Family Medicine 10/03/21 Nuha Marquez MD Referring Physician Gastroenterology 02/11/19 Renu Mosqueda MD Referring Physician Endocrinology 02/11/19 Dimitri [place] [address] Consulting Physician Otolaryngology 04/23/23 Toney Vergara MD [address] [address] Consulting Physician Surgery 10/10/24 Vaishnavi Menon LPN [address] [place] [address] [address] Header Dock 10/13/24 10/13/24 Janel Luna MA [address] [place] [address] [address] ACO Care Roofing Layer 01/30/25 01/30/25 documented as of this encounter
--- OUTSIDE RECORDS SUMMARY | 2025-02-11 00:03 | XMS_ITS | Encounter Summary ---
Author Organization [facility] Facility Care Team Providers Care Textile Broker Name Role Phone Ava Galvan MD Unavailable [phone] Ava Galvan MD Primary Care Provider [phone] Nuha Marquez MD Unavailable [phone] Renu Mosqueda MD Unavailable [phone] Ava Galvan MD Primary Care Provider [phone] Dimitri Messer MD Unavailable [phone] Toney Vergara MD Unavailable [phone] Vaishnavi Menon LPN Unavailable [phone] Janel Luna MA Unavailable [phone] Encounter Details Date Type Department Care Team (Latest Contact Info) Description 03/13/2017 Orders Only [facility] CLINCONV ProviderTaylor MD [address] [place] [address] Social History Tobacco Use Types Packs/Day [...] COVID: Suspected 10/10/2023 10/10/2023 10/10/2023 3:55 PM CLAM PICKER documented as of this encounter Care Teams Textile Broker Relationship Specialty Start Date End Date Ava Galvan MD PCP - Humana Attributed PCP 11/15/17 Ava Galvan MD PCP - General 12/17/18 10/02/21 Ava Galvan MD PCP - General Family Medicine 10/03/21 Nuha Marquez MD Referring Physician Gastroenterology 02/11/19 Renu Mosqueda MD Referring Physician Endocrinology 02/11/19 Dimitri Messer MD [address] [place] [address] Consulting Physician Otolaryngology 04/23/23 Toney Vergara MD [address] [place] [address] Consulting Physician Surgery 10/10/24 Vaishnavi Menon LPN [address] [place] [address] Rating Specialist 10/13/24 10/13/24 Janel Luna MA [address] [place] [address] ACO Care Publications Distribution Clerk 01/30/25 01/30/25 documented as of this encounter
--- OUTSIDE RECORDS SUMMARY | 2025-02-11 00:03 | XMS_ITS | Encounter Summary ---
Author Organization [facility] Facility Care Team Providers Care Refinery Operator Vapor Recovery Unit Name Role Phone Ava Galvan MD Unavailable [phone] Ava Galvan MD Primary Care Provider [phone] Nuha Marquez MD Unavailable [phone] Renu Mosqueda MD Unavailable [phone] Ava Galvan MD Primary Care Provider [phone] Dimitri Messer MD Unavailable [phone] Toney Vergara MD Unavailable [phone] Vaishnavi Menon LPN Unavailable [phone] Janel Luna MA Unavailable [phone] Encounter Details Date Type Department Care Team (Latest Contact Info) Description 02/08/2017 Orders Only [facility] CLINCONV ProviderTaylor MD [address] [place] [address] Social History Tobacco Use Types Packs/Day [...] COVID: Suspected 10/10/2023 10/10/2023 10/10/2023 3:55 PM TACK PICKER documented as of this encounter Care Teams Refinery Operator Vapor Recovery Unit Relationship Specialty Start Date End Date Ava Galvan MD PCP - Humana Attributed PCP 11/15/17 Ava Galvan MD PCP - General 12/17/18 10/02/21 Ava Galvan MD PCP - General Family Medicine 10/03/21 Nuha Marquez MD Referring Physician Gastroenterology 02/11/19 Renu Mosqueda MD Referring Physician Endocrinology 02/11/19 Dimitri Messer MD [place] [address] Consulting Physician Otolaryngology 04/23/23 Toney eVrgara MD [address] [place] [address] Consulting Physician Surgery 10/10/24 Vaishnavi Menon LPN [address] [place] [address] Helper Chicken Farm 10/13/24 10/13/24 Janel Luna MA [address] [place] [address] ACO Care Law Examiner 01/30/25 01/30/25 documented as of this encounter
--- OUTSIDE RECORDS SUMMARY | 2025-02-11 00:03 | XMS_ITS | Encounter Summary ---
Author Organization [facility] Address [address] [place] [address] Phone Care Team Providers Care Electromechanical Assembler Name Role Phone Ava Galvan MD Unavailable [phone] Nuha Marquez MD Unavailable [phone] Renu Mosqueda MD Unavailable [phone] Ava Galvan MD Primary Care Provider [phone] Dimitri Messer MD Unavailable Toney Vergara MD Unavailable [phone] Vaishnavi Menon LPN Unavailable [phone] Janel Luna MA Unavailable [phone] Encounter Details Date Type Department Care Team (Late st Contact Info) Description 03/06/2023 Imaging Exam [facility] Otolaryngology [address] [place] [address] [address] [address] Nasal congestion (Primary Dx) Social [...] COVID: Suspected 10/10/2023 10/10/2023 10/10/2023 3:55 PM ADAPTIVE PHYSICAL EDUCATOR documented as of this encounter Care Teams Electromechanical Assembler Relationship Specialty Start Date End Date Ava Galvan MD PCP - Humana Attributed PCP 11/15/17 Ava Galvan MD PCP - General Family Medicine 10/03/21 Nuha Marquez MD Referring Physician Gastroenterology 02/11/19 Renu Mosqueda MD Referring Physician Endocrinology 02/11/19 [place] [address] Consulting Physician Otolaryngology 04/23/23 Toney Vergara MD [address] [address] Consulting Physician Surgery 10/10/24 Vaishnavi Menon LPN [address] [place] [address] Cellophane Press Operator 10/13/24 10/13/24 Janel Luna, KELVIN [address] [place] [address] ACO Care Brush Stainer 01/30/25 01/30/25 documented as of this encounter
--- OUTSIDE RECORDS SUMMARY | 2025-02-11 00:03 | XMS_ITS | Clinical Summary ---
Author Organization [facility] Address [address], [facility] [address] [place] [address] Phone Care Team Providers Care Coal Trimmer Machine Operator Name Role Phone Provider, Unknown Primary Care Provider Unavaila ble Lul Haddad MD Unavailable [phone] Social History Tobacco Use Types Packs/Day Years Used Date Smoking Tobacco: Never Assessed Comments Unknown Sex and Gender Information Value Date Recorded Sex Assigned at Not on file Legal Sex Female 1:44 PM CDT Gender Identity Not on file Sexual Orientation Not on file Plan of Treatment Not on file Insurance MEDICARE C HUMANA Care Teams Coal Trimmer Machine Operator Relationship Specialty Start Date End Date Provider, Unknown UNKNOWN PCP - General 04/04/22 Lul Haddad MD [address] [place] [address] Consulting Physician Oncology 04/04/22
--- OUTSIDE RECORDS SUMMARY | 2025-02-11 00:03 | XMS_ITS | Encounter Summary ---
Author Organization [facility] Facility Care Team Providers Care Assembler Dc Field Ring Name Role Phone Ava Galvan MD Unavailable [phone] Ava Galvan MD Primary Care Provider [phone] Nuha Marquez MD Unavailable [phone] Renu Mosqueda MD Unavailable [phone] Ava Galvan MD Primary Care Provider [phone] Dimitri Messer MD Unavailable [phone] Toney Vergara MD Unavailable [phone] Vaishnavi Menon LPN Unavailable [phone] Janel Luna MA Unavailable [phone] Encounter Details Date Type Department Care Team (Latest Contact Info) Description 03/22/2017 Orders Only [facility] CLINCONV ProviderTaylor MD [address] [place] [address] Social History Tobacco Use Types Packs/Day [...] COVID: Suspected 10/10/2023 10/10/2023 10/10/2023 3:55 PM FULL STACK SOFTWARE ENGINEER documented as of this encounter Care Teams Assembler Dc Field Ring Relationship Specialty Start Date End Date Ava Galvan MD PCP - Humana Attributed PCP 11/15/17 Ava Galvan MD PCP - General 12/17/18 10/02/21 Ava Galvan MD PCP - General Family Medicine 10/03/21 Nuha Marquez MD Referring Physician Gastroenterology 02/11/19 Renu Mosqueda MD Referring Physician Endocrinology 02/11/19 Dimitri Messer MD [address] [address] Consulting Physician Otolaryngology 04/23/23 Toney Vergara MD [address] [place] [address] Consulting Physician Surgery 10/10/24 Vaishnavi Menon LPN [address] [place] [address] Tripe Cooker 10/13/24 10/13/24 Janel Luna MA [address] [place] [address] ACO Care Stopper Setter 01/30/25 01/30/25 documented as of this encounter
--- OUTSIDE RECORDS SUMMARY | 2025-02-11 00:03 | XMS_ITS | Encounter Summary ---
Author Organization [facility] Care Team Providers Care Supervisor [employer] Name Role Phone Ava Galvan MD Unavailable [phone] Ava Galvan MD Primary Care Provider [phone] Nuha Marquez MD Unavailable [phone] Renu Mosqueda MD Unavailable [phone] Ava Galvan MD Primary Care Provider [phone] Dimitri Messer MD Unavailable [phone] Toney Vergara MD Unavailable [phone] Vaishnavi Menon LPN Unavailable [phone] Janel Luna MA Unavailable [phone] Encounter Details Date Type Department Care Team (Latest Contact Info) Description 05/16/2017 Orders Only [facility] CLINCONV ProviderTaylor MD [address] [place] [address] Social History Tobacco Use Types Packs/Day [...] PROCEDURE - RESULT 10/09/2017 12 :00 AM SUPPLIER QUALITY ENGINEERING MANAGER documented in this encounter Results * PROCEDURE - RESULT (10/09/2017 12:00 AM SUPPLIER QUALITY ENGINEERING MANAGER) Narrative 10/09/2017 12:00 AM SUPPLIER QUALITY ENGINEERING MANAGER Ordered by an unspecified provider. us Historical Provider Final Res ult documented in this encounter Visit Diagnoses Not on filedocumented in this encounter Additional Health Concerns Infection Onset Date Last Indicated Resolved Time COVID: Suspected 10/10/2023 10/10/2023 10/10/2023 3:55 PM SUPPLIER QUALITY ENGINEERING MANAGER documented as of this encounter Care Teams Supervisor [employer] Relationship Specialty Start Date End Date Ava Galvan MD PCP - [employer] Attributed PCP 11/15/17 Ava Galvan MD PCP - General 12/17/18 10/02/21 Ava Galvan MD PCP - General Family Medicine 10/03/21 Nuha Marquez MD Referring Physician Gastroenterology 02/11/19 Renu Mosqueda MD Referring Physician Endocrinology 02/11/19 Dimitri Messer [place] [address] [place] [address] Consulting Physician Otolaryngology 04/23/23 Toney Vergraa MD [address] [place] [id number] Consulting Physician Surgery 10/10/24 Vaishnavi Menon LPN [address] [place] [address] Market Research Associate 10/13/24 10/13/24 Janel Luna MA [address] [place] [address] ACO Care Telemetry Technician 01/30/25 01/30/25 documented as of this encounter
--- OUTSIDE RECORDS SUMMARY | 2025-02-11 00:03 | XMS_ITS ---
Author Organization 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 Past Treatment and Therapy Plans No past plan information found. 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, estrogen receptor positive (HCC)* [address] [address] Oncology Treatment Summary Breast Treatment Summary for Mima Carr 1950 provided on date 09/25/22 Prepared by: Digna Benedict RN on date: 09/22/22 Primary Care Provider: Ava Galvan MD Diagnosis: Malignant neoplasm of overlapping sites of left breast in female, estrogen receptor positive ([facility]/HCC) Date of diagnosis: 02/16/22 Age of diagnosis: 71 Tumor Information Cancer Staging Malignant neoplasm of overlapping sites of left breast in female, estrogen receptor positive (CMS/HCC) Staging form: Breast, AJCC 8th Edition - Clinical stage from 02/16/2022: Stage IA (cT1c, cN0, cM0, G2, ER+, OK+, HER2-) - Signed by Karissa Rodriguez MD on 02/23/2022 - Pathologic stage from 03/24/2022: Stage IA (pT1c(m), pN0(sn), cM0, G2, ER+, OK+, HER2-) - Signed byKarissa Rodriguez MD on 04/03/2022 Surgery Information Description: Bilateral mastectomies, no reconstruction Date: 03/24/22 Surgeon/Facility Name: Dr. Karissa Rodriguez, [facility] Adjuvant Treatment Recommendations: medical oncology Initial Imaging Mammogram: Bilateral screening mammogram ([facility]) 12/30/2021 -- indeterminate left breast focal asymmetry with possible architectural distortion (BIRADS-0) Left diagnostic mammogram 01/27/2022 ([facility]) -- irregular mass with spiculated margins in the left breast with architectural distortion (BIRADS-5) Left breast ultrasound 01/27/2022 ([facility]) -- 2.2cm hypoechoic mass at the 2:30 position with two othersmaller masses in close proximity (BIRADS-5) Left breast ultrasound 02/16/2022 ([facility]) -- 1.5cm hypoechoic mass at the 2:30 [...] up with Location How often Radiation Oncology [facility] Clinical visit every 4-6 months for 5 yrs, then every 12 months Medical Oncology [facility] Surgery [facility] Mammography [facility] Bilateral Diagnostic Mammogram every 12 months Reasons to call: New lesions or mass Chest pain New feelings of sadness or being overwhelmed Unintended weight loss Cough that does not go away Any side effects or questions of care Your follow up schedule is listed below Future Appointments Date Time Provider Department Center 09/25/2022 11:30 AM [facility] 01/25/2023 12:40 PM Latoya Medina MD [address] Contact Information Radiation Oncologist Dr. Osmar Santillan Medical Oncologist Dr. Medina [phone] Karissa Rodriguez Social Work [employer] Piece Consultant Dr. Parisa Moser [phone] Breast Nurse Navigator Digna Benedict RN [phone] [facility] Care [facility] Hospital Scheduling Primary Care Provider Ava Galvan MD [phone] Recommended cancer screenings Colonoscopy: every 10 years [...] walk a few extra steps. Important Resources [facility] Mexican Cancer Society cancer.org Association of Cancer Online Resources acor.org Caring Bridge caringbridge.org CancerCare cancercare.org LiveStrong Foundation livestrong.org National Cancer [place] cancer.gov Cancer Survivors Network csn.cancer.org National Coalition for Cancer Survivorship canceradvocacy.org [place] Society of Clinical Oncologists cancer.net Cancer Support Community of [facility] www.cancersupportstl.org Radiation Therapy Questions/Answers www.rtanswers.org
--- OUTSIDE RECORDS SUMMARY | 2025-02-11 00:03 | XMS_ITS | Encounter Summary ---
Author Organization [facility] Address [address] [place] [address] Care Team Providers Care Marble Coper Name Role Phone Ava Galvan MD Unavailable [phone] Nuha Marquez MD Unavailable [phone] Renu Mosqueda MD Unavailable [phone] Ava Galvan MD Primary Care Provider [phone] Dimitri Messer MD Unavailable [phone] Toney Vergara MD Unavailable [phone] Janel Luna MA Unavailable [phone] Encounter Details Date Type Department Care Team (Late st Contact Info) Description 01/12/2025 Results Follow-Up [facility] Family Medicine [address] [place] [address] Anastasia Silva Thyroid Function [place], Comprehensive metabolic panel, Lipid panel, CBC with auto differential Social History Tobacco Use Types Packs/Day Years Used Date Smoking Tobacco: Never Smokeless Tobacco: Never Alcohol Use Standard Drinks/Week Comments Yes 0 (1 standard drink = 0.6 oz pur e alcohol) occas [facility] Utilities Answer Date Recorded In the past 12 months has [employer] electric, gas, oil, or water company threatened [...] often do you attend chur ch or yazidism services? More than 4 times per year 10/10/2024 Do you belong to any clubs o r organizations such as synagogue groups, unions, fraternal or athletic groups, or [...] were you homeless or living in a skilled nursing (including now)? No 10/10/2024 Personal Safety Answer [...] on filedocumented in this encounter Care Teams Marble Coper Relationship Specialty Start Date End Date Ava Galvan MD PCP - [employer] Attributed PCP 11/15/17 Ava Galvan MD PCP - General Family Medicine 10/03/21 Nuha Marquez MD Referring Physician Gastroenterology 02/11/19 Renu Mosqueda MD Referring Physician Endocrinology 02/11/19 Dimitri [place] [address] Consulting Physician Otolaryngology 04/23/23 Toney Vergara MD [address] [address] Consulting Physician Surgery 10/10/24 Janel Luna MA [address] [place] [address] [address] [place] [address] ACO Care Industrial Real Estate Agent 01/30/25 01/30/25 documented as of this encounter
[2025-02-11] MEDS: ACETAMINOPHEN 500 MG TABLET 1000 MG PO (07:20)
[2025-02-11] MEDS: KETOROLAC 15 MG/ML VIAL (*BKC) IV PUSH (07:20)
[2025-02-11] MEDS: LACTATED RINGERS 1,000 ML 30 ML IV CONT ×2 (07:20→12:47)
--- NOTE | 2025-02-11 07:38 | WPDHPUPDATE1 ---
History and Physical Update Update Date/Time: 02/11/25 07:38 History and Physical has been reviewed, including an updated exam of the patient. There are NO changes in the patient's condition. Risks, benefits, and alternatives have been discussed and questions answered. Patient agrees to proceed with procedure.
--- NOTE | 2025-02-11 08:46 | WPDANESEPPF ---
Anes - Initial Pre Proc Eval Procedure: Operation Date: 02/11/25 08:30 Proposed Procedures p Laparoscopic Cholecystectomy - Renan Higgins MD Date/Time: 02/11/25 08:46 Surgeon: Renan Higgins MD Pre Op Diagnosis: Chr Cholecystitis with Stones Patient Data Age: 74 Gender: F Height: 1.6 m Weight: 77.9 kg Last Vital Signs Temp 97.3 F L 02/11/25 07:30 Pulse 53 L 02/11/25 07:30 Resp 16 02/11/25 07:30 BP 129/62 02/11/25 07:30 Pulse Ox 99 02/11/25 07:30 O2 Del Method Room Air 02/11/25 07:30 Allergies Allergy/AdvReac Type Severity Reaction Status Date / Time No Known Allergies Allergy Verified 02/11/25 07:58 Home Medications ?Medication ?Instructions ?Recorded ?Confirmed ?Type amlodipine 10 mg tablet 10 mg PO DAILY 11/27/24 02/11/25 History anastrozole 1 mg tablet 1 mg PO DAILY 11/27/24 01/01/25 History ascorbic acid (vitamin C) 1,000 mg 1 g PO DAILY 11/27/24 01/01/25 History capsule ascorbic acid 100 mg-elderberry 100 tablet PO DAILY 11/27/24 01/01/25 History fruit 50 mg chewable tablet atorvastatin 20 mg tablet (Lipitor) 20 mg PO DAILY 11/27/24 01/01/25 History carvedilol 12.5 mg tablet 12.5 mg PO Q12H 11/27/24 02/11/25 History coenzyme Q10 200 mg capsule 200 mg PO DAILY 11/27/24 01/01/25 History ezetimibe 10 mg tablet 10 mg PO DAILY 11/27/24 01/01/25 History fenofibrate nanocrystallized 145 145 mg PO DAILY 11/27/24 01/01/25 History mg tablet garlic 1,000 mg capsule 1,000 mg PO DAILY 11/27/24 01/01/25 History glucosamine 750 ep-fuieamkrvn-tui 1 tablet PO BID 11/27/24 01/01/25 History no.1 625 mg-C 30 vo-fvrp-ikgo tablet lisinopril 5 mg tablet 5 mg PO DAILY 11/27/24 01/01/25 History montelukast 10 mg tablet 10 mg PO DAILY 11/27/24 02/11/25 History tamsulosin 0.4 mg capsule 0.4 mg PO DAILY 11/27/24 01/01/25 History turmeric root extract 500 mg 500 mg PO DAILY 11/27/24 01/01/25 History capsule vitamin E 400 unit/15 mL oral 400 unit PO DAILY 11/27/24 01/01/25 History liquid Patient hx anesthesia problems: none Family hx anesthesia problems: none Results Review: All pre-operative results and documents have been reviewed as part of the pre-operative evaluation. [facility] Past Medical History Medical History Hypertension Cancer Surgical History Surgical History H/O nasal septoplasty 2021 H/O bilateral mastectomy 1998 History of endometrial ablation Family History Family History Father Malignant neoplasm of prostate Sibling Malignant neoplasm of prostate Social History Social History Smoking status: Never smoker Alcohol intake: never Substance use: never Current Housing: Decline to Answer Concerned About Future Housing: Decline to Answer Difficulty Paying Gas/Electric Bills: Decline to Answer Difficulty Paying for Meds: Decline to Answer Currently Unemployed: Decline to Answer Education: Decline to Answer Difficulty w/ Childcare or Family Care: Decline to Answer Living arrangements: alone Spiritual care concerns: No Anes - Eval Final PreProcedure Day of Procedure 02/11/25 08:46 Patient weight: obese Lungs: normal air movement Airway: Mallampati scale class II and special considerations (Upper incisor caps noted. ) Neurological: alert and oriented Last oral intake: >/= 8 hours ASA classification: II Emergent: no Anesthetic plan: proceed Anesthesia type and monitoring: general ETT and standard monitoring Results Review: All pre-operative results and documents have been reviewed as part of the pre-operative evaluation. HTN, hx of breast ca, s/p mastectomy, BMI 30. Pt overall good functional status, walks treadmill 2-3 x weekly for 30 mins, no cp or sob. Informed Consent: The patient's anesthetic plan and its attendant risks and benefits were discussed with the patient/family/POA. Questions were solicited and answers provided to the satisfaction of the patient/family/POA.
[2025-02-11] MEDS: ceFAZolin 2 GM/D5W 50 ML 2 GM/50 ML BAG IVPB (09:34)
[2025-02-11] MEDS: BUPIVACAINE/EPINEPHRINE 0.5% 30 ML VIAL 26 ML INFILTRATE (10:13)
--- NOTE | 2025-02-11 10:14 | S_PTH ---
PATIENT: Mima Carr LOC: [id number] U#:[id number] AGE/SX: 74/F ROOM: 309 RE02/12/[address]: Srinath Beatty MD : 1950 BED: 01 DIS: 02/14/2025 SPEC #: [id number] RECD: 02/11/25 13:20 STATUS: LEXI REQ #: [id number] RODRIGO: 02/11/25 10:[address]: Renan Higgins DEPT: [facility] Surgical RECD BY: Ana Aranda ENTERED: 02/11/25 13:20 SP TYPE: Surgical OTHR DR: Ava GalvanMD Tissues: A - Gallbladder Procedures: Hematoxylin and Eosin Stain Gross and Microscopic Level 3
--- NOTE | 2025-02-11 13:07 | W.PM.PROC2 ---
Procedure Note - Detailed Date of Procedure 02/11/25 Pre-op Diagnosis Chr Cholecystitis with Stones Post-op Diagnosis Other (Severe acute and chronic cholecystitis with cholelithiasis, cystic duct obstruction and purulent bile) Procedure Performed Laparoscopic cholecystectomy Surgeon Renan Higgins MD [employer] Maninder WEBSTER Anesthesia General and Local Indications Patient has had episodes of postprandial right upper quadrant abdominal pain. The started about 2 years ago. She had a CT scan at [facility] in September. It showed a very thickened gallbladder wall and a large gallstone in the neck of the gallbladder her. She is taken to surgery now for chronic cholecystitis with gallstones Findings This was 1 of the most chronically inflamed and difficult cholecystectomies I can remember. Patient had fatty liver as predicted. The liver was very friable and even bumping the liver would tend to make a rent and cause bleeding. She had a tremendous number of omental adhesions to the gallbladder which were all vascular. Gallbladder wall was very thickened and there were numerous large stones in the gallbladder. It was very difficult to grasp the gallbladder at any point. Particularly, in the infundibulum and neck of the gallbladder there was a very large stone and aside from grasping loose inflammatory tissue, there was no ability to grasp the gallbladder or manipulated. Additionally, the gallbladder was at least 50% intrahepatic at its upper half. She had a very short cystic duct. There was extremely severe acute and chronic inflammation in the triangle of Calot. We had to place an extra 5 mm port to retract the medial and lateral segment of the left lobe of the liver to expose the gallbladder. Additionally, the lateral edge of the gallbladder was nearly impossible to expose as it was so fixed in the liver. There were numerous entries into the gallbladder made particularly since it was not only thickened but very friable. There was purulent bile in the gallbladder as well as these large stones. In dissecting the gallbladder off the liver, it was impossible to tell the wall of the gallbladder from the liver. Some of the liver was entered during this and there were entries into the gallbladder itself. The surgery took 2 hours and 45 minutes which is about 5 times as long as usual. Blood loss was 100 cc which was at least 4 times as much as usual. We had to put an extra 5th port in and also had to place a drain postoperatively. Patient was scheduled to go home after surgery but will be kept in the hospital and placed on IV antibiotics at least overnight. I did not see any signs of malignancy. No stones or portions of the gallbladder wall were left behind. Description of Procedure Patient was taken to surgery and induced into general anesthesia. The abdomen is prepped and draped. Trocars were placed in the usual fashion using an applied Medical optical trocar and a 5 mm camera. Once the trocars were in place, we lifted the edge of the right lobe of the liver and saw that the gallbladder was encased with omental adhesions. We elevated the liver and I began using sharp dissection with small amounts of cautery to dissect many omental adhesions off the fundus and upper portion of the gallbladder. Once this was exposed, we grasp the fundus and elevated it. I then continued the dissection of carefully dividing the omental adhesions to the gallbladder and using cautery as these adhesions were quite vascular. Eventually we dissected down to the infundibulum and neck of the gallbladder. At this point it was obvious we were going to need an additional trocar to retract the enlarged left lobe of the liver both the medial and lateral segments. This trocar was placed and then a laparoscopic Kittner was used to assist and exposing the lower portion of the gallbladder and the triangle of Calot. We used a grasper and cautery for all the dissection and yet even then, there was brisk bleeding from some of the omental vessels. Additionally, as we were retracting the gallbladder anteriorly and superiorly, the wall of the gallbladder tore due to its friability as well as the stiffness of the fatty liver. Purulent bile was noted and was suctioned away. This opening would enlarge as we continued our dissection due to the diseased gallbladder wall. Eventually I was able to begin dissecting in the neck of the gallbladder. I was not able to grasp the infundibulum of the gallbladder due to the very large stone described above. Also the severe chronic inflammation kept the gallbladder from being very mobile to see both the lateral and medial sides. Was more easily able to expose and work on the medial aspect of the gallbladder. Using primarily blunt dissection, I exposed the cystic duct. The cystic duct was quite short and the common bile duct was close to the lower most aspect of the gallbladder. Care was taken with this dissection. Multiple attempts using different dissecting instruments were made to expose the cystic duct and cystic artery. Attempts were made including moving the camera to some of the right-sided ports, to expose and dissect the lateral aspect of the gallbladder. The stone in the neck of the gallbladder was so large that when the gallbladder was retracted medially I still could not get instruments in to dissect the medial edge of the gallbladder from its peritoneal attachments. Dissection was carefully continued. The lateral wall of peritoneum between the cystic duct, common hepatic duct, gallbladder, and liver was very thickened. Trying to stay as close to the gallbladder as I could, I eventually was able to dissect through this from the medial aspect as it was not approachable from the lateral aspect. This did help. I was continuing to dissect the cystic duct and there was hole in the cystic duct. I reviewed this carefully. The hole was not in the home bladder or in the common hepatic. This leaked some bile initially but then stopped. Dissection was continued and I was able to dissect out the cystic artery on the medial aspect of the gallbladder wall, closer to the liver. I dissected more of the gallbladder off the liver. The cystic artery was well delineated. I went ahead and clipped and divided it. I then continue due to dissect between the gallbladder and the liver. The peritoneum was very thickened a and there were tenacious adhesions between in the gallbladder and the liver. The tissue plane between the gallbladder and the liver was non-existent and superficial entry and a lid recurred as well as some other injury into the gallbladder due to this disease. Eventually, I had dissected enough of the gallbladder off the liver and had dissected out the cystic duct adequately. The hole in the cystic duct was closer to the common bile duct than to the gallbladder. I securely clipped the cystic duct at its exit from the gallbladder. I then divided the cystic duct just below the clip. I then used a Vicryl endoloop and plate distraction on the cystic duct stone. I ligated the cystic duct stump with Vicryl in does loop below the opening in the cystic duct did not impinge on the diameter of the common hepatic duct. We used suction and irrigation and reviewed this ligation of the cystic duct several times. All looked quite good. We then returned our attention to the gallbladder. The remaining dissection of the gallbladder off the liver was just as difficult as the surgery had been up until this point. Other entries into the gallbladder occurred. Only 1 stone escaped from the gallbladder. It was large and easily located. As I mentioned, the upper portion of the gallbladder was intrahepatic and and there was no tissue plane between the gallbladder and the liver. Although no trying our best to expose the junction of the gallbladder and the liver, repeat did Mami, some entry in liver cyst surface as well as opening the gallbladder made as we continue this nice action. Eventually we the gallbladder from the liver in dry early. The gallbladder was set aside and we exposed the gallbladder fossa. Using cautery and irrigation, the gallbladder fossa was caught her eyes do and may reasonably hemostatic. I then placed in Endo-Catch bag in the abdomen and placed the gallbladder a as well as the escapes known in the Endo-Catch bag. I removed the gallbladder and the stone had the epigastric trocar site. To allow the gallbladder to be removed, I had to enlarge the skin incision and enlarged the fascial opening significantly. The gallbladder and its multiple stones were then able to be removed. The gallbladder and stones were then sent to pathology in formalin. We replaced a 10 11 trocar at this site and used a towel clip to occlude the skin and subcutaneous so that we could insufflate. Once we had insufflated adequately, the gallbladder fossa was again exposed as was the subhepatic space. Some additional cautery as well as copious irrigation and suctioning were then used on the gallbladder fossa. After repeated irrigation and suctioning, the gallbladder fossa was quite dry with no evidence of bleeding or bile leakage. Any additional fluid or irrigation was also suctioned away. We then passed a 19 [place] Yoshi drain through the right lower trocar into the abdominal cavity. I positioned the drain in the subhepatic space. We then removed the trocar and sutured the drain in place with 2-0 silk. I again reviewed the gallbladder fossa and areas of dissection. All looked good with no evidence of bile leakage or bleeding. I then evacuated CO2 and removed the trocar sleeves. The fascia at the epigastric trocar site was closed with [id number] mattress suture of 0 Vicryl. The subQ was closed with 3-0 Vicryl interrupted suture. All skin wounds were closed with running 4-0 Monocryl skin suture. The drain was placed to bulb suction. The wounds were dressed with Exofin surgical adhesive. The patient was awakened and taken to recovery in good condition. Sponge and needle counts were correct x2. Estimated Blood Loss -100 Drains Yes (Nineteen [place] Yoshi drain right upper quadrant) Packing No Pathology Yes (Gallbladder) Complications None Condition Stable Disposition PACU [facility] Billing Surgery - Charge Forward: Surgery Billing (Laparoscopic cholecystectomy-add 22 modifier for increased difficulty)
[2025-02-11] MEDS: fentaNYL CITRATE INJ (*CRX) 100 MCG/2 ML VIAL 25 MCG IV PUSH ×8 (13:22→14:48)
[2025-02-11] MEDS: oxyCODONE/ACETAMINOPHEN (*CRX) 5-325 MG TABLET 1 TABLET PO (16:11)
[2025-02-11] MEDS: metroNIDAZOLE 500 MG/ISO 100ML 500 MG/100 ML BAG 100 MG IVPB ×2 (16:11→23:59)
[2025-02-11] MEDS: LACTATED RINGERS 1,000 ML 100 ML IV CONT (16:11)
[2025-02-11] MEDS: IBUPROFEN 600 MG TABLET PO (18:07)
[2025-02-11] MEDS: FENOFIBRATE NANOCRYSTALLIZED 145 MG TABLET PO (20:58)
[2025-02-11] MEDS: EZETIMIBE 10 MG TABLET PO (20:58)
[2025-02-11] MEDS: carvediloL 12.5 MG TABLET PO (20:58)
[2025-02-11] MEDS: ATORVASTATIN 20 MG TABLET PO (20:59)
[2025-02-11] MEDS: IBUPROFEN IV 800 MG/200 ML 800 MG/200 ML BAG 400 MG IVPB (23:14)
[2025-02-12] VITALS (9 sets, daily range): BP systolic 101–146; BP diastolic 43–90; PULSE 53–70; RESP 16–20; TEMP 36.1–37.3; O2SAT 92–95
--- NOTE | ~2025-02-12 | NM_ITS ---
EXAMINATION: NM hepatobiliary wo pharm DATE: 02/12/2025 12:01 INDICATION: Status post cholecystectomy. Assess for bile leak. COMPARISON: None. TECHNIQUE: 4.7 mCi Tc-99m mebrofenin (Choletec) was administered intravenously. Scintigraphic images of the abdomen were obtained for one hour. An additional 1.5 hour delayed scintigrams obtained. FINDINGS: There is normal clearance of radiotracer from the blood pool. There is homogeneous tracer u ptake by the liver. Activity progresses to the bowel and bowel by 20 minutes with progressive accumu lation of bowel activity over the following 70 minutes. Gallbladder not visualized consistent with re ported prior cholecystectomy. No evident bile leak. IMPRESSION: 1. Unremarkable postcholecystectomy hepatobiliary scan with no biliary obstruction or bile leak. Reviewed, dictated and finalized at location A. IMPRESSION: 1. Unremarkable postcholecystectomy hepatobiliary scan with no biliary obstruc tion or bile leak.
[2025-02-12] MEDS: metroNIDAZOLE 500 MG/ISO 100ML 500 MG/100 ML BAG 100 MG IVPB ×3 (05:22→21:05)
[2025-02-12] MEDS: oxyCODONE/ACETAMINOPHEN (*CRX) 5-325 MG TABLET 1 TABLET PO ×3 (05:32→17:30)
[2025-02-12 07:27] LABS: Hematocrit 33.8 % (37.0-47.0); Hemoglobin 10.6 g/dL (12.0-15.0); Mean Corpuscular HGB Conc 31.4 g/dl (32-36); Mean Corpuscular Hemoglobin 29.9 pg (26-34); Mean Corpuscular Volume 95.2 fl (80-100); Mean Platelet Volume 9.9 fl (7.4-10.4); Platelet Count Result 196 k/mm3 (150-375); Red Blood Count 3.55 M/mm3 (4.2-5.4); Red Cell Distribution Width 13.3 % (11.5-14.5); White Blood Count 9.9 K/mm3 (4.5-10.0)
[2025-02-12 07:30] LABS: Alanine Aminotransferase 159 U/L (6-35); Albumin Level 3.7 g/dL (3.5-5.1); Alkaline Phosphatase 48 U/L (38-126); Anion Gap 5 mmol/L (4-12); Aspartate Amino Transferase 182 U/L (14-36); Bilirubin,Total 0.4 mg/dL (0.2-1.3); Blood Urea Nitrogen 17 mg/dL (7-17); Calcium 9.2 mg/dL (8.4-10.2); Carbon Dioxide 26 mmol/L (22-30); Chloride 107 mmol/L (98-107); Estimated CRCL calculation 51 ml/min; Estimated Glomerular Filt Rate > 60; Glucose 151 mg/dL (65-110); Potassium 4.1 mmol/L (3.4-5.0); Sodium 138 mmol/L (137-145)
[2025-02-12] MEDS: IBUPROFEN IV 800 MG/200 ML 800 MG/200 ML BAG 400 MG IVPB ×2 (08:23→20:23)
--- NOTE | 2025-02-12 10:18 | PM.PNGS ---
Progress Note: A&P Assessment and Plan (1) Calculus of gallbladder with acute and chronic cholecystitis with obstruction: Code(s): K80.13 - Calculus of gallbladder with acute and chronic cholecystitis with obstruction Status: Acute Assessment and Plan: Postop day 1 following laparoscopic cholecystectomy with findings of severe acute on chronic cholecystitis with purulent bile. Continue to monitor her SAURAV drain for now and continue IV antibiotics. HIDA scan was ordered this morning to rule out postoperative bile leak. Will advance her to a low fat diet after the HIDA scan. Encouraged getting up to the chair and ambulating today. Plan I have discussed the patient's case and plan of care with Dr. Higgins. Subjective Subjective Date/Time Seen: 02/12/25 10:18 Post Op day: 1 (Laparoscopic cholecystectomy) Patient reports: voiding w/o difficulty, flatus and no bowel movement Interval history: Patient reports right upper quadrant abdominal pain and soreness at her incisions when getting up to ambulate to the bathroom. No nausea or vomiting. She has been NPO this morning for HIDA scan, but tolerated her diet last night. Exam Const: General: comfortable and no acute distress Orientation/consciousness: patient oriented x3 GI: Inspection: non-distended and incision (incisions dry and intact) GI Palp: Yes Soft to palpation, Yes Tenderness to palpation present (GI) (incisional and right upper quadrant) and No Guarding due to palpation present (GI) Auscultation: normal bowel sounds Other: SAURAV drain with mostly serous drainage, no bilious output Objective Data Vital Signs Vital Signs: Vital Signs - 24 hr 02/11/25 12:47 02/11/25 13:00 02/11/25 13:15 Temperature 98.5 F Pulse Rate 52 L 55 L 57 L Respiratory Rate 10 L 16 14 Blood Pressure 106/52 L 107/58 L 117/67 Pulse Oximetry 95 96 97 Oxygen Delivery Simple Face Mask Simple Face Mask Simple Face Mask Oxygen Flow Rate 6 6 6 02/11/25 13:30 02/11/25 13:45 02/11/25 14:00 Temperature Pulse Rate 62 54 L 54 L Respiratory Rate 12 12 12 Blood Pressure 124/65 123/69 110/59 L Pulse Oximetry 95 95 95 Oxygen Delivery Nasal Cannula Nasal Cannula Nasal Cannula Oxygen Flow Rate 3 3 3 02/11/25 14:15 02/11/25 14:30 02/11/25 15:00 Temperature 97.9 F Pulse Rate 59 L 59 L 67 Respiratory Rate 12 12 12 Blood Pressure 115/55 L 114/53 L 132/63 Pulse Oximetry 93 94 98 Oxygen Delivery Nasal Cannula Nasal Cannula Nasal Cannula Oxygen Flow Rate 3 3 3 02/11/25 15:22 02/11/25 15:37 02/11/25 16:07 Temperature 98.9 F 98.9 F 98.7 F Pulse Rate 72 67 77 Respiratory Rate 14 14 16 Blood Pressure 129/69 127/63 128/95 H Pulse Oximetry 98 95 94 Oxygen Delivery Oxygen Flow Rate 02/11/25 17:07 02/11/25 20:29 02/11/25 20:58 Temperature 98.7 F 98.5 F Pulse Rate 86 72 74 Respiratory Rate 16 18 Blood Pressure 147/67 H 125/50 L Pulse Oximetry 94 92 Oxygen Delivery Oxygen Flow Rate 02/12/25 00:34 02/12/25 04:24 02/12/25 08:00 Temperature 99.2 F 98.9 F 97.0 F L Pulse Rate 61 62 54 L Respiratory Rate 18 16 18 Blood Pressure 117/48 L 146/90 H 115/55 L Pulse Oximetry 94 95 94 Oxygen Delivery Oxygen Flow Rate Intake/Output Intake/Output: Intake & Output 02/09/25 02/10/25 02/11/25 02/12/25 23:59 23:59 23:59 23:59 Intake Total 1140 100 Output Total 165 50 Balance 975 50 Meds/Results Medications: Active Medications Generic Name Dose Route Start Last Admin Trade Name Freq PRN Reason Stop Dose Admin Acetaminophen 500 mg 02/11/25 15:22 Acetaminophen 500 Mg Tablet PO Q6H PRN Pain Rated 1-3 Amlodipine Besylate 10 mg 02/12/25 09:00 Amlodipine Besylate 10 Mg Tablet PO DAILY [facility] Anastrozole 1 mg 02/12/25 09:00 Anastrozole (*Chemo) 1 Mg Tablet PO DAILY [facility] Ascorbic Acid 1 mg 02/12/25 09:00 Ascorbic Acid 500 Mg Tablet PO QAM [facility] Atorvastatin Calcium 20 mg 02/11/25 21:00 02/11/25 20:59 Atorvastatin 20 Mg Tablet PO 20 mg HS DEJUAN Administration Carvedilol 12.5 mg 02/11/25 21:00 02/11/25 20:58 Carvedilol 12.5 Mg Tablet PO 12.5 mg Q12HR DEJUAN Administration Ezetimibe 10 mg 02/11/25 21:00 02/11/25 20:58 Ezetimibe 10 Mg Tablet PO 10 mg HS DEJUAN Administration Enoxaparin Sodium 40 mg 02/12/25 09:00 Enoxaparin 40 Mg/0.4 Ml Syringe SUB-Q DAILY DEJUAN Fenofibrate 145 mg 02/11/25 21:00 02/11/25 20:58 Fenofibrate Nanocrystallized 145 Mg Tablet PO 145 mg HS DEJUAN Administration Fentanyl Citrate 12.5 mcg 02/11/25 15:22 Fentanyl Citrate Inj (*Crx) 100 Mcg/2 Ml Vial IV PUSH Q2H PRN Breakthrough Pain Rated 4-6 or NPO Fentanyl Citrate 25 mcg 02/11/25 15:22 Fentanyl Citrate Inj (*Crx) 100 Mcg/2 Ml Vial IV PUSH Q2H PRN Breakthrough Pain Rated 7-10 or NPO Ibuprofen 800 mg in 200 mls @ 400 mls/hr 02/11/25 15:22 02/12/25 08:23 Caldolor 800 Mg/200 Ml IVPB 400 mls/hr Q6H PRN Administration Breakthrough Pain Rated 1-3 or NPO Ceftriaxone Sodium 1 gm in 50 mls @ 100 mls/hr 02/12/25 09:00 02/12/25 09:22 Rocephin 1 Gm/Ns 50 Ml IVPB 100 mls/hr Q24H DEJUAN Administration Metronidazole 500 mg in 100 mls @ 100 mls/hr 02/11/25 15:40 02/12/25 05:22 Flagyl 500 Mg/Iso Soln 100 Ml IVPB 100 mls/hr Q8HR DEJUAN Administration Ibuprofen 600 mg 02/11/25 15:22 02/11/25 18:07 Ibuprofen 600 Mg Tablet PO 600 mg Q6H PRN Administration Pain Rated 4-6 Lisinopril 5 mg 02/12/25 09:00 Lisinopril 5 Mg Tablet PO DAILY [facility] Montelukast Sodium 10 mg 02/12/25 09:00 Montelukast Sodium 10 Mg Tablet PO DAILY [facility] Non-Formulary Medication 1 each 02/11/25 15:50 Nonformulary Nutritional Supplement XX 02/12/25 15:49 DAILY [facility] Ondansetron HCl 4 mg 02/11/25 15:22 Ondansetron Inj 4 Mg/2 Ml Vial IV PUSH Q4H PRN Nausea And Vomiting Oxycodone/Acetaminophen 1 tablet 02/11/25 15:22 02/12/25 05:32 Oxycodone/Acetaminophen (*Crx) 5-325 Mg Tablet PO 1 tablet Q4H PRN Administration Pain Rated 4-6 Tamsulosin HCl 0.4 mg 02/11/25 21:00 02/11/25 20:59 Tamsulosin Hcl 0.4 Mg Capsule PO Not Given [facility] Labs Labs: Laboratory Results - last 24 hr 02/12/25 06:54 WBC 9.9 RBC 3.55 L Hgb 10.6 L Hct 33.8 L MCV 95.2 MCH 29.9 MCHC 31.4 L RDW 13.3 Plt Count 196 MPV 9.9 Sodium 138 Potassium 4.1 Chloride 107 Carbon Dioxide 26 Anion Gap 5 BUN 17 Creatinine 0.85 Estim Creat Clear Calc 51 Estimated GFR > 60 Glucose 151 H Calcium 9.2 Total Bilirubin 0.4 AST 182 H ALT 159 H Alkaline Phosphatase 48 Total Protein 6.0 L Albumin 3.7
[2025-02-12] MEDS: amLODIPine BESYLATE 10 MG TABLET PO (12:42)
[2025-02-12] MEDS: carvediloL 12.5 MG TABLET PO (12:43)
[2025-02-12] MEDS: ANASTROZOLE (*CHEMO) 1 MG TABLET PO (12:43)
[2025-02-12] MEDS: lisinopriL 5 MG TABLET PO (12:44)
[2025-02-12] MEDS: MONTELUKAST SODIUM 10 MG TABLET PO (12:45)
[2025-02-12] MEDS: ASCORBIC ACID 500 MG TABLET 1000 MG PO (13:20)
[2025-02-12] MEDS: ACETAMINOPHEN 500 MG TABLET PO (13:20)
--- NOTE | 2025-02-12 14:39 | WPDANESPN ---
Anes - Prog Note Post-Op Date/Time: 02/12/25 14:39 Cardiovascular status: normal Respiratory status: normal Airway patency: baseline Mental status: baseline Vital Signs: Last Vital Signs Temp 36.3 C L 02/12/25 12:00 Pulse 70 02/12/25 12:43 Resp 20 02/12/25 12:00 BP 142/74 H 02/12/25 12:00 Pulse Ox 94 02/12/25 12:00 O2 Del Method Room Air 02/12/25 08:00 O2 Flow Rate 3 02/11/25 15:00 Pain Score (VAS): 5 I/O: Intake & Output 02/11/25 02/12/25 02/12/25 23:59 07:59 15:59 Intake Total 540 200 Output Total 50 Balance 540 150 Laboratory Tests 02/12/25 06:54 02/12/25 06:54 02/12/25 06:54 WBC 9.9 RBC 3.55 L Hgb 10.6 L Hct 33.8 L MCV 95.2 MCH 29.9 MCHC 31.4 L RDW 13.3 Plt Count 196 MPV 9.9 Sodium 138 Potassium 4.1 Chloride 107 Carbon Dioxide 26 Anion Gap 5 BUN 17 Creatinine 0.85 Estim Creat Clear Calc 51 Estimated GFR > 60 Glucose 151 H Calcium 9.2 Total Bilirubin 0.4 AST 182 H ALT 159 H Alkaline Phosphatase 48 Total Protein 6.0 L Albumin 3.7 Patient Feedback: Patient satisfied with anesthetic care.
[2025-02-12] MEDS: IBUPROFEN 600 MG TABLET PO (14:58)
[2025-02-12] MEDS: ENOXAPARIN 40 MG/0.4 ML SYRINGE SUB-Q (14:58)
[2025-02-12] MEDS: FENOFIBRATE NANOCRYSTALLIZED 145 MG TABLET PO (21:02)
[2025-02-12] MEDS: ATORVASTATIN 20 MG TABLET PO (21:02)
[2025-02-12] MEDS: EZETIMIBE 10 MG TABLET PO (21:03)
[2025-02-13] VITALS (10 sets, daily range): BP systolic 113–147; BP diastolic 46–65; PULSE 52–66; RESP 16–20; TEMP 36.3–37.1; O2SAT 92–95
[2025-02-13] MEDS: ACETAMINOPHEN 500 MG TABLET PO (01:06)
[2025-02-13] MEDS: oxyCODONE/ACETAMINOPHEN (*CRX) 5-325 MG TABLET 1 TABLET PO (04:58)
[2025-02-13] MEDS: metroNIDAZOLE 500 MG/ISO 100ML 500 MG/100 ML BAG 100 MG IVPB ×3 (05:04→21:31)
[2025-02-13] MEDS: ONDANSETRON INJ 4 MG/2 ML VIAL IV PUSH (08:01)
[2025-02-13] MEDS: MONTELUKAST SODIUM 10 MG TABLET PO (10:16)
[2025-02-13] MEDS: carvediloL 12.5 MG TABLET PO ×2 (10:16→21:29)
[2025-02-13] MEDS: ANASTROZOLE (*CHEMO) 1 MG TABLET PO (10:17)
[2025-02-13] MEDS: ASCORBIC ACID 500 MG TABLET 1000 MG PO (10:17)
[2025-02-13] MEDS: lisinopriL 5 MG TABLET PO (10:17)
[2025-02-13] MEDS: amLODIPine BESYLATE 10 MG TABLET PO (10:17)
[2025-02-13] MEDS: ENOXAPARIN 40 MG/0.4 ML SYRINGE SUB-Q (10:18)
[2025-02-13 10:30] LABS: Hematocrit 35.4 % (37.0-47.0); Mean Corpuscular HGB Conc 31.1 g/dl (32-36); Mean Corpuscular Hemoglobin 29.5 pg (26-34); Mean Corpuscular Volume 94.9 fl (80-100); Mean Platelet Volume 9.9 fl (7.4-10.4); Platelet Count Result 199 k/mm3 (150-375); Red Blood Count 3.73 M/mm3 (4.2-5.4); Red Cell Distribution Width 13.5 % (11.5-14.5); White Blood Count 8.1 K/mm3 (4.5-10.0)
[2025-02-13 10:43] LABS: Alanine Aminotransferase 136 U/L (6-35); Alkaline Phosphatase 49 U/L (38-126); Anion Gap 9 mmol/L (4-12); Aspartate Amino Transferase 105 U/L (14-36); Bilirubin,Total 0.4 mg/dL (0.2-1.3); Blood Urea Nitrogen 15 mg/dL (7-17); Calcium 9.4 mg/dL (8.4-10.2); Carbon Dioxide 25 mmol/L (22-30); Chloride 104 mmol/L (98-107); Estimated CRCL calculation 57 ml/min; Estimated Glomerular Filt Rate > 60; Glucose 159 mg/dL (65-110); Potassium 3.6 mmol/L (3.4-5.0); Sodium 138 mmol/L (137-145)
--- NOTE | 2025-02-13 11:07 | PM.PNGS ---
Progress Note: A&P Assessment and Plan (1) Calculus of gallbladder with acute and chronic cholecystitis with obstruction: Code(s): K80.13 - Calculus of gallbladder with acute and chronic cholecystitis with obstruction Status: Acute Assessment and Plan: Very severe acute and chronic cholecystitis. Pathology report confirms the clinical impression. Gallbladder mucosal ulcerations noted as well. Patient is still having considerable right upper quadrant pain. She had a HIDA scan yesterday which showed no evidence of a bile leak. SAURAV drain output has been only serous fluid with no sign of purulence, blood, or bile. I think some of this pain may be from her drain. She is on a low fat diet but eating only fair. Will keep her in the hospital again today on IV antibiotics and p.r.n. narcotic analgesics. Encouraged her to take backup IV pain medication when needed. Explained that even if she is on oral medication, she can go home having to take them every 4 hours around the clock. 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 Continue IV antibiotics and most likely home on oral antibiotics. Discussed and explained all with patient and her friend who was at the bedside. Subjective Subjective Date/Time Seen: 02/13/25 11:07 Post Op day: 2 Patient reports: still having pain (Right upper quadrant, just above drain site. Hard to get in and out of bed. Taking oral analgesics q.4 hours. Still claims pain is better than yesterday.), tolerating a regular diet (Low-fat diet intake is improving), voiding w/o difficulty, no bowel movement and afebrile Exam Const: General: cooperative, alert, awake, uncomfortable (Getting in and out of bed) and well groomed Nutritional Appearance: well nourished Orientation/consciousness: patient oriented x3 and No confusion GI: Inspection: non-distended, incision (Dry and healing, serous fluid per SAURAV drain) and obesity GI Palp: Yes Soft to palpation, Yes Tenderness to palpation present (GI) (Mostly drain site), No Guarding due to palpation present (GI), No Hernia present and No Palpable mass present Objective Data Vital Signs Vital Signs: Vital Signs - 24 hr 02/12/25 12:00 02/12/25 12:43 02/12/25 16:00 Temperature 36.3 C L 36.5 C Pulse Rate 65 70 55 L Respiratory Rate 20 18 Blood Pressure 142/74 H 116/43 L Pulse Oximetry 94 94 Oxygen Delivery 02/12/25 20:15 02/12/25 21:00 02/12/25 23:18 Temperature 36.3 C L 36.6 C Pulse Rate 54 L 53 L Respiratory Rate 16 20 Blood Pressure 108/48 L 101/50 L Pulse Oximetry 92 92 95 Oxygen Delivery Room Air 02/13/25 04:00 02/13/25 04:56 02/13/25 07:53 Temperature 37.1 C 36.3 C L Pulse Rate 53 L 52 L 57 L Respiratory Rate 16 18 Blood Pressure 147/65 H 124/61 Pulse Oximetry 94 93 Oxygen Delivery 02/13/25 10:16 Temperature Pulse Rate 60 Respiratory Rate Blood Pressure Pulse Oximetry Oxygen Delivery Intake/Output Intake/Output: Intake & Output 02/10/25 02/11/25 02/12/25 02/13/25 23:59 23:59 23:59 23:59 Intake Total 1140 1440 240 Output Total 165 100 45 Balance 975 1340 195 Meds/Results Medications: Active Medications Generic Name Dose Route Start Last Admin Trade Name Freq PRN Reason Stop Dose Admin Acetaminophen 500 mg 02/11/25 15:22 02/13/25 01:06 Acetaminophen 500 Mg Tablet PO 500 mg Q6H PRN Administration Pain Rated 1-3 Amlodipine Besylate 10 mg 02/12/25 09:00 02/13/25 10:17 Amlodipine Besylate 10 Mg Tablet PO 10 mg DAILY DEJUAN Administration Anastrozole 1 mg 02/12/25 09:00 02/13/25 10:17 Anastrozole (*Chemo) 1 Mg Tablet PO 1 mg DAILY DEJUAN Administration Ascorbic Acid 1,000 mg 02/13/25 09:00 02/13/25 10:17 Ascorbic Acid 500 Mg Tablet PO 1,000 mg QAM DEJUAN Administration Atorvastatin Calcium 20 mg 02/11/25 21:00 02/12/25 21:02 Atorvastatin 20 Mg Tablet PO 20 mg HS DEJUAN Administration Carvedilol 12.5 mg 02/11/25 21:00 02/13/25 10:16 Carvedilol 12.5 Mg Tablet PO 12.5 mg Q12HR DEJUAN Administration Ezetimibe 10 mg 02/11/25 21:00 02/12/25 21:03 Ezetimibe 10 Mg Tablet PO 10 mg HS DEJUAN Administration Enoxaparin Sodium 40 mg 02/12/25 09:00 02/13/25 10:18 Enoxaparin 40 Mg/0.4 Ml Syringe SUB-Q 40 mg DAILY DEJUAN Administration Fenofibrate 145 mg 02/11/25 21:00 02/12/25 21:02 Fenofibrate Nanocrystallized 145 Mg Tablet PO 145 mg HS DEJUAN Administration Fentanyl Citrate 12.5 mcg 02/11/25 15:22 Fentanyl Citrate Inj (*Crx) 100 Mcg/2 Ml Vial IV PUSH Q2H PRN Breakthrough Pain Rated 4-6 or NPO Fentanyl Citrate 25 mcg 02/11/25 15:22 Fentanyl Citrate Inj (*Crx) 100 Mcg/2 Ml Vial IV PUSH Q2H PRN Breakthrough Pain Rated 7-10 or NPO Ibuprofen 800 mg in 200 mls @ 400 mls/hr 02/11/25 15:22 02/12/25 20:23 Caldolor 800 Mg/200 Ml IVPB 400 mls/hr Q6H PRN Administration Breakthrough Pain Rated 1-3 or NPO Ceftriaxone Sodium 1 gm in 50 mls @ 100 mls/hr 02/12/25 09:00 02/13/25 10:17 Rocephin 1 Gm/Ns 50 Ml IVPB 100 mls/hr Q24H DEJUAN Administration Metronidazole 500 mg in 100 mls @ 100 mls/hr 02/11/25 15:40 02/13/25 05:04 Flagyl 500 Mg/Iso Soln 100 Ml IVPB 100 mls/hr Q8HR DEJUAN Administration Ibuprofen 600 mg 02/11/25 15:22 02/12/25 14:58 Ibuprofen 600 Mg Tablet PO 600 mg Q6H PRN Administration Pain Rated 4-6 Lisinopril 5 mg 02/12/25 09:00 02/13/25 10:17 Lisinopril 5 Mg Tablet PO 5 mg DAILY DEJUAN Administration Montelukast Sodium 10 mg 02/12/25 09:00 02/13/25 10:16 Montelukast Sodium 10 Mg Tablet PO 10 mg DAILY DEJUAN Administration Ondansetron HCl 4 mg 02/11/25 15:22 02/13/25 08:01 Ondansetron Inj 4 Mg/2 Ml Vial IV PUSH 4 mg Q4H PRN Administration Nausea And Vomiting Oxycodone/Acetaminophen 1 tablet 02/11/25 15:22 02/13/25 04:58 Oxycodone/Acetaminophen (*Crx) 5-325 Mg Tablet PO 1 tablet Q4H PRN Administration Pain Rated 4-6 Tamsulosin HCl 0.4 mg 02/11/25 21:00 02/12/25 21:02 Tamsulosin Hcl 0.4 Mg Capsule PO Not Given HS [facility] Radiology Results: ITS Impressions Hepatobiliary Scan Nuclear Medicine 02/12/25 13:47 IMPRESSION: 1. Unremarkable postcholecystectomy hepatobiliary scan with no biliary obstruction or bile leak. Labs Labs: Laboratory Results - last 24 hr 02/13/25 10:13 WBC 8.1 RBC 3.73 L Hgb 11.0 L Hct 35.4 L MCV 94.9 MCH 29.5 MCHC 31.1 L RDW 13.5 Plt Count 199 MPV 9.9 Sodium 138 Potassium 3.6 Chloride 104 Carbon Dioxide 25 Anion Gap 9 BUN 15 Creatinine 0.75 Estim Creat Clear Calc 57 Estimated GFR > 60 Glucose 159 H Calcium 9.4 Total Bilirubin 0.4 AST 105 H ALT 136 H Alkaline Phosphatase 49 Total Protein 7.0 Albumin 4.0
[2025-02-13] MEDS: IBUPROFEN 600 MG TABLET PO (12:16)
[2025-02-13] MEDS: FENOFIBRATE NANOCRYSTALLIZED 145 MG TABLET PO (21:28)
[2025-02-13] MEDS: ATORVASTATIN 20 MG TABLET PO (21:28)
[2025-02-13] MEDS: EZETIMIBE 10 MG TABLET PO (21:29)
[2025-02-14] MEDS: ONDANSETRON INJ 4 MG/2 ML VIAL IV PUSH (03:27)
[2025-02-14 04:00] VITALS: BP 122/51; PULSE 68; RESP 20; TEMP 36.6; O2SAT 91
[2025-02-14] MEDS: metroNIDAZOLE 500 MG/ISO 100ML 500 MG/100 ML BAG 100 MG IVPB (05:34)
[2025-02-14 06:51] LABS: Hematocrit 35.5 % (37.0-47.0); Hemoglobin 11.1 g/dL (12.0-15.0); Mean Corpuscular HGB Conc 31.3 g/dl (32-36); Mean Corpuscular Hemoglobin 29.9 pg (26-34); Mean Corpuscular Volume 95.7 fl (80-100); Mean Platelet Volume 10.2 fl (7.4-10.4); Platelet Count Result 192 k/mm3 (150-375); Red Blood Count 3.71 M/mm3 (4.2-5.4); Red Cell Distribution Width 13.3 % (11.5-14.5); White Blood Count 6.8 K/mm3 (4.5-10.0)
[2025-02-14 07:05] LABS: Alanine Aminotransferase 92 U/L (6-35); Albumin Level 3.7 g/dL (3.5-5.1); Alkaline Phosphatase 54 U/L (38-126); Anion Gap 5 mmol/L (4-12); Aspartate Amino Transferase 50 U/L (14-36); Bilirubin,Total 0.5 mg/dL (0.2-1.3); Blood Urea Nitrogen 9 mg/dL (7-17); Calcium 9.4 mg/dL (8.4-10.2); Carbon Dioxide 27 mmol/L (22-30); Chloride 106 mmol/L (98-107); Estimated CRCL calculation 71 ml/min; Estimated Glomerular Filt Rate > 60; Glucose 124 mg/dL (65-110); Potassium 3.7 mmol/L (3.4-5.0); Sodium 138 mmol/L (137-145)
[2025-02-14] MEDS: lisinopriL 5 MG TABLET PO (09:56)
[2025-02-14] MEDS: ASCORBIC ACID 500 MG TABLET 1000 MG PO (09:56)
[2025-02-14] MEDS: amLODIPine BESYLATE 10 MG TABLET PO (09:56)
[2025-02-14] MEDS: ANASTROZOLE (*CHEMO) 1 MG TABLET PO (09:56)
[2025-02-14] MEDS: carvediloL 12.5 MG TABLET PO (09:56)
[2025-02-14] MEDS: MONTELUKAST SODIUM 10 MG TABLET PO (09:56)
[2025-02-14] MEDS: ENOXAPARIN 40 MG/0.4 ML SYRINGE SUB-Q (10:00)
--- NOTE | 2025-02-14 13:42 | P.PN_ITS ---
Progress Note: A&P Assessment and Plan (1) Chronic cholecystitis with calculus: Code(s): K80.10 - Calculus of gallbladder with chronic cholecystitis without obstruction Status: Chronic Assessment and Plan: Postop day 3 after laparoscopic cholecystectomy. She was kept postoperatively because of difficulty of the surgery. She is doing well now. Her pain has now resolved after removal of the SAURAV drain. White blood count is normal. She is tolerating regular diet. Will discharge from the hospital today and she can follow-up Dr. Higgins as per the discharge instructions. Subjective Date/time seen: 02/14/25 13:42 Interval history: Patient doing well this morning. Postop day 3 after difficult laparoscopic cholecystectomy. Patient was having pretty severe pain from the SUARAV drain which was removed yesterday. That pain today is now completely resolved. She is tolerating regular diet. She wants to go home today. Exam GI: Other: Abdomen is soft and nondistended. Lap choly port site incisions are healing well. No redness or drainage. Minor expected tenderness around the incisions but otherwise benign. Objective Data Vital Signs Vital Signs: Vital Signs - 24 hr 02/13/25 16:00 02/13/25 19:27 02/13/25 21:29 Temperature 36.3 C L 36.4 C L Pulse Rate 65 62 66 Respiratory Rate 18 20 Blood Pressure 123/65 131/49 L Pulse Oximetry 95 93 Oxygen Delivery 02/13/25 23:21 02/14/25 04:00 02/14/25 08:00 Temperature 36.4 C 36.6 C Pulse Rate 60 68 Respiratory Rate 16 20 Blood Pressure 113/46 L 122/51 L Pulse Oximetry 92 91 Oxygen Delivery Room Air Intake/Output Intake/Output: Intake & Output 02/11/25 02/12/25 02/13/25 02/14/25 23:59 23:59 23:59 23:59 Intake Total 1140 1440 1070 1030 Output Total 165 100 45 6 Balance 975 1340 1025 1024 Meds/Results Medications: Active Medications Generic Name Dose Route Start Last Admin Trade Name Freq PRN Reason Stop Dose Admin Acetaminophen 500 mg 02/11/25 15:22 02/13/25 01:06 Acetaminophen 500 Mg Tablet PO 500 mg Q6H PRN Administration Pain Rated 1-3 Amlodipine Besylate 10 mg 02/12/25 09:00 02/14/25 09:56 Amlodipine Besylate 10 Mg Tablet PO 10 mg DAILY DEJUAN Administration Anastrozole 1 mg 02/12/25 09:00 02/14/25 09:56 Anastrozole (*Chemo) 1 Mg Tablet PO 1 mg DAILY DEJUAN Administration Ascorbic Acid 1,000 mg 02/13/25 09:00 02/14/25 09:56 Ascorbic Acid 500 Mg Tablet PO 1,000 mg QAM DEJUAN Administration Atorvastatin Calcium 20 mg 02/11/25 21:00 02/13/25 21:28 Atorvastatin 20 Mg Tablet PO 20 mg HS DEJUAN Administration Carvedilol 12.5 mg 02/11/25 21:00 02/14/25 09:56 Carvedilol 12.5 Mg Tablet PO 12.5 mg Q12HR DEJUAN Administration Ezetimibe 10 mg 02/11/25 21:00 02/13/25 21:29 Ezetimibe 10 Mg Tablet PO 10 mg HS DEJUAN Administration Enoxaparin Sodium 40 mg 02/12/25 09:00 02/14/25 10:00 Enoxaparin 40 Mg/0.4 Ml Syringe SUB-Q 40 mg DAILY DEJUAN Administration Fenofibrate 145 mg 02/11/25 21:00 02/13/25 21:28 Fenofibrate Nanocrystallized 145 Mg Tablet PO 145 mg HS DEJUAN Administration Fentanyl Citrate 12.5 mcg 02/11/25 15:22 Fentanyl Citrate Inj (*Crx) 100 Mcg/2 Ml Vial IV PUSH Q2H PRN Breakthrough Pain Rated 4-6 or NPO Fentanyl Citrate 25 mcg 02/11/25 15:22 Fentanyl Citrate Inj (*Crx) 100 Mcg/2 Ml Vial IV PUSH Q2H PRN Breakthrough Pain Rated 7-10 or NPO Ibuprofen 800 mg in 200 mls @ 400 mls/hr 02/11/25 15:22 02/12/25 20:23 Caldolor 800 Mg/200 Ml IVPB 400 mls/hr Q6H PRN Administration Breakthrough Pain Rated 1-3 or NPO Ceftriaxone Sodium 1 gm in 50 mls @ 100 mls/hr 02/12/25 09:00 02/14/25 09:59 Rocephin 1 Gm/Ns 50 Ml IVPB 100 mls/hr Q24H DEJUAN Administration Metronidazole 500 mg in 100 mls @ 100 mls/hr 02/11/25 15:40 02/14/25 05:34 Flagyl 500 Mg/Iso Soln 100 Ml IVPB 100 mls/hr Q8HR DEJUAN Administration Ibuprofen 600 mg 02/11/25 15:22 02/13/25 12:16 Ibuprofen 600 Mg Tablet PO 600 mg Q6H PRN Administration Pain Rated 4-6 Lisinopril 5 mg 02/12/25 09:00 02/14/25 09:56 Lisinopril 5 Mg Tablet PO 5 mg DAILY DEJUAN Administration Montelukast Sodium 10 mg 02/12/25 09:00 02/14/25 09:56 Montelukast Sodium 10 Mg Tablet PO 10 mg DAILY DEJUAN Administration Ondansetron HCl 4 mg 02/11/25 15:22 02/14/25 03:27 Ondansetron Inj 4 Mg/2 Ml Vial IV PUSH 4 mg Q4H PRN Administration Nausea And Vomiting Oxycodone/Acetaminophen 1 tablet 02/11/25 15:22 02/13/25 04:58 Oxycodone/Acetaminophen (*Crx) 5-325 Mg Tablet PO 1 tablet Q4H PRN Administration Pain Rated 4-6 Tamsulosin HCl 0.4 mg 02/11/25 21:00 02/13/25 21:30 Tamsulosin Hcl 0.4 Mg Capsule PO Not Given HS [facility] Radiology Results: ITS Impressions Hepatobiliary Scan Nuclear Medicine 02/12/25 13:47 IMPRESSION: 1. Unremarkable postcholecystectomy hepatobiliary scan with no biliary obstruction or bile leak. Labs Labs: Laboratory Results - last 24 hr 02/14/25 06:34 WBC 6.8 RBC 3.71 L Hgb 11.1 L Hct 35.5 L MCV 95.7 MCH 29.9 MCHC 31.3 L RDW 13.3 Plt Count 192 MPV 10.2 Sodium 138 Potassium 3.7 Chloride 106 Carbon Dioxide 27 Anion Gap 5 BUN 9 D Creatinine 0.59 L Estim Creat Clear Calc 71 Estimated GFR > 60 Glucose 124 H Calcium 9.4 Total Bilirubin 0.5 AST 50 H ALT 92 H Alkaline Phosphatase 54 Total Protein 6.0 L Albumin 3.7
--- NOTE | 2025-02-14 13:45 | PM.DS ---
DS: Admitting Diagnosis Discharge Date February 14, 2025 Admitting Diagnosis Chronic cholecystitis secondary to cholelithiasis. Status post laparoscopic cholecystectomy DS: Discharge Diagnosis Discharge Diagnosis (1) Chronic cholecystitis with calculus: Code(s): K80.10 - Calculus of gallbladder with chronic cholecystitis without obstruction Status: Chronic DS: Summary Hospital Course Hospital Course: The patient came in for elective laparoscopic cholecystectomy. She was taken to the operating by Dr. Higgins on February 11, 2025. The laparoscopic cholecystectomy was successful but it was difficult. She was kept postoperatively in the hospital for routine postoperative management. Initially the patient had postoperative pain requiring pain medications. She started on clear liquids and over the course of 48hours was advanced to regular food. She had severe pain at the area the SAURAV drain site which did not show any evidence of bile leak. The drain was removed on postop day 2 and her severe pain at the site resolved. On postop day 3 she was doing well tolerating regular diet and afebrile. Port site incisions are healing well. She was discharged home in improved condition. Status at Discharge Functional status at discharge: independent ambulation Overall status at discharge: patient is progressing back to baseline Time Spent with Patient Time attestation: Total time spent providing and/or coordinating discharge services: Time spent: Less than 30 minutes Exam GI: Other: The abdomen is soft and nondistended. Port sites incisions were healing well. No redness or drainage. Minor expected tenderness around the area the port sites. Drain site dressed and dry. Site is closing by secondary intention. No bleeding or drainage. DS: Data Data Completed and Pending Completed studies during hospitalization: Pending at discharge 02/11/25 10:14 Surgical [PTH] Routine Labs on day of discharge: Labs from last 24 hours 02/14/25 06:34 WBC 6.8 RBC 3.71 L Hgb 11.1 L Hct 35.5 L MCV 95.7 MCH 29.9 MCHC 31.3 L RDW 13.3 Plt Count 192 MPV 10.2 Sodium 138 Potassium 3.7 Chloride 106 Carbon Dioxide 27 Anion Gap 5 BUN 9 D Creatinine 0.59 L Estim Creat Clear Calc 71 Estimated GFR > 60 Glucose 124 H Calcium 9.4 Total Bilirubin 0.5 AST 50 H ALT 92 H Alkaline Phosphatase 54 Total Protein 6.0 L Albumin 3.7 Discharge Plan Discharge Attending physician on discharge: Renan Higgins Discharging Clinician: Srinath Beatty Patient Disposition: Home Activity: may shower, no straining and as tolerated Diet: low fat Wound Care Instructions: keep dressing dry, remove dressing to shower and other - see discharge instructions Discharge Instructions: 1. May shower and wash over all incisions including drain site. Remove dressing to drain site before showering and replaced dressing afterward. Can discontinue dressings to drain site on Sunday, February 17. 2. Call office for: -Wound increasingly painful or bleeding -Vomiting -Fever of greater than 101 degrees 3. Expect some blood on dressing and old blood on skin. 4. If no bowel movement for three days, take 1 oz. (30 ml) Milk of Magnesia, if no results, take Fleets enema. 5. No heavy lifting > 15-20 pounds for 2 weeks. 6. No driving for 3 days or while taking narcotic pain medications. 7. Up walking 10-30 minutes three times per day. 8. Resume previous home medications. 9. Follow-up 10-14 days in office for wound check or as previously scheduled. 10. Oral pain medications prescription to be sent home with patient. Patient Language: Barbadian Stand Alone Forms: General Discharge Instructions Follow-up/Referrals: Renan Higgins MD [Physician] - 2 Weeks (Call Dr. Rice office to make appointment if you do not already have a postoperative appointment.) Discharge Medications: New oxycodone-acetaminophen [Percocet] 5-325 mg tablet 0.5 - 1 tablet PO Q4H PRN (Reason: pain) Qty: 10 0RF amoxicillin-pot clavulanate 875-125 mg tablet 1 tablet PO Q12H Qty: 8 0RF ibuprofen 600 mg tablet 600 mg PO Q6H PRN (Reason: pain) Qty: 14 0RF Continued amlodipine 10 mg tablet 10 mg PO DAILY anastrozole 1 mg tablet 1 mg PO DAILY ascorbic acid (vitamin C) 1,000 mg capsule 1 g PO DAILY ascorbic acid-elderberry fruit 100-50 mg tablet,chewable 100 tablet PO DAILY atorvastatin [Lipitor] 20 mg tablet 20 mg PO DAILY Patient Comments: HS carvedilol 12.5 mg tablet 12.5 mg PO Q12H Rx Instructions: must administer with a meal/food coenzyme Q10 200 mg capsule 200 mg PO DAILY ezetimibe 10 mg tablet 10 mg PO DAILY Patient Comments: HS fenofibrate nanocrystallized 145 mg tablet 145 mg PO DAILY Patient Comments: HS garlic 1,000 mg capsule 1,000 mg PO DAILY [id number] 750-625-30 mg tablet 1 tablet PO BID Rx Instructions: give after food/meal lisinopril 5 mg tablet 5 mg PO DAILY montelukast 10 mg tablet 10 mg PO DAILY tamsulosin 0.4 mg capsule 0.4 mg PO DAILY Patient Comments: HS turmeric root extract 500 mg capsule 500 mg PO DAILY vitamin E 400 unit/15 mL liquid 400 unit PO DAILY Date of admission: 02/12/25 15:26 Primary Care Provider: Mandy,Ava Admitting Provider: Renan Higgins Attending physician on admission: Renan Higgins Condition: Improved
== END 2025-02-14 15:10 | disposition home or self-care (01) ==
LOC: ANHSURGERY 15:30 → ANH3MEDSUR 02-13 11:19
PROVIDERS: Admitting Provider Surgery; PCP Family Medicine; Visit Provider Surgery
PROC: 0FT44ZZ Resection of Gallbladder, Percutaneous Endoscopic Approach (ICD-10-PCS; CPT 47562; principal; 2025-02-11 08:30)
DX: K80.11 Calculus of gallbladder with chronic cholecystitis with obstruction (principal); G89.18 Other acute postprocedural pain; I10 Essential (primary) hypertension; Z85.3 Personal history of malignant neoplasm of breast; Z90.13 Acquired absence of bilateral breasts and nipples; Z79.811 Long term (current) use of aromatase inhibitors
CPT/HCPCS: 47562; 36415; 78226; 80053; 85027; 88304; A9270; A9537; G0378; J0690; J0696; J1100; J1596; J1650; J1741; J1836; J1885; J2003; J2405; J2704; J3010; J7120